=== PATIENT | female | born 1935 | race Caucasian/White ===

== ENCOUNTER → 2017-11-15 12:08 | Outpatient (CLI) | payer MEDICARE, SELFPAY ==
[2017-11-15 14:28] LABS: Hematocrit 36.7 % (37-47); Hemoglobin 11.7 g/dl (12.0-15.0); Mean Corp Hgb Conc 31.9 g/gl (32-36); Mean Corpuscular Hgb 34.4 pg (27.0-32.0); Mean Corpuscular Volume 107.9 fL (81-99); Mean Platelet Vol. 10.8 fl (6.2-12.0); Platelet Count 163 K/mm3 (150-450); RBC Distribution Width SD 50.6 fl (35.1-43.9); White Blood Count 5.5 K/mm3 (4.4-11.0)
[2017-11-15 14:29] LABS: Scan Indicated on CBC? Y/N NO
[2017-11-15 14:31] LABS: Albumin, Serum 3.4 g/dL (3.2-5.0); BUN 38 mg/dL (7-18); BUN/Creat Ratio 28.8 RATIO (10-20); Calcium,Total 8.6 mg/dL (8.5-10.1); Chloride 103 mmol/L (98-107); Creatinine, Serum 1.32 mg/dL (0.55-1.02); EST Glomerular Filtration Rate 41 mL/min (>60); Est Glom Filt Rate - Afr Amer 50 mL/min (>60); Glucose 90 mg/dL (74-106); Phosphorus 3.3 mg/dL (2.5-4.9); Potassium 4.1 mmol/L (3.5-5.1); Sodium Level 139 mmol/L (136-145)
[2017-11-15 14:35] LABS: Protein, Urine (Random) < 6.0 mg/dL (<11.9)
[2017-11-16 09:05] LABS: PTHIN 48.4 pg/mL (18.4-80.1)
[2017-11-16 09:39] LABS: Vitamin D,25 Hydroxy 58.7 ng/mL (29.95-100.01)
== END ==
PROVIDERS: Family Provider Family Medicine; PCP Family Medicine; Visit Provider Internal Medicine Nephrology
DX: N18.3 Chronic kidney disease, stage 3 (moderate) (principal); D63.1 Anemia in chronic kidney disease; N25.81 Secondary hyperparathyroidism of renal origin
CPT/HCPCS: 36415; 80069; 82306; 82570; 83970; 84156; 85027

== ENCOUNTER → 2017-12-03 11:21 | Outpatient (CLI) | payer MEDICARE, SELFPAY ==
[2017-12-03 16:03] LABS: T4 Free Direct 0.95 ng/dL (0.76-1.46); Thyroid Stim Hormone (TSH) 1.15 uIU/mL (0.358-3.74)
== END ==
PROVIDERS: Family Provider Family Medicine; PCP Family Medicine; Visit Provider Family Medicine
DX: R25.2 Cramp and spasm (principal); E03.9 Hypothyroidism, unspecified
CPT/HCPCS: 36415; 83735; 84439; 84443

== ENCOUNTER → 2018-01-14 11:44 | Outpatient (CLI) | payer MEDICARE, SELFPAY ==
--- NOTE | 2018-01-14 11:47 | RAD_ITS ---
STUDY: X-RAY CHEST REASON FOR EXAM: Female, 82 years old. Cough shortness of breath and fever TECHNIQUE: PA and lateral views of the chest. COMPARISON: Previous study of August 18, 2014 FINDINGS: There are chronic interstitial fibrotic changes of the lungs. There is no demonstrated pleural abnormality. The heart size is within normal limits. Status post cardiac valvular replacement changes are seen. Normal mediastinum and woody. Normal visualized pulmonary arteries. There are calcified plaques of the aortic arch. There is demineralization of the osseous structures. There is old mild compression deformity of the inferior aspects of one of the lower thoracic vertebrae. Normal visualized ribs, clavicles, and shoulders. There is no demonstrated abnormality of the visualized soft tissue structures of the upper abdomen. RAD/Chest PA and Lateral IMPRESSION: Status post cardiac valvular replacement changes. Calcified plaques of the aortic arch. No acute cardiopulmonary disease process is seen. Electronically Signed: Pradeep Love MD at 23:54 EDT , Service support ,
== END ==
PROVIDERS: Family Provider Family Medicine; PCP Family Medicine; Visit Provider Family Medicine
DX: J18.9 Pneumonia, unspecified organism (principal)
CPT/HCPCS: 71046

== ENCOUNTER → 2018-03-18 11:57 | Outpatient (CLI) | payer MEDICARE, SELFPAY ==
[2018-03-18 12:11] LABS: Hematocrit 38.2 % (37-47); Hemoglobin 12.4 g/dl (12.0-15.0); Mean Corp Hgb Conc 32.5 g/gl (32-36); Mean Corpuscular Hgb 34.3 pg (27.0-32.0); Mean Corpuscular Volume 105.5 fL (81-99); Mean Platelet Vol. 10.6 fl (6.2-12.0); Platelet Count 167 K/mm3 (150-450); RBC Distribution Width CV 13.3 % (11.6-14.6); RBC Distribution Width SD 50.3 fl (35.1-43.9); Red Blood Count 3.62 M/mm3 (4.2-5.4); White Blood Count 5.1 K/mm3 (4.4-11.0)
[2018-03-18 12:16] LABS: Scan Indicated on CBC? Y/N NO
[2018-03-18 12:18] LABS: Anion Gap 9 (5-15); BUN 40 mg/dL (7-18); BUN/Creat Ratio 27.4 RATIO (10-20); Calcium,Total 9.3 mg/dL (8.5-10.1); Chloride 102 mmol/L (98-107); Cholesterol 143 mg/dL (200); Creatinine, Serum 1.46 mg/dL (0.55-1.02); EST Glomerular Filtration Rate 36 mL/min (>60); Est Glom Filt Rate - Afr Amer 44 mL/min (>60); Glucose 89 mg/dL (74-106); High Density Lipoprotein 54 mg/dL; Potassium 4.3 mmol/L (3.5-5.1); Sodium Level 143 mmol/L (136-145); Triglycerides 119 mg/dL; Very Low Density Lipoprotein 24 mg/dL (5-40)
== END ==
PROVIDERS: Family Provider Family Medicine; PCP Family Medicine; Visit Provider Internal Medicine Cardiovascular Disease
DX: I25.10 Atherosclerotic heart disease of native coronary artery without angina pectoris (principal); Z98.890 Other specified postprocedural states
CPT/HCPCS: 80048; 80061; 85027

== ENCOUNTER → 2018-03-29 16:58 | Outpatient (CLI) | payer MEDICARE, SELFPAY ==
--- NOTE | 2018-03-29 17:11 | RAD_ITS ---
STUDY: X-RAY CHEST REASON FOR EXAM: Female, 83 years old. Cough. Status post mitral valve replacement in 2011 TECHNIQUE: 2 views COMPARISON: Prior chest radiograph of January 14, 2018. FINDINGS: Lung reina remain moderately well expanded with stable interstitial changes primarily in the mid and lower lung zones without new consolidation, focal atelectasis or a substantial pleural effusion. There is no demonstrated pleural abnormality. Normal cardiac size status post prior midline sternotomy for mitral valve replacement Normal mediastinum and woody. Normal visualized pulmonary arteries. There is atherosclerotic calcification of the aortic arch with tortuosity. There is demineralization of the osseous structures. Normal visualized ribs, clavicles, and shoulders. There is no demonstrated abnormality of the visualized soft tissue structures of the upper abdomen. RAD/Chest PA and Lateral IMPRESSION: No acute cardiopulmonary findings or changes. Negative for new consolidation, focal atelectasis, cardiomegaly or pleural effusion. Stable chronic lung changes. Normal cardiac size status post midline sternotomy for mitral valve replacement. Electronically Signed: Nabila Avila MD at 17:33 EDT , Service support ,
== END ==
PROVIDERS: Family Provider Family Medicine; PCP Family Medicine; Visit Provider Physician Assistant Medical
DX: R05 Cough (principal)
CPT/HCPCS: 71046

== ENCOUNTER → 2018-04-15 09:10 | Outpatient (CLI) | payer MEDICARE, SELFPAY ==
[2018-04-15 13:35] LABS: Anion Gap 10 (5-15); BUN 40 mg/dL (7-18); BUN/Creat Ratio 28.6 RATIO (10-20); Calcium,Total 8.8 mg/dL (8.5-10.1); Chloride 105 mmol/L (98-107); EST Glomerular Filtration Rate 38 mL/min (>60); Est Glom Filt Rate - Afr Amer 46 mL/min (>60); Glucose 88 mg/dL (74-106); Magnesium 2.2 mg/dL (1.6-2.6); Potassium 4.4 mmol/L (3.5-5.1); Sodium Level 143 mmol/L (136-145); Thyroid Stim Hormone (TSH) 1.95 uIU/mL (0.358-3.74)
== END ==
PROVIDERS: Family Provider Family Medicine; PCP Family Medicine; Visit Provider Internal Medicine Cardiovascular Disease
DX: R00.1 Bradycardia, unspecified (principal); I10 Essential (primary) hypertension
CPT/HCPCS: 80048; 83735; 84443

== ENCOUNTER → 2018-05-03 11:33 | Outpatient (CLI) | payer MEDICARE, SELFPAY | PROVIDERS: Family Provider Family Medicine; PCP Family Medicine; Visit Provider Physician Assistant Medical | DX: R05 Cough (principal) | CPT/HCPCS: 71046 ==

== ENCOUNTER → 2018-05-17 09:42 | Outpatient (CLI) | payer MEDICARE, SELFPAY ==
[2018-05-17 11:57] LABS: Hematocrit 37.6 % (37-47); Mean Corp Hgb Conc 31.9 g/gl (32-36); Mean Corpuscular Volume 106.5 fL (81-99); Mean Platelet Vol. 10.8 fl (6.2-12.0); Platelet Count 155 K/mm3 (150-450); RBC Distribution Width SD 49.3 fl (35.1-43.9); Red Blood Count 3.53 M/mm3 (4.2-5.4); White Blood Count 5.4 K/mm3 (4.4-11.0)
[2018-05-17 11:59] LABS: Scan Indicated on CBC? Y/N NO
[2018-05-17 12:14] LABS: Albumin, Serum 3.5 g/dL (3.2-5.0); BUN 38 mg/dL (7-18); BUN/Creat Ratio 25.5 RATIO (10-20); Chloride 104 mmol/L (98-107); Creatinine, Serum 1.49 mg/dL (0.55-1.02); EST Glomerular Filtration Rate 36 mL/min (>60); Est Glom Filt Rate - Afr Amer 43 mL/min (>60); Glucose 83 mg/dL (74-106); Phosphorus 2.7 mg/dL (2.5-4.9); Sodium Level 141 mmol/L (136-145)
[2018-05-17 12:15] LABS: Vitamin D,25 Hydroxy 37.9 ng/mL (29.95-100.01)
[2018-05-17 12:16] LABS: PTHIN 52.7 pg/mL (18.4-80.1)
[2018-05-17 13:56] LABS: Microalbumin,Random Urine < 5.0 mg/L (NO RANGE EST.)
== END ==
PROVIDERS: Family Provider Family Medicine; PCP Family Medicine; Visit Provider Internal Medicine Nephrology
DX: N18.3 Chronic kidney disease, stage 3 (moderate) (principal); D63.1 Anemia in chronic kidney disease; N25.81 Secondary hyperparathyroidism of renal origin
CPT/HCPCS: 36415; 80069; 82043; 82306; 82570; 83970; 84156; 85027

== ENCOUNTER → 2018-05-22 13:07 | Outpatient (CLI) | payer MEDICARE, SELFPAY ==
--- NOTE | 2018-05-22 13:10 | RAD_ITS ---
STUDY: X-RAY - LUMBAR SPINE REASON FOR EXAM: Female, 83 years old. Lower back pain for years. History of surgery. TECHNIQUE: 3 view(s) of the lumbar spine were obtained. COMPARISON: MRI of the lumbar spine, August 13, 2015. FINDINGS: There is an exaggerated lumbar lordosis. There is scoliosis of the thoracolumbar spine. There is anterolisthesis of L3 on L4 or of 4 mm. There is anterolisthesis of L4 on L5 of 3 mm. The alignment appears otherwise preserved. There is diffuse demineralization with multi-level endplate spondylosis. There is multi-level degenerative disc disease with multi-level disc space narrowing. There is posterior fusion of L5-S1. There is no evidence of acute fracture or loss of vertebral axial height. There is deformity of the inferior endplate of T12 consistent with remote compression deformity There is atherosclerotic calcification of the abdominal aorta without a demonstrated aneurysm. RAD/Lumbar Spine 2 or 3 Views IMPRESSION: 1. Surgical fusion of L5-S1 unchanged from prior study. 2. Stable degenerative changes when compared to previous examination. Electronically Signed: Judson Stack DO at 9:17 EDT Tel [phone], Service support ,
== END ==
PROVIDERS: Family Provider Family Medicine; PCP Family Medicine; Referring Provider Anesthesiology Pain Medicine; Visit Provider Anesthesiology Pain Medicine
DX: M54.9 Dorsalgia, unspecified (principal)
CPT/HCPCS: 72100

== ENCOUNTER → 2018-10-03 14:42 | Outpatient (CLI) | payer MEDICARE, SELFPAY ==
[2018-09-26 13:11] VITALS: BMI 32.1
--- NOTE | 2018-10-03 14:46 | CT_ITS ---
STUDY: CT CHEST WITHOUT CONTRAST REASON FOR EXAM: Female, 83 years old. Cough for 3 months RADIATION DOSAGE (If Supplied By Facility): CTDIvol = ( 12.68 ) mGy, DLP = ( 336.80 ) mGycm TECHNIQUE: Transaxial imaging was performed without the administration of intravenous contrast material. Multiplanar coronal and sagittal images were reformatted. Individualized dose optimization techniques were used for this CT. COMPARISON: None. FINDINGS: The lungs are underexpanded. Moderate subpleural reticular densities involving the upper, mid and lower lung zones. There is moderate, central, cylindrical bronchiectasis involving multiple pulmonary lobes. No localized groundglass opacity, airspace consolidation or pulmonary nodule. No jose honeycombing identified. There is no demonstrated pleural abnormality. Sternal wires and prostatic mitral valve demonstrated. Normal mediastinum. Normal hilar regions. Normal unenhanced pulmonary arteries. There is atherosclerotic calcification of the aortic arch with tortuosity and elongation of the aortic arch and descending thoracic aorta. There are multi-level degenerative changes of the thoracic spine. There is a small hiatal hernia. The adrenal glands are not focally enlarged. CT/Chest without Contrast IMPRESSION: 1. No airspace consolidation or pleural effusion. 2. Moderate subpleural fibrosis with bronchiectasis. Differential considerations favor idiopathic nonspecific interstitial pneumonia (fibrosing), hypersensitivity pneumonitis or drug induced interstitial lung disease. UIP considered less likely given lack of honeycombing. Electronically Signed: Charan Hernandez MD at 20:28 EST , Service support ,
== END ==
PROVIDERS: Family Provider Family Medicine; PCP Family Medicine; Referring Provider Internal Medicine Critical Care Medicine; Visit Provider Internal Medicine Critical Care Medicine
DX: J84.9 Interstitial pulmonary disease, unspecified (principal)
CPT/HCPCS: 71250

== ENCOUNTER → 2018-10-31 10:44 | Outpatient (CLI) | payer MEDICARE, SELFPAY ==
[2018-09-26 13:11] VITALS: BMI 32.1
--- NOTE | 2018-11-01 11:46 | PFT ---
INTRODUCTION: The patient is an 83-year-old female that presents for pulmonary function studies secondary to a diagnosis of interstitial pulmonary disease. Respiratory therapy reports good patient effort. Bronchodilators were used during testing. INTERPRETATION: Forced expiration spirometry demonstrates no evidence of a large airways obstructive ventilatory defect. There was no significant response to aerosolized bronchodilators. Spirograms are of good quality and plateau normally. Body plethysmography was performed and reveals a decreased TLC to 3.15 L, 73% of predicted, indicative of a mild restrictive ventilatory impairment. The remainder of the lung volumes are symmetrically reduced. Diffusing capacity by single breath CO is reduced at 46% of predicted. IMPRESSION: These pulmonary function studies demonstrate the presence of a mild restrictive ventilatory impairment with a disproportionate reduction in diffusing capacity. There are no previous pulmonary function studies available for comparison.
== END ==
PROVIDERS: Family Provider Family Medicine; PCP Family Medicine; Referring Provider Internal Medicine Critical Care Medicine; Visit Provider Internal Medicine Critical Care Medicine
DX: J84.9 Interstitial pulmonary disease, unspecified (principal)
CPT/HCPCS: 94060; 94726; 94729

== ENCOUNTER → 2018-11-05 10:44 | Outpatient (CLI) | payer MEDICARE, SELFPAY ==
[2018-09-26 13:11] VITALS: BMI 32.1
[2018-11-05 11:18] VITALS: PULSE 103; PULSE 104; PULSE 106; PULSE 110; PULSE 112; PULSE 69; PULSE 72; O2SAT 91; O2SAT 92; O2SAT 93; O2SAT 94; O2SAT 95
--- NOTE | 2018-11-05 11:23 | CPS ---
MRS[address] L[address] RESTED FROM 205 TO 220 AND AGAIN FROM 315 TO 330.
--- NOTE | 2018-11-06 09:55 | PCM.PSN.6M ---
PSN 6 Minute Walk Test - 6 Minute Walk Test 6 Minute Walk Test: 6 Minute Walk Test PSN:6-Minute Walk Test Start: 11/05/18 11:18 Freq: Status: Active Protocol: [id number].6MINW Document 11/05/18 11:18 FR (Rec: 11/05/18 11:25 FR [id number]) 6 Minute Walk Test Date Performed 11/05/18 Time Performed 11:00 Height 5 ft 2 in Weight: 165 lb Weight in Pounds 165.[address]: Hira Michel Assistive device used: Cane Pre-test Oxygen Delivery Method Room Air Pulse Ox (%) 95 Pulse Rate (60-100 beats/min) 69 Dyspnea Ed Scale (0-10) 0 Exertion Ed Scale (6-20) 6 1st minute Oxygen Delivery Method Room Air Pulse Ox (%) 94 Pulse Rate (60-100 beats/min) 72 2nd minute Oxygen Delivery Method Room Air Pulse Ox (%) 91 Pulse Rate (60-100 beats/min) 106 H Number of Rests Taken 1 3rd minute Oxygen Delivery Method Room Air Pulse Ox (%) 91 Pulse Rate (60-100 beats/min) 103 H Number of Rests Taken 1 4th minute Oxygen Delivery Method Room Air Pulse Ox (%) 93 Pulse Rate (60-100 beats/min) 110 H 5th minute Oxygen Delivery Method Room Air Pulse Ox (%) 92 Pulse Rate (60-100 beats/min) 112 H 6th minute Oxygen Delivery Method Room Air Pulse Ox (%) 94 Pulse Rate (60-100 beats/min) 104 H Post-test Oxygen Delivery Method Room Air Pulse Ox (%) 95 Pulse Rate (60-100 beats/min) 69 Dyspnea Ed Scale (0-10) 0 Exertion Ed Scale (6-20) 6 Full Laps Walked 10 Partial Lap, Number of Tiles Walked 25 Total Distance Walked (ft) 615 11/05/18 11:23 Cardiopulmonary Services by Diana Shepard MRS[address] L[address] RESTED FROM [address] TO 220 AND AGAIN FROM 315 TO 330. Initialized on 11/05/18 11:23 - END OF NOTE - Interpretation Interpretation: The patient ambulated 615 feet over the course of 6 minutes beginning on room air with the use of a cane. Pretesting oxygen saturation was noted to be 95% on room air. With ambulation, the bandar oxygen saturation was 91%. This represents a significant exertional oxygen desaturation. - Recommendations Recommendations: There is no indication for the use of supplemental oxygen at this time. However, close interval follow-up is recommended, given the degree of oxygen desaturation noted during this study.
== END ==
PROVIDERS: Family Provider Family Medicine; PCP Family Medicine; Referring Provider Internal Medicine Critical Care Medicine; Visit Provider Internal Medicine Critical Care Medicine
DX: J84.9 Interstitial pulmonary disease, unspecified (principal)
CPT/HCPCS: 94618

== ENCOUNTER → 2018-11-12 15:13 | Outpatient (CLI) | payer MEDICARE, SELFPAY ==
[2018-09-26 13:11] VITALS: BMI 32.1
--- NOTE | 2018-11-12 15:19 | RAD_ITS ---
STUDY: X-RAY - LEFT HIP and pelvis x-ray REASON FOR EXAM: Female, 83 years old. Pain TECHNIQUE: 2 views of the hip. An pelvis x-ray COMPARISON: None. FINDINGS: There is visualized spinal fusion L5-S1. There has been a laminectomy. There is degenerative change in the lower lumbar spine. There is degenerative change in the visualized symphysis pubis. There is mild degenerative change of both hip joints. There is minimal acetabular spurring. There is no apparent acute fracture. There is a sclerotic density in the left greater trochanter with well-circumscribed borders measuring 7 mm. Normal visualized superior and inferior pubic rami and ischial tuberosities. RAD/HIP, UNI W/ Pelvis 2-3 Views IMPRESSION: Degenerative change of the bilateral hip joints. No visualized acute fracture. Status post spinal fusion degenerative change lumbar spine. Electronically Signed: Jacklyn Ramos MD at 15:59 EDT Tel , Service support ,
--- NOTE | 2018-11-12 15:20 | RAD_ITS ---
STUDY: X-RAY - SACROILIAC JOINTS REASON FOR EXAM: Female, 83 years old. Pain TECHNIQUE: 3 view(s) of the sacroiliac joints were obtained. COMPARISON: None. FINDINGS: There are degenerative changes of the bilateral sacroiliac joints. Normal visualized sacral ala and sacrum. There is been a laminectomy at L5-S1. There is dextroscoliosis of the lumbar spine. There is visualized degenerative change of the bilateral hip joints. Normal visualized iliac bones. Normal visualized soft tissue structures. RAD/S-I Jts 3 or More Views IMPRESSION: Status post spinal fusion L5-S1 laminectomy. Degenerative change of the SI joints. If pain persists recommend CT scan pelvis. Electronically Signed: Jacklyn Ramos MD at 16:01 EDT Tel , Service support ,
== END ==
PROVIDERS: Family Provider Family Medicine; PCP Family Medicine; Referring Provider Family Medicine; Visit Provider Family Medicine
DX: M54.5 Low back pain (principal); M25.552 Pain in left hip
CPT/HCPCS: 72202; 73502

== ENCOUNTER → 2018-11-19 09:50 | Outpatient (CLI) | payer MEDICARE, SELFPAY ==
[2018-11-19 09:03] VITALS: BMI 30.9
[2018-11-19 10:17] LABS: Erythrocyte Sedimentation Rate 33 mm/hr (0-30)
[2018-11-19 10:46] LABS: CRP 6.45 mg/L (0.0-3.0); Rheumatoid Factor < 10.0 IU/mL (<15)
[2018-11-19 17:58] LABS: Xtra Tube EP Lab EXTRA TUBE
[2018-11-22 13:51] LABS: CCP IgG Antibodies 3 units (0-19)
== END ==
PROVIDERS: Family Provider Family Medicine; PCP Family Medicine; Referring Provider Internal Medicine Critical Care Medicine; Visit Provider Internal Medicine Critical Care Medicine
DX: J84.9 Interstitial pulmonary disease, unspecified (principal)
CPT/HCPCS: 36415; 85652; 86140; 86200; 86431; 94667

== ENCOUNTER → 2018-11-26 16:21 | Outpatient (CLI) | payer MEDICARE, SELFPAY ==
[2018-11-19 09:03] VITALS: BMI 30.9
[2018-11-26 17:38] LABS: Amphetamine Urine VISTA NEGATIVE (<1000 ng/mL); Barbiturate Urine VISTA NEGATIVE (< 200 ng/mL); Benzodiazepine Urine VISTA NEGATIVE (< 200 ng/mL); Cocaine Urine VISTA NEGATIVE (< 300 ng/mL); Ecstacy Urine VISTA NEGATIVE (< 500 ng/mL); Methadone Urine VISTA NEGATIVE (< 300 ng/mL); PCP Urine VISTA NEGATIVE (< 25 ng/mL); THC Urine VISTA NEGATIVE (< 50 ng/mL); Vista UDS pH Range 6
== END ==
PROVIDERS: Family Provider Family Medicine; PCP Family Medicine; Referring Provider Anesthesiology Pain Medicine; Visit Provider Anesthesiology Pain Medicine
DX: F11.20 Opioid dependence, uncomplicated (principal)
CPT/HCPCS: 80307

== ENCOUNTER → 2018-12-06 15:50 | Outpatient (CLI) | payer MEDICARE, SELFPAY ==
[2018-11-19 09:03] VITALS: BMI 30.9
[2018-12-06 17:25] LABS: Hematocrit 37.9 % (37-47); Hemoglobin 12.4 g/dl (12.0-15.0); Mean Corp Hgb Conc 32.7 g/gl (32-36); Mean Corpuscular Hgb 33.4 pg (27.0-32.0); Mean Corpuscular Volume 102.2 fL (81-99); Platelet Count 117 K/mm3 (150-450); RBC Distribution Width CV 13.3 % (11.6-14.6); RBC Distribution Width SD 48.8 fl (35.1-43.9); Red Blood Count 3.71 M/mm3 (4.2-5.4); White Blood Count 9.2 K/mm3 (4.4-11.0)
[2018-12-06 17:27] LABS: Scan Indicated on CBC? Y/N NO
[2018-12-06 17:31] LABS: Prothrombin Time (Protime)PT. 13.3 SECONDS (11.7-14.9)
== END ==
PROVIDERS: Family Provider Family Medicine; PCP Family Medicine; Referring Provider Internal Medicine Cardiovascular Disease; Visit Provider Internal Medicine Cardiovascular Disease
DX: I25.10 Atherosclerotic heart disease of native coronary artery without angina pectoris (principal)
CPT/HCPCS: 85027; 85610

== ENCOUNTER → 2018-12-24 | Outpatient (CLI) | payer MEDICARE, SELFPAY ==
[2018-11-19 09:03] VITALS: BMI 30.9
--- NOTE | 2018-12-24 12:02 | RAD_ITS ---
STUDY: X-RAY - LUMBAR SPINE REASON FOR EXAM: Female, 83 years old. 2011 laminectomy and fusion, follow-up. TECHNIQUE: 4 view(s) of the lumbar spine were obtained. COMPARISON: None FINDINGS: Osteopenia. S-shaped scoliosis of the lumbar spine. L5-S1 posterior jamal and pedicle screw fixation, surgical construct intact. Preserved lordosis. Normal vertebral body height and alignment. Moderately severe disc narrowing, multilevel disc vacuum changes, endplate degenerative changes involving T12-L5. Multilevel facet arthropathy/hypertrophy. Prominent osteopenia. RAD/Lumbar Spine 2 or 3 Views IMPRESSION: L5-S1 surgical construct intact. Scoliosis. Prominent multilevel spondylosis. Electronically Signed: Rigoberto Nascimento MD at 18:09 EDT Tel , Service support ,
== END | disposition home or self-care (01) ==
LOC: RAD 11:38
PROVIDERS: Family Provider Family Medicine; PCP Family Medicine; Referring Provider Anesthesiology Pain Medicine; Visit Provider Anesthesiology Pain Medicine
DX: M41.9 Scoliosis, unspecified (principal); W19.XXXA Unspecified fall, initial encounter; Z98.1 Arthrodesis status
CPT/HCPCS: 72100

== ENCOUNTER → 2019-01-21 | Outpatient (CLI) | payer MEDICARE, SELFPAY ==
[2018-11-19 09:03] VITALS: BMI 30.9
[2019-01-21 14:17] LABS: Hematocrit 36.2 % (37-47); Hemoglobin 11.5 g/dl (12.0-15.0); Mean Corp Hgb Conc 31.8 g/gl (32-36); Mean Corpuscular Hgb 33.3 pg (27.0-32.0); Mean Corpuscular Volume 104.9 fL (81-99); Mean Platelet Vol. 10.1 fl (6.2-12.0); Platelet Count 173 K/mm3 (150-450); RBC Distribution Width CV 14.8 % (11.6-14.6); RBC Distribution Width SD 56.6 fl (35.1-43.9); Red Blood Count 3.45 M/mm3 (4.2-5.4); White Blood Count 7.2 K/mm3 (4.4-11.0)
[2019-01-21 14:21] LABS: Scan Indicated on CBC? Y/N NO
[2019-01-21 14:24] LABS: Protein, Urine (Random) < 6.0 mg/dL (<11.9)
[2019-01-21 14:27] LABS: Albumin, Serum 3.3 g/dL (3.2-5.0); BUN 28 mg/dL (7-18); BUN/Creat Ratio 21.7 RATIO (10-20); Calcium,Total 8.8 mg/dL (8.5-10.1); Chloride 103 mmol/L (98-107); Creatinine, Serum 1.29 mg/dL (0.55-1.02); EST Glomerular Filtration Rate 42 mL/min (>60); Est Glom Filt Rate - Afr Amer 51 mL/min (>60); Glucose 88 mg/dL (74-106); Phosphorus 2.7 mg/dL (2.5-4.9); Potassium 4.3 mmol/L (3.5-5.1); Sodium Level 142 mmol/L (136-145); Thyroid Stim Hormone (TSH) 1.08 uIU/mL (0.358-3.74)
[2019-01-21 14:29] LABS: PTHIN 75.5 pg/mL (18.4-80.1); Vitamin D,25 Hydroxy 45.6 ng/mL (29.95-100.01)
== END | disposition home or self-care (01) ==
LOC: MTLAB 12:02
PROVIDERS: Family Provider Family Medicine; PCP Family Medicine; Referring Provider Family Medicine; Visit Provider Family Medicine
DX: N18.3 Chronic kidney disease, stage 3 (moderate) (principal); D63.1 Anemia in chronic kidney disease; N25.81 Secondary hyperparathyroidism of renal origin; E03.9 Hypothyroidism, unspecified
CPT/HCPCS: 36415; 80069; 82306; 82570; 83970; 84156; 84443; 85027

== ENCOUNTER → 2019-03-25 | Outpatient (CLI) | payer MEDICARE, SELFPAY ==
[2019-02-20 11:07] VITALS: BMI 28.9
== END | disposition home or self-care (01) ==
LOC: BFHLAB 16:55
PROVIDERS: Family Provider Family Medicine; PCP Family Medicine; Visit Provider Family Medicine
DX: N30.00 Acute cystitis without hematuria (principal)
CPT/HCPCS: 87086; 87088; 87186

== ENCOUNTER → 2019-03-27 | Outpatient (CLI) | payer MEDICARE, SELFPAY ==
[2019-02-20 11:07] VITALS: BMI 28.9
--- NOTE | 2019-03-27 14:24 | RAD_ITS ---
STUDY: X-RAY - LUMBAR SPINE REASON FOR EXAM: Female, 84 years old. Low back pain TECHNIQUE: 5 view(s) of the lumbar spine were obtained. COMPARISON: 12/24/2018 FINDINGS: Normal lumbar lordosis. S-shaped scoliosis with levoscoliosis of the upper lumbar spine and dextroscoliosis lower lumbar spine. Status post transpedicular fixation at L5/S1 with anatomic alignment. 5 mm of anterolisthesis of L3 on L4 which is unchanged. Moderate loss of height of the L2 vertebral body consistent with a chronic compression fracture which is unchanged. Diffuse disc space narrowing and osteophyte formation consistent with degenerative disc disease. The soft tissue structures are unremarkable. RAD/L/S Spine Min 4 Views IMPRESSION: No change from 12/24/2018. Electronically Signed: Rigoberto Mitchell MD at 16:08 EDT Tel , Service support ,
== END | disposition home or self-care (01) ==
LOC: HPRAD 14:22
PROVIDERS: Family Provider Family Medicine; PCP Family Medicine; Referring Provider Family Medicine; Visit Provider Family Medicine
DX: M54.5 Low back pain (principal)
CPT/HCPCS: 72110

== ENCOUNTER → 2019-04-23 | Outpatient (CLI) | payer MEDICARE, SELFPAY ==
[2019-02-20 11:07] VITALS: BMI 28.9
[2019-04-23 12:32] LABS: Erythrocyte Sedimentation Rate 38 mm/hr (0-30)
[2019-04-23 12:53] LABS: CRP 5.89 mg/L (0.0-3.0); Rheumatoid Factor < 10.0 IU/mL (<15)
[2019-04-25 13:05] LABS: CCP IgG Antibodies 7 units (0-19)
== END | disposition home or self-care (01) ==
LOC: BFHLAB 10:11
PROVIDERS: Family Provider Family Medicine; PCP Family Medicine; Visit Provider Family Medicine
DX: M06.4 Inflammatory polyarthropathy (principal); M35.3 Polymyalgia rheumatica
CPT/HCPCS: 36415; 85652; 86140; 86200; 86431

== ENCOUNTER → 2019-05-20 09:30 | Outpatient (CLI) | payer MEDICARE, SELFPAY ==
[2019-05-13 10:41] VITALS: BMI 29.6
--- NOTE | 2019-05-20 09:32 | RAD_ITS ---
STUDY: X-RAY CHEST REASON FOR EXAM: Female, 84 years old. Fever and chills TECHNIQUE: PA and 2 lateral views of the chest. COMPARISON: 05/03/2018 FINDINGS: The lungs are underexpanded with chronic interstitial changes. There is no demonstrated pleural abnormality. Sternal cerclage wires are present from a prior sternotomy, and valve replacement. Normal mediastinum and woody. Normal visualized pulmonary arteries. Normal visualized aortic arch and descending thoracic aorta. Normal visualized thoracic spine. Normal visualized ribs, clavicles, and shoulders. There is no demonstrated abnormality of the visualized soft tissue structures of the upper abdomen. RAD/Chest PA and Lateral IMPRESSION: Chronic interstitial changes, no superimposed acute pulmonary process Electronically Signed: Tobi Thompson MD at 16:57 EDT , Service support ,
== END ==
PROVIDERS: Family Provider Family Medicine; PCP Family Medicine; Referring Provider Family Medicine; Visit Provider Family Medicine
DX: J84.9 Interstitial pulmonary disease, unspecified (principal)
CPT/HCPCS: 71046

== ENCOUNTER → 2019-05-28 15:22 | Outpatient (CLI) | payer MEDICARE, SELFPAY ==
[2019-05-13 10:41] VITALS: BMI 29.6
== END ==
PROVIDERS: Family Provider Family Medicine; PCP Family Medicine; Visit Provider Family Medicine
DX: R10.2 Pelvic and perineal pain (principal); M54.9 Dorsalgia, unspecified
CPT/HCPCS: 87086; 87088

== ENCOUNTER → 2019-06-18 13:51 | Outpatient (CLI) | payer MEDICARE, SELFPAY ==
[2019-06-18 12:32] VITALS: BMI 29.2
[2019-06-18 16:21] LABS: BNP,B-Type NATRIURETIC PEPTIDE 169.8 pg/mL (0-100)
== END ==
PROVIDERS: Family Provider Family Medicine; PCP Family Medicine; Referring Provider Internal Medicine Cardiovascular Disease; Visit Provider Internal Medicine Cardiovascular Disease
DX: I50.32 Chronic diastolic (congestive) heart failure (principal)
CPT/HCPCS: 36415; 83880

== ENCOUNTER → 2019-06-30 14:32 | Outpatient (CLI) | payer MEDICARE, SELFPAY ==
[2019-06-18 12:32] VITALS: BMI 29.2
[2019-06-30 17:30] LABS: Absolute Lymphocyte Count 0.93 X10^3/uL (0.83-4.51); Basophil# 0.04 X10^3/uL; Basophil% 0.5 % (0-1); Eosinophil# 0.07 X10^3/uL; Eosinophils% 0.9 % (0-5); Hematocrit 35.3 % (37-47); Hemoglobin 11.2 g/dL (12.0-15.0); Lymphocyte # 0.93 X10^3/ul (4.0); Mean Corp Hgb Conc 31.7 g/dL (32-36); Mean Corpuscular Volume 107.3 fL (81-99); Mean Platelet Vol. 10.6 fl (6.2-12.0); Monocyte# 0.65 X10^3/uL; Monocyte% 8.4 % (0-10); NRBC Flagged by Analyzer 0 % (0-5); Neutrophil # 5.98 X10^3/uL (2.7-7.7); Neutrophil % 77.3 % (47-70); Platelet Count 149 K/mm3 (150-450); RBC Distribution Width CV 15.6 % (11.6-14.6); RBC Distribution Width SD 62.3 fl (35.1-43.9); Red Blood Count 3.29 M/mm3 (4.2-5.4); White Blood Count 7.7 K/mm3 (4.4-11.0)
[2019-06-30 17:33] LABS: AST(SGOT) 28 U/L (15-37); Alanine Aminotransfer ALT/SGPT 25 U/L (13-56); Anion Gap 11 (5-15); BUN 58 mg/dL (7-18); BUN/Creat Ratio 23.7 RATIO (10-20); Calcium,Total 8.9 mg/dL (8.5-10.1); Chloride 100 mmol/L (98-107); Creatinine, Serum 2.45 mg/dL (0.55-1.02); EST Glomerular Filtration Rate 20 mL/min (>60); Est Glom Filt Rate - Afr Amer 24 mL/min (>60); Glucose 117 mg/dL (74-106); Lipase 188 U/L (73-393); Magnesium 2.5 mg/dL (1.6-2.6); Potassium 4.5 mmol/L (3.5-5.1); Sodium Level 136 mmol/L (136-145)
== END ==
PROVIDERS: Family Provider Family Medicine; PCP Family Medicine; Visit Provider Family Medicine
DX: R10.2 Pelvic and perineal pain (principal); R19.7 Diarrhea, unspecified; I48.91 Unspecified atrial fibrillation
CPT/HCPCS: 36415; 80048; 83690; 83735; 84450; 84460; 85025

== ENCOUNTER → 2019-07-02 13:29 | Outpatient (CLI) | payer MEDICARE, SELFPAY ==
[2019-06-18 12:32] VITALS: BMI 29.2
--- NOTE | 2019-07-02 13:31 | ECHOD_ITS ---
Reason For Study: ATRIAL FIB-FLUTTER Procedure This was a 2D Doppler, Color Flow transthoracic echocardiogram. Exam performed in department. Left Ventricle Normal LV size. Left ventricular systolic function is normal. The estimated ejection fraction is 65 %. No regional wall motion abnormalities noted. Right Ventricle Normal RV size. Normal systolic function. Atria The left atrium is mildly enlarged. The right atrium is mildly enlarged. Mitral Valve Mild (1+) mitral valve insufficiency. Bioprosthetic mitral valve. Tricuspid Valve Normal tricuspid valve. Mild tricuspid valve insufficiency. Aortic Valve Trisinus/trileaflet aortic valve. Mild focal aortic valve calcification. Mild (1+) eccentric aortic valve insufficiency. Pulmonic Valve The pulmonic valve is not well visualized. Great Vessels Calcified aortic root. The pulmonary artery is normal size. Normal inferior vena cava. Pericardium/Pleural No pericardial effusion. MMode/2D Measurements & Calculations LVIDd: 3.7 cm IVSd: 0.90 cm Ao root diam: 3.1 cm LVIDs: 2.8 cm LVPWd: 1.0 cm RVDd: 3.0 cm FS: 23.6 % LAV(MOD-bp): 73.3 ml LVAd ap4: 19.2 cm2 SV(MOD-sp4): 22.6 ml LAV(MOD-bp) Indexed: 42.1 ml/m2 EDV(MOD-sp4): 41.4 ml LAV(MOD-sp2): 78.5 ml EDV(sp4-el): 42.4 ml LAV(MOD-sp4): 67.5 ml LVAs ap4: 11.3 cm2 ESV(MOD-sp4): 18.8 ml ESV(sp4-el): 18.7 ml EF(MOD-sp4): 54.6 % EF(sp4-el): 55.9 % SV(sp4-el): 23.7 ml LA A4 area: 23.3 cm2 LA dimension(2D): 4.0 cm RA A4 area: 22.4 cm2 Doppler Measurements & Calculations MV E max janeen: 115.4 cm/sec MV P1/2t max janeen: 143.4 cm/sec Ao V2 max: 143.8 cm/sec MV P1/2t: 77.1 msec Ao max P.3 mmHg MV dec slope: 544.7 cm/sec2 MVA(P1/2t): 2.9 cm2 LV V1 max: 111.0 cm/sec PA V2 max: 69.4 cm/sec TR max janeen: 229.7 cm/sec LV V1 max P.0 mmHg TR max P.1 mmHg Interpretation Summary Normal LV size. Left ventricular systolic function is normal. The estimated ejection fraction is 65 %. The left atrium is mildly enlarged. The right atrium is mildly enlarged. Bioprosthetic mitral valve. Mild (1+) mitral valve insufficiency. Ordering Physician: Juan Luis Ye Referring Physician: HALINA VARGAS Performed By: Alisia Ruby RDCS
== END ==
PROVIDERS: Family Provider Family Medicine; PCP Family Medicine; Referring Provider Internal Medicine Cardiovascular Disease; Visit Provider Internal Medicine Cardiovascular Disease
DX: I50.32 Chronic diastolic (congestive) heart failure (principal); Z95.1 Presence of aortocoronary bypass graft
CPT/HCPCS: 93306

== ENCOUNTER → 2019-07-04 13:29 | Outpatient (CLI) | payer MEDICARE, SELFPAY ==
[2019-06-18 12:32] VITALS: BMI 29.2
[2019-07-04 16:08] LABS: Absolute Lymphocyte Count 0.72 X10^3/uL (0.83-4.51); Absolute Neutrophil Count 6.8 X10^3/uL (2.0-7.7); Basophil# 0.01 X10^3/uL; Basophil% 0.1 % (0-1); Hematocrit 33.1 % (37-47); Hemoglobin 10.5 g/dL (12.0-15.0); Lymphocyte # 0.72 X10^3/ul (4.0); Lymphocyte % 9.2 % (19-41); Mean Corp Hgb Conc 31.7 g/dL (32-36); Mean Corpuscular Hgb 34.5 pg (27.0-32.0); Mean Corpuscular Volume 108.9 fL (81-99); Mean Platelet Vol. 10.5 fl (6.2-12.0); Monocyte# 0.19 X10^3/uL; Monocyte% 2.4 % (0-10); NRBC Flagged by Analyzer 0 % (0-5); Neutrophil # 6.78 X10^3/uL (2.7-7.7); POSITIVE MORPHOLOGY YES; Platelet Count 179 K/mm3 (150-450); RBC Distribution Width CV 15.4 % (11.6-14.6); RBC Distribution Width SD 61.4 fl (35.1-43.9); Red Blood Count 3.04 M/mm3 (4.2-5.4); White Blood Count 7.8 K/mm3 (4.4-11.0)
[2019-07-04 16:22] LABS: Anion Gap 8 (5-15); BUN 51 mg/dL (7-18); BUN/Creat Ratio 32.5 RATIO (10-20); Calcium,Total 8.6 mg/dL (8.5-10.1); Chloride 102 mmol/L (98-107); Creatinine, Serum 1.57 mg/dL (0.55-1.02); EST Glomerular Filtration Rate 33 mL/min (>60); Est Glom Filt Rate - Afr Amer 40 mL/min (>60); Ferritin 276 ng/mL (8-252); Glucose 127 mg/dL (74-106); Iron 125 ug/dL (50-170); Potassium 4.2 mmol/L (3.5-5.1); Sodium Level 138 mmol/L (136-145)
[2019-07-04 18:10] LABS: Differential Indicated SCAN CRITERIA MET
[2019-07-04 18:12] LABS: Platelet Estimate ADEQUATE (ADEQ)
[2019-07-04 18:13] LABS: Anisocytosis 2+; Macrocytosis 2+; Red Cell Morphology N CHROM NORMAL (NORM C&C)
== END ==
PROVIDERS: Family Provider Family Medicine; PCP Family Medicine; Visit Provider Family Medicine
DX: N18.9 Chronic kidney disease, unspecified (principal); D64.9 Anemia, unspecified
CPT/HCPCS: 36415; 80048; 82728; 83540; 85025

== ENCOUNTER → 2019-07-10 15:46 | Outpatient (CLI) | payer MEDICARE, SELFPAY ==
[2019-06-18 12:32] VITALS: BMI 29.2
--- NOTE | 2019-07-10 15:50 | CT_ITS ---
STUDY: CT ABDOMEN AND PELVIS WITHOUT CONTRAST REASON FOR EXAM: Female, 84 years old. Bilateral lower quadrant pain. RADIATION DOSAGE (If Supplied By Facility): CTDIvol = ( 11.77 ) mGy, DLP = ( 594.22 ) mGycm TECHNIQUE: Transaxial images were obtained from the dome of the diaphragm to the symphysis pubis with oral contrast, and without intravenous contrast. Sagittal and coronal images were reconstructed. Individualized dose optimization techniques were used for this CT. COMPARISON: None. FINDINGS: There are bilateral subpleural interstitial changes honeycombing suggestive of pulmonary fibrosis. Heart is enlarged with coronary artery calcifications. Normal liver. There is non-visualization of the gallbladder, which may be secondary to either contraction or a prior cholecystectomy. Normal spleen. Normal pancreas. Normal bilateral adrenal glands. Normal right kidney. Normal left kidney. Moderate to large hiatal hernia. Normal small intestine. There is moderate to abundant fecal debris within the colon consistent with mild constipation. The appendix is visualized and appears normal. There is diffuse atherosclerotic calcification of the abdominal aorta,. There is distal aneurysmal dilatation of the aorta to a diameter of 3.1 x 2.7 cm.. Normal inferior vena cava. Normal retroperitoneum. Normal urinary bladder. The uterus is anteverted and atrophic. Normal abdominal wall. There are diffuse degenerative changes of the visualized lumbar spine. There is minimal anterolisthesis of L4 on L5. CT/Abdomen/Pelvis without Cont IMPRESSION: Abdominal aortic aneurysm reaching maximal diameter of 3.1 x 2.7 cm. Moderate to large hiatal hernia. Possible mild constipation. Electronically Signed: Lupe Dejesus MD at 6:33 EST , Service support ,
== END ==
PROVIDERS: Family Provider Family Medicine; PCP Family Medicine; Referring Provider Family Medicine; Visit Provider Family Medicine
DX: R10.32 Left lower quadrant pain (principal); R10.31 Right lower quadrant pain; R19.7 Diarrhea, unspecified
CPT/HCPCS: 74176

== ENCOUNTER → 2019-07-21 10:58 | Outpatient (CLI) | payer MEDICARE, SELFPAY ==
[2019-06-18 12:32] VITALS: BMI 29.2
[2019-07-21 12:33] LABS: Protein, Urine (Random) < 6.0 mg/dL (<11.9)
[2019-07-21 12:46] LABS: Anion Gap 7 (5-15); BUN 50 mg/dL (7-18); BUN/Creat Ratio 31.4 RATIO (10-20); Calcium,Total 8.9 mg/dL (8.5-10.1); Chloride 102 mmol/L (98-107); Creatinine, Serum 1.59 mg/dL (0.55-1.02); EST Glomerular Filtration Rate 33 mL/min (>60); Est Glom Filt Rate - Afr Amer 40 mL/min (>60); Glucose 106 mg/dL (74-106); Potassium 3.8 mmol/L (3.5-5.1); Sodium Level 139 mmol/L (136-145)
== END ==
PROVIDERS: Family Provider Family Medicine; PCP Family Medicine; Referring Provider Internal Medicine Nephrology; Visit Provider Internal Medicine Nephrology
DX: N18.3 Chronic kidney disease, stage 3 (moderate) (principal)
CPT/HCPCS: 36415; 80048; 82570; 84156

== ENCOUNTER → 2019-07-22 14:54 | Outpatient (CLI) | payer MEDICARE, SELFPAY ==
[2019-06-18 12:32] VITALS: BMI 29.2
[2019-07-22 17:58] LABS: Anion Gap 9 (5-15); BUN 51 mg/dL (7-18); BUN/Creat Ratio 26.2 RATIO (10-20); CRP < 2.90 mg/L (0.0-3.0); Calcium,Total 8.7 mg/dL (8.5-10.1); Chloride 106 mmol/L (98-107); Creatinine, Serum 1.95 mg/dL (0.55-1.02); EST Glomerular Filtration Rate 26 mL/min (>60); Est Glom Filt Rate - Afr Amer 32 mL/min (>60); Glucose 129 mg/dL (74-106); Iron 153 ug/dL (50-170); Potassium 4.1 mmol/L (3.5-5.1); Sodium Level 140 mmol/L (136-145); T4 Free Direct 0.67 ng/dL (0.76-1.46); Thyroid Stim Hormone (TSH) 0.96 uIU/mL (0.358-3.74)
[2019-07-22 18:06] LABS: Absolute Lymphocyte Count 0.76 X10^3/uL (0.83-4.51); Absolute Neutrophil Count 7.3 X10^3/uL (2.0-7.7); Basophil# 0.01 X10^3/uL; Basophil% 0.1 % (0-1); Eosinophil# 0.03 X10^3/uL; Eosinophils% 0.3 % (0-5); Hematocrit 35.7 % (37-47); Hemoglobin 11.2 g/dL (12.0-15.0); Lymphocyte # 0.76 X10^3/ul (4.0); Lymphocyte % 8.7 % (19-41); Mean Corp Hgb Conc 31.4 g/dL (32-36); Mean Corpuscular Volume 111.6 fL (81-99); Monocyte# 0.53 X10^3/uL; Monocyte% 6.1 % (0-10); NRBC Flagged by Analyzer 0 % (0-5); Neutrophil # 7.34 X10^3/uL (2.7-7.7); Neutrophil % 84.1 % (47-70); Platelet Count 132 K/mm3 (150-450); RBC Distribution Width CV 15.3 % (11.6-14.6); RBC Distribution Width SD 63.2 fl (35.1-43.9); White Blood Count 8.7 K/mm3 (4.4-11.0)
[2019-07-23 08:46] LABS: Platelet Count 130 K/mm3 (150-450); RET-HE 40.1 pg (30-35); Reticulocyte Count 2.35 % (0.5-1.5)
[2019-07-24 00:10] LABS: Erythrocyte Sedimentation Rate 5 mm/hr (0-30)
[2019-07-25 14:17] LABS: Pathologist Review Reviewed
== END ==
PROVIDERS: Family Provider Family Medicine; PCP Family Medicine; Visit Provider Family Medicine
DX: E03.9 Hypothyroidism, unspecified (principal); K92.2 Gastrointestinal hemorrhage, unspecified; M35.3 Polymyalgia rheumatica; D53.9 Nutritional anemia, unspecified
CPT/HCPCS: 36415; 80048; 83540; 84439; 84443; 85025; 85045; 85652; 86140

== ENCOUNTER → 2019-07-29 09:41 | Outpatient (CLI) | payer MEDICARE, SELFPAY ==
[2019-02-20 11:07] VITALS: BMI 28.9
[2019-06-18 12:32] VITALS: BMI 29.2
--- NOTE | 2019-07-29 13:07 | PFTCOMP ---
COMPLETE PULMONARY FUNCTION TEST INTERPRETATION Brief HPI: Patient is an 84 year old female, currently under the care of myself, who presents to [facility] for complete pulmonary function tests secondary to diagnosis of bronchiectasis. Respiratory therapist reports good effort and reproducible results. Interpretation: Forced expiration spirometry shows no large airways obstructive ventilatory defect with an FEV1 of 88% predicted. There is no significant bronchodilator response by strict ATS criteria. Spirograms are of good quality and plateau normally. The respiratory flow volume loop shows a normal pattern. Lung volumes by body plethysmography show a normal total lung capacity at 3.49 L, 81% predicted. All other lung volumes are reduced symmetrically. Diffusion capacity by carbon monoxide is decreased at 49% predicted. The airway resistance is normal. Compared to previous pulmonary function tests from 10/31/2018, there is been some improvement in lung volumes, but this does not reach clinical significance by ATS criteria. Impression: Isolated reduction in diffusion capacity consistent with a pulmonary vascular disorder.
== END ==
PROVIDERS: Family Provider Family Medicine; PCP Family Medicine; Referring Provider Internal Medicine Critical Care Medicine; Visit Provider Internal Medicine Critical Care Medicine
DX: J47.9 Bronchiectasis, uncomplicated (principal); J84.9 Interstitial pulmonary disease, unspecified
CPT/HCPCS: 94060; 94726; 94729

== ENCOUNTER → 2019-08-29 10:12 | Outpatient (CLI) | payer MEDICARE, SELFPAY ==
[2019-08-14 11:00] VITALS: BMI 29.0
[2019-08-29 13:10] LABS: Erythrocyte Sedimentation Rate 13 mm/hr (0-30)
[2019-08-29 13:12] LABS: ALB/GLOB Ratio 1.1 RATIO (0.9-2.4); AST(SGOT) 30 U/L (15-37); Absolute Neutrophil Count 8.5 X10^3/uL (2.0-7.7); Alanine Aminotransfer ALT/SGPT 40 U/L (13-56); Albumin, Serum 3.9 g/dL (3.2-5.0); Alkaline Phosphatase 37 U/L (45-117); Anion Gap 6 (5-15); BUN 49 mg/dL (7-18); BUN/Creat Ratio 29.3 RATIO (10-20); Basophil# 0.03 X10^3/uL; Basophil% 0.3 % (0-1); CRP 7.87 mg/L (0.0-3.0); Calcium,Total 8.9 mg/dL (8.5-10.1); Chloride 101 mmol/L (98-107); Creatinine, Serum 1.67 mg/dL (0.55-1.02); EST Glomerular Filtration Rate 31 mL/min (>60); Eosinophil# 0.08 X10^3/uL; Eosinophils% 0.8 % (0-5); Est Glom Filt Rate - Afr Amer 38 mL/min (>60); Globulin 3.7 g/dL (2.2-4.2); Glucose 89 mg/dL (74-106); Hemoglobin 11.6 g/dL (12.0-15.0); Lymphocyte % 7.9 % (19-41); Mean Corp Hgb Conc 31.4 g/dL (32-36); Mean Corpuscular Hgb 35.9 pg (27.0-32.0); Mean Corpuscular Volume 114.6 fL (81-99); Mean Platelet Vol. 10.3 fl (6.2-12.0); Monocyte# 0.63 X10^3/uL; Monocyte% 6.2 % (0-10); NRBC Flagged by Analyzer 0.2 % (0-5); Neutrophil # 8.49 X10^3/uL (2.7-7.7); Neutrophil % 83.4 % (47-70); POSITIVE MORPHOLOGY YES; Platelet Count 176 K/mm3 (150-450); Potassium 3.6 mmol/L (3.5-5.1); Protein, Total 7.6 g/dL (6.4-8.2); RBC Distribution Width CV 15.5 % (11.6-14.6); RBC Distribution Width SD 65.7 fl (35.1-43.9); Red Blood Count 3.23 M/mm3 (4.2-5.4); Rheumatoid Factor < 10.0 IU/mL (<15); Sodium Level 139 mmol/L (136-145); White Blood Count 10.2 K/mm3 (4.4-11.0)
[2019-08-29 13:16] LABS: Differential Indicated SCAN CRITERIA MET
[2019-08-29 13:54] LABS: Anisocytosis 1+
[2019-08-29 13:58] LABS: Hepatitis B Surface Antibody Reactive; Hepatitis B Surface Antigen Non-Reactive (Nonreactive); Hepatitis C Antibody Non-Reactive (Nonreactive)
[2019-09-01 14:36] LABS: CCP IgG Antibodies 9 units (0-19)
== END ==
PROVIDERS: Family Provider Family Medicine; PCP Family Medicine; Referring Provider Internal Medicine Rheumatology; Visit Provider Internal Medicine Rheumatology
DX: M06.4 Inflammatory polyarthropathy (principal); M47.897 Other spondylosis, lumbosacral region; M16.0 Bilateral primary osteoarthritis of hip; M21.40 Flat foot [pes planus] (acquired), unspecified foot
CPT/HCPCS: 36415; 80053; 85025; 85652; 86140; 86200; 86431; 86706; 86803; 87340

== ENCOUNTER → 2019-09-19 11:19 | Outpatient (CLI) | payer MEDICARE, SELFPAY ==
[2019-09-15 13:27] VITALS: BMI 28.7
[2019-09-15 16:15] LABS: BNP,B-Type NATRIURETIC PEPTIDE 290.2 pg/mL (0-100)
== END ==
PROVIDERS: PCP Family Medicine; Referring Provider Physician Assistant Medical; Visit Provider Physician Assistant Medical
DX: I50.32 Chronic diastolic (congestive) heart failure (principal); I48.0 Paroxysmal atrial fibrillation; I25.10 Atherosclerotic heart disease of native coronary artery without angina pectoris; R06.09 Other forms of dyspnea
CPT/HCPCS: 36415; 83880; 93225; 93226

== ENCOUNTER → 2019-09-22 12:23 | Outpatient (CLI) | payer MEDICARE, SELFPAY ==
[2019-09-15 13:27] VITALS: BMI 28.7
[2019-09-22 13:21] LABS: Anion Gap 6 (5-15); BUN 45 mg/dL (7-18); BUN/Creat Ratio 25.1 RATIO (10-20); Calcium,Total 9.1 mg/dL (8.5-10.1); Chloride 104 mmol/L (98-107); Creatinine, Serum 1.79 mg/dL (0.55-1.02); EST Glomerular Filtration Rate 29 mL/min (>60); Est Glom Filt Rate - Afr Amer 35 mL/min (>60); Glucose 106 mg/dL (74-106); Potassium 4.4 mmol/L (3.5-5.1); Sodium Level 138 mmol/L (136-145)
== END ==
PROVIDERS: PCP Family Medicine; Visit Provider Physician Assistant Medical
DX: I50.32 Chronic diastolic (congestive) heart failure (principal)
CPT/HCPCS: 36415; 80048

== ENCOUNTER → 2019-10-22 10:32 | Outpatient (CLI) | payer MEDICARE, SELFPAY ==
[2019-10-07 11:19] VITALS: BMI 28.1
[2019-10-22 11:35] LABS: Erythrocyte Sedimentation Rate 20 mm/hr (0-30)
[2019-10-22 11:48] LABS: CRP < 2.90 mg/L (0.0-3.0)
== END ==
PROVIDERS: PCP Family Medicine; Referring Provider Internal Medicine Rheumatology; Visit Provider Internal Medicine Rheumatology
DX: M06.4 Inflammatory polyarthropathy (principal); M47.897 Other spondylosis, lumbosacral region; M16.0 Bilateral primary osteoarthritis of hip; M21.40 Flat foot [pes planus] (acquired), unspecified foot; J84.9 Interstitial pulmonary disease, unspecified; I48.91 Unspecified atrial fibrillation; I12.9 Hypertensive chronic kidney disease with stage 1 through stage 4 chronic kidney disease, or unspecified chronic kidney disease; N18.9 Chronic kidney disease, unspecified; E03.9 Hypothyroidism, unspecified; E78.5 Hyperlipidemia, unspecified; N39.46 Mixed incontinence; N81.4 Uterovaginal prolapse, unspecified; Z95.3 Presence of xenogenic heart valve
CPT/HCPCS: 36415; 85652; 86140

== ENCOUNTER 2019-10-27 10:48 | Day surgery (SDC) | payer MEDICARE, SELFPAY ==
[2019-09-15 13:27] VITALS: BMI 28.7
--- NOTE | 2019-10-07 01:06 | HP_ITS ---
HPI HPI History of Present Illness Surgical H&P: Yes Details: This is an 84-year-old female that presents here today for an updated history and physical for a cardioversion. She has a history of coronary artery disease with bypass surgery in 2011. She had an SVG to the posterior descending, SVG to the posterior lateral, mitral valve repair with a Chao magna #29 valve with left atrial appendage, she also has a history of paroxysmal atrial fibrillation which appears more persistent at this time., hypertension and hyperlipidemia. Intake Vital Signs 10/07/19 Height 5 ft 2 in 10/07/19 Weight: 154 lb 10/07/19 BMI 28.1 10/07/19 BP 101/67 10/07/19 Blood Pressure Location Lt brachial 10/07/19 Position Sitting 10/07/19 Respiration 18 10/07/19 Pulse 92 10/07/19 Pulse Source Monitor Intake Visit Reasons: Update H & P Medical Office Technician Required: No Is patient in pain?: No Allergies amoxicillin [Amoxicillin] Allergy (Verified 10/07/19 11:19) Unknown fenoprofen calcium [From Nalfon] Allergy (Verified 10/07/19 11:19) Itching Penicillins Allergy (Verified 10/07/19 11:19) Itching Medications Levothyroxine [Synthroid] 50 mcg PO DAILY 01/24/14 [History Confirmed 10/07/19] Nitroglycerin (INPATIENT USE) [Nitrostat] 0.4 mg SUBLINGUAL Q5M PRN 08/18/14 [History Confirmed 10/07/19] ferrous sulfate 325 mg (65 mg iron) tablet,delayed release 325 mg PO QDAY tab 03/29/18 [History Confirmed 10/07/19] mirtazapine 15 mg tablet 15 mg PO QDAY 03/29/18 [History Confirmed 10/07/19] omeprazole 20 mg capsule,delayed release 20 mg PO QDAY 03/29/18 [History Confirmed 10/07/19] lisinopril 5 mg tablet 5 mg PO DAILY #90 tab 02/13/19 [History Confirmed 10/07/19] sertraline 100 mg tablet 100 mg PO DAILY #90 tab 02/13/19 [History Confirmed 10/07/19] aspirin 81 mg tablet,delayed release 81 mg PO DAILY 02/14/19 [History Confirmed 10/07/19] calcium carbonate 600 mg (1,500 mg)-vitamin D3 500 unit capsule cap PO cap 02/14/19 [History Confirmed 10/07/19] oxycodone-acetaminophen 7.5 mg-325 mg tablet 1 tab PO Q6H PRN #42 tab 02/14/19 [History Confirmed 10/07/19] vitamin B complex 1 tab PO DAILY 02/14/19 [History Confirmed 10/07/19] albuterol sulfate 90 mcg/actuation aerosol inhaler 2 puff INHALATION Q4H PRN g 02/20/19 [History Confirmed 08/14/19] apixaban 2.5 mg tablet 2.5 mg PO BID #180 tab 05/13/19 [Rx Confirmed 10/07/19] furosemide 40 mg tablet 40 mg PO DAILY #90 tab 05/14/19 [Rx Confirmed 10/07/19] magnesium oxide 400 mg PO DAILY 06/18/19 [History Confirmed 10/07/19] prednisone 10 mg tablet 5 mg PO DAILY #42 tab 06/18/19 [History Confirmed 10/07/19] metoprolol tartrate 50 mg tablet 50 mg PO BID #180 tab 09/10/19 [Rx Confirmed 10/07/19] atorvastatin 20 mg tablet 10 mg PO QHS #45 tab 09/15/19 [History Confirmed 10/07/19] spironolactone 25 mg tablet 25 mg PO DAILY #30 tab 09/15/19 [Rx Confirmed 10/07/19] amiodarone 200 mg tablet 200 mg PO DAILY #30 tab 10/02/19 [Rx] PFS Social History (Updated 09/15/19 @ 14:28 by BASSAM Hoover) Smoking Status: Never smoker second hand exposure: No alcohol intake: never substance use type: does not use Assessment & Plan 1. Atrial fibrillation I48.91 Plan Patient has continued to complain of shortness of breath. This could be related to her atrial fibrillation. Her heart rate is better controlled with the adjustments of her medications. She has been anticoagulated with a factor X a inhibitor for greater than 3 weeks. 2. Atherosclerosis of coronary artery of [place] heart without angina pectoris I25.10 Plan Patient does have a history of coronary artery disease. She initially established with us to undergo a diagnostic heart catheterization for an abnormal stress test however this was not done and medical management was recommended due to her lung disease and her kidney function at that time. If proceeding with a cardioversion does not help with her shortness of breath may consider adding isosorbide. For now she will continue with her rate limiting medication aspirin and low-dose statin. 3. Chronic diastolic (congestive) heart failure I50.32 Plan Patient does have symptoms of shortness of breath. She is on diuretics. We do have to watch renal function closely. 4. Essential hypertension I10 5. Hyperlipidemia E78.5 Plan Will continue with low intensity statin 6. History of mitral valve replacement with bioprosthetic valve Z95.3 #29 Chao Magna Pericardial Valve 09/20/2011 Plan Recent echocardiogram has been reviewed. We will continue to monitor by history, exam and echocardiograms as deemed appropriate. 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) 10/07/19 (please move f/u EKG (11/02)so it is not a sunday ) Coding Level of Care Code Off vis,est,level 4 Diagnoses Atrial fibrillation I48.91 Atherosclerosis of coronary artery of [place] heart without angina pectoris I25.10 Chronic diastolic (congestive) heart failure I50.32 Essential hypertension I10 Hyperlipidemia E78.5 History of mitral valve replacement with bioprosthetic valve Z95.3 Coding Level of Care Code Off vis,est,level 4 Diagnoses Atrial fibrillation I48.91 Atherosclerosis of coronary artery of [place] heart without angina pectoris I25.10 Chronic diastolic (congestive) heart failure I50.32 Essential hypertension I10 Hyperlipidemia E78.5 History of mitral valve replacement with bioprosthetic valve Z95.3 Supplemental Info Supplemental Information Echocardiogram in June 2019 demonstrated:Normal LV size. Left ventricular systolic function is normal. The estimated ejection fraction is 65 %. The left atrium is mildly enlarged. The right atrium is mildly enlarged. Bioprosthetic mitral valve. Mild (1+) mitral valve insufficiency. PFT 07/2019 Impression: Isolated reduction in diffusion capacity consistent with a pulmonary vascular disorder. Stress echocardiographic evaluation which demonstrated evidence of perfusion defect noted in the mid to distal anterior wall and mid to distal lateral wall. Diagnostics Electrocardiogram 09/15/19 Echocardiogram 07/02/19 Pulmonary Pulmonary Function Test 07/29/19 Date _ Teagan BANEGAS
[2019-10-07 11:19] VITALS: BMI 28.1
--- NOTE | 2019-10-07 12:30 | RAD_ITS ---
STUDY: X-RAY CHEST REASON FOR EXAM: Female, 84 years old. A FIB, ongoing SOB TECHNIQUE: PA and lateral views of the chest. COMPARISON: . FINDINGS: Slightly underexpanded lungs. Diffuse interstitial changes more so from the mid lower lung parenchyma and subpleural region, stable. Otherwise lung reina are clear. There is no demonstrated pleural abnormality. Mid line sternotomy wires with evidence of valve replacement surgery. Normal mediastinum and woody. Normal visualized pulmonary arteries. There is atherosclerotic calcification of the aortic arch with tortuosity. There is demineralization of the osseous structures. There is degenerative osteoarthritis of the bilateral shoulders. There is no demonstrated abnormality of the visualized soft tissue structures of the upper abdomen. RAD/Chest PA and Lateral IMPRESSION: Underlying chronic interstitial lung disease, otherwise no acute cardiopulmonary process seen. Electronically Signed: Lupe Dejesus MD at 3:28 EST , Service support ,
[2019-10-07 13:54] LABS: International Normalized Ratio 1.3
[2019-10-07 14:10] LABS: Anion Gap 5 (5-15); BUN 66 mg/dL (7-18); BUN/Creat Ratio 31.3 RATIO (10-20); Calcium,Total 9.6 mg/dL (8.5-10.1); Chloride 101 mmol/L (98-107); Creatinine, Serum 2.11 mg/dL (0.55-1.02); EST Glomerular Filtration Rate 24 mL/min (>60); Est Glom Filt Rate - Afr Amer 29 mL/min (>60); Glucose 110 mg/dL (74-106); Potassium 3.9 mmol/L (3.5-5.1); Sodium Level 137 mmol/L (136-145)
[2019-10-23 11:01] VITALS: BMI 28.1
--- NOTE | 2019-10-27 12:52 | CARDIOVERS ---
Cardioversion Cardioversion: DC cardioversion. 84-year-old lady with a history of chronic persistent atrial fibrillation with a preserved ejection fraction. Patient has been on anticoagulation for at least 3 weeks. The patient was brought to the cardiac catheterization lab in the postabsorptive non-sedated state. The patient was seen by Dr. Michel of the critical care division. Informed consent was obtained. Anterior-posterior pads were applied. 200 J of synchronized DC cardioversion energy were applied with prompt reversal to sinus rhythm. This was preceded however by a 5-second pause which was asymptomatic. Sinus rhythm was restored and EKG confirmed the above. Conclusion: Successful DC cardioversion to sinus rhythm. Patient will continue current anticoagulation. Patient would continue with amiodarone and beta-omer at a low dose.
--- NOTE | 2019-10-27 13:48 | PRO.PCM_ITS ---
Problem List (1) Atherosclerosis of coronary artery of [place] heart without angina pectoris Status: Chronic Qualifiers: Coronary Disease-Associated Artery/Lesion type: [place] artery Qualified Code(s): I25.10 - Atherosclerotic heart disease of [place] coronary artery without angina pectoris (2) Bronchiectasis Status: Chronic Qualifiers: (3) Chronic diastolic (congestive) heart failure Status: Chronic (4) Interstitial lung disease Status: Chronic (5) Paroxysmal atrial fibrillation Status: Chronic (6) Polymyalgia rheumatica Status: Chronic (7) Essential (primary) hypertension Status: Resolved (8) History of mitral valve replacement with bioprosthetic valve Status: Resolved Comment: #29 Chao Magna Pericardial Valve 09/20/2011 (9) Rheumatic mitral stenosis with insufficiency Status: Resolved Procedure Report Date of Procedure: 10/27/19 - Conscious sedation CONSCIOUS SEDATION REPORT BRIEF HISTORY OF PRESENT ILLNESS: The patient is an 84-year-old female who presented to [facility] for an elective outpatient cardioversion due to underlying atrial fibrillation. The patient reports no PO intake since midnight. The patient does not have a history of obstructive sleep apnea. The patient reports no history of smoking and COPD. The patient denies any recent constitutional symptoms such as fevers, chills, nausea or vomiting. The patient denies previous anesthetic complications. Patient is currently anticoagulated on Eliquis therapy. Patient is on Lopressor 50 mg and amiodarone. Last known ejection fraction of 65%. PHYSICAL EXAMINATION: VITAL SIGNS: Reviewed and were acceptable. GENERAL: The patient is a female, in no apparent distress, speaking in full sentences. HEENT: Normocephalic, atraumatic. Mucous membranes are moist and pink. Good mouth opening noted. Trachea is midline. Good neck mobility. MP II CHEST: S1, S2 irregularly irregular. No murmurs, rubs or gallops were noted. LUNGS: Clear to auscultation bilaterally without appreciable wheezes, rales or rhonchi. ABDOMEN: Soft, nontender, nondistended. Positive bowel sounds. EXTREMITIES: There is no clubbing, cyanosis or edema. ASA Class: II DESCRIPTION OF PROCEDURE: After confirmation of informed consent, the patient's anesthesia plan was reviewed in detail. Propofol was chosen. Risks and benefits were reviewed and the patient agreed to proceed. At 12:28 PM, the patient was given 40 mg of propofol. The patient achieved an appropriate level of sedation and received 1 attempt synchronized cardioversion, at [address] Ye at the bedside. The patient did have an initial 5-second pause. Patient was placed flat and had spontaneous resolution of normal sinus rhythm. This was successful in achieving normal sinus rhythm. The patient was monitored until 12:40 PM, at which time the patient reached their baseline mental status and function. The patient tolerated the procedure well. COMPLICATIONS: 5-second pause following cardioversion. No CPR initiated ESTIMATED BLOOD LOSS: None RECOMMENDATIONS: Okay to recover in usual fashion. Code Visit [id number]: Other Procedure See Report - [id number] -12 minutes conscious sedation
== END 2019-10-27 13:45 | disposition home or self-care (01) ==
LOC: CLSP 10:49
PROVIDERS: Physician Assistant Medical; PCP Family Medicine; Referring Provider Internal Medicine Cardiovascular Disease; Visit Provider Internal Medicine Cardiovascular Disease
DX: I48.19 Other persistent atrial fibrillation (principal); I25.10 Atherosclerotic heart disease of native coronary artery without angina pectoris; I11.0 Hypertensive heart disease with heart failure; I50.32 Chronic diastolic (congestive) heart failure; E78.5 Hyperlipidemia, unspecified; M35.3 Polymyalgia rheumatica; J47.9 Bronchiectasis, uncomplicated; Z95.3 Presence of xenogenic heart valve; Z79.01 Long term (current) use of anticoagulants; Z79.82 Long term (current) use of aspirin; Z79.899 Other long term (current) drug therapy
CPT/HCPCS: 36415; 71046; 80048; 85610; 92960; 93005; J7040

== ENCOUNTER 2019-10-28 11:40 | Observation (INO) | payer MEDICARE, SELFPAY ==
[2019-10-23 11:01] VITALS: BMI 28.1
[2019-10-28 11:41] VITALS: BP 134/55; PULSE 83; RESP 16; TEMP 36.7; O2SAT 96; BMI 28.9
--- NOTE | 2019-10-28 12:52 | EKG12_ITS ---
Test Reason : GI BLEED Blood Pressure : / mmHG Vent. Rate : 086 BPM Atrial Rate : 086 BPM P-R Int : 172 ms QRS Dur : 094 ms QT Int : 418 ms P-R-T Axes : 064 063 037 degrees QTc Int : 500 ms Sinus rhythm with occasional Premature ventricular complexes Possible Left atrial enlargement Incomplete right bundle branch block Possible Inferior infarct , age undetermined Abnormal ECG Confirmed by MARK GUZMÁN ([id number]), photographic editor BENJAMIN TSE ([id number]) on 10/29/2019 2:30:26 PM Referred By: COSME/FLACO Confirmed By:MARK GUZMÁN
--- NOTE | 2019-10-28 12:53 | ED.VIS.GEN ---
History of Present Illness Chief Complaint: GI Bleed Detail of Chief Complaint: Dark stool on Eliquis Informant: Patient, Family, PCP Onset: Days - Dark stool first noted Sunday Context: Sudden Onset Timing: Continuous Quality: Dark stool Location: GI Current Severity: Moderate Worsened by: Possibly Eliquis Relieved by: Nothing Associated Symptoms: No other symptoms Narrative: Patient is an elderly woman who reports having dark stool on Sunday. She was seen by cardiology yesterday and underwent cardioversion for A. fib. She is on Eliquis. She denies orthostatic symptoms. She denies cardiac or respiratory symptoms. She denies bruising easily. She did take her dose of Eliquis this morning. She has no other complaints. Prior similar symptoms: No Recent Illness/Hospitalization: No - Past Medical History (1) Diverticulosis Status: Chronic (2) Atherosclerosis of coronary artery of [place] heart without angina pectoris Status: Chronic (3) Chronic diastolic (congestive) heart failure Status: Chronic (4) History of cardioversion Status: Chronic (5) Hyperlipidemia Status: Chronic (6) Interstitial lung disease Status: Chronic (7) Paroxysmal atrial fibrillation Status: Chronic (8) Polymyalgia rheumatica Status: Chronic (9) Essential (primary) hypertension Status: Resolved (10) H/O coronary artery bypass surgery Status: Resolved Comment: CABG x 2: SVG-RPDA and LPLB w/ KAT Ligation and MVR 09/20/2011 (11) History of mitral valve replacement with bioprosthetic valve Status: Resolved Comment: #29 Chao Magna Pericardial Valve 09/20/2011 Past Medical History - Allergies and Home Meds Allergies/Adverse Reactions: Allergies amoxicillin [Amoxicillin] Allergy (Verified 10/28/19 11:43) Unknown fenoprofen calcium [From Nalfon] Allergy (Verified 10/28/19 11:43) Itching Penicillins Allergy (Verified 10/28/19 11:43) Itching Primary Care Physician: Mitchell Oleary MD [Primary Care Provider] - Prior records reviewed: Yes Surgical History: - - Mitral valve replacement with bovine material Lives: Alone Smoking Status: Never smoker Alcohol: None Drugs: None - Family History Maternal Family History: Family History (Last Reviewed 10/07/19 @ 16:19 by BASSAM Hoover) Other CVA (cerebral vascular accident) Hypertension Family History: Reports: No pertinent history Review of Systems General: Denies: Chills, Fever, Sweats Eyes: Denies: Visual changes - bilaterally, Blurred Vision - bilaterally ENT: Denies: Rhinorrhea, Sore throat Cardiovascular: Denies: Chest pain, Palpitations Respiratory: Denies: Dyspnea, Cough, Dyspnea on exertion Gastrointestinal: Reports: Melena. Denies: Abdominal pain, Nausea, Vomiting, Diarrhea, Constipation, Hematochezia, -, - Genitourinary: Denies: Dysuria, Hematuria, Frequency Musculoskeletal: Denies: Myalgias, Arthralgias, Neck pain, Back pain, Swelling, Extremity Pain, -, - Skin: Denies: Rash, Wounds Neurological: Denies: Headache, Weakness, Numbness Hematologic: Denies: Easy bruising, Easy bleeding Physical Exam Vital Signs/Narrative: Vital Signs Temp Pulse Resp BP Pulse Ox 10/28/19 11:41 98.1 F 83 16 134/55 H 96 Inital Vital Signs reviewed: Yes General: Well nourished, Well developed, Obese, No Acute Distress Head: Normocephalic, Atraumatic Eyes: Perrl, EOMI. Negative for: Pale conjunctiva, Scleral icterus ENT: Moist mucous membranes, No rhinorrhea Neck: Supple, Nontender, No lymphadenopathy, No JVD Cardiovascular: Regular rate, Regular rhythm, No murmurs, Normal S1, Normal S2 Respiratory: No distress, CTA bilaterally, Chest nontender Abdomen: Soft, Nontender, Nondistended, Normal bowel sounds Rectal: - - Black sticky stool Back: Nontender, Normal Inspection. Negative for: CVA tenderness Extremities: Nontender, No edema Skin: Normal color, No rash, No Trauma. Negative for: Cyanosis, Diaphoresis, Jaundice Neurological: Alert, Oriented x3, Cranial nerves II-XII grossly intact, Normal Strength, Normal Sensation Psychological: Normal affect, Normal Mood Diagnostic/Tx/Re-eval Laboratory Results 10/28/19 10/28/19 10/28/19 12:44 12:44 12:44 WBC 10.3 RBC 3.30 L Hgb 11.6 L Hct 36.0 L MCV 109.1 H MCH 35.2 H MCHC 32.2 RDW Std Deviation 55.8 H RDW Coeff of Rad 13.7 Plt Count 119 L MPV 10.3 Immature Gran % (Auto) 0.800 Neut % (Auto) 83.5 H Lymph % (Auto) 6.5 L Gentry % (Auto) 8.6 Eos % (Auto) 0.3 Baso % (Auto) 0.3 Absolute Neuts (auto) 8.6 H Absolute Lymphs (auto) 0.67 L Nucleated RBC % 0 PT 16.5 H INR 1.3 APTT 25.6 Sodium 137 Potassium 4.2 Chloride 104 Carbon Dioxide 27.0 Anion Gap 6 BUN 68 H Creatinine 2.31 H Estim Creat Clear Calc 14.59 Est GFR (MDRD) Af Amer 26 L Est GFR (MDRD) Non-Af 21 L BUN/Creatinine Ratio 29.4 H Glucose 95 Calcium 9.1 Is no change in patient's H&H from prior. Creatinine has slowly increased. BUN is elevated. BUN has been elevated in the past. Dr. Aerllano on-call for Dr. Ye he was made aware of patient's presentation and concerns. - EKG Initial EKG Interpretation: Sinus Rhythm - Sinus rhythm with a ventricular rate of 86. There is a occasional premature ventricular beats noted. VT interval is 172 ms. QRS duration 94 ms. QT duration 418 ms. QRS morphology is consistent with incomplete right bundle branch block. There is an inverted T wave in lead III which is normal variant. - Medical Decision Making Patient presents with concern for GI bleed. Based on history and physical patient has a GI bleed. She is on Eliquis. She was typed and screened. She was recently cardioverted. Baseline blood work was obtained. She was informed she will require admission. Her community health worker was paged. Case was discussed with hospitalist. Case was discussed with general surgeon on-call Dr. Rick Zamora ED Disposition - Plan for ED Patient: Disposition: Acute Care Hospital [facility] Diagnosis: GI bleed, Anticoagulant long-term use Referrals: Mitchell Oleary MD [Primary Care Provider] -
[2019-10-28 13:11] LABS: Absolute Lymphocyte Count 0.67 X10^3/uL (0.83-4.51); Absolute Neutrophil Count 8.6 X10^3/uL (2.0-7.7); Basophil# 0.03 X10^3/uL; Basophil% 0.3 % (0-1); Eosinophil# 0.03 X10^3/uL; Eosinophils% 0.3 % (0-5); Hemoglobin 11.6 g/dL (12.0-15.0); Lymphocyte # 0.67 X10^3/ul (4.0); Lymphocyte % 6.5 % (19-41); Mean Corp Hgb Conc 32.2 g/dL (32-36); Mean Corpuscular Hgb 35.2 pg (27.0-32.0); Mean Corpuscular Volume 109.1 fL (81-99); Mean Platelet Vol. 10.3 fl (6.2-12.0); Monocyte# 0.88 X10^3/uL; Monocyte% 8.6 % (0-10); NRBC Flagged by Analyzer 0 % (0-5); Neutrophil # 8.59 X10^3/uL (2.7-7.7); Neutrophil % 83.5 % (47-70); Platelet Count 119 K/mm3 (150-450); RBC Distribution Width CV 13.7 % (11.6-14.6); RBC Distribution Width SD 55.8 fl (35.1-43.9); White Blood Count 10.3 K/mm3 (4.4-11.0)
[2019-10-28 13:17] LABS: International Normalized Ratio 1.3; Prothrombin Time (Protime)PT. 16.5 SECONDS (11.7-14.9)
[2019-10-28 13:18] LABS: Partial Thromboplast Time 25.6 Seconds (24.1-36.2)
[2019-10-28 13:19] LABS: BUN 68 mg/dL (7-18); Creatinine, Serum 2.31 mg/dL (0.55-1.02); Glucose 95 mg/dL (74-106)
[2019-10-28 13:20] LABS: Anion Gap 6 (5-15); BUN/Creat Ratio 29.4 RATIO (10-20); Calcium,Total 9.1 mg/dL (8.5-10.1); Chloride 104 mmol/L (98-107); EST Glomerular Filtration Rate 21 mL/min (>60); Est Glom Filt Rate - Afr Amer 26 mL/min (>60); Estimated Creatinine Clearance 14.59 ml/min; Potassium 4.2 mmol/L (3.5-5.1); Sodium Level 137 mmol/L (136-145)
--- NOTE | 2019-10-28 14:14 | PCM.HP.STD ---
<Jessica Romero - Last Filed: 10/28/19 15:35> Problem List (1) Diverticulosis Status: Chronic (2) GI bleed Status: Acute (3) Anticoagulant long-term use Status: Chronic (4) History of cardioversion Status: Chronic (5) Polymyalgia rheumatica Status: Chronic (6) Paroxysmal atrial fibrillation Status: Chronic (7) Atrial fibrillation with rapid ventricular response Status: Resolved (8) Atherosclerosis of coronary artery of [place] heart without angina pectoris Status: Chronic Qualifiers: Coronary Disease-Associated Artery/Lesion type: [place] artery Qualified Code(s): I25.10 - Atherosclerotic heart disease of [place] coronary artery without angina pectoris (9) H/O coronary artery bypass surgery Status: Resolved Comment: CABG x 2: SVG-RPDA and LPLB w/ KAT Ligation and MVR 09/20/2011 (10) Rheumatic mitral stenosis with insufficiency Status: Resolved (11) History of mitral valve replacement with bioprosthetic valve Status: Resolved Comment: #29 Chao Magna Pericardial Valve 09/20/2011 (12) Chronic diastolic (congestive) heart failure Status: Chronic (13) Essential (primary) hypertension Status: Resolved (14) Hyperlipidemia Status: Chronic (15) Interstitial lung disease Status: Chronic (16) Bronchiectasis Status: Chronic History of Present Illness Date of Admission: 10/28/19 Chief Complaint: Dark stools. The patient is a 84 year old F who presents to the emergency room due to dark stools which began on Sunday. Patient has been on Eliquis due to chronic persistent atrial fibrillation with successful cardioversion yesterday. Patient denies jose blood in stool. She does complain of some abdominal discomfort on the right side of her abdomen. She had one episode of emesis last evening which she states was not dark or blood colored. Patient reports her stools have been loose and more frequent since yesterday. She denies dizziness, lightheadedness, shortness of breath, chest pain. She states she has not had a colonoscopy in close to 10 years. No history of GI bleed. She has a past medical history of chronic persistent atrial fibrillation status post cardioversion, chronic kidney disease stage IV, CAD with history of bypass in 2011, history of mitral valve replacement with bovine valve, hypertension, hyperlipidemia, hypothyroidism, depression. Past Medical History Past Medical History (Chronic Problems): Chronic Problems (Last Reviewed 10/07/19 @ 16:19 by BASSAM Hoover) Diverticulosis (Chronic) Anticoagulant long-term use (Chronic) History of cardioversion (Chronic 10/27/19) Polymyalgia rheumatica (Chronic) Paroxysmal atrial fibrillation (Chronic) Atherosclerosis of coronary artery of [place] heart without angina pectoris (Chronic) Chronic diastolic (congestive) heart failure (Chronic) Hyperlipidemia (Chronic) Interstitial lung disease (Chronic) Bronchiectasis (Chronic) Medical History: Medical History (Last Reviewed 10/07/19 @ 16:19 by BASSAM Hoover) Paroxysmal atrial fibrillation (Chronic) I48.0 Atrial fibrillation with rapid ventricular response (Resolved) Onset Date: 05/13/19 I48.91 Atherosclerosis of coronary artery of [place] heart without angina pectoris (Chronic) I25.10 Rheumatic mitral stenosis with insufficiency (Resolved) I05.2 Chronic diastolic (congestive) heart failure (Chronic) I50.32 Essential (primary) hypertension (Resolved) I10 Hyperlipidemia (Chronic) E78.5 Interstitial lung disease (Chronic) J84.9 Bronchiectasis (Chronic) J47.9 Anemia D64.9 Arthritis M19.90 Back pain M54.9 Chronic kidney disease N18.9 Hypothyroidism E03.9 Incontinence R32 Obesity E66.9 Osteoporosis M81.0 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 Transient ischemic attack G45.9 Bruises easily R23.8 Difficulty balancing R29.818 Hay fever J30.1 Allergies amoxicillin [Amoxicillin] Allergy (Verified 10/28/19 11:43) Unknown fenoprofen calcium [From Nalfon] Allergy (Verified 10/28/19 11:43) Itching Penicillins Allergy (Verified 10/28/19 11:43) Itching Home Medications: Ambulatory Orders Medication Instructions Recorded Levothyroxine [Synthroid] 50 mcg PO DAILY 01/24/14 Nitroglycerin (INPATIENT USE) 0.4 mg SUBLINGUAL Q5M PRN 08/18/14 [Nitrostat] ferrous sulfate 325 mg (65 mg 325 mg PO QDAY tab 03/29/18 iron) tablet,delayed release mirtazapine 15 mg tablet 15 mg PO DAILY 03/29/18 lisinopril 5 mg tablet 5 mg PO DAILY #90 tab 02/13/19 sertraline 100 mg tablet 100 mg PO DAILY #90 tab 02/13/19 aspirin 81 mg tablet,delayed 81 mg PO DAILY 02/14/19 release calcium carbonate 600 mg (1,500 1 cap PO QODAY cap 02/14/19 mg)-vitamin D3 500 unit capsule oxycodone-acetaminophen 7.5 mg-325 1 tab PO Q6H PRN #42 tab 02/14/19 mg tablet vitamin B complex 1 tab PO DAILY 02/14/19 albuterol sulfate 90 mcg/actuation 2 puff INHALATION Q4H PRN g 02/20/19 aerosol inhaler apixaban 2.5 mg tablet 2.5 mg PO BID #180 tab 05/13/19 furosemide 40 mg tablet 40 mg PO DAILY #90 tab 05/14/19 magnesium oxide 400 mg PO DAILY 06/18/19 prednisone 10 mg tablet 5 mg PO DAILY #42 tab 06/18/19 metoprolol tartrate 50 mg tablet 50 mg PO BID #180 tab 09/10/19 atorvastatin 20 mg tablet 10 mg PO QHS #45 tab 09/15/19 amiodarone 200 mg tablet 200 mg PO DAILY #30 tab 10/02/19 spironolactone 25 mg tablet 25 mg PO DAILY #30 tab 10/23/19 Acetaminophen [Tylenol Extra 500 mg PO Q6H PRN PRN 10/28/19 Strength] Omeprazole [Prilosec] 20 mg PO DAILY 10/28/19 Surgical History: Surgical History (Last Reviewed 10/28/19 @ 15:34 by ADINA Kim) History of cardioversion (Chronic) Onset Date: 10/27/19 Z98.890 H/O coronary artery bypass surgery (Resolved) Onset Date: 09/20/11 Z95.1 CABG x 2: SVG-RPDA and LPLB w/ KAT Ligation and MVR 09/20/2011 History of mitral valve replacement with bioprosthetic valve (Resolved) Onset Date: 09/20/11 Z95.3 #29 Chao Magna Pericardial Valve 09/20/2011 H/O laminectomy Z98.890 History of cataract surgery Z98.49 History of cholecystectomy Z90.49 History of right and left heart catheterization Onset Date: 07/24/11 Z98.890 Surgical History: - - Mitral valve replacement with bovine material Lives: With Family Smoking Status: Never smoker Alcohol: None Drugs: None - *Family History Maternal Family History: Family History (Last Reviewed 10/28/19 @ 15:34 by ADINA Kim) Other CVA (cerebral vascular accident) Hypertension History Items: - - Denies known maternal medical history including cardiac history. Paternal Family History: Family History (Last Reviewed 10/28/19 @ 15:34 by ADINA Kim) Other CVA (cerebral vascular accident) Hypertension History Items: - - Denies known paternal medical history including cardiac history. Review of Systems Constitutional: Denies: Chills, Fever, Weight Change HEENT: Denies: Head Aches, Sinus Congestion, Sinus Drainage Cardiovascular: Denies: Chest Pain, Palpitations Respiratory: Denies: Cough, Shortness of breath at rest, Sputum production Gastrointestinal: Reports: Melena. Denies: Abdominal Pain, Nausea, Vomiting Genitourinary: Denies: Dysuria Musculoskeletal: Denies: Joint Pain, Joint Tenderness Skin: Denies: Rash, Wounds Neurological: Denies: Numbness, Tingling, Focal weakness Psychiatric: Denies: Anxiety, Depression, Homicidal Ideations, Suicidal Ideations Hematologic/ Lymphatic: Denies: Easy Bruising, Easy Bleeding VTE Information - Inpt Only VTE Present on Admission: No VTE Mechan Device Prophylaxis: SCD's VTE Pharm Prophylaxis ordered?: No Reason prophylaxis not ordered:: Medical Contraindication Patient Problems: Active and Suspected Problems (Last Reviewed 10/07/19 @ 16:19 by BASSAM Hoover) GI bleed (Acute) - Physical Exam Vitals/I&O's: Vital Signs Temp Pulse Resp BP Pulse Ox 98.1 F 83 16 134/55 H 96 10/28/19 11:41 10/28/19 11:41 10/28/19 11:41 10/28/19 11:41 10/28/19 11:41 Oxygen Delivery Method Room Air Weight: 158 lb Body Mass Index (BMI) 28.9 General: Alert, Oriented x3, Cooperative HEENT: Atraumatic, PERRLA, EOMI, Normocephalic Neck: Supple, No JVD, Negative Carotid Bruits Lungs: Clear to auscultation, Normal air movement Cardiovascular: Regular rate, Regular Rhythm, Normal S1, Normal S2, No murmurs Abdomen: Bowel Sounds Present, Soft, Non Tender, Non-Distended Extremities: No clubbing, No cyanosis, No edema, Capillary Refill Less than 3 Seconds Skin: No rashes, No breakdown Musculoskeletal: No Tenderness to Palpation of Joints or Extremities Neurological: Cranial nerves II-XII grossly intact, Neuro grossly intact Psych/Mental Status: Normal Affect, Appropriate Microbiology Past 72 Hours 10/28/19 12:55 Stool Stool Occult Blood (QI) - Final Occult Blood Positive Laboratory Results 10/28/19 12:44: WBC 10.3, RBC 3.30 L, Hgb 11.6 L, Hct 36.0 L, MCV 109.1 H, MCH 35.2 H, MCHC 32.2, RDW Std Deviation 55.8 H, RDW Coeff of Rad 13.7, Plt Count 119 L, MPV 10.3, Immature Gran % (Auto) 0.800, Neut % (Auto) 83.5 H, Lymph % (Auto) 6.5 L, [place] % (Auto) 8.6, Eos % (Auto) 0.3, Baso % (Auto) 0.3, Absolute Neuts (auto) 8.6 H, Absolute Lymphs (auto) 0.67 L, Nucleated RBC % 0 10/28/19 12:44: PT 16.5 H, INR 1.3, APTT 25.6 10/28/19 12:44: Sodium 137, Potassium 4.2, Chloride 104, Carbon Dioxide 27.0, Anion Gap 6, BUN 68 H, Creatinine 2.31 H, Estim Creat Clear Calc 14.59, Est GFR (MDRD) Af Amer 26 L, Est GFR (MDRD) Non-Af 21 L, BUN/Creatinine Ratio 29.4 H, Glucose 95, Calcium 9.1 10/28/19 13:00: Blood Type A NEGATIVE, Antibody Screen NEGATIVE Assessment/Plan All Active Problems (Last Reviewed 10/07/19 @ 16:19 by BASSAM Hoover) GI bleed (Acute) Atrial fibrillation with rapid ventricular response (Resolved 05/13/19) H/O coronary artery bypass surgery (Resolved 09/20/11) Rheumatic mitral stenosis with insufficiency (Resolved) History of mitral valve replacement with bioprosthetic valve (Resolved 09/20/11) Essential (primary) hypertension (Resolved) Dehydration (Resolved) Pneumonia (Resolved) 1. GI bleed-hold Eliquis, aspirin. General surgery, Dr. Zamora consulted from ER. N.p.o. Trend H&H. Hemoglobin currently stable. 2. Chronic persistent atrial fibrillation status post DC cardioversion 10/27/[address] Ye. Continue amiodarone and beta-luisana. 3. Chronic kidney disease stage IV-appears at baseline however has worsened recently. Trend BMP. 4. CAD with history of bypass in 2011-continue statin, beta-luisana, lisinopril. Hold aspirin. 5. History of mitral valve replacement with bovine valve 6. Hypertension-continue lisinopril, metoprolol, spironolactone. 7. Hyperlipidemia-continue statin. 8. Hypothyroidism-continue Synthroid regimen. 9. Depression-continue sertraline regimen. DVT prophylaxis- SCDs, hold pharmacologic prophylaxis This patient was seen by ADINA Kim under the supervision of Dr. Alvarado. <Fidel Alvarado F - Last Filed: 10/28/19 20:52> History of Present Illness The patient is a 84 year old F [] Past Medical History Medical History: Medical History (Last Reviewed 10/07/19 @ 16:19 by BASSAM Hoover) Paroxysmal atrial fibrillation (Chronic) I48.0 Atrial fibrillation with rapid ventricular response (Resolved) Onset Date: 05/13/19 I48.91 Atherosclerosis of coronary artery of [place] heart without angina pectoris (Chronic) I25.10 Rheumatic mitral stenosis with insufficiency (Resolved) I05.2 Chronic diastolic (congestive) heart failure (Chronic) I50.32 Essential (primary) hypertension (Resolved) I10 Hyperlipidemia (Chronic) E78.5 Interstitial lung disease (Chronic) J84.9 Bronchiectasis (Chronic) J47.9 Anemia D64.9 Arthritis M19.90 Back pain M54.9 Chronic kidney disease N18.9 Hypothyroidism E03.9 Incontinence R32 Obesity E66.9 Osteoporosis M81.0 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 Transient ischemic attack G45.9 Bruises easily R23.8 Difficulty balancing R29.818 Hay fever J30.1 Allergies amoxicillin [Amoxicillin] Allergy (Verified 10/28/19 14:53) Rash fenoprofen calcium [From Nalfon] Allergy (Verified 10/28/19 11:43) Itching Penicillins Allergy (Verified 10/28/19 11:43) Itching Surgical History: Surgical History (Last Reviewed 10/28/19 @ 15:34 by ADINA Kim) History of cardioversion (Chronic) Onset Date: 10/27/19 Z98.890 H/O coronary artery bypass surgery (Resolved) Onset Date: 09/20/11 Z95.1 CABG x 2: SVG-RPDA and LPLB w/ KAT Ligation and MVR 09/20/2011 History of mitral valve replacement with bioprosthetic valve (Resolved) Onset Date: 09/20/11 Z95.3 #29 Chao Magna Pericardial Valve 09/20/2011 H/O laminectomy Z98.890 History of cataract surgery Z98.49 History of cholecystectomy Z90.49 History of right and left heart catheterization Onset Date: 07/24/11 Z98.890 - *Family History Maternal Family History: Family History (Last Reviewed 10/28/19 @ 15:34 by ADINA Kim) Other CVA (cerebral vascular accident) Hypertension Paternal Family History: Family History (Last Reviewed 10/28/19 @ 15:34 by ADINA Kim) Other CVA (cerebral vascular accident) Hypertension - Physical Exam Vitals/I&O's: Vital Signs Temp Pulse Resp BP Pulse Ox 98.2 F 75 18 115/57 L 97 10/28/19 20:46 10/28/19 20:46 10/28/19 20:46 10/28/19 20:46 10/28/19 20:46 Oxygen Delivery Method Room Air Weight: 158 lb 0.437 oz Body Mass Index (BMI) 29.0 Intake and Output for Last 24 Hours 10/26/19 10/27/19 10/28/19 23:59 23:59 23:59 Intake Total 120 / 120 Output Total 400 / 400 Balance -280 / -280 Microbiology Past 72 Hours 10/28/19 12:55 Stool Stool Occult Blood (QI) - Final Occult Blood Positive Laboratory Results 10/28/19 12:44: WBC 10.3, RBC 3.30 L, Hgb 11.6 L, Hct 36.0 L, MCV 109.1 H, MCH 35.2 H, MCHC 32.2, RDW Std Deviation 55.8 H, RDW Coeff of Rad 13.7, Plt Count 119 L, MPV 10.3, Immature Gran % (Auto) 0.800, Neut % (Auto) 83.5 H, Lymph % (Auto) 6.5 L, [place] % (Auto) 8.6, Eos % (Auto) 0.3, Baso % (Auto) 0.3, Absolute Neuts (auto) 8.6 H, Absolute Lymphs (auto) 0.67 L, Nucleated RBC % 0 10/28/19 12:44: PT 16.5 H, INR 1.3, APTT 25.6 10/28/19 12:44: Sodium 137, Potassium 4.2, Chloride 104, Carbon Dioxide 27.0, Anion Gap 6, BUN 68 H, Creatinine 2.31 H, Estim Creat Clear Calc 14.59, Est GFR (MDRD) Af Amer 26 L, Est GFR (MDRD) Non-Af 21 L, BUN/Creatinine Ratio 29.4 H, Glucose 95, Calcium 9.1 10/28/19 13:00: Blood Type A NEGATIVE, Antibody Screen NEGATIVE Current Medications Acetaminophen (Tylenol) 500 mg PO Q6H PRN PRN PRN Reason: Pain 1-10 or Fever Albuterol Sulfate (Ventolin Aerosols) 2.5 mg INHALATION Q4H PRN PRN Reason: shortness of breath or wheezin Amiodarone HCl (Cordarone) 200 mg PO DAILY [facility] Atorvastatin Calcium (Lipitor) 10 mg PO QHS [facility] Ferrous Sulfate (Ferrous Sulfate) [facility] Sodium Chloride () 1,000 mls @ 75 mls/hr IV .[id number] [facility] Last Admin: 10/28/19 15:52 Dose: 75 mls/hr Documented by: Pantoprazole Sodium 40 mg/ (Sodium Chloride) 110 mls @ 330 mls/hr IV Q12 [facility] Levothyroxine Sodium (Synthroid) 50 mcg PO DAILY@0600 [facility] Lisinopril (Zestril) 5 mg PO DAILY [facility] Melatonin (Melatonin) 3 mg PO QHS PRN PRN PRN Reason: INSOMNIA Metoprolol Tartrate (Lopressor (Beta Luisana)) 50 mg PO BID [facility] Mirtazapine (Remeron) 15 mg PO DAILY [facility] Ondansetron HCl (Zofran) 4 mg IV Q8H PRN PRN PRN Reason: NAUSEA/VOMITING Oxycodone HCl (Oxyir) 7.5 mg PO Q6H PRN PRN Reason: pain Prednisone () 5 mg PO DAILY@0800 [facility] Sertraline HCl (Zoloft) 100 mg PO DAILY [facility] Sodium Chloride () 10 - 40 ml IV UD PRN PRN Reason: SALINE FLUSH Code Visit Addendum: Dr. Alvarado I personally examined the patient and reviewed the chart. I agree with the above. 84-year-old female with history of A. fib who status post cardioversion yesterday presents with epigastric abdominal pain and black stools since about Sunday. Yesterday she had an episode of diarrhea and it was dark black. She denies any lightheadedness or dizziness however her stool did come back positive for blood therefore she was admitted for an EGD tomorrow morning. Her hemoglobin is stable at 11.6 however her Eliquis was held pending her EGD. Also hold her Lasix as she is getting IV fluids since she is n.p.o. after midnight. Also she is currently on prednisone because 3 months ago she was diagnosed with polymyalgia rheumatica and she will likely need to be on prednisone for the next several months. Therefore she will also need to be discharged home likely on a higher dose of her omeprazole. OBSV E&M: [id number] Initial observation care L3
[2019-10-28 14:33] VITALS: BP 111/96; PULSE 83; RESP 16; TEMP 36.1; O2SAT 97
[2019-10-28 14:42] VITALS: BMI 28.9
[2019-10-28 14:52] VITALS: BMI 29.0
[2019-10-28] MEDS: 0.9% Normal Saline 1,000 ML 75 ML IV (15:52)
--- NOTE | 2019-10-28 16:09 | PCM.CONS.GEN ---
Problem List (1) GI bleed Status: Acute Qualifiers: GI bleed type/associated pathology: melena Qualified Code(s): K92.1 - Melena Reason for Consult Date of Consultation: 10/28/19 History of Present Illness: The patient is a 84 year old F who is having dark black stools since Sunday. She reports she is also having upper abdominal pain. She is not having any nausea or vomiting. She has no gross blood in her stool. She has had gastritis in the past. Her last colonoscopy was 6 years ago. The patient is also on steroids and blood thinners. She is on blood thinners for A. fib and had cardioversion yesterday. Past Medical History Past Medical History (Chronic Problems): Chronic Problems (Last Reviewed 10/07/19 @ 16:19 by BASSAM Hoover) Diverticulosis (Chronic) Anticoagulant long-term use (Chronic) History of cardioversion (Chronic 10/27/19) Polymyalgia rheumatica (Chronic) Paroxysmal atrial fibrillation (Chronic) Atherosclerosis of coronary artery of [place] heart without angina pectoris (Chronic) Chronic diastolic (congestive) heart failure (Chronic) Hyperlipidemia (Chronic) Interstitial lung disease (Chronic) Bronchiectasis (Chronic) Medical History: Medical History (Last Reviewed 10/07/19 @ 16:19 by BASSAM Hoover) Paroxysmal atrial fibrillation (Chronic) I48.0 Atrial fibrillation with rapid ventricular response (Resolved) Onset Date: 05/13/19 I48.91 Atherosclerosis of coronary artery of [place] heart without angina pectoris (Chronic) I25.10 Rheumatic mitral stenosis with insufficiency (Resolved) I05.2 Chronic diastolic (congestive) heart failure (Chronic) I50.32 Essential (primary) hypertension (Resolved) I10 Hyperlipidemia (Chronic) E78.5 Interstitial lung disease (Chronic) J84.9 Bronchiectasis (Chronic) J47.9 Anemia D64.9 Arthritis M19.90 Back pain M54.9 Chronic kidney disease N18.9 Hypothyroidism E03.9 Incontinence R32 Obesity E66.9 Osteoporosis M81.0 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 Transient ischemic attack G45.9 Bruises easily R23.8 Difficulty balancing R29.818 Hay fever J30.1 Allergies amoxicillin [Amoxicillin] Allergy (Verified 10/28/19 14:53) Rash fenoprofen calcium [From Nalfon] Allergy (Verified 10/28/19 11:43) Itching Penicillins Allergy (Verified 10/28/19 11:43) Itching Home Medications: Ambulatory Orders Medication Instructions Recorded Levothyroxine [Synthroid] 50 mcg PO DAILY 01/24/14 Nitroglycerin (INPATIENT USE) 0.4 mg SUBLINGUAL Q5M PRN 08/18/14 [Nitrostat] ferrous sulfate 325 mg (65 mg 325 mg PO QDAY tab 03/29/18 iron) tablet,delayed release mirtazapine 15 mg tablet 15 mg PO DAILY 03/29/18 lisinopril 5 mg tablet 5 mg PO DAILY #90 tab 02/13/19 sertraline 100 mg tablet 100 mg PO DAILY #90 tab 02/13/19 aspirin 81 mg tablet,delayed 81 mg PO DAILY 02/14/19 release calcium carbonate 600 mg (1,500 1 cap PO QODAY cap 02/14/19 mg)-vitamin D3 500 unit capsule oxycodone-acetaminophen 7.5 mg-325 1 tab PO Q6H PRN #42 tab 02/14/19 mg tablet vitamin B complex 1 tab PO DAILY 02/14/19 albuterol sulfate 90 mcg/actuation 2 puff INHALATION Q4H PRN g 02/20/19 aerosol inhaler apixaban 2.5 mg tablet 2.5 mg PO BID #180 tab 05/13/19 furosemide 40 mg tablet 40 mg PO DAILY #90 tab 05/14/19 magnesium oxide 400 mg PO DAILY 06/18/19 prednisone 10 mg tablet 5 mg PO DAILY #42 tab 06/18/19 metoprolol tartrate 50 mg tablet 50 mg PO BID #180 tab 09/10/19 atorvastatin 20 mg tablet 10 mg PO QHS #45 tab 09/15/19 amiodarone 200 mg tablet 200 mg PO DAILY #30 tab 10/02/19 spironolactone 25 mg tablet 25 mg PO DAILY #30 tab 10/23/19 Acetaminophen [Tylenol Extra 500 mg PO Q6H PRN PRN 10/28/19 Strength] Omeprazole [Prilosec] 20 mg PO DAILY 10/28/19 Surgical History: Surgical History (Last Reviewed 10/28/19 @ 15:34 by ADINA Kim) History of cardioversion (Chronic) Onset Date: 10/27/19 Z98.890 H/O coronary artery bypass surgery (Resolved) Onset Date: 09/20/11 Z95.1 CABG x 2: SVG-RPDA and LPLB w/ KAT Ligation and MVR 09/20/2011 History of mitral valve replacement with bioprosthetic valve (Resolved) Onset Date: 09/20/11 Z95.3 #29 Chao Magna Pericardial Valve 09/20/2011 H/O laminectomy Z98.890 History of cataract surgery Z98.49 History of cholecystectomy Z90.49 History of right and left heart catheterization Onset Date: 07/24/11 Z98.890 Surgical History: - - Mitral valve replacement with bovine material Lives: With Family Smoking Status: Never smoker Tobacco Use: Non-smoker Alcohol: None Drugs: None - *Family History Paternal Family History: Family History (Last Reviewed 10/28/19 @ 15:34 by ADINA Kim) Other CVA (cerebral vascular accident) Hypertension History Items: - - Denies known paternal medical history including cardiac history. Maternal Family History: Family History (Last Reviewed 10/28/19 @ 15:34 by ADINA Kim) Other CVA (cerebral vascular accident) Hypertension History Items: - - Denies known maternal medical history including cardiac history. Review of Systems Constitutional: Denies: Anorexia, Fever HEENT: Denies: Difficulty Hearing, Dysphasia Cardiovascular: Denies: Chest Pain Respiratory: Denies: Cough, Shortness of Breath Gastrointestinal: Reports: Abdominal Pain, Melena. Denies: Nausea, Vomiting Genitourinary: Denies: Frequency Musculoskeletal: Reports: Joint Tenderness Skin: Denies: Jaundice Hematologic/ Lymphatic: Denies: Anemia Patient Problems: Active and Suspected Problems (Last Reviewed 10/07/19 @ 16:19 by BASSAM Hoover) GI bleed (Acute) - Physical Exam Vitals/I&O's: Vital Signs Temp Pulse Resp BP Pulse Ox 97 F L 83 16 111/96 H 97 10/28/19 14:33 10/28/19 14:33 10/28/19 14:33 10/28/19 14:33 10/28/19 14:33 Oxygen Delivery Method Room Air Weight: 158 lb Body Mass Index (BMI) 28.9 General: Alert, Oriented x3 HEENT: Atraumatic Neck: No JVD Lungs: Normal air movement Cardiovascular: Regular rate, Regular Rhythm Abdomen: Soft, Non-Distended, Tender - Tender in the epigastric region Extremities: No clubbing Skin: No rashes Musculoskeletal: No Muscle Wasting Neurological: Cranial nerves II-XII grossly intact Psych/Mental Status: Normal Affect Microbiology Past 72 Hours 10/28/19 12:55 Stool Stool Occult Blood (QI) - Final Occult Blood Positive Laboratory Results 10/28/19 12:44: WBC 10.3, RBC 3.30 L, Hgb 11.6 L, Hct 36.0 L, MCV 109.1 H, MCH 35.2 H, MCHC 32.2, RDW Std Deviation 55.8 H, RDW Coeff of Rad 13.7, Plt Count 119 L, MPV 10.3, Immature Gran % (Auto) 0.800, Neut % (Auto) 83.5 H, Lymph % (Auto) 6.5 L, [place] % (Auto) 8.6, Eos % (Auto) 0.3, Baso % (Auto) 0.3, Absolute Neuts (auto) 8.6 H, Absolute Lymphs (auto) 0.67 L, Nucleated RBC % 0 10/28/19 12:44: PT 16.5 H, INR 1.3, APTT 25.6 10/28/19 12:44: Sodium 137, Potassium 4.2, Chloride 104, Carbon Dioxide 27.0, Anion Gap 6, BUN 68 H, Creatinine 2.31 H, Estim Creat Clear Calc 14.59, Est GFR (MDRD) Af Amer 26 L, Est GFR (MDRD) Non-Af 21 L, BUN/Creatinine Ratio 29.4 H, Glucose 95, Calcium 9.1 10/28/19 13:00: Blood Type A NEGATIVE, Antibody Screen NEGATIVE Current Medications Acetaminophen (Tylenol) 500 mg PO Q6H PRN PRN PRN Reason: Pain 1-10 or Fever Albuterol Sulfate (Ventolin Aerosols) 2.5 mg INHALATION Q4H PRN PRN Reason: shortness of breath or wheezin Amiodarone HCl (Cordarone) 200 mg PO DAILY [facility] Atorvastatin Calcium (Lipitor) 10 mg PO QHS [facility] Ferrous Sulfate (Ferrous Sulfate) 325 mg PO DAILYCM [facility] Sodium Chloride () 1,000 mls @ 75 mls/hr IV .[id number] [facility] Last Admin: 10/28/19 15:52 Dose: 75 mls/hr Documented by: Pantoprazole Sodium 40 mg/ (Sodium Chloride) 110 mls @ 330 mls/hr IV Q12 [facility] Levothyroxine Sodium (Synthroid) 50 mcg PO DAILY@0600 [facility] Lisinopril (Zestril) 5 mg PO DAILY [facility] Melatonin (Melatonin) 3 mg PO QHS PRN PRN PRN Reason: INSOMNIA Metoprolol Tartrate (Lopressor (Beta Luisana)) 50 mg PO BID [facility] Mirtazapine (Remeron) 15 mg PO DAILY [facility] Ondansetron HCl (Zofran) 4 mg IV Q8H PRN PRN PRN Reason: NAUSEA/VOMITING Oxycodone HCl (Oxyir) 7.5 mg PO Q6H PRN PRN Reason: pain Prednisone () 5 mg PO DAILY@0800 [facility] Sertraline HCl (Zoloft) 100 mg PO DAILY [facility] Sodium Chloride () 10 - 40 ml IV UD PRN PRN Reason: SALINE FLUSH Assessment/Plan All Active Problems (Last Reviewed 10/07/19 @ 16:19 by BASSAM Hoover) GI bleed (Acute) Atrial fibrillation with rapid ventricular response (Resolved 05/13/19) H/O coronary artery bypass surgery (Resolved 09/20/11) Rheumatic mitral stenosis with insufficiency (Resolved) History of mitral valve replacement with bioprosthetic valve (Resolved 09/20/11) Essential (primary) hypertension (Resolved) Dehydration (Resolved) Pneumonia (Resolved) 84-year-old female with melena 1. The patient is having epigastric pain as well as dark black stools. She is on long-term steroids despite PPI she may be having gastritis and bleeding ulcer. Her blood thinners will be held but she did take them today. Plan for clear liquids for now and n.p.o. after midnight. We will perform EGD tomorrow around 10:30 AM. 2. I explained endoscopy in detail to the patient. I explained the risks including but not limited to stroke or heart attack with anesthesia, perforation of the GI tract, bleeding, infection. I explained that any of these could necessitate further emergency surgery. The patient understands and all questions were answered sufficiently. The patient wishes to proceed with procedure. Rick Zamora MD Pager: [facility] [address] [place] [address], [facility] [address] [place] [address] Office:
[2019-10-28 20:46] VITALS: BP 115/57; PULSE 75; RESP 18; TEMP 36.8; O2SAT 97
[2019-10-28 20:47] VITALS: PULSE 75
[2019-10-28 21:04] VITALS: PULSE 75
[2019-10-28] MEDS: Atorvastatin Calcium 10 MG Tablet PO (21:04)
[2019-10-28] MEDS: Metoprolol Tartrate 50 MG Tablet PO (21:04)
[2019-10-29] VITALS (13 sets, daily range): BP systolic 91–147; BP diastolic 51–73; PULSE 63–80; RESP 14–18; TEMP 36.7–37.4; O2SAT 96–99; BMI 29.0
[2019-10-29] MEDS: 0.9% Normal Saline 1,000 ML 75 ML IV (05:42)
[2019-10-29 06:17] LABS: Absolute Lymphocyte Count 1.64 X10^3/uL (0.83-4.51); Absolute Neutrophil Count 5.8 X10^3/uL (2.0-7.7); Basophil# 0.04 X10^3/uL; Basophil% 0.5 % (0-1); Eosinophil# 0.18 X10^3/uL; Eosinophils% 2.1 % (0-5); Hematocrit 32.1 % (37-47); Hemoglobin 10.1 g/dL (12.0-15.0); Lymphocyte # 1.64 X10^3/ul (4.0); Mean Corp Hgb Conc 31.5 g/dL (32-36); Mean Corpuscular Hgb 34.5 pg (27.0-32.0); Mean Corpuscular Volume 109.6 fL (81-99); Mean Platelet Vol. 10.6 fl (6.2-12.0); Monocyte# 0.92 X10^3/uL; Monocyte% 10.7 % (0-10); NRBC Flagged by Analyzer 0 % (0-5); Neutrophil # 5.77 X10^3/uL (2.7-7.7); Neutrophil % 66.8 % (47-70); Platelet Count 113 K/mm3 (150-450); RBC Distribution Width CV 13.6 % (11.6-14.6); RBC Distribution Width SD 55.4 fl (35.1-43.9); Red Blood Count 2.93 M/mm3 (4.2-5.4); White Blood Count 8.6 K/mm3 (4.4-11.0)
[2019-10-29 06:52] LABS: Anion Gap 6 (5-15); BUN 42 mg/dL (7-18); BUN/Creat Ratio 27.8 RATIO (10-20); Calcium,Total 8.3 mg/dL (8.5-10.1); Chloride 108 mmol/L (98-107); Creatinine, Serum 1.51 mg/dL (0.55-1.02); EST Glomerular Filtration Rate 35 mL/min (>60); Est Glom Filt Rate - Afr Amer 42 mL/min (>60); Glucose 73 mg/dL (74-106); Sodium Level 139 mmol/L (136-145); Thyroid Stim Hormone (TSH) 2.29 uIU/mL (0.358-3.74)
[2019-10-29] MEDS: Amiodarone 200 MG Tablet PO (08:58)
--- NOTE | 2019-10-29 10:04 | PN_ITS ---
Patient Problems: Active and Suspected Problems (Last Reviewed 10/07/19 @ 16:19 by BASSAM Hoover) GI bleed (Acute) Subjective: Patient seen and examined. Denies further dark stool overnight or this morning. To undergo upper endoscopy later this morning. Patient remains asymptomatic. - Physical Exam Vitals/I&O's: Vital Signs Temp Pulse Resp BP Pulse Ox 98.8 F 69 18 139/63 H 97 10/29/19 08:59 10/29/19 08:59 10/29/19 08:59 10/29/19 08:59 10/29/19 08:59 Oxygen Delivery Method Room Air Weight: 158 lb 0.437 oz Body Mass Index (BMI) 29.0 Intake and Output for Last 24 Hours 10/27/19 10/28/19 10/29/19 23:59 23:59 23:59 Intake Total 1121.25 / 1121.25 608.75 / 608.75 Output Total 750 / 750 250 / 250 Balance 371.25 / 371.25 358.75 / 358.75 General: Alert, Oriented x3, Cooperative HEENT: Atraumatic, PERRLA, EOMI, Normocephalic Neck: Supple, No JVD, Negative Carotid Bruits Lungs: Clear to auscultation, Normal air movement Cardiovascular: Regular rate, Regular Rhythm, Normal S1, Normal S2, No murmurs Abdomen: Bowel Sounds Present, Soft, Non Tender, Non-Distended Extremities: No clubbing, No cyanosis, No edema, Capillary Refill Less than 3 Seconds Skin: No rashes, No breakdown Musculoskeletal: No Tenderness to Palpation of Joints or Extremities Neurological: Cranial nerves II-XII grossly intact, Neuro grossly intact Psych/Mental Status: Normal Affect, Appropriate Microbiology Past 72 Hours 10/28/19 12:55 Stool Stool Occult Blood (QI) - Final Occult Blood Positive Laboratory Results 10/28/19 12:44: WBC 10.3, RBC 3.30 L, Hgb 11.6 L, Hct 36.0 L, MCV 109.1 H, MCH 35.2 H, MCHC 32.2, RDW Std Deviation 55.8 H, RDW Coeff of Rad 13.7, Plt Count 119 L, MPV 10.3, Immature Gran % (Auto) 0.800, Neut % (Auto) 83.5 H, Lymph % (Auto) 6.5 L, [place] % (Auto) 8.6, Eos % (Auto) 0.3, Baso % (Auto) 0.3, Absolute Neuts (auto) 8.6 H, Absolute Lymphs (auto) 0.67 L, Nucleated RBC % 0 10/28/19 12:44: PT 16.5 H, INR 1.3, APTT 25.6 10/28/19 12:44: Sodium 137, Potassium 4.2, Chloride 104, Carbon Dioxide 27.0, Anion Gap 6, BUN 68 H, Creatinine 2.31 H, Estim Creat Clear Calc 14.59, Est GFR (MDRD) Af Amer 26 L, Est GFR (MDRD) Non-Af 21 L, BUN/Creatinine Ratio 29.4 H, Glucose 95, Calcium 9.1 10/28/19 13:00: Blood Type A NEGATIVE, Antibody Screen NEGATIVE 10/29/19 05:16: WBC 8.6, RBC 2.93 L, Hgb 10.1 L, Hct 32.1 L, MCV 109.6 H, MCH 34.5 H, MCHC 31.5 L, RDW Std Deviation 55.4 H, RDW Coeff of Rad 13.6, Plt Count 113 L, MPV 10.6, Immature Gran % (Auto) 0.900, Neut % (Auto) 66.8, Lymph % (Auto) 19.0, [place] % (Auto) 10.7 H, Eos % (Auto) 2.1, Baso % (Auto) 0.5, Absolute Neuts (auto) 5.8, Absolute Lymphs (auto) 1.64, Nucleated RBC % 0 10/29/19 05:16: Sodium 139, Potassium 4.0, Chloride 108 H, Carbon Dioxide 25.0, Anion Gap 6, BUN 42 H, Creatinine 1.51 H, Estim Creat Clear Calc 21.30, Est GFR (MDRD) Af Amer 42 L, Est GFR (MDRD) Non-Af 35 L, BUN/Creatinine Ratio 27.8 H, Glucose 73 L, Calcium 8.3 L, TSH 2.29 Current Medications Acetaminophen (Tylenol) 500 mg PO Q6H PRN PRN PRN Reason: Pain 1-10 or Fever Albuterol Sulfate (Ventolin Aerosols) 2.5 mg INHALATION Q4H PRN PRN Reason: shortness of breath or wheezin Amiodarone HCl (Cordarone) 200 mg PO DAILY [facility] Last Admin: 10/29/19 08:58 Dose: 200 mg Documented by: Atorvastatin Calcium (Lipitor) 10 mg PO QHS [facility] Last Admin: 10/28/19 21:04 Dose: 10 mg Documented by: Ferrous Sulfate (Ferrous Sulfate) 325 mg PO DAILYCM [facility] Last Admin: 10/29/19 07:49 Dose: Not Given Documented by: Sodium Chloride () 1,000 mls @ 75 mls/hr IV .[id number] [facility] Last Admin: 10/29/19 05:42 Dose: 75 mls/hr Documented by: Pantoprazole Sodium 40 mg/ (Sodium Chloride) 110 mls @ 330 mls/hr IV Q12 [facility] Last Admin: 10/29/19 08:56 Dose: 330 mls/hr Documented by: Levothyroxine Sodium (Synthroid) 50 mcg PO DAILY@0600 [facility] Last Admin: 10/29/19 05:42 Dose: Not Given Documented by: Lisinopril (Zestril) 5 mg PO DAILY [facility] Melatonin (Melatonin) 3 mg PO QHS PRN PRN PRN Reason: INSOMNIA Metoprolol Tartrate (Lopressor (Beta Luisana)) 50 mg PO BID [facility] Last Admin: 10/28/19 21:04 Dose: 50 mg Documented by: Mirtazapine (Remeron) 15 mg PO DAILY [facility] Ondansetron HCl (Zofran) 4 mg IV Q8H PRN PRN PRN Reason: NAUSEA/VOMITING Oxycodone HCl (Oxyir) 7.5 mg PO Q6H PRN PRN Reason: pain Prednisone () 5 mg PO DAILY@0800 [facility] Last Admin: 10/29/19 07:49 Dose: Not Given Documented by: Sertraline HCl (Zoloft) 100 mg PO DAILY [facility] Sodium Chloride () 10 - 40 ml IV UD PRN PRN Reason: SALINE FLUSH Medical Necessity - Tobacco Use Smoking Status: Never smoker Tobacco Use: Non-smoker Assessment/Plan All Active Problems (Last Reviewed 10/07/19 @ 16:19 by BASSAM Hoover) GI bleed (Acute) Atrial fibrillation with rapid ventricular response (Resolved 05/13/19) H/O coronary artery bypass surgery (Resolved 09/20/11) Rheumatic mitral stenosis with insufficiency (Resolved) History of mitral valve replacement with bioprosthetic valve (Resolved 09/20/11) Essential (primary) hypertension (Resolved) Dehydration (Resolved) Pneumonia (Resolved) 1. GI bleed-hold Eliquis, aspirin. General surgery, Dr. Zamora consulted. N.p.o. Trend H&H. Hemoglobin stable. To undergo EGD this morning. Anticipate discharge home later pending scope findings. 2. Chronic persistent atrial fibrillation status post DC cardioversion 10/27/[address] Ye. Continue amiodarone and beta-luisana. 3. Chronic kidney disease stage IV-appears at baseline however has worsened recently. Trend BMP. 4. CAD with history of bypass in 2011-continue statin, beta-luisana, lisinopril. Hold aspirin. 5. History of mitral valve replacement with bovine valve 6. Hypertension-continue lisinopril, metoprolol, spironolactone. 7. Hyperlipidemia-continue statin. 8. Hypothyroidism-continue Synthroid regimen. 9. Depression-continue sertraline regimen. 10. Recent diagnosis polymyalgia rheumatica-on prednisone. DVT prophylaxis- SCDs, hold pharmacologic prophylaxis This patient was seen by ADINA Kim under the supervision of Dr. Nash.
--- NOTE | 2019-10-29 10:33 | OP.CCLET_ITS ---
10/29/2019 Mitchell Oleary Re : Upper GI endoscopy procedure for Sunita Aaron Dear Mamta This procedure was performed on Tuesday, October 29, 2019. My impressions and recommendations are as follows: Impressions : - Normal [Location]. - Erythematous mucosa in the cardia. - Erythematous mucosa in the prepyloric region of the stomach. - Normal. - No specimens collected. Recommendations : - Return patient [facility] for [facility]. - Resume previous diet. - Continue present medications. My findings are described in the full procedure note, which is enclosed. If I can be of further assistance, please feel free to contact me at Doctor phone number(s): , Work: . Sincerely, Rick Zamora MD 10/29/2019 10:32:24 AM This report has been signed electronically.
--- NOTE | 2019-10-29 10:33 | OP.EGD_ITS ---
Patient Name: Sunita Aaron Procedure Date: 10/29/2019 10:13 AM Date of : 1935 Age: 84 Procedure: Upper GI endoscopy Indications: Melena Providers: Rick Zamora MD Medicines: Monitored Anesthesia Care Patient Profile: This is an 84 year old female. Refer to note in patient chart for documentation of history and physical. Complications: No immediate complications. Estimated blood loss: None. Procedure: Pre-Anesthesia Assessment: - Prior to the procedure, a History and Physical was performed, and patient medications and allergies were reviewed. The patient's tolerance of previous anesthesia was also reviewed. The risks and benefits of the procedure and the sedation options and risks were discussed with the patient. All questions were answered, and informed consent was obtained. Prior Anticoagulants: The patient has taken Eliquis (apixaban), last dose was 1 day prior to procedure. After reviewing the risks and benefits, the patient was deemed in satisfactory condition to undergo the procedure. After obtaining informed consent, the endoscope was passed under direct vision. Throughout the procedure, the patient's blood pressure, pulse, and oxygen saturations were monitored continuously. The gastroscope was introduced through the mouth, and advanced to the fourth part of duodenum. The upper GI endoscopy was accomplished without difficulty. The patient tolerated the procedure well. Scope In: 10:25:40 AM Scope Out: 10:29:11 AM Total Procedure Duration Time 0 hours 3 minutes 31 seconds Findings: The [Site] was normal. Patchy moderately erythematous mucosa without bleeding was found in the cardia. Diffuse moderately erythematous mucosa without bleeding was found in the prepyloric region of the stomach. The in the duodenum was normal. Impression: - Normal [Location]. - Erythematous mucosa in the cardia. - Erythematous mucosa in the prepyloric region of the stomach. - Normal. - No specimens collected. Recommendation: - Return patient to [facility] for [facility] care. - Resume previous diet. - Continue present medications. Procedure Code(s): --- Professional --- 80643, Esophagogastroduodenoscopy, flexible, transoral; diagnostic, including collection of specimen(s) by brushing or washing, when performed (separate procedure) Diagnosis Code(s): --- Professional --- K31.89, Other diseases of stomach and duodenum K92.1, Melena (includes Hematochezia) CPT copyright 2017 [employer]. All rights reserved. The codes documented in this report are preliminary and upon fnps review may be revised to meet current compliance requirements. Rick Zamora MD 10/29/2019 10:32:24 AM This report has been signed electronically. Number of Addenda: 0 Note Initiated On: 10/29/2019 10:13 AM
--- NOTE | 2019-10-29 10:33 | PCM.PN.BLA ---
Progress Note I performed an EGD on the patient this morning. The patient had some erythema just distal to the GE junction where she had a small hiatal hernia. There was erythema but no active bleeding. She also had some erythema in the prepyloric region with no active bleeding. The duodenum was normal. No ulcers were noted. She had no blood in her stomach. She says that her abdominal pain has resolved. I would recommend trying a regular diet and adding Carafate for the erythema. Encourage coming off steroids if possible. Hold blood thinners for 1 more day and then resume. If she has any further melena after being discharged she can return to my office to plan for colonoscopy. Rick Zamora MD Pager: [facility] [address] [place] [address], [address] [place] [address] Office: [facility] Vital Signs/Narrative: Vital Signs Temp Pulse Resp BP Pulse Ox 10/29/19 08:59 98.8 F 69 18 139/63 H 97 10/29/19 08:16 66 10/29/19 07:42 98.5 F 65 14 147/73 H 96 10/29/19 07:40 80
[2019-10-29] MEDS: Sucralfate 1 GM Tablet PO ×2 (11:33→15:48)
--- NOTE | 2019-10-29 11:36 | PCM.DC ---
- Discharge Diagnoses Current Active Problems: Current Active and Chronic Problems (Last Reviewed 10/07/19 @ 16:19 by BASSAM Hoover) GI bleed (Acute) Anticoagulant long-term use (Chronic) You will use the following diet at home:: Other - Advance as tolerated Discharge Activity: Return to Normal Activity Call your doctor if you observe: Shortness of breath, Dizziness, Fainting spells, Chest pain Additional Instructions: HOLD aspirin and Eliquis for 1 more day, then resume. Allergies/Adverse Reactions: Allergies amoxicillin [Amoxicillin] Allergy (Verified 10/28/19 14:53) Rash fenoprofen calcium [From Nalfon] Allergy (Verified 10/28/19 11:43) Itching Penicillins Allergy (Verified 10/28/19 11:43) Itching Medications to take at Discharge Levothyroxine [Synthroid] 50 mcg PO DAILY 01/24/14 Nitroglycerin (INPATIENT USE) [Nitrostat] 0.4 mg SUBLINGUAL Q5M PRN 08/18/14 ferrous sulfate 325 mg (65 mg iron) tablet,delayed release 325 mg PO QDAY tab 03/29/18 mirtazapine 15 mg tablet 15 mg PO DAILY 03/29/18 lisinopril 5 mg tablet 5 mg PO DAILY #90 tab 02/13/19 sertraline 100 mg tablet 100 mg PO DAILY #90 tab 02/13/19 aspirin 81 mg tablet,delayed release 81 mg PO DAILY 02/14/19 calcium carbonate 600 mg (1,500 mg)-vitamin D3 500 unit capsule 1 cap PO QODAY cap 02/14/19 oxycodone-acetaminophen 7.5 mg-325 mg tablet 1 tab PO Q6H PRN #42 tab 02/14/19 vitamin B complex 1 tab PO DAILY 02/14/19 albuterol sulfate 90 mcg/actuation aerosol inhaler 2 puff INHALATION Q4H PRN g 02/20/19 apixaban 2.5 mg tablet 2.5 mg PO BID #180 tab 05/13/19 furosemide 40 mg tablet 40 mg PO DAILY #90 tab 05/14/19 magnesium oxide 400 mg PO DAILY 06/18/19 prednisone 10 mg tablet 5 mg PO DAILY #42 tab 06/18/19 metoprolol tartrate 50 mg tablet 50 mg PO BID #180 tab 09/10/19 atorvastatin 20 mg tablet 10 mg PO QHS #45 tab 09/15/19 amiodarone 200 mg tablet 200 mg PO DAILY #30 tab 10/02/19 spironolactone 25 mg tablet 25 mg PO DAILY #30 tab 10/23/19 Acetaminophen [Tylenol] 500 mg PO Q6H PRN PRN 10/28/19 Omeprazole [Prilosec] 40 mg PO DAILY #60 cap 10/29/19 Sucralfate [Carafate] 1 gm PO 1HR_ACHS #120 tab 10/29/19 The following prescriptions were given: Sucralfate [Carafate] 1 gm PO 1HR_ACHS #120 tab Transmission Status[id number] Omeprazole [Prilosec] 40 mg PO DAILY #60 cap Transmission Status: [id number] Primary Care Physician: Mitchell Oleary MD [Primary Care Provider] - Please follow up with your Primary Care Physician in: 1 Week Test Results: Test results from this visit will be discussed in further detail at your follow-up appointment, if applicable. Please Follow Up With: Rick Zamora MD When: Call office for colonoscopy if you have further dark stools
[2019-10-29] MEDS: Metoprolol Tartrate 50 MG Tablet PO (12:32)
[2019-10-29] MEDS: Ferrous Sulfate 325 MG Tablet PO (12:32)
[2019-10-29] MEDS: Mirtazapine 15 MG Tablet PO (12:33)
[2019-10-29] MEDS: Lisinopril 5 MG Tablet PO (12:33)
[2019-10-29] MEDS: Sertraline 100 MG Tablet PO (12:33)
[2019-10-29] MEDS: predniSONE 5 MG Tablet PO (12:33)
--- NOTE | 2019-10-29 12:42 | DS.PCM_ITS ---
<Jessica Romero - Last Filed: 10/29/19 12:50> Discharge Date and Diagnosis Date of Admission: 10/28/19 Date of Discharge: 10/29/19 - Primary Discharge Diagnosis Active and Suspected Problems (Last Reviewed 10/07/19 @ 16:19 by BASSAM Hoover) 1. GI bleed/Melena 2. Chronic persistent atrial fibrillation status post DC cardioversion 10/27/[address] Ye. 3. Chronic kidney disease stage IV 4. CAD with history of bypass in 2011 5. History of mitral valve replacement with bovine valve 6. Hypertension 7. Hyperlipidemia 8. Hypothyroidism 9. Depression 10. Recent diagnosis polymyalgia rheumatica - Secondary Discharge Diagnosis Chronic Problems (Last Reviewed 10/07/19 @ 16:19 by BASSAM Hoover) Diverticulosis (Chronic) Anticoagulant long-term use (Chronic) History of cardioversion (Chronic 10/27/19) Polymyalgia rheumatica (Chronic) Paroxysmal atrial fibrillation (Chronic) Atherosclerosis of coronary artery of [place] heart without angina pectoris (Chronic) Chronic diastolic (congestive) heart failure (Chronic) Hyperlipidemia (Chronic) Interstitial lung disease (Chronic) Bronchiectasis (Chronic) Hospital Course and Treatment Dr. Zamora- General Surgery Operations: None Procedures: EGD Summary of Care Provided: The patient is a 84 year old F admitted 10/28/2019 due to dark stools. 1. Melena, GI bleed-General surgery, Dr. Zamora consulted. Stool positive for occult blood. Patient underwent EGD which showed erythema distal to the GE junction, small hiatal hernia. Erythema with no active bleeding. Erythema also noted in the prepyloric region also with no active bleeding. No ulcers. No blood in stomach. PPI increased to 40 mg daily. Initiated on Carafate 1 hour before meals/at bedtime. Hold aspirin, Eliquis 1 more day then patient may resume. Follow-up with Dr. Zamora for colonoscopy if patient has continued melena. Follow-up with PCP in 1 week. 2. Chronic persistent atrial fibrillation status post DC cardioversion 10/27/[address] Ye. Continue amiodarone and beta-luisana. Hold aspirin, Eliquis 1 more day then may resume as noted above. 3. Chronic kidney disease stage IV-appears at baseline however has worsened recently. 4. CAD with history of bypass in 2011-continue statin, beta-luisana, lisinopril. 5. History of mitral valve replacement with bovine valve 6. Hypertension-continue lisinopril, metoprolol, spironolactone, Lasix. 7. Hyperlipidemia-continue statin. 8. Hypothyroidism-continue Synthroid regimen. 9. Depression-continue sertraline regimen. 10. Recent diagnosis polymyalgia rheumatica-on prednisone. General: Alert, Oriented x3, Cooperative HEENT: Atraumatic, PERRLA, EOMI, Normocephalic Neck: Supple, No JVD, Negative Carotid Bruits Lungs: Clear to auscultation, Normal air movement Cardiovascular: Regular rate, Regular Rhythm, Normal S1, Normal S2, No murmurs Abdomen: Bowel Sounds Present, Soft, Non Tender, Non-Distended Extremities: No clubbing, No cyanosis, No edema, Capillary Refill Less than 3 Seconds Skin: No rashes, No breakdown Musculoskeletal: No Tenderness to Palpation of Joints or Extremities Neurological: Cranial nerves II-XII grossly intact, Neuro grossly intact Psych/Mental Status: Normal Affect, Appropriate Patient seen and examined prior to discharge. Physical assessment as noted above. Patient is stable for discharge with follow up recommendations as noted above. This patient was seen by ADINA Kim under the supervision of Dr. Nash. - Physical Exam Vitals/I&O's: Vital Signs Temp Pulse Resp BP Pulse Ox 98.0 F 66 16 129/58 H 97 10/29/19 11:25 10/29/19 12:32 10/29/19 11:25 10/29/19 12:32 10/29/19 11:25 Oxygen Delivery Method Room Air Weight: 158 lb 0.437 oz Body Mass Index (BMI) 29.0 Intake and Output for Last 24 Hours 10/27/19 10/28/19 10/29/19 23:59 23:59 23:59 Intake Total 1121.25 / 1121.25 718.75 / 718.75 Output Total 750 / 750 250 / 250 Balance 371.25 / 371.25 468.75 / 468.75 Microbiology Past 72 Hours 10/28/19 12:55 Stool Stool Occult Blood (QI) - Final Occult Blood Positive Laboratory Results 10/28/19 12:44: WBC 10.3, RBC 3.30 L, Hgb 11.6 L, Hct 36.0 L, MCV 109.1 H, MCH 35.2 H, MCHC 32.2, RDW Std Deviation 55.8 H, RDW Coeff of Rad 13.7, Plt Count 119 L, MPV 10.3, Immature Gran % (Auto) 0.800, Neut % (Auto) 83.5 H, Lymph % (Auto) 6.5 L, [place] % (Auto) 8.6, Eos % (Auto) 0.3, Baso % (Auto) 0.3, Absolute Neuts (auto) 8.6 H, Absolute Lymphs (auto) 0.67 L, Nucleated RBC % 0 10/28/19 12:44: PT 16.5 H, INR 1.3, APTT 25.6 10/28/19 12:44: Sodium 137, Potassium 4.2, Chloride 104, Carbon Dioxide 27.0, Anion Gap 6, BUN 68 H, Creatinine 2.31 H, Estim Creat Clear Calc 14.59, Est GFR (MDRD) Af Amer 26 L, Est GFR (MDRD) Non-Af 21 L, BUN/Creatinine Ratio 29.4 H, Glucose 95, Calcium 9.1 10/28/19 13:00: Blood Type A NEGATIVE, Antibody Screen NEGATIVE 10/29/19 05:16: WBC 8.6, RBC 2.93 L, Hgb 10.1 L, Hct 32.1 L, MCV 109.6 H, MCH 34.5 H, MCHC 31.5 L, RDW Std Deviation 55.4 H, RDW Coeff of Rad 13.6, Plt Count 113 L, MPV 10.6, Immature Gran % (Auto) 0.900, Neut % (Auto) 66.8, Lymph % (Auto) 19.0, [place] % (Auto) 10.7 H, Eos % (Auto) 2.1, Baso % (Auto) 0.5, Absolute Neuts (auto) 5.8, Absolute Lymphs (auto) 1.64, Nucleated RBC % 0 10/29/19 05:16: Sodium 139, Potassium 4.0, Chloride 108 H, Carbon Dioxide 25.0, Anion Gap 6, BUN 42 H, Creatinine 1.51 H, Estim Creat Clear Calc 21.30, Est GFR (MDRD) Af Amer 42 L, Est GFR (MDRD) Non-Af 35 L, BUN/Creatinine Ratio 27.8 H, Glucose 73 L, Calcium 8.3 L, TSH 2.29 Current Medications Acetaminophen (Tylenol) 500 mg PO Q6H PRN PRN PRN Reason: Pain 1-10 or Fever Albuterol Sulfate (Ventolin Aerosols) 2.5 mg INHALATION Q4H PRN PRN Reason: shortness of breath or wheezin Amiodarone HCl (Cordarone) 200 mg PO DAILY [facility] Last Admin: 10/29/19 08:58 Dose: 200 mg Documented by: Atorvastatin Calcium (Lipitor) 10 mg PO QHS [facility] Last Admin: 10/28/19 21:04 Dose: 10 mg Documented by: [facility]ous [facility] S[facility]) [facility] Last Admin: 10/29/19 12:32 Dose: 325 mg Documented by: Sodium Chloride () 1,000 mls @ 75 mls/hr IV .[id number] [facility] Last Admin: 10/29/19 05:42 Dose: 75 mls/hr Documented by: Pantoprazole Sodium 40 mg/ (Sodium Chloride) 110 mls @ 330 mls/hr IV Q12 [facility] Last Infusion: 10/29/19 09:20 Dose: Infused Documented by: Levothyroxine Sodium (Synthroid) 50 mcg PO DAILY@0600 [facility] Last Admin: 10/29/19 05:42 Dose: Not Given Documented by: Lisinopril (Zestril) 5 mg PO DAILY [facility] Last Admin: 10/29/19 12:33 Dose: 5 mg Documented by: Melatonin (Melatonin) 3 mg PO QHS PRN PRN PRN Reason: INSOMNIA Metoprolol Tartrate (Lopressor (Beta Luisana)) 50 mg PO BID [facility] Last Admin: 10/29/19 12:32 Dose: 50 mg Documented by: Mirtazapine (Remeron) 15 mg PO DAILY [facility] Last Admin: 10/29/19 12:33 Dose: 15 mg Documented by: Ondansetron HCl (Zofran) 4 mg IV Q8H PRN PRN PRN Reason: NAUSEA/VOMITING Oxycodone HCl (Oxyir) 7.5 mg PO Q6H PRN PRN Reason: pain Prednisone () 5 mg PO DAILY@0800 [facility] Last Admin: 10/29/19 12:33 Dose: 5 mg Documented by: Sertraline HCl (Zoloft) 100 mg PO DAILY [facility] Last Admin: 10/29/19 12:33 Dose: 100 mg Documented by: Sodium Chloride () 10 - 40 ml IV UD PRN PRN Reason: SALINE FLUSH Sucralfate (Carafate) 1 gm PO 1HR_ACHS [facility] Last Admin: 10/29/19 11:33 Dose: 1 gm Documented by: Discharge Diet: Light diet - advance as tolerated Discharge Activity: Return to Normal Activity Call your doctor if you observe: Shortness of breath, Dizziness, Fainting spells, Chest pain Home Medications: Medications to take at Discharge Levothyroxine [Synthroid] 50 mcg PO DAILY 01/24/14 Nitroglycerin (INPATIENT USE) [Nitrostat] 0.4 mg SUBLINGUAL Q5M PRN 08/18/14 ferrous sulfate 325 mg (65 mg iron) tablet,delayed release 325 mg PO QDAY tab 03/29/18 mirtazapine 15 mg tablet 15 mg PO DAILY 03/29/18 lisinopril 5 mg tablet 5 mg PO DAILY #90 tab 02/13/19 sertraline 100 mg tablet 100 mg PO DAILY #90 tab 02/13/19 aspirin 81 mg tablet,delayed release 81 mg PO DAILY 02/14/19 calcium carbonate 600 mg (1,500 mg)-vitamin D3 500 unit capsule 1 cap PO QODAY cap 02/14/19 oxycodone-acetaminophen 7.5 mg-325 mg tablet 1 tab PO Q6H PRN #42 tab 02/14/19 vitamin B complex 1 tab PO DAILY 02/14/19 albuterol sulfate 90 mcg/actuation aerosol inhaler 2 puff INHALATION Q4H PRN g 02/20/19 apixaban 2.5 mg tablet 2.5 mg PO BID #180 tab 05/13/19 furosemide 40 mg tablet 40 mg PO DAILY #90 tab 05/14/19 magnesium oxide 400 mg PO DAILY 06/18/19 prednisone 10 mg tablet 5 mg PO DAILY #42 tab 06/18/19 metoprolol tartrate 50 mg tablet 50 mg PO BID #180 tab 09/10/19 atorvastatin 20 mg tablet 10 mg PO QHS #45 tab 09/15/19 amiodarone 200 mg tablet 200 mg PO DAILY #30 tab 10/02/19 spironolactone 25 mg tablet 25 mg PO DAILY #30 tab 10/23/19 Acetaminophen [Tylenol] 500 mg PO Q6H PRN PRN 10/28/19 Omeprazole [Prilosec] 40 mg PO DAILY #60 cap 10/29/19 Sucralfate [Carafate] 1 gm PO 1HR_ACHS #120 tab 10/29/19 Following Prescrptions Were Given to Patient: Sucralfate [Carafate] 1 gm PO 1HR_ACHS #120 tab Transmission Status: Received by [facility] Omeprazole [Prilosec] 40 mg PO DAILY #60 cap Transmission Status: Received by [facility] Primary Care Physician: Mitchell Oleary MD [Primary Care Provider] - Please follow up with your Primary Care Physician in: 1 Week Please Follow Up With: Rick Zamora MD When: Call office for colonoscopy if you have further dark stools Disposition: Home Minutes spent on discharge:: 35 Patient Condition:: Stable Medical Necessity - Tobacco Use Smoking Status: Never smoker Tobacco Use: Non-smoker Meaningful Use Info Meaningful Use Diagnoses (Choose all that apply): None applicable <Gualberto Nash - Last Filed: 10/29/19 13:10> Discharge Date and Diagnosis - Secondary Discharge Diagnosis Chronic Problems (Last Reviewed 10/07/19 @ 16:19 by BASSAM Hoover) Diverticulosis (Chronic) Anticoagulant long-term use (Chronic) History of cardioversion (Chronic 10/27/19) Polymyalgia rheumatica (Chronic) Paroxysmal atrial fibrillation (Chronic) Atherosclerosis of coronary artery of [place] heart without angina pectoris (Chronic) Chronic diastolic (congestive) heart failure (Chronic) Hyperlipidemia (Chronic) Interstitial lung disease (Chronic) Bronchiectasis (Chronic) Hospital Course and Treatment Operations: None Procedures: EGD Summary of Care Provided: Patient seen and examined independently. Data reviewed. I agree with the above note by the nurse practitioner. The patient is a 84 year old F presents with melena. Patient's hemoglobin remained stable while she was here. Patient was noted to have erythema at the prepyloric region on EGD. Patient was instructed to increase her omeprazole from 20 to 40 mg daily and to continue with Carafate. Given there is no clear source of bleeding is possible patient may have had a bleeding vessel that just took longer to stop given her being on apixaban and aspirin. Patient instructed to hold off on those for the next 24 to 48 hours and then to resume. Patient will follow-up with general surgery as needed. [] - Physical Exam Vitals/I&O's: Vital Signs Temp Pulse Resp BP Pulse Ox 36.7 C 66 16 129/58 H 97 10/29/19 11:25 10/29/19 12:32 10/29/19 11:25 10/29/19 12:32 10/29/19 11:25 Oxygen Delivery Method Room Air Weight: 71.68 kg Body Mass Index (BMI) 29.0 Intake and Output for Last 24 Hours 10/27/19 10/28/19 10/29/19 23:59 23:59 23:59 Intake Total 1121.25 / 1121.25 718.75 / 718.75 Output Total 750 / 750 250 / 250 Balance 371.25 / 371.25 468.75 / 468.75 General: Alert, No apparent distress HEENT: Atraumatic, Normocephalic Oral: Moist Mucosa, No Gingival or Mucosal Lesions/ Ulcerations Neck: No Nodes, Trachea Midline Lungs: Clear to auscultation, Normal air movement, No rhonchi, No wheeze, No rales Cardiovascular: Regular rate, Regular Rhythm, Normal S1, Normal S2, No murmurs Abdomen: Bowel Sounds Present, Soft, Non Tender, Non-Distended, No Hepato- splenomegaly Microbiology Past 72 Hours 10/28/19 12:55 Stool Stool Occult Blood (QI) - Final Occult Blood Positive Laboratory Results 10/28/19 12:44: WBC 10.3, RBC 3.30 L, Hgb 11.6 L, Hct 36.0 L, MCV 109.1 H, MCH 35.2 H, MCHC 32.2, RDW Std Deviation 55.8 H, RDW Coeff of Rad 13.7, Plt Count 119 L, MPV 10.3, Immature Gran % (Auto) 0.800, Neut % (Auto) 83.5 H, Lymph % (Auto) 6.5 L, [place] % (Auto) 8.6, Eos % (Auto) 0.3, Baso % (Auto) 0.3, Absolute Neuts (auto) 8.6 H, Absolute Lymphs (auto) 0.67 L, Nucleated RBC % 0 10/28/19 12:44: PT 16.5 H, INR 1.3, APTT 25.6 10/28/19 12:44: Sodium 137, Potassium 4.2, Chloride 104, Carbon Dioxide 27.0, Anion Gap 6, BUN 68 H, Creatinine 2.31 H, Estim Creat Clear Calc 14.59, Est GFR (MDRD) Af Amer 26 L, Est GFR (MDRD) Non-Af 21 L, BUN/Creatinine Ratio 29.4 H, Glucose 95, Calcium 9.1 10/28/19 13:00: Blood Type A NEGATIVE, Antibody Screen NEGATIVE 10/29/19 05:16: WBC 8.6, RBC 2.93 L, Hgb 10.1 L, Hct 32.1 L, MCV 109.6 H, MCH 34.5 H, MCHC 31.5 L, RDW Std Deviation 55.4 H, RDW Coeff of Rad 13.6, Plt Count 113 L, MPV 10.6, Immature Gran % (Auto) 0.900, Neut % (Auto) 66.8, Lymph % (Auto) 19.0, [place] % (Auto) 10.7 H, Eos % (Auto) 2.1, Baso % (Auto) 0.5, Absolute Neuts (auto) 5.8, Absolute Lymphs (auto) 1.64, Nucleated RBC % 0 10/29/19 05:16: Sodium 139, Potassium 4.0, Chloride 108 H, Carbon Dioxide 25.0, Anion Gap 6, BUN 42 H, Creatinine 1.51 H, Estim Creat Clear Calc 21.30, Est GFR (MDRD) Af Amer 42 L, Est GFR (MDRD) Non-Af 35 L, BUN/Creatinine Ratio 27.8 H, Glucose 73 L, Calcium 8.3 L, TSH 2.29 Current Medications Acetaminophen (Tylenol) 500 mg PO Q6H PRN PRN PRN Reason: Pain 1-10 or Fever Albuterol Sulfate (Ventolin Aerosols) 2.5 mg INHALATION Q4H PRN PRN Reason: shortness of breath or wheezin Amiodarone HCl (Cordarone) 200 mg PO DAILY [facility] Last Admin: 10/29/19 08:58 Dose: 200 mg Documented by: Atorvastatin Calcium (Lipitor) 10 mg PO QHS [facility] Last Admin: 10/28/19 21:04 Dose: 10 mg Documented by: Ferrous Sulfate (Ferrous Sulfate) 325 mg PO DAILYCM [facility] Last Admin: 10/29/19 12:32 Dose: 325 mg Documented by: Sodium Chloride () 1,000 mls @ 75 mls/hr IV .[id number] [facility] Last Admin: 10/29/19 05:42 Dose: 75 mls/hr Documented by: Pantoprazole Sodium 40 mg/ (Sodium Chloride) 110 mls @ 330 mls/hr IV Q12 [facility] Last Infusion: 10/29/19 09:20 Dose: Infused Documented by: Levothyroxine Sodium (Synthroid) 50 mcg PO DAILY@0600 [facility] Last Admin: 10/29/19 05:42 Dose: Not Given Documented by: Lisinopril (Zestril) 5 mg PO DAILY [facility] Last Admin: 10/29/19 12:33 Dose: 5 mg Documented by: Melatonin (Melatonin) 3 mg PO QHS PRN PRN PRN Reason: INSOMNIA Metoprolol Tartrate (Lopressor (Beta Luisana)) 50 mg PO BID [facility] Last Admin: 10/29/19 12:32 Dose: 50 mg Documented by: Mirtazapine (Remeron) 15 mg PO DAILY [facility] Last Admin: 10/29/19 12:33 Dose: 15 mg Documented by: Ondansetron HCl (Zofran) 4 mg IV Q8H PRN PRN PRN Reason: NAUSEA/VOMITING Oxycodone HCl (Oxyir) 7.5 mg PO Q6H PRN PRN Reason: pain Prednisone () 5 mg PO DAILY@0800 [facility] Last Admin: 10/29/19 12:33 Dose: 5 mg Documented by: Sertraline HCl (Zoloft) 100 mg PO DAILY [facility] Last Admin: 10/29/19 12:33 Dose: 100 mg Documented by: Sodium Chloride () 10 - 40 ml IV UD PRN PRN Reason: SALINE FLUSH Sucralfate (Carafate) 1 gm PO 1HR_ACHS [facility] Last Admin: 10/29/19 11:33 Dose: 1 gm Documented by: Discharge Diet: Light diet - advance as tolerated Discharge Activity: Return to Normal Activity Call your doctor if you observe: Shortness of breath, Dizziness, Fainting spells, Chest pain Disposition: Home - Patient Condition:: Stable Medical Necessity - Tobacco Use Smoking Status: Never smoker Tobacco Use: Non-smoker Meaningful Use Info Meaningful Use Diagnoses (Choose all that apply): None applicable Code Visit Inpatient E&M: 71524 Disch Hosp
--- NOTE | 2019-10-29 12:56 | NURSING ---
Student documentation reviewed.
--- NOTE | 2019-10-29 15:52 | CHAPLAIN ---
Type of Pastoral Visit _x__ Initial Visit ___ Follow-up Visit ___ On-call Visit ___ General Patient Visit ___ Spiritual Assessment ___ Family Conference ___ Bereavement ___ Rapid Response ___ Code Blue ___ Other (describe below) Pastoral Care Referral From _x__ Patient ___ Family ___ Nurse ___ Physician ___ Theatre Director ___ Nuclear Equipment Sales Engineer ___ Other (describe below) Sacrament/Intervention _x__ Active listening ___ Anointing ___ Religion ___ Bereavement ___ Communion ___ Bibi exploration ___ ___ Life review _x__ Prayer ___ Reconciliation ___ Sacrament of Sick _x__ Supportive presence ___ Wedding ___ Other (describe below) Pastoral Comments
== END 2019-10-29 17:38 | disposition home or self-care (01) ==
LOC: ED 13:55 → MS3 14:45
PROVIDERS: Surgery; Admitting Provider Family Medicine; Emergency Provider Emergency Medicine; PCP Family Medicine
PROC: 0DJ08ZZ Inspection of Upper Intestinal Tract, Via Natural or Artificial Opening Endoscopic (ICD-10-PCS; CPT 43235; principal; 2019-10-29 10:25)
DX: K92.1 Melena (principal); I48.19 Other persistent atrial fibrillation; N18.4 Chronic kidney disease, stage 4 (severe); I25.10 Atherosclerotic heart disease of native coronary artery without angina pectoris; M35.3 Polymyalgia rheumatica; I48.0 Paroxysmal atrial fibrillation; I50.32 Chronic diastolic (congestive) heart failure; J84.9 Interstitial pulmonary disease, unspecified; R94.31 Abnormal electrocardiogram [ECG] [EKG]; I13.0 Hypertensive heart and chronic kidney disease with heart failure and stage 1 through stage 4 chronic kidney disease, or unspecified chronic kidney disease; M19.90 Unspecified osteoarthritis, unspecified site; E78.5 Hyperlipidemia, unspecified; E03.9 Hypothyroidism, unspecified; F32.9 Major depressive disorder, single episode, unspecified; Z79.899 Other long term (current) drug therapy; Z95.1 Presence of aortocoronary bypass graft; Z79.01 Long term (current) use of anticoagulants; Z79.82 Long term (current) use of aspirin; Z95.3 Presence of xenogenic heart valve
CPT/HCPCS: 43235; 36415; 80048; 82274; 84443; 85025; 85610; 85730; 86850; 86900; 86901; 93005; 96361; 96365; 96366; 99218; 99285; J7030; G0378; J2405

== ENCOUNTER → 2019-11-06 14:42 | Outpatient (CLI) | payer MEDICARE, SELFPAY ==
[2019-10-29 08:59] VITALS: BMI 29.0
[2019-11-06 17:18] LABS: Absolute Lymphocyte Count 0.61 X10^3/uL (0.83-4.51); Absolute Neutrophil Count 6.5 X10^3/uL (2.0-7.7); Basophil# 0.03 X10^3/uL; Basophil% 0.4 % (0-1); Eosinophils% 1.3 % (0-5); Hematocrit 32.8 % (37-47); Hemoglobin 10.3 g/dL (12.0-15.0); Lymphocyte # 0.61 X10^3/ul (4.0); Lymphocyte % 7.8 % (19-41); Mean Corp Hgb Conc 31.4 g/dL (32-36); Mean Corpuscular Volume 111.6 fL (81-99); Mean Platelet Vol. 10.6 fl (6.2-12.0); Monocyte# 0.55 X10^3/uL; NRBC Flagged by Analyzer 0 % (0-5); Neutrophil # 6.48 X10^3/uL (2.7-7.7); Neutrophil % 82.5 % (47-70); Platelet Count 154 K/mm3 (150-450); RBC Distribution Width SD 56.9 fl (35.1-43.9); Red Blood Count 2.94 M/mm3 (4.2-5.4); White Blood Count 7.9 K/mm3 (4.4-11.0)
== END ==
PROVIDERS: PCP Family Medicine; Visit Provider Family Medicine
DX: K29.70 Gastritis, unspecified, without bleeding (principal); D64.9 Anemia, unspecified
CPT/HCPCS: 36415; 85025

== ENCOUNTER → 2019-12-03 13:38 | Outpatient (CLI) | payer MEDICARE, SELFPAY ==
[2019-10-29 08:59] VITALS: BMI 29.0
[2019-12-03 15:27] LABS: Absolute Lymphocyte Count 0.67 X10^3/uL (0.83-4.51); Absolute Neutrophil Count 6.6 X10^3/uL (2.0-7.7); Basophil# 0.03 X10^3/uL; Basophil% 0.4 % (0-1); Eosinophil# 0.11 X10^3/uL; Eosinophils% 1.4 % (0-5); Hemoglobin 10.1 g/dL (12.0-15.0); Lymphocyte # 0.67 X10^3/ul (4.0); Lymphocyte % 8.4 % (19-41); Mean Corp Hgb Conc 30.6 g/dL (32-36); Mean Corpuscular Hgb 34.7 pg (27.0-32.0); Mean Corpuscular Volume 113.4 fL (81-99); Monocyte# 0.55 X10^3/uL; Monocyte% 6.9 % (0-10); NRBC Flagged by Analyzer 0 % (0-5); Neutrophil # 6.58 X10^3/uL (2.7-7.7); Neutrophil % 82.4 % (47-70); Platelet Count 162 K/mm3 (150-450); RBC Distribution Width SD 62.9 fl (35.1-43.9); Red Blood Count 2.91 M/mm3 (4.2-5.4)
[2019-12-03 15:45] LABS: Ferritin 70 ng/mL (8-252); Iron 115 ug/dL (50-170)
== END ==
PROVIDERS: PCP Family Medicine; Referring Provider Family Medicine; Visit Provider Family Medicine
DX: D50.9 Iron deficiency anemia, unspecified (principal)
CPT/HCPCS: 36415; 82728; 83540; 85025

== ENCOUNTER → 2020-01-02 15:10 | Outpatient (CLI) | payer MEDICARE, SELFPAY ==
[2019-10-29 08:59] VITALS: BMI 29.0
[2019-12-25 07:21] VITALS: BMI 27.6
[2020-01-02 17:39] LABS: Absolute Lymphocyte Count 1.45 X10^3/uL (0.83-4.51); Absolute Neutrophil Count 4.2 X10^3/uL (2.0-7.7); Basophil# 0.03 X10^3/uL; Basophil% 0.4 % (0-1); Eosinophil# 0.21 X10^3/uL; Eosinophils% 3.1 % (0-5); Hematocrit 37.2 % (37-47); Hemoglobin 11.6 g/dL (12.0-15.0); Lymphocyte # 1.45 X10^3/ul (4.0); Lymphocyte % 21.2 % (19-41); Mean Corp Hgb Conc 31.2 g/dL (32-36); Mean Corpuscular Volume 112.4 fL (81-99); Mean Platelet Vol. 11.4 fl (6.2-12.0); Monocyte# 0.96 X10^3/uL; NRBC Flagged by Analyzer 0 % (0-5); Neutrophil # 4.16 X10^3/uL (2.7-7.7); Neutrophil % 60.7 % (47-70); Platelet Count 131 K/mm3 (150-450); RBC Distribution Width CV 13.8 % (11.6-14.6); RBC Distribution Width SD 58.1 fl (35.1-43.9); Red Blood Count 3.31 M/mm3 (4.2-5.4); White Blood Count 6.9 K/mm3 (4.4-11.0)
== END ==
PROVIDERS: PCP Family Medicine; Referring Provider Family Medicine; Visit Provider Family Medicine
DX: D50.9 Iron deficiency anemia, unspecified (principal)
CPT/HCPCS: 36415; 85025

== ENCOUNTER → 2020-01-13 12:37 | Outpatient (CLI) | payer MEDICARE, SELFPAY ==
[2019-12-25 07:21] VITALS: BMI 27.6
[2020-01-13 13:14] LABS: Absolute Lymphocyte Count 0.92 X10^3/uL (0.83-4.51); Absolute Neutrophil Count 5.5 X10^3/uL (2.0-7.7); Basophil# 0.02 X10^3/uL; Basophil% 0.3 % (0-1); Eosinophil# 0.12 X10^3/uL; Eosinophils% 1.6 % (0-5); Hematocrit 35.4 % (37-47); Hemoglobin 11.1 g/dL (12.0-15.0); Lymphocyte # 0.92 X10^3/ul (4.0); Lymphocyte % 12.3 % (19-41); Mean Corp Hgb Conc 31.4 g/dL (32-36); Mean Corpuscular Volume 111.7 fL (81-99); Mean Platelet Vol. 11.6 fl (6.2-12.0); Monocyte# 0.83 X10^3/uL; Monocyte% 11.1 % (0-10); NRBC Flagged by Analyzer 0 % (0-5); Neutrophil # 5.52 X10^3/uL (2.7-7.7); Neutrophil % 74.2 % (47-70); Platelet Count 105 K/mm3 (150-450); RBC Distribution Width CV 13.4 % (11.6-14.6); RBC Distribution Width SD 55.8 fl (35.1-43.9); Red Blood Count 3.17 M/mm3 (4.2-5.4); White Blood Count 7.5 K/mm3 (4.4-11.0)
[2020-01-13 13:33] LABS: ALB/GLOB Ratio 0.9 RATIO (0.9-2.4); AST(SGOT) 34 U/L (15-37); Alanine Aminotransfer ALT/SGPT 32 U/L (13-56); Albumin, Serum 3.2 g/dL (3.2-5.0); Alkaline Phosphatase 38 U/L (45-117); Anion Gap 7 (5-15); BUN 65 mg/dL (7-18); Calcium,Total 8.6 mg/dL (8.5-10.1); Chloride 105 mmol/L (98-107); EST Glomerular Filtration Rate 19 mL/min (>60); Est Glom Filt Rate - Afr Amer 23 mL/min (>60); Globulin 3.7 g/dL (2.2-4.2); Glucose 92 mg/dL (74-106); Potassium 4.4 mmol/L (3.5-5.1); Protein, Total 6.9 g/dL (6.4-8.2); Sodium Level 141 mmol/L (136-145)
== END ==
PROVIDERS: PCP Family Medicine; Referring Provider Internal Medicine Rheumatology; Visit Provider Internal Medicine Rheumatology
DX: M06.4 Inflammatory polyarthropathy (principal); M47.897 Other spondylosis, lumbosacral region; M16.0 Bilateral primary osteoarthritis of hip; M21.40 Flat foot [pes planus] (acquired), unspecified foot; J84.9 Interstitial pulmonary disease, unspecified; I48.91 Unspecified atrial fibrillation; I12.9 Hypertensive chronic kidney disease with stage 1 through stage 4 chronic kidney disease, or unspecified chronic kidney disease; N18.9 Chronic kidney disease, unspecified; E03.9 Hypothyroidism, unspecified; E78.5 Hyperlipidemia, unspecified; N39.46 Mixed incontinence; N81.4 Uterovaginal prolapse, unspecified; Z95.3 Presence of xenogenic heart valve
CPT/HCPCS: 36415; 80053; 85025

== ENCOUNTER → 2020-01-20 12:10 | Outpatient (CLI) | payer MEDICARE, SELFPAY ==
[2019-12-25 07:21] VITALS: BMI 27.6
[2020-01-20 15:05] LABS: Hematocrit 31.7 % (37-47); Hemoglobin 9.8 g/dL (12.0-15.0); Mean Corp Hgb Conc 30.9 g/dL (32-36); Mean Corpuscular Hgb 34.6 pg (27.0-32.0); Mean Platelet Vol. 11.4 fl (6.2-12.0); Platelet Count 154 K/mm3 (150-450); RBC Distribution Width CV 13.7 % (11.6-14.6); RBC Distribution Width SD 56.1 fl (35.1-43.9); Red Blood Count 2.83 M/mm3 (4.2-5.4); White Blood Count 8.6 K/mm3 (4.4-11.0)
[2020-01-20 15:17] LABS: Protein, Urine (Random) 6.3 mg/dL (<11.9); Protein:Creat Ratio 178 mg/g CRE (0-200)
[2020-01-20 15:19] LABS: Albumin, Serum 3.2 g/dL (3.2-5.0); BUN 51 mg/dL (7-18); BUN/Creat Ratio 22.4 RATIO (10-20); Calcium,Total 8.5 mg/dL (8.5-10.1); Chloride 104 mmol/L (98-107); Creatinine, Serum 2.28 mg/dL (0.55-1.02); EST Glomerular Filtration Rate 22 mL/min (>60); Est Glom Filt Rate - Afr Amer 26 mL/min (>60); Glucose 94 mg/dL (74-106); Phosphorus 2.7 mg/dL (2.5-4.9); Potassium 4.3 mmol/L (3.5-5.1); Sodium Level 140 mmol/L (136-145)
[2020-01-20 15:27] LABS: Vitamin D,25 Hydroxy 53.7 ng/mL
== END ==
PROVIDERS: PCP Family Medicine; Referring Provider Internal Medicine Nephrology; Visit Provider Internal Medicine Nephrology
DX: N18.3 Chronic kidney disease, stage 3 (moderate) (principal); N25.81 Secondary hyperparathyroidism of renal origin; D63.1 Anemia in chronic kidney disease
CPT/HCPCS: 36415; 80069; 82306; 82570; 83970; 84156; 85027

== ENCOUNTER → 2020-01-21 16:02 | Outpatient (CLI) | payer MEDICARE, SELFPAY ==
[2019-12-25 07:21] VITALS: BMI 27.6
--- NOTE | 2020-01-21 16:02 | CT_ITS ---
STUDY: CT BRAIN WITHOUT CONTRAST REASON FOR EXAM: Female, 84 years old. PT STATED FALL X 1 WEEK AGO, ON ELIQUIS, HX OF TIA RADIATION DOSAGE (If Supplied By Facility): CTDIvol = ( 44.99 ) mGy, DLP = ( 762.36 ) mGycm TECHNIQUE: Transaxial CT imaging of the brain was performed without administration of intravenous contrast material. Individualized dose optimization techniques were used for this CT. COMPARISON: No relevant priors. FINDINGS: Normal soft tissue structures. Normal calvarium. Normal size ventricles and extra-axial spaces for the patient''s age. There are areas of decreased attenuation within the white matter tracts of the supratentorial brain, consistent with microvascular disease changes. There are small punctate calcifications of the basal ganglia which are seen in the aging brain as a normal variant. Normal brainstem. Normal cerebellum. Carotid and vertebral artery calcification. There is no intracranial hemorrhage. There are no findings of an acute ischemic infarction. Normal visualized paranasal sinuses. CT/Brain/Head without Contrast IMPRESSION: No acute intracranial findings. Negative for hemorrhage, hematoma or extra-axial fluid collection. Mild involutional changes appropriate for age. Electronically Signed: Nabila Avila MD at 16:44 EDT , Service support ,
== END ==
PROVIDERS: PCP Family Medicine; Referring Provider Physician Assistant Medical; Visit Provider Physician Assistant Medical
DX: S09.90XA Unspecified injury of head, initial encounter (principal); W19.XXXA Unspecified fall, initial encounter; Y92.009 Unspecified place in unspecified non-institutional (private) residence as the place of occurrence of the external cause; Z79.01 Long term (current) use of anticoagulants
CPT/HCPCS: 70450

== ENCOUNTER → 2020-02-02 | Outpatient (CLI) | payer MEDICARE, SELFPAY ==
[2019-12-25 07:21] VITALS: BMI 27.6
[2020-02-02 12:29] LABS: Absolute Lymphocyte Count 0.97 X10^3/uL (0.83-4.51); Absolute Neutrophil Count 4.5 X10^3/uL (2.0-7.7); Basophil# 0.05 X10^3/uL; Basophil% 0.7 % (0-1); Eosinophil# 0.35 X10^3/uL; Eosinophils% 5.1 % (0-5); Hematocrit 31.3 % (37-47); Hemoglobin 9.8 g/dL (12.0-15.0); Lymphocyte # 0.97 X10^3/ul (4.0); Lymphocyte % 14.2 % (19-41); Mean Corp Hgb Conc 31.3 g/dL (32-36); Mean Corpuscular Hgb 35.6 pg (27.0-32.0); Mean Corpuscular Volume 113.8 fL (81-99); Mean Platelet Vol. 10.5 fl (6.2-12.0); Monocyte% 13.1 % (0-10); NRBC Flagged by Analyzer 0 % (0-5); Neutrophil % 65.7 % (47-70); Platelet Count 207 K/mm3 (150-450); RBC Distribution Width CV 14.9 % (11.6-14.6); RBC Distribution Width SD 61.9 fl (35.1-43.9); Red Blood Count 2.75 M/mm3 (4.2-5.4); White Blood Count 6.9 K/mm3 (4.4-11.0)
[2020-02-02 15:23] LABS: Iron 68 ug/dL (50-170)
== END | disposition home or self-care (01) ==
LOC: BFHLAB 10:47
PROVIDERS: PCP Family Medicine; Visit Provider Family Medicine
DX: D64.9 Anemia, unspecified (principal)
CPT/HCPCS: 36415; 83540; 85025

== ENCOUNTER → 2020-02-16 11:25 | Outpatient (CLI) | payer MEDICARE, SELFPAY ==
[2019-12-25 07:21] VITALS: BMI 27.6
[2020-02-16 15:15] LABS: Absolute Lymphocyte Count 0.87 X10^3/uL (0.83-4.51); Absolute Neutrophil Count 5.5 X10^3/uL (2.0-7.7); Basophil# 0.04 X10^3/uL; Basophil% 0.5 % (0-1); Eosinophil# 0.31 X10^3/uL; Eosinophils% 4.1 % (0-5); Hemoglobin 10.2 g/dL (12.0-15.0); Lymphocyte # 0.87 X10^3/ul (4.0); Lymphocyte % 11.6 % (19-41); Mean Corp Hgb Conc 30.9 g/dL (32-36); Mean Corpuscular Hgb 35.4 pg (27.0-32.0); Mean Corpuscular Volume 114.6 fL (81-99); Mean Platelet Vol. 11.1 fl (6.2-12.0); Monocyte# 0.79 X10^3/uL; Monocyte% 10.5 % (0-10); NRBC Flagged by Analyzer 0 % (0-5); Neutrophil # 5.46 X10^3/uL (2.7-7.7); Neutrophil % 72.9 % (47-70); Platelet Count 172 K/mm3 (150-450); RBC Distribution Width CV 14.6 % (11.6-14.6); RBC Distribution Width SD 61.6 fl (35.1-43.9); Red Blood Count 2.88 M/mm3 (4.2-5.4); White Blood Count 7.5 K/mm3 (4.4-11.0)
[2020-02-16 15:28] LABS: Iron 45 ug/dL (50-170)
== END ==
PROVIDERS: PCP Family Medicine; Visit Provider Family Medicine
DX: D64.9 Anemia, unspecified (principal)
CPT/HCPCS: 36415; 83540; 85025

== ENCOUNTER → 2020-03-08 10:42 | Outpatient (CLI) | payer MEDICARE, SELFPAY ==
[2020-02-26 10:54] VITALS: BMI 27.1
[2020-03-08 11:38] LABS: Anion Gap 4 (5-15); BUN 32 mg/dL (7-18); BUN/Creat Ratio 16.8 RATIO (10-20); Calcium,Total 8.6 mg/dL (8.5-10.1); Chloride 107 mmol/L (98-107); Creatinine, Serum 1.91 mg/dL (0.55-1.02); EST Glomerular Filtration Rate 27 mL/min (>60); Est Glom Filt Rate - Afr Amer 32 mL/min (>60); Glucose 97 mg/dL (74-106); Potassium 3.6 mmol/L (3.5-5.1); Sodium Level 141 mmol/L (136-145)
== END ==
PROVIDERS: PCP Family Medicine; Referring Provider Internal Medicine Cardiovascular Disease; Visit Provider Internal Medicine Cardiovascular Disease
DX: I48.0 Paroxysmal atrial fibrillation (principal); I25.10 Atherosclerotic heart disease of native coronary artery without angina pectoris; Z95.1 Presence of aortocoronary bypass graft; I05.2 Rheumatic mitral stenosis with insufficiency; Z95.3 Presence of xenogenic heart valve; I11.0 Hypertensive heart disease with heart failure; I50.32 Chronic diastolic (congestive) heart failure
CPT/HCPCS: 36415; 80048

== ENCOUNTER → 2020-03-17 10:41 | Outpatient (CLI) | payer MEDICARE, SELFPAY ==
[2019-12-25 07:21] VITALS: BMI 27.6
[2020-02-26 10:54] VITALS: BMI 27.1
[2020-03-17 12:00] LABS: Absolute Lymphocyte Count 0.82 X10^3/uL (0.83-4.51); Basophil# 0.05 X10^3/uL; Basophil% 0.8 % (0-1); Eosinophil# 0.49 X10^3/uL; Hemoglobin 10.4 g/dL (12.0-15.0); Lymphocyte # 0.82 X10^3/ul (4.0); Lymphocyte % 13.3 % (19-41); Mean Corp Hgb Conc 30.6 g/dL (32-36); Mean Corpuscular Volume 114.5 fL (81-99); Mean Platelet Vol. 10.6 fl (6.2-12.0); Monocyte# 0.78 X10^3/uL; Monocyte% 12.7 % (0-10); NRBC Flagged by Analyzer 0 % (0-5); Neutrophil # 3.97 X10^3/uL (2.7-7.7); Neutrophil % 64.5 % (47-70); Platelet Count 187 K/mm3 (150-450); RBC Distribution Width CV 14.2 % (11.6-14.6); RBC Distribution Width SD 59.4 fl (35.1-43.9); Red Blood Count 2.97 M/mm3 (4.2-5.4); White Blood Count 6.2 K/mm3 (4.4-11.0)
[2020-03-17 12:13] LABS: Iron 48 ug/dL (50-170)
== END ==
PROVIDERS: PCP Family Medicine; Referring Provider Family Medicine; Visit Provider Family Medicine
DX: D64.9 Anemia, unspecified (principal)
CPT/HCPCS: 36415; 83540; 85025

== ENCOUNTER → 2020-03-25 13:44 | Outpatient (CLI) | payer MEDICARE, SELFPAY ==
[2020-02-26 10:54] VITALS: BMI 27.1
[2020-03-25 16:13] LABS: Erythrocyte Sedimentation Rate 38 mm/hr (0-30)
== END ==
PROVIDERS: PCP Family Medicine; Referring Provider Internal Medicine Rheumatology; Visit Provider Internal Medicine Rheumatology
DX: M06.4 Inflammatory polyarthropathy (principal); M47.897 Other spondylosis, lumbosacral region; M16.0 Bilateral primary osteoarthritis of hip; M21.40 Flat foot [pes planus] (acquired), unspecified foot; J84.9 Interstitial pulmonary disease, unspecified; I48.91 Unspecified atrial fibrillation; I12.9 Hypertensive chronic kidney disease with stage 1 through stage 4 chronic kidney disease, or unspecified chronic kidney disease; N18.9 Chronic kidney disease, unspecified
CPT/HCPCS: 36415; 85652; 86140

== ENCOUNTER → 2020-04-12 10:44 | Outpatient (CLI) | payer MEDICARE, SELFPAY ==
[2020-02-26 10:54] VITALS: BMI 27.1
[2020-04-12 11:35] LABS: Basophil# 0.05 X10^3/uL; Basophil% 0.7 % (0-1); Eosinophil# 0.36 X10^3/uL; Eosinophils% 4.7 % (0-5); Hematocrit 35.1 % (37-47); Hemoglobin 10.9 g/dL (12.0-15.0); Lymphocyte % 17.1 % (19-41); Mean Corp Hgb Conc 31.1 g/dL (32-36); Mean Corpuscular Hgb 34.7 pg (27.0-32.0); Mean Corpuscular Volume 111.8 fL (81-99); Mean Platelet Vol. 10.8 fl (6.2-12.0); Monocyte# 0.86 X10^3/uL; Monocyte% 11.3 % (0-10); NRBC Flagged by Analyzer 0 % (0-5); Neutrophil % 65.8 % (47-70); Platelet Count 161 K/mm3 (150-450); RBC Distribution Width CV 13.5 % (11.6-14.6); RBC Distribution Width SD 55.8 fl (35.1-43.9); Red Blood Count 3.14 M/mm3 (4.2-5.4); White Blood Count 7.6 K/mm3 (4.4-11.0)
[2020-04-12 12:01] LABS: ALB/GLOB Ratio 0.8 RATIO (0.9-2.4); AST(SGOT) 24 U/L (15-37); Alanine Aminotransfer ALT/SGPT 23 U/L (13-56); Albumin, Serum 3.5 g/dL (3.2-5.0); Alkaline Phosphatase 165 U/L (45-117); Anion Gap 6 (5-15); BUN 39 mg/dL (7-18); BUN/Creat Ratio 21.1 RATIO (10-20); Calcium,Total 8.8 mg/dL (8.5-10.1); Chloride 107 mmol/L (98-107); Creatinine, Serum 1.85 mg/dL (0.55-1.02); EST Glomerular Filtration Rate 28 mL/min (>60); Est Glom Filt Rate - Afr Amer 33 mL/min (>60); Globulin 4.5 g/dL (2.2-4.2); Glucose 87 mg/dL (74-106); Potassium 3.7 mmol/L (3.5-5.1); Sodium Level 142 mmol/L (136-145)
== END ==
PROVIDERS: PCP Family Medicine; Referring Provider Internal Medicine Rheumatology; Visit Provider Internal Medicine Rheumatology
DX: M06.4 Inflammatory polyarthropathy (principal); M47.897 Other spondylosis, lumbosacral region; M16.0 Bilateral primary osteoarthritis of hip; M21.40 Flat foot [pes planus] (acquired), unspecified foot; J84.9 Interstitial pulmonary disease, unspecified; I48.91 Unspecified atrial fibrillation; I12.9 Hypertensive chronic kidney disease with stage 1 through stage 4 chronic kidney disease, or unspecified chronic kidney disease; N18.9 Chronic kidney disease, unspecified; E03.9 Hypothyroidism, unspecified; E78.5 Hyperlipidemia, unspecified; N39.46 Mixed incontinence; N81.4 Uterovaginal prolapse, unspecified; Z95.3 Presence of xenogenic heart valve
CPT/HCPCS: 36415; 80053; 85025

== ENCOUNTER → 2020-05-21 10:41 | Outpatient (CLI) | payer MEDICARE, SELFPAY ==
[2020-02-26 10:54] VITALS: BMI 27.1
[2020-05-21 11:10] LABS: Absolute Lymphocyte Count 1.26 X10^3/uL (0.83-4.51); Basophil# 0.03 X10^3/uL; Basophil% 0.4 % (0-1); Eosinophil# 0.26 X10^3/uL; Eosinophils% 3.5 % (0-5); Hematocrit 36.1 % (37-47); Hemoglobin 11.2 g/dL (12.0-15.0); Lymphocyte # 1.26 X10^3/ul (4.0); Lymphocyte % 17.1 % (19-41); Mean Corpuscular Volume 109.7 fL (81-99); Mean Platelet Vol. 10.6 fl (6.2-12.0); Monocyte# 0.82 X10^3/uL; Monocyte% 11.2 % (0-10); NRBC Flagged by Analyzer 0 % (0-5); Neutrophil # 4.95 X10^3/uL (2.7-7.7); Neutrophil % 67.4 % (47-70); Platelet Count 104 K/mm3 (150-450); RBC Distribution Width CV 13.6 % (11.6-14.6); RBC Distribution Width SD 55.9 fl (35.1-43.9); Red Blood Count 3.29 M/mm3 (4.2-5.4); White Blood Count 7.4 K/mm3 (4.4-11.0)
[2020-05-21 11:49] LABS: Ferritin 123 ng/mL (8-252); Iron 73 ug/dL (50-170)
== END ==
PROVIDERS: PCP Family Medicine; Referring Provider Family Medicine; Visit Provider Family Medicine
DX: K92.2 Gastrointestinal hemorrhage, unspecified (principal); D50.9 Iron deficiency anemia, unspecified
CPT/HCPCS: 36415; 82728; 83540; 85025

== ENCOUNTER → 2020-07-05 10:50 | Outpatient (CLI) | payer MEDICARE, SELFPAY ==
[2020-02-26 10:54] VITALS: BMI 27.1
[2020-06-15 14:10] VITALS: BMI 26.5
[2020-07-05 11:20] LABS: Absolute Lymphocyte Count 0.84 X10^3/uL (0.83-4.51); Basophil# 0.05 X10^3/uL; Basophil% 0.5 % (0-1); Eosinophil# 0.29 X10^3/uL; Eosinophils% 2.8 % (0-5); Hematocrit 34.7 % (37-47); Hemoglobin 10.7 g/dL (12.0-15.0); Lymphocyte # 0.84 X10^3/ul (4.0); Lymphocyte % 8.2 % (19-41); Mean Corp Hgb Conc 30.8 g/dL (32-36); Mean Corpuscular Hgb 34.2 pg (27.0-32.0); Mean Corpuscular Volume 110.9 fL (81-99); Mean Platelet Vol. 10.4 fl (6.2-12.0); Monocyte# 0.97 X10^3/uL; Monocyte% 9.5 % (0-10); NRBC Flagged by Analyzer 0 % (0-5); Neutrophil % 78.5 % (47-70); Platelet Count 133 K/mm3 (150-450); RBC Distribution Width CV 14.6 % (11.6-14.6); RBC Distribution Width SD 59.6 fl (35.1-43.9); Red Blood Count 3.13 M/mm3 (4.2-5.4); White Blood Count 10.2 K/mm3 (4.4-11.0)
[2020-07-05 11:46] LABS: Iron 78 ug/dL (50-170)
== END ==
PROVIDERS: PCP Family Medicine; Referring Provider Family Medicine; Visit Provider Family Medicine
DX: D64.9 Anemia, unspecified (principal)
CPT/HCPCS: 36415; 83540; 85025

== ENCOUNTER → 2020-07-12 10:47 | Outpatient (CLI) | payer MEDICARE, SELFPAY ==
[2020-06-15 14:10] VITALS: BMI 26.5
[2020-07-12 11:08] LABS: Erythrocyte Sedimentation Rate 29 mm/hr (0-30)
[2020-07-12 11:10] LABS: Absolute Neutrophil Count 6.9 X10^3/uL (2.0-7.7); Basophil# 0.06 X10^3/uL; Basophil% 0.7 % (0-1); Eosinophil# 0.27 X10^3/uL; Eosinophils% 2.9 % (0-5); Hematocrit 37.5 % (37-47); Hemoglobin 11.7 g/dL (12.0-15.0); Lymphocyte % 9.8 % (19-41); Mean Corp Hgb Conc 31.2 g/dL (32-36); Mean Corpuscular Hgb 34.4 pg (27.0-32.0); Mean Corpuscular Volume 110.3 fL (81-99); Mean Platelet Vol. 10.2 fl (6.2-12.0); Monocyte# 1.04 X10^3/uL; Monocyte% 11.3 % (0-10); NRBC Flagged by Analyzer 0 % (0-5); Neutrophil # 6.85 X10^3/uL (2.7-7.7); Neutrophil % 74.5 % (47-70); Platelet Count 152 K/mm3 (150-450); RBC Distribution Width CV 14.1 % (11.6-14.6); RBC Distribution Width SD 57.7 fl (35.1-43.9); White Blood Count 9.2 K/mm3 (4.4-11.0)
[2020-07-12 11:29] LABS: ALB/GLOB Ratio 0.8 RATIO (0.9-2.4); AST(SGOT) 27 U/L (15-37); Alanine Aminotransfer ALT/SGPT 31 U/L (13-56); Albumin, Serum 3.5 g/dL (3.2-5.0); Alkaline Phosphatase 109 U/L (45-117); Anion Gap 7 (5-15); BUN 48 mg/dL (7-18); BUN/Creat Ratio 24.4 RATIO (10-20); Calcium,Total 8.5 mg/dL (8.5-10.1); Chloride 102 mmol/L (98-107); Creatinine, Serum 1.97 mg/dL (0.55-1.02); EST Glomerular Filtration Rate 26 mL/min (>60); Est Glom Filt Rate - Afr Amer 31 mL/min (>60); Globulin 4.6 g/dL (2.2-4.2); Glucose 91 mg/dL (74-106); Potassium 3.4 mmol/L (3.5-5.1); Protein, Total 8.1 g/dL (6.4-8.2); Sodium Level 139 mmol/L (136-145)
== END ==
PROVIDERS: PCP Family Medicine; Visit Provider Internal Medicine Rheumatology
DX: M06.4 Inflammatory polyarthropathy (principal); M47.897 Other spondylosis, lumbosacral region; M16.0 Bilateral primary osteoarthritis of hip; M21.40 Flat foot [pes planus] (acquired), unspecified foot; J84.9 Interstitial pulmonary disease, unspecified; I48.91 Unspecified atrial fibrillation; I12.9 Hypertensive chronic kidney disease with stage 1 through stage 4 chronic kidney disease, or unspecified chronic kidney disease; N18.9 Chronic kidney disease, unspecified
CPT/HCPCS: 36415; 80053; 85025; 85652; 86140

== ENCOUNTER → 2020-07-16 13:54 | Outpatient (CLI) | payer MEDICARE, SELFPAY ==
[2020-07-16 13:01] VITALS: BMI 27.4
--- NOTE | 2020-07-16 13:57 | VDLE_ITS ---
Reason For Study: swelling RIGHT LEFT CFV is compressible, spontaneous, phasic, GSV is normal. competent and demonstrates normal CFV is compressible, spontaneous, phasic, augmentation. competent, and demonstrates normal Procedure augmentation. This is a venous duplex using B-mode, color FV is compressible, spontaneous, phasic, flow and spectral Doppler. competent and demonstrates normal The exam was diagnostic. augmentation. A preliminary report was called and/or faxed POP V is compressible, spontaneous, phasic, to Voicemail to Teagan BANEGAS. competent and demonstrates normal augmentation. T/P Trunk is compressible. PTV is compressible. LT PerV is compressible. NON-vascular structure noted in the left pop fossa space measuring 2.5 x 1.0cm. Interpretation Summary There is no evidence of left lower extremity deep vein thrombosis. Left great saphenous vein appears patent and compressible segmentally. Non-vascular left popliteal fossa structure 2.5 x 1 cm consistent with a complex cyst. Normal flow patterns right common femoral vein, Ordering Physician: Teagan Botello Referring Physician: Mitchell Oleary Performed By: Rosio Johnson, IJEOMA, RVT
== END ==
PROVIDERS: PCP Family Medicine; Referring Provider Physician Assistant Medical; Visit Provider Physician Assistant Medical
DX: R60.0 Localized edema (principal)
CPT/HCPCS: 93971

== ENCOUNTER → 2020-07-23 06:44 | Outpatient (CLI) | payer MEDICARE, SELFPAY ==
[2020-07-16 13:01] VITALS: BMI 27.4
--- NOTE | 2020-07-23 11:02 | STRESSREP ---
Stress Test Report Pharmacologic myocardial perfusion stress test. Patient with a history of mitral valve replacement. Preoperative cardiac evaluation. Stress protocol. Resting EKG demonstrates normal sinus rhythm with a rate of 64 bpm normal intervals are noted resting blood pressure is 142/68 mmHg. 0.4 mg of regadenoson was infused per usual protocol. Continuous EKG monitoring was performed. The maximum heart rate attained was noted to be 83 bpm which was 61% of maximum predicted heart rate the maximum workload was 1 metabolic equivalent. At rest there were no ST or T wave changes noted to suggest ischemia at peak infusion nonspecific ST-T wave changes were noted. The final blood pressure was 124/60 mmHg. Myocardial perfusion protocol. 11.6 mCi of technetium 99m sestamibi was injected at rest. 0.4 mg of regadenoson was infused per usual protocol. At peak infusion 33.1 mCi of technetium 99m sestamibi was injected stress images were obtained stress and rest images were reconstructed and compared in the short axis vertical and horizontal long axis. Gated images were also obtained Perfusion SPECT analysis: Review of the stress images demonstrate normal uptake of tracer noted in the septum inferior wall and lateral wall. The mid anterior wall has a mild perfusion defect present on the stress images. The resting images demonstrate mild improvement in this area suggesting a mild amount of mid anterior ischemia. The rest of the aguirre are normally perfused. Gated SPECT analysis: The gated ejection fraction is noted be 55%. Conclusion: Abnormal myocardial perfusion stress test with evidence of mild mid anterior ischemia. Preserved ejection fraction.
== END ==
PROVIDERS: PCP Family Medicine; Referring Provider Physician Assistant Medical; Visit Provider Physician Assistant Medical
DX: I25.10 Atherosclerotic heart disease of native coronary artery without angina pectoris (principal)
CPT/HCPCS: 78452; 93017; A9500; A4216; J2785

== ENCOUNTER → 2020-07-28 12:29 | Outpatient (CLI) | payer MEDICARE, SELFPAY ==
[2020-07-16 13:01] VITALS: BMI 27.4
[2020-07-28 13:09] LABS: Anion Gap 6 (5-15); BUN 35 mg/dL (7-18); BUN/Creat Ratio 19.2 RATIO (10-20); Calcium,Total 9.1 mg/dL (8.5-10.1); Chloride 102 mmol/L (98-107); Creatinine, Serum 1.82 mg/dL (0.55-1.02); EST Glomerular Filtration Rate 28 mL/min (>60); Est Glom Filt Rate - Afr Amer 34 mL/min (>60); Glucose 96 mg/dL (74-106); Sodium Level 139 mmol/L (136-145)
[2020-07-28 13:27] LABS: Protein, Urine (Random) < 6.0 mg/dL (<11.9)
== END ==
PROVIDERS: PCP Family Medicine; Referring Provider Internal Medicine Nephrology; Visit Provider Internal Medicine Nephrology
DX: N18.30 Chronic kidney disease, stage 3 unspecified (principal)
CPT/HCPCS: 36415; 80048; 82570; 84156

== ENCOUNTER 2020-08-13 05:45 | Day surgery (SDC) | payer MEDICARE, SELFPAY ==
[2020-06-15 14:10] VITALS: BMI 26.5
[2020-07-16 13:01] VITALS: BMI 27.4
[2020-08-09 15:46] LABS: Hematocrit 38.6 % (37-47); Hemoglobin 12.3 g/dL (12.0-15.0); Mean Corp Hgb Conc 31.9 g/dL (32-36); Mean Corpuscular Hgb 34.9 pg (27.0-32.0); Mean Corpuscular Volume 109.7 fL (81-99); Mean Platelet Vol. 10.7 fl (6.2-12.0); Platelet Count 154 K/mm3 (150-450); RBC Distribution Width CV 13.2 % (11.6-14.6); RBC Distribution Width SD 54.3 fl (35.1-43.9); Red Blood Count 3.52 M/mm3 (4.2-5.4); White Blood Count 8.1 K/mm3 (4.4-11.0)
[2020-08-09 16:13] LABS: ALB/GLOB Ratio 0.9 RATIO (0.9-2.4); AST(SGOT) 28 U/L (15-37); Alanine Aminotransfer ALT/SGPT 27 U/L (13-56); Albumin, Serum 3.8 g/dL (3.2-5.0); Alkaline Phosphatase 85 U/L (45-117); Anion Gap 6 (5-15); BUN 32 mg/dL (7-18); BUN/Creat Ratio 19.3 RATIO (10-20); Calcium,Total 8.9 mg/dL (8.5-10.1); Chloride 100 mmol/L (98-107); Creatinine, Serum 1.66 mg/dL (0.55-1.02); EST Glomerular Filtration Rate 31 mL/min (>60); Est Glom Filt Rate - Afr Amer 38 mL/min (>60); Globulin 4.2 g/dL (2.2-4.2); Glucose 98 mg/dL (74-106); Potassium 3.9 mmol/L (3.5-5.1); Sodium Level 138 mmol/L (136-145)
[2020-08-09 16:15] LABS: Magnesium 2.2 mg/dL (1.6-2.6)
[2020-08-13] VITALS (19 sets, daily range): BP systolic 89–144; BP diastolic 40–65; PULSE 48–64; RESP 16–18; TEMP 36.3–37.1; O2SAT 92–100; BMI 27.5
[2020-08-13] MEDS: Celecoxib 200 MG Capsule 400 MG PO (06:31)
[2020-08-13] MEDS: Lactated Ringers 1,000 ML 40 ML IV ×3 (06:33→12:39)
[2020-08-13] MEDS: dexAMETHasone 10 MG/ML Vial 8 MG IV (06:33)
[2020-08-13] MEDS: Scopolamine 1mg/72hr Patch 1 PATCH TD (06:34)
[2020-08-13] MEDS: Enoxaparin 40 MG/0.4 ML Syringe SC (06:34)
[2020-08-13] MEDS: Gabapentin 600 MG Tablet PO (06:34)
[2020-08-13] MEDS: Acetaminophen 500 MG Tablet 1000 MG PO ×3 (06:34→23:55)
--- NOTE | 2020-08-13 07:17 | PCM.HPOB.BLA ---
- Problem List (1) [place] grade 3 cystocele Status: Acute Comment: plan THVBSO combo case with dr gorman. needs medical preop clearance (2) Anticoagulant long-term use Status: Chronic (3) Atherosclerosis of coronary artery of [place] heart without angina pectoris Status: Chronic Qualifiers: (4) Bronchiectasis Status: Chronic Qualifiers: (5) Chronic diastolic (congestive) heart failure Status: Chronic (6) Hyperlipidemia Status: Chronic (7) Interstitial lung disease Status: Chronic (8) Paroxysmal atrial fibrillation Status: Chronic (9) Essential (primary) hypertension Status: Resolved (10) H/O coronary artery bypass surgery Status: Resolved Comment: CABG x 2: SVG-RPDA and LPLB w/ KAT Ligation and MVR 09/20/2011 (11) History of mitral valve replacement with bioprosthetic valve Status: Resolved Comment: #29 Chao Magna Pericardial Valve 09/20/2011 (12) Rheumatic mitral stenosis with insufficiency Status: Resolved History and Physical Date of Admission: 08/13/20 Intake Vital Signs 06/15/20 Height 5 ft 2 in 06/15/20 Weight: 145 lb 06/15/20 BP 130/66 H Intake Visit Reasons: Surgical consult, ref by Dr. Gorman Chief Complaint: surgical consult sent from sy Abstract Writer Required: No Is patient in pain?: No Allergies amoxicillin [Amoxicillin] Allergy (Verified 06/15/20 14:10) Rash fenoprofen calcium [From Nalfon] Allergy (Verified 06/15/20 14:10) Itching Penicillins Allergy (Verified 06/15/20 14:10) Itching Medications Levothyroxine [Synthroid] 50 mcg PO DAILY 01/24/14 [History Confirmed 06/15/20] Nitroglycerin (INPATIENT USE) [Nitrostat] 0.4 mg SUBLINGUAL Q5M PRN 08/18/14 [History Confirmed 06/15/20] aspirin 81 mg tablet,delayed release 81 mg PO DAILY 02/14/19 [History Confirmed 06/15/20] oxycodone-acetaminophen 7.5 mg-325 mg tablet 1 tab PO Q6H PRN #42 tab 02/14/19 [History Confirmed 06/15/20] vitamin B complex 1 tab PO DAILY 02/14/19 [History Confirmed 06/15/20] furosemide 40 mg tablet 40 mg PO DAILY #90 tab 05/14/19 [Rx Confirmed 06/15/20] magnesium oxide 400 mg PO DAILY 06/18/19 [History Confirmed 06/15/20] spironolactone 25 mg tablet 25 mg PO DAILY #30 tab 10/23/19 [Rx Confirmed 06/15/20] Acetaminophen [Tylenol] 500 mg PO Q6H PRN PRN 10/28/19 [History Confirmed 06/15/20] atorvastatin 10 mg tablet 10 mg PO QHS #90 tab 12/10/19 [Rx Confirmed 02/26/20] calcium carbonate 600 mg (1,500 mg)-vitamin D3 500 unit capsule 1 cap PO QDAY cap 12/10/19 [History Confirmed 06/15/20] hydroxychloroquine 200 mg tablet 200 mg PO DAILY tab 12/10/19 [History Confirmed 06/15/20] mirabegron 50 mg tablet,extended release 24 hr 50 mg PO DAILY tab 12/10/19 [History Confirmed 06/15/20] mirtazapine 15 mg tablet 15 mg PO QHS tab 12/10/19 [History Confirmed 06/15/20] omeprazole 20 mg capsule,delayed release 20 mg PO BID cap 12/10/19 [History Confirmed 06/15/20] cholecalciferol (vitamin D3) 25 mcg (1,000 unit) capsule 25 mcg PO DAILY 02/26/20 [History Confirmed 06/15/20] ferrous sulfate 325 mg (65 mg iron) tablet,delayed release 325 mg PO BID tab 02/26/20 [History Confirmed 06/15/20] guaifenesin 1,200 mg tablet, extended release 12 hr 1,200 mg PO Q12H 02/26/20 [History Confirmed 06/15/20] sertraline 100 mg tablet 150 mg PO DAILY #90 tab 02/26/20 [History Confirmed 06/15/20] sucralfate 1 gram tablet 1 g PO TID tab 02/26/20 [History Confirmed 06/15/20] clindamycin HCl 300 mg capsule 600 mg PO .COMPLEX #2 cap 03/15/20 [Rx Confirmed 06/15/20] amiodarone 200 mg tablet 100 mg PO DAILY #30 tab 04/22/20 [Rx Confirmed 06/15/20] metoprolol tartrate 25 mg tablet 12.5 mg PO BID #180 tab 05/11/20 [Rx Confirmed 06/15/20] amlodipine 10 mg tablet 10 mg PO DAILY #90 tab 06/11/20 [Rx Confirmed 06/15/20] Is last menstrual period known: No Post menopausal: Yes Patient : No : No PFSH Medical History Paroxysmal atrial fibrillation (Chronic) Atherosclerosis of coronary artery of [place] heart without angina pectoris (Chronic) Rheumatic mitral stenosis with insufficiency (Resolved) Chronic diastolic (congestive) heart failure (Chronic) Essential (primary) hypertension (Resolved) Hyperlipidemia (Chronic) Interstitial lung disease (Chronic) Bronchiectasis (Chronic) Transient ischemic attack (Resolved) Anemia (Chronic) Arthritis (Chronic) Back pain (Chronic) Chronic kidney disease (Chronic) Diverticulosis (Chronic) Hypothyroidism (Chronic) Incontinence (Chronic) Obesity (Chronic) Osteoporosis (Chronic) Polyarthritis rheumatica (Chronic) Polymyalgia rheumatica (Chronic) Atrial fibrillation with rapid ventricular response (Resolved 05/13/19) GI bleed (Ruled-out 10/28/19) Bruises easily (Inactive) Difficulty balancing (Inactive) Hay fever (Inactive) Surgical History H/O coronary artery bypass surgery (Resolved 09/20/11) History of mitral valve replacement with bioprosthetic valve (Resolved 09/20/11) H/O laminectomy (Resolved) History of cardioversion (Resolved 10/27/19) History of cataract surgery (Resolved) History of cholecystectomy (Resolved) History of right and left heart catheterization (Resolved 07/24/11) Family History Other CVA (cerebral vascular accident) Hypertension Social History (Updated 06/17/20 @ 12:[address] Aimee Carpio MD) Smoking Status: Never smoker second hand exposure: No alcohol intake: never substance use type: does not use HPI Surgical consult, ref by Dr. Gorman: Details: YOLANDA LANE is a 85 year old who presents with pelvic organ prolapse. she has been seen by dr gorman and failed a pessary trial and is therefore going to have pelvic floor reconstruction surgically to treat symptoms. she states this interferes with quality of life and wants to proceed. she denies any vaginal bleeding and feels a vaginal bulge and pressure daily and this causes pain for her. Female Reproductive History Questions: Sexually active: No Menopausal Symptoms: No night sweats Pregancy History Elective abortions Hx Para 4 Spontaneous abortions Hx # Term Pregnancies Ectopic pregnancies Hx # Pregnancies Multiple births # of living children Past Pregnancies Del. Date Name GA/Weeks Outcome Route Bth Weight Infant Gen Labor Lgth Anesthesia Del Locatn Provider FOB Unknown octavia Unknown Jayne Unknown Kwasi Unknown Casie ROS Const Constitutional: Reports fatigue; denies night sweats, weight gain or weight loss ENT ENT: Reports system reviewed and no additional complaints, except as docu Cardio Card: Reports chest pain (stable in past) Resp Resp: Denies cough or dyspnea GI GI: Reports as per HPI; denies abdominal pain, constipation, nausea or vomiting : Reports urinary frequency, urinary incontinence, urinary urgency and vaginal discharge (with prolapse); denies nipple discharge, urinary hesitancy, vaginal dryness, vaginal odor or vaginal itching Musc Musc: Reports back pain and muscle weakness (agre related stable); denies joint pain Skin Skin/Breast: Denies hair loss, change in hair, dry skin, breast lump, breast pain, breast skin changes or nipple discharge Neuro Neuro: Reports system reviewed and no additional complaints, except as docu Psych Psych: Reports system reviewed and no additional complaints, except as docu Endo Endo: Denies cold intolerance, excessive sweating, heat intolerance or increased thirst Marquis/Lymph Hematologic/Lymphatic: Denies easy bleeding, Denies easy bruising, Denies enlarged lymph nodes Exam Const General: cooperative, healthy appearing, comfortable, no acute distress, well developed Orientation: alert [facility] Head: normal to inspection, normocephalic Ears: hearing grossly normal bilaterally, external ears normal Nose: external nose normal, nares normal Face and sinus: normal facial exam Neck Neck: normal visual inspection, no lymphadenopathy Thyroid: thyroid normal Chest Chest palpation & inspection: normal inspection of the chest Resp Effort & Inspection: normal respiratory effort Cardio Rate: regular rate Rhythm: regular rhythm GI Inspection: normal to inspection, non-distended Palpation: soft, no hepatosplenomegaly General: bladder normal to palpation External Female Exam: normal external appearance (atrophy enlarged genital hiatus, poor pelvic floor tone), normal appearance of the urethra Urethra: normal appearance of the urethra, normal palpation, no discharge Speculum Exam - Vagina: normal appearance of the vagina, normal vaginal discharge, atrophic vaginal mucosa Speculum Exam - Cervix: normal appearance of the cervix, nontender Bimanual Exam- Vagina & Uterus: normal bimanual exam, uterine size normal (small age appropriate), bladder normal to palpation, uterine shape normal, No cervical tenderness, uterine mobility normal, uterine consistency normal, normal cervical palpation, uterus non-tender Bimanual Exam- Adnexa, other: normal adnexae, adnexae mobile, no adnexal masses, rectocele, cystocele, vaginal apex descent Pelvic Support: cystocele severe, rectocele moderate, vaginal apex descent moderate Musc Other: gross motor intact no deficits, full bilateral strength Skin General: no rashes or lesions noted Neuro General: alert, awake, moves all extremities, no focal motor deficits Motor: muscle tone normal throughout Extrem General: normal to inspection, no pedal edema Psych Appearance: grossly normal Mental Status: mental status grossly normal Affect: normal affect Speech and Movement: speech and movement normal Assessment & Plan Problems 1. [place] grade 3 cystocele N81.10 plan THVBSO combo case with dr gorman. s/p cardiac clearance Plan After discussing the patient's diagnosis and treatment plan options, patient wishes to proceed with surgical management. I have discussed with the patient the risks, benefits, and alternatives of the procedure which include but are not limited to risks of anesthesia, bleeding, infection, possible damage to bowel, bladder, or surrounding vasculature which could lead to additional surgery to evaluate any complications. Patient agrees to procedure and wishes to proceed. ACOG/uptodate references given for additional information regarding procedure. plan medical clearance preop Coding Level of Care Code Off vis,new,level 5 Diagnoses [place] grade 3 cystocele N81.10 UPDATE- I have seen the patient and performed any clinically relevant updates to the history and physical exam. Aimee Carpio MD
--- NOTE | 2020-08-13 07:22 | OP.PCM_ITS ---
Problem List (1) [place] grade 3 cystocele Status: Acute Comment: plan THVBSO combo case with dr dan. needs medical preop clearance (2) Anticoagulant long-term use Status: Chronic (3) Atherosclerosis of coronary artery of [place] heart without angina pectoris Status: Chronic Qualifiers: (4) Bronchiectasis Status: Chronic Qualifiers: (5) Chronic diastolic (congestive) heart failure Status: Chronic (6) Hyperlipidemia Status: Chronic (7) Interstitial lung disease Status: Chronic (8) Paroxysmal atrial fibrillation Status: Chronic (9) Essential (primary) hypertension Status: Resolved (10) H/O coronary artery bypass surgery Status: Resolved Comment: CABG x 2: SVG-RPDA and LPLB w/ KAT Ligation and MVR 09/20/2011 (11) History of mitral valve replacement with bioprosthetic valve Status: Resolved Comment: #29 Chao Magna Pericardial Valve 09/20/2011 (12) Rheumatic mitral stenosis with insufficiency Status: Resolved Report of Operation Date of Procedure: 08/13/20 Pre-Operative Diagnosis: uterovaginal prolapse Post-Operative Diagnosis: same Surgery/Procedure Performed:: tvh bso Description of Surgical Findings:: prolapse exploitation analyst: Lia Richards Type of Anesthesia:: General Special Medications: none Specimen's removed: uterus tubes ovaries Drains: dewitt Estimated Blood Loss (mL): 50 Fluids Replaced: crystalloid Description of Procedure: Patient was taken to the operating room and was placed under general anesthesia was prepped and draped in normal sterile fashion in the dorsal lithotomy position. Preoperative antibiotics and SCDs and Dewitt catheter was placed inside the bladder. Weighted speculum was placed in the vagina and the anterior and posterior lip of the cervix was grasped with 2 Shelbi clamps and circumferentially injected with dilute vasopressin. A circumferential incision was made with a scalpel and the posterior cul-de-sac was entered into sharply and a longneck speculum was placed. The anterior cul-de-sac was also dissected down and entered into sharply and the uterosacral ligaments were clamped cut and suture ligated bilaterally followed by the cardinal ligaments which were Clamped cut and suture ligated bilaterally with 0 Monocryl. The uterus serially descended and progressive bites were taken bilaterally up to the level of the utero-ovarian ligament bilaterally which was clamped transected and double ligated with 0 Monocryl suture and 0 Vicryl free tie. Bilateral fallopian tubes and ovaries were well visualized and noted be within normal limits and the bilateral fallopian tubes and ovaries were transected across the base with a jalen clamp and removed and sutured with 0 Vicryl free tie and 0 monocryl suture. Excellent hemostasis was noted. The vagina was closed with [id number] 0 Vicryl pop offs including the posterior and anterior peritoneum in the reapproximation. Excellent hemostasis was noted. please see dr dan's note for her operative details. All instruments removed from the vagina clear urine was noted at the end of the procedure and patient was awoken and taken recovery in stable condition. Grafts/Implants Used: none - Complications none - Admit VTE Documentation VTE Present on Admission: No VTE Mechan Device Prophylaxis: SCD's VTE Pharm Prophylaxis ordered?: Yes Multi Select Codes - Urinary/Genital Urinary/Genital CPT Codes: 37353 TVH+BS/O <250gr uterus
--- NOTE | 2020-08-13 07:24 | PCM.DC.VHY ---
Discharge Diet: No Restrictions Discharge Activity: Return to Normal Activity, May Not Drive, May Shower May resume sexual activity in: 6-8 weeks Call your doctor if your incision/area has: Continuous Slow Oozing, Sudden Increased Bleeding, Increased Pain/ Swelling, Increased Redness, Foul Smelling Discharge Call your doctor if you observe: Fever of 101 or Higher, Inability to urinate, Inability to have a bowel movement, Using more than one pad per hour Allergies/Adverse Reactions: Allergies amoxicillin [Amoxicillin] Allergy (Verified 08/13/20 06:37) Rash fenoprofen calcium [From Nalfon] Allergy (Verified 08/13/20 06:37) Itching Penicillins Allergy (Verified 08/13/20 06:37) Itching Medications to take at Discharge Levothyroxine [Synthroid] 50 mcg PO DAILY 01/24/14 Nitroglycerin (INPATIENT USE) [Nitrostat] 0.4 mg SUBLINGUAL Q5M PRN 08/18/14 aspirin 81 mg tablet,delayed release 81 mg PO DAILY 02/14/19 oxycodone-acetaminophen 7.5 mg-325 mg tablet 1 tab PO Q6H PRN #42 tab 02/14/19 vitamin B complex 1 tab PO DAILY 02/14/19 furosemide 40 mg tablet 40 mg PO DAILY #90 tab 05/14/19 spironolactone 25 mg tablet 25 mg PO DAILY #30 tab 10/23/19 Acetaminophen [Tylenol] 500 mg PO Q6H PRN PRN 10/28/19 atorvastatin 10 mg tablet 10 mg PO QHS #90 tab 12/10/19 calcium carbonate 600 mg (1,500 mg)-vitamin D3 500 unit capsule 1 cap PO QDAY cap 12/10/19 hydroxychloroquine 200 mg tablet 200 mg PO DAILY tab 12/10/19 mirtazapine 15 mg tablet 15 mg PO QHS tab 12/10/19 cholecalciferol (vitamin D3) 25 mcg (1,000 unit) capsule 25 mcg PO DAILY 02/26/20 clindamycin HCl 300 mg capsule 600 mg PO .COMPLEX #2 cap 03/15/20 amiodarone 200 mg tablet 100 mg PO DAILY #30 tab 04/22/20 metoprolol tartrate 25 mg tablet 12.5 mg PO BID #180 tab 05/11/20 amlodipine 10 mg tablet 10 mg PO DAILY #90 tab 06/22/20 ferrous sulfate 325 mg (65 mg iron) tablet,delayed release 325 mg PO DAILY tab 07/16/20 magnesium oxide 400 mg PO DAILY cap 07/16/20 sertraline 100 mg tablet 100 mg PO DAILY #90 tab 07/16/20 Estradiol [Estrace Vaginal Cream] 1 dose VAGINAL .TWICE WEEKLY 08/09/20 Omeprazole [Prilosec] 20 mg PO DAILY 08/09/20 Naproxen [Naprosyn] 250 - 500 mg PO Q8H PRN PRN #30 tab 08/13/20 Nitrofurantoin Macrocrystals [Macrobid] 100 mg PO Q12 08/13/20 Oxycodone HCl/Acetaminophen [Percocet 5-325] 1 - 2 tablet PO Q6H PRN PRN 7 Days #10 tablet 08/13/20 The following prescriptions were given: Naproxen [Naprosyn] 250 - 500 mg PO Q8H PRN PRN #30 tab PRN Reason: MILD PAIN Transmission Status: Pending to [facility] Oxycodone HCl/Acetaminophen [Percocet 5-325] 1 - 2 tablet PO Q6H PRN PRN 7 Days #10 tablet PRN Reason: Pain Transmission Status: Sent to [facility] Primary Care Physician: Mitchell Oleary MD [Primary Care Provider] - Test Results: Test results from this visit will be discussed in further detail at your follow-up appointment, if applicable. Please Follow Up With: Aimee Carpio MD - [phone]
--- NOTE | 2020-08-13 07:30 | HYST_PTH ---
PATIENT: YOLANDA LANE [place] [facility] [id number] AGE/SX: 85/F ROOM: RE08/13/[address]: Dr. Aimee Carpio MD : [id number] BED: DIS: 08/14/2020 SPEC #: [id number] RECD: 08/13/20 11:48 STATUS: CORDELL RERachael #: [id number] DERECK: 08/13/20 07:[address]: Aimee Carpio DEPT: SURGICAL PATHOLOGY RECD BY: Belle Espinoza ENTERED: 08/13/20 13:25 SP TYPE: HYSTERECT OTHR DR: MD Dr. Constance Ag MD Dr. Scott Hannan, MD Tissues: Uterus, NOS Procedures: Surgery Specimen Level V HEADER OPERATION: ERAS, vaginal hysterectomy, BSO PRE-OP DIAGNOSIS: Uterovaginal prolapse, stress incontinence, postmenopausal atrophic vaginitis TISSUE SUBMITTED: Uterus, cervix, bilateral fallopian tubes and ovaries MICROSCOPIC DIAGNOSIS Uterus, cervix, bilateral fallopian tubes and ovaries, vaginal hysterectomy and bilateral salpingo-oophorectomy: Cervix - mild chronic cystic cervicitis. Endometrium - focal simple cystic hyperplasia without atypia. Myometrium - focal adenomyosis. Bilateral fallopian tubes - no pathologic diagnosis. Bilateral ovaries - no pathologic diagnosis. LUIS:radha 08/16/20 MICROSCOPIC DESCRIPTION Slides are reviewed. GROSS DESCRIPTION Received in fixative is one container labeled with the patient's name and designated uterus. The specimen consists of a uterus with attached cervix without fallopian tubes or ovaries measuring 6.5 x 4.5 x 2.8 cm and weighing 41 gm. The ectocervix is unremarkable. The endocervical canal measures 3 cm in length and is grossly unremarkable. The triangular endometrial cavity measures 3 x 2.5 cm. The reddish-hernandez endometrium averages 0.2 cm in thickness. Sections of uterine wall do not reveal any mass lesion and measures 1.3 cm in thickness. Also present free in the specimen container are two ovaries with adjacent fallopian tubes. No designation is provided. The crinkled, hernandez one ovary measures 2.2 x 1 x 0.8 cm. The adjacent fallopian tube measures 3 cm in length and 0.5 cm in average diameter and contains a normal fimbriated end. The other ovary is similar in appearance and measures 2.7 x 1 x 0.5 cm. The adjacent fallopian tube is similar in appearance to the other fallopian tube and measures 5 cm in length and 0.4 cm in average diameter. Dredge Pipeman sections are submitted in six cassettes as follows: 1 - anterior cervix, 2 - posterior cervix, 3 - anterior uterine wall, 4 - posterior uterine wall, 5??fallopian tube and ovary, 6 - the other fallopian tube and ovary. / AM:radha 08/13/20 TC:5 CPT: 11070
--- NOTE | 2020-08-13 08:09 | PCM.OPRPT ---
Problem List (1) Uterovaginal prolapse, incomplete Status: Acute (2) Stress incontinence Status: Acute Report of Operation Date of Procedure: 08/13/20 Pre-Operative Diagnosis: uterovaginal prolapse, stress incontinence Post-Operative Diagnosis: same Surgery/Procedure Performed:: anterior repair with Dermis, bilateral sacrospinous ligament fixation, midurethral sling, perineoplasty, cystoscopy with bilateral ureteral catheterization Type of Anesthesia:: General Estimated Blood Loss (mL): 75 cc Description of Procedure: Patient is an 85-year-old female who is failed multiple pessaries and now desires to proceed with surgical intervention for her pelvic organ prolapse. Informed consent was obtained following a discussion of risks, benefits, including COVID-19. She was evaluated in the office with cystoscopy and urodynamics prior to consent. The patient was taken to the operating room and placed on the operating room table. Anesthesia monitored the head, neck, airway, IV access and vital signs throughout the case. Once anesthesia was appropriately administered the patient was placed into dorsal lithotomy in Trendelenburg position. She was prepped and draped in usual sterile fashion. A Sams catheter was inserted and the bladder was drained. Dr. Carpio performed her portion of the procedure and closed the vaginal cuff. At this time I injected the submucosa of the anterior vaginal wall with vasopressin for hydrostatic dissection and hemostatic control. A midline vertical 2 cm incision was made and sharp and blunt dissection was performed on both sides until the sacrospinous ligaments were identified using the ischial spine landmark. The patient's vaginal mucosa was very thin and tore very easily. These areas were approximated using 2-0 Vicryl suture. The ligaments were freed from surrounding tissues. Using a Capio device, and Ethibond suture was passed through the ligament on either side, brought through a piece of dermis that was trimmed to length and then through the vaginal mucosa at the apex. The dermis was then attached to the area of the bladder neck into the white line bilaterally. It was also attached to the midline at the apex using 2-0 Vicryl. Once the dermis was appropriately positioned and secured, the midline incision was closed using running interlocking 2-0 Vicryl. The Ethibond sutures were tied down. Attention was then turned toward the perineal body which was weak. Vasopressin was once again used for submucosal injection. A midline incision was made and dissection was performed using Metzenbaum scissors. The perineal body was brought together in 2 layer closure using 2-0 Vicryl interrupted suture. The vaginal mucosa was then closed over this with running interlocking 2-0 Vicryl. The mid urethra was identified and submucosally injected. An incision in the midline was made and sharp and blunt dissection was performed on either side of the urethra with care being taken to avoid entry into the urethra. The Altis mid urethral sling was inserted using the trochars into the obturator fascia bilaterally. The sling lay flat against the urethra and the tensioning suture was cut. The midline incision was closed using running interlocking 2-0 Vicryl. A cystourethroscopy was then performed through the urethra after removal of the Sams catheter. There were no injuries in the urinary bladder identified. A 5 Slov[place] whistle-tip catheter was used to gently cannulate each ureteral orifice and was inserted to 20 cm without difficulty or obstruction. At this time the cystoscope was removed and the Sams catheter was inserted. The vagina was packed with Premarin cream and vaginal packing. The patient was awakened and taken to recovery room in good condition. There were no complications during the procedure. Grafts/Implants Used: Dermis, Altis - Complications None - Admit VTE Documentation VTE Present on Admission: Yes VTE Mechan Device Prophylaxis: SCD's VTE Pharm Prophylaxis ordered?: Yes
[2020-08-13] MEDS: Vasopressin 20 UNITS/ML Vial (08:13)
[2020-08-13] MEDS: Estrogens,Conj. 1 Tube 1 DOSE (08:13)
[2020-08-13 08:20] LABS: Bedside Glucose 79 mg/dL (70-110)
--- NOTE | 2020-08-13 10:36 | EKG12_ITS ---
Test Reason : POST OP Blood Pressure : / mmHG Vent. Rate : 054 BPM Atrial Rate : 054 BPM P-R Int : 206 ms QRS Dur : 106 ms QT Int : 534 ms P-R-T Axes : 060 088 073 degrees QTc Int : 506 ms Sinus bradycardia ICRBBB Confirmed by MARIO SALGADO, JARED ([id number]), news video editor BENJAMIN TSE ([id number]) on 08/19/2020 9:14:56 AM Referred By: Aimee Carpio Confirmed By:JARED MARTIN MD
[2020-08-13] MEDS: Ondansetron 4 MG/2 ML Vial IV (11:11)
--- NOTE | 2020-08-13 11:55 | SUR.PHASEI ---
Nitro paste removed per dr. light orders.
[2020-08-13] MEDS: Ketorolac 15 MG/ML Vial IV ×3 (12:40→23:55)
--- NOTE | 2020-08-13 13:55 | PCM.DC.URO ---
Discharge Diet: No Restrictions Discharge Activity: Return to Normal Activity, May Not Drive, May Shower, - - No lifting over 5 pounds, no exercising, no strenuous activity, no vacuuming, no tub bathing, no swimming, no hot tubs May resume sexual activity in: 6-8 weeks Call your doctor if your incision/area has: Continuous Slow Oozing, Sudden Increased Bleeding, Increased Pain/ Swelling, Increased Redness, Foul Smelling Discharge Call your doctor if you observe: Fever of 101 or Higher, Inability to urinate, Inability to have a bowel movement, Using more than one pad per hour Additional Dressing/Incision Instructions:: Continue vaginal estrogen cream Allergies/Adverse Reactions: Allergies amoxicillin [Amoxicillin] Allergy (Verified 08/13/20 06:37) Rash fenoprofen calcium [From Nalfon] Allergy (Verified 08/13/20 06:37) Itching Penicillins Allergy (Verified 08/13/20 06:37) Itching Medications to take at Discharge Levothyroxine [Synthroid] 50 mcg PO DAILY 01/24/14 Nitroglycerin (INPATIENT USE) [Nitrostat] 0.4 mg SUBLINGUAL Q5M PRN 08/18/14 aspirin 81 mg tablet,delayed release 81 mg PO DAILY 02/14/19 oxycodone-acetaminophen 7.5 mg-325 mg tablet 1 tab PO Q6H PRN #42 tab 02/14/19 vitamin B complex 1 tab PO DAILY 02/14/19 spironolactone 25 mg tablet 25 mg PO DAILY #30 tab 10/23/19 Acetaminophen [Tylenol] 500 mg PO Q6H PRN PRN 10/28/19 atorvastatin 10 mg tablet 10 mg PO QHS #90 tab 12/10/19 calcium carbonate 600 mg (1,500 mg)-vitamin D3 500 unit capsule 1 cap PO QDAY cap 12/10/19 hydroxychloroquine 200 mg tablet 200 mg PO DAILY tab 12/10/19 mirtazapine 15 mg tablet 15 mg PO QHS tab 12/10/19 cholecalciferol (vitamin D3) 25 mcg (1,000 unit) capsule 25 mcg PO DAILY 02/26/20 clindamycin HCl 300 mg capsule 600 mg PO .COMPLEX #2 cap 03/15/20 amiodarone 200 mg tablet 100 mg PO DAILY #30 tab 04/22/20 metoprolol tartrate 25 mg tablet 12.5 mg PO BID #180 tab 05/11/20 amlodipine 10 mg tablet 10 mg PO DAILY #90 tab 06/22/20 ferrous sulfate 325 mg (65 mg iron) tablet,delayed release 325 mg PO DAILY tab 07/16/20 magnesium oxide 400 mg PO DAILY cap 07/16/20 sertraline 100 mg tablet 100 mg PO DAILY #90 tab 07/16/20 Estradiol [Estrace Vaginal Cream] 1 dose VAGINAL .TWICE WEEKLY 08/09/20 Omeprazole [Prilosec] 20 mg PO DAILY 08/09/20 Naproxen [Naprosyn] 250 - 500 mg PO Q8H PRN PRN #30 tab 08/13/20 Nitrofurantoin Macrocrystals [Macrobid] 100 mg PO Q12 08/13/20 Oxycodone HCl/Acetaminophen [Percocet 5-325] 1 - 2 tab PO Q6H PRN PRN 7 Days #10 tab 08/13/20 Smz/Tmp Ds [Bactrim Ds] 1 tab PO BID 3 Days #6 tab 08/13/20 furosemide 40 mg tablet 40 mg PO DAILY #90 tab 08/13/20 The following prescriptions were given: Smz/Tmp Ds [Bactrim Ds] 1 tab PO BID 3 Days #6 tab Transmission Status: Received by [facility] [id number] Naproxen [Naprosyn] 250 - 500 mg PO Q8H PRN PRN #30 tab PRN Reason: MILD PAIN Transmission Status: Received by [facility] Oxycodone HCl/Acetaminophen [Percocet 5-325] 1 - 2 tab PO Q6H PRN PRN 7 Days #10 tab PRN Reason: Pain Transmission Status: Received by [facility] Primary Care Physician: Mitchell Oleary MD [Primary Care Provider] - Test Results: Test results from this visit will be discussed in further detail at your follow-up appointment, if applicable. Please Follow Up With: Constance Gorman MD When: call office for appt Proposed Discharge Date: 08/14/20
[2020-08-13] MEDS: 0.9% Saline Lock 10 ML Syringe IV ×2 (18:53→23:57)
[2020-08-13] MEDS: Atorvastatin Calcium 10 MG Tablet PO (21:26)
[2020-08-13] MEDS: Docusate Sodium 100 MG Capsule PO (21:26)
[2020-08-13] MEDS: Mirtazapine 15 MG Tablet PO (21:29)
[2020-08-14] VITALS (10 sets, daily range): BP systolic 114–127; BP diastolic 41–56; PULSE 49–59; RESP 12–18; TEMP 36.4–36.9; O2SAT 92–99; BMI 27.5
[2020-08-14] MEDS: Ketorolac 15 MG/ML Vial IV ×2 (05:17→11:35)
[2020-08-14] MEDS: Acetaminophen 500 MG Tablet 1000 MG PO ×2 (05:17→11:34)
[2020-08-14] MEDS: Levothyroxine 50 MCG Tablet PO (05:17)
[2020-08-14] MEDS: 0.9% Saline Lock 10 ML Syringe IV ×2 (05:17→11:38)
[2020-08-14 07:08] LABS: Hematocrit 29.1 % (37-47); Hemoglobin 9.3 g/dL (12.0-15.0); Mean Corpuscular Hgb 35.5 pg (27.0-32.0); Mean Corpuscular Volume 111.1 fL (81-99); Mean Platelet Vol. 10.6 fl (6.2-12.0); Platelet Count 115 K/mm3 (150-450); RBC Distribution Width CV 13.4 % (11.6-14.6); RBC Distribution Width SD 54.3 fl (35.1-43.9); Red Blood Count 2.62 M/mm3 (4.2-5.4); White Blood Count 8.2 K/mm3 (4.4-11.0)
--- NOTE | 2020-08-14 09:01 | PN.OBGYN_ITS ---
Patient Problems: Active and Suspected Problems (Last Reviewed 07/16/20 @ 13:30 by Teagan Botello PA, PA) Uterovaginal prolapse, incomplete (Acute) Stress incontinence (Acute) Raleigh-Walker grade 3 cystocele (Acute) plan THVBSO combo case with dr dan. needs medical preop clearance Subjective: patient recovering well, denies CP, SOB, N, or V. patient needs to ambulate, increase po intake, and void, pain is controlled with oral medications. - Physical Exam Vitals/I&O's: Vital Signs Temp Pulse Resp BP Pulse Ox 97.6 F L 59 L 16 123/42 H 92 08/14/20 08:10 08/14/20 08:10 08/14/20 08:10 08/14/20 08:10 08/14/20 08:10 Oxygen Flow Rate (L/min) 6 Oxygen Delivery Method Room Air Weight: 150 lb 9.211 oz Body Mass Index (BMI) 27.5 Intake and Output for Last 24 Hours 08/12/20 08/13/20 08/14/20 23:59 23:59 23:59 Intake Total 2268.0 / 2268.0 925 / 925 Output Total 815 / 815 1375 / 1375 Balance 1453.0 / 1453.0 -450 / -450 General: Alert, Oriented x3 Oral: Dry Mucosa Lungs: Clear to auscultation, Normal air movement Cardiovascular: Regular Rhythm, Bradycardic Abdomen: Soft, Non Tender, Non-Distended Microbiology Past 72 Hours 08/12/20 12:30 Interface Orders SARS-CoV-2 Antigen (Rapid) - Final Laboratory Results 08/13/20 11:05: Troponin I 0.050 H 08/13/20 14:43: Troponin I 0.055 H 08/14/20 05:35: WBC 8.2, RBC 2.62 L, Hgb 9.3 L, Hct 29.1 L, MCV 111.1 H, MCH 35.5 H, MCHC 32.0, RDW Std Deviation 54.3 H, RDW Coeff of Rad 13.4, Plt Count 115 L, MPV 10.6 08/14/20 05:35: Sodium Pending, Potassium Pending, Chloride Pending, Carbon Dioxide Pending, Anion Gap Pending, BUN Pending, Creatinine Pending, Est GFR (MDRD) Af Amer Pending, Est GFR (MDRD) Non-Af Pending, BUN/Creatinine Ratio Pending, Glucose Pending, Calcium Pending, Troponin I Pending Current Medications Acetaminophen (Acetaminophen 500 Mg Tablet) 1,000 mg PO Q6 [facility] Last Admin: 08/14/20 05:17 Dose: 1,000 mg Documented by: Amiodarone HCl (Amiodarone 200 Mg Tablet) 100 mg PO DAILY [facility] Amlodipine Besylate (Amlodipine 10 Mg Tablet) 10 mg PO DAILY [facility] Last Admin: 08/13/20 18:35 Dose: Not Given Documented by: Aspirin (Aspirin E.C. 81 Mg Tablet) 81 mg PO DAILY@0800 [facility] Last Admin: 08/13/20 18:35 Dose: Not Given Documented by: Atorvastatin Calcium (Atorvastatin Calcium 10 Mg Tablet) 10 mg PO QHS [facility] Last Admin: 08/13/20 21:26 Dose: 10 mg Documented by: Calcium/Vitamin D (Calcium Carb/Vitamin D 1 Tablet Tablet) 1 tablet PO D AILY@0800 [facility] Cholecalciferol (Cholecalciferol (Vit D3) 1,000 Unit (25mcg)) 1,000 unit PO DAILYCM [facility] Docusate Sodium (Docusate Sodium 100 Mg Capsule) 100 mg PO BID [facility] Last Admin: 08/13/20 21:26 Dose: 100 mg Documented by: Enoxaparin Sodium (Enoxaparin 30 Mg/0.3 Ml Syringe) 30 mg SC DAILY [facility] Furosemide (Furosemide 40 Mg Tablet) 40 mg PO DAILY [facility] Last Admin: 08/13/20 18:35 Dose: Not Given Documented by: Lactated Ringer's () 1,000 mls @ 40 mls/hr IV .Q25H [facility] Stop: 08/14/20 10:37 Last Admin: 08/13/20 12:39 Dose: 40 mls/hr Documented by: Ketorolac Tromethamine (Ketorolac 15 Mg/Ml Vial) 15 mg IV Q6 [facility] Stop: 08/14/20 18:01 Last Admin: 08/14/20 05:17 Dose: 15 mg Documented by: Levothyroxine Sodium (Levothyroxine 50 Mcg Tablet) 50 mcg PO DAILY@0600 [facility] Last Admin: 08/14/20 05:17 Dose: 50 mcg Documented by: Magnesium Chloride (Magnesium Chloride 64 Mg Delay Rel.Tablet) 128 mg PO DAILY [facility] Last Admin: 08/13/20 18:35 Dose: Not Given Documented by: Metoprolol Tartrate (Metoprolol Tartrate 25 Mg Tablet) 12.5 mg PO BID [facility] Last Admin: 08/13/20 21:28 Dose: Not Given Documented by: Mirtazapine (Mirtazapine 15 Mg Tablet) 15 mg PO QHS [facility] Last Admin: 08/13/20 21:29 Dose: 15 mg Documented by: Nitroglycerin (Nitroglycerin (Inpatient Use) 0.4 Mg Tab.Subl) 0.4 mg SUBLINGUAL Q5M PRN PRN Reason: CHEST Nutritional Formula (Lactose Free) (Ensure Enlive 120 Ml Liquid) 120 ml PO TIDCM [facility] Ondansetron HCl (Ondansetron Odt 4 Mg Tablet) 4 mg PO Q6H PRN PRN PRN Reason: NAUSEA Oxycodone HCl (Oxycodone 5 Mg Tablet) 5 - 10 mg PO Q4H PRN PRN PRN Reason: Pain Score 4-10 Pantoprazole Sodium (Pantoprazole Sodium 20 Mg Tablet) 20 mg PO DAILY [facility] Sertraline HCl (Sertraline 100 Mg Tablet) 100 mg PO DAILY [facility] Last Admin: 08/13/20 18:35 Dose: Not Given Documented by: Sodium Chloride (0.9% Saline Lock 10 Ml Syringe) 10 - 40 ml IV UD PRN PRN Reason: SALINE FLUSH Last Admin: 08/14/20 05:17 Dose: 10 ml Documented by: Spironolactone (Spironolactone 25 Mg Tablet) 25 mg PO DAILY [facility] Last Admin: 08/13/20 18:35 Dose: Not Given Documented by: Medical Necessity - Tobacco Use Smoking Status: Never smoker Tobacco Use: Non-smoker Assessment/Plan All Active Problems (Last Reviewed 07/16/20 @ 13:30 by Teagan BANEGAS, PA) Uterovaginal prolapse, incomplete (Acute) Stress incontinence (Acute) Leg edema, left (Acute) Raleigh-Walker grade 3 cystocele (Acute) H/O coronary artery bypass surgery (Resolved 09/20/11) 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 routine ERAS protocol postop care- increase ambulation, encourage oral intake and oral control of pain. lovenox and scds for dvt prophylaxis, patient stable for discharge to home once she meets criteria 2. follow troponin and BMP, repeat this am
[2020-08-14 09:15] LABS: Anion Gap 4 (5-15); BUN 29 mg/dL (7-18); BUN/Creat Ratio 19.9 RATIO (10-20); Calcium,Total 8.3 mg/dL (8.5-10.1); Chloride 107 mmol/L (98-107); Creatinine, Serum 1.46 mg/dL (0.55-1.02); EST Glomerular Filtration Rate 36 mL/min (>60); Est Glom Filt Rate - Afr Amer 44 mL/min (>60); Estimated Creatinine Clearance 22.69 ml/min; Glucose 86 mg/dL (74-106); Potassium 4.1 mmol/L (3.5-5.1); Sodium Level 140 mmol/L (136-145)
[2020-08-14] MEDS: Magnesium Chloride 64 MG Delay Rel.Tablet 128 MG PO (09:39)
[2020-08-14] MEDS: amLODIPine 10 MG Tablet PO (09:39)
[2020-08-14] MEDS: Spironolactone 25 MG Tablet PO (09:39)
[2020-08-14] MEDS: Sertraline 100 MG Tablet PO (09:39)
[2020-08-14] MEDS: Pantoprazole Sodium 20 MG Tablet PO (09:39)
[2020-08-14] MEDS: Aspirin E.C. 81 MG Tablet PO (09:40)
[2020-08-14] MEDS: Docusate Sodium 100 MG Capsule PO (09:40)
[2020-08-14] MEDS: Calcium Carb/Vitamin D 1 TABLET Tablet PO (09:40)
[2020-08-14] MEDS: Furosemide 40 MG Tablet PO (09:40)
[2020-08-14] MEDS: Enoxaparin 30 MG/0.3 ML Syringe SC (09:41)
[2020-08-14] MEDS: Metoprolol Tartrate 25 MG Tablet 12.5 MG PO (09:41)
[2020-08-14] MEDS: Amiodarone 200 MG Tablet 100 MG PO (09:42)
--- NOTE | 2020-08-14 10:41 | NURSING ---
Vaginal packing removed per orders.
--- NOTE | 2020-08-14 17:09 | NURSING ---
Daughter Jayne at bedside to learn dewitt cath care. Instructed on emptying dewitt, daily dewitt cath care of washing with soap and water and instructions on how to remove catheter on . Jayne and patient verbalizes understanding.
--- NOTE | 2020-08-15 10:52 | NURSING ---
Spoke with Jayne on phone, instructed on dewitt cath removal. Verbalizes understanding. Instructed if needing further instruction when Cath is to be removed on to call back. Daughter verbalizes patient's weakness and confusion better today, but still not at baseline. Daughter contributes signs and symptoms to anaesthesia as she has acted like this in the past with surgery. Instructed to bring to ED if she feels patient needs further assessment. Verbalizes understanding.
== END 2020-08-14 17:30 | disposition home or self-care (01) ==
LOC: SDC 05:45 → AC 05:46 → MS3 08:57 → PCU 12:52
PROVIDERS: Anesthesiology; Urology; PCP Family Medicine; Referring Provider Obstetrics & Gynecology; Visit Provider Obstetrics & Gynecology
PROC: (CPT 58260; principal; 2020-08-13 07:10)
PROC: (CPT 57260; 2020-08-13 07:10)
DX: N80.0 Endometriosis of uterus (principal); N39.3 Stress incontinence (female) (male); N81.2 Incomplete uterovaginal prolapse; Z20.828 Contact with and (suspected) exposure to other viral communicable diseases; I48.0 Paroxysmal atrial fibrillation; I25.10 Atherosclerotic heart disease of native coronary artery without angina pectoris; I13.0 Hypertensive heart and chronic kidney disease with heart failure and stage 1 through stage 4 chronic kidney disease, or unspecified chronic kidney disease; N18.30 Chronic kidney disease, stage 3 unspecified; I50.32 Chronic diastolic (congestive) heart failure; M19.90 Unspecified osteoarthritis, unspecified site; E66.9 Obesity, unspecified; Z68.27 Body mass index [BMI] 27.0-27.9, adult; F32.9 Major depressive disorder, single episode, unspecified; E03.9 Hypothyroidism, unspecified; M81.0 Age-related osteoporosis without current pathological fracture; K58.9 Irritable bowel syndrome, unspecified; K21.9 Gastro-esophageal reflux disease without esophagitis; E78.00 Pure hypercholesterolemia, unspecified; J47.9 Bronchiectasis, uncomplicated; Z78.0 Asymptomatic menopausal state; Z86.2 Personal history of diseases of the blood and blood-forming organs and certain disorders involving the immune mechanism; Z86.73 Personal history of transient ischemic attack (TIA), and cerebral infarction without residual deficits; Z87.01 Personal history of pneumonia (recurrent); Z95.3 Presence of xenogenic heart valve; Z95.1 Presence of aortocoronary bypass graft; Z79.82 Long term (current) use of aspirin; Z79.01 Long term (current) use of anticoagulants; Z79.899 Other long term (current) drug therapy
CPT/HCPCS: 00942; 57240; 57288; 58552; 36415; 80048; 80053; 82962; 83735; 84484; 85027; 86850; 86900; 86901; 87426; 88307; 93005; 99251; C9803; J7120; A4216; C1758; G0463; J2405

== ENCOUNTER → 2020-09-14 10:21 | Outpatient (CLI) | payer MEDICARE, SELFPAY ==
[2020-09-14 09:46] VITALS: BMI 26.9
[2020-09-14 12:00] LABS: AST(SGOT) 24 U/L (15-37); Alanine Aminotransfer ALT/SGPT 20 U/L (13-56); Albumin, Serum 3.5 g/dL (3.2-5.0); Alkaline Phosphatase 72 U/L (45-117); Anion Gap 6 (5-15); BUN 37 mg/dL (7-18); Bilirubin, Direct 0.11 mg/dL (0.00-0.30); Calcium,Total 8.7 mg/dL (8.5-10.1); Chloride 105 mmol/L (98-107); Cholesterol 129 mg/dL (200); Creatinine, Serum 1.76 mg/dL (0.55-1.02); EST Glomerular Filtration Rate 29 mL/min (>60); Est Glom Filt Rate - Afr Amer 35 mL/min (>60); Globulin 4.5 g/dL (2.2-4.2); Glucose 92 mg/dL (74-106); High Density Lipoprotein 70 mg/dL; Potassium 3.6 mmol/L (3.5-5.1); Sodium Level 141 mmol/L (136-145); Triglycerides 95 mg/dL; Very Low Density Lipoprotein 19 mg/dL (5-40)
== END ==
PROVIDERS: PCP Family Medicine; Referring Provider Internal Medicine Cardiovascular Disease; Visit Provider Internal Medicine Cardiovascular Disease
DX: I48.0 Paroxysmal atrial fibrillation (principal); E78.5 Hyperlipidemia, unspecified; I25.10 Atherosclerotic heart disease of native coronary artery without angina pectoris; D64.9 Anemia, unspecified
CPT/HCPCS: 36415; 80048; 80061; 80076; 84443

== ENCOUNTER → 2020-10-18 09:00 | Outpatient (CLI) | payer MEDICARE, SELFPAY ==
[2020-09-14 09:46] VITALS: BMI 26.9
[2020-10-18 13:46] LABS: Thyroid Stim Hormone (TSH) 1.84 uIU/mL (0.358-3.74)
== END ==
PROVIDERS: PCP Family Medicine; Visit Provider Family Medicine
DX: E03.9 Hypothyroidism, unspecified (principal)
CPT/HCPCS: 84443

== ENCOUNTER → 2020-10-19 11:50 | Outpatient (CLI) | payer MEDICARE, SELFPAY ==
[2020-09-14 09:46] VITALS: BMI 26.9
[2020-10-04 13:42] VITALS: BMI 25.6
[2020-10-19 12:53] LABS: Absolute Lymphocyte Count 0.62 X10^3/uL (0.83-4.51); Absolute Neutrophil Count 9.9 X10^3/uL (2.0-7.7); Basophil# 0.03 X10^3/uL; Basophil% 0.3 % (0-1); Eosinophil# 0.12 X10^3/uL; Hematocrit 40.9 % (37-47); Lymphocyte # 0.62 X10^3/ul (4.0); Lymphocyte % 5.4 % (19-41); Mean Corp Hgb Conc 31.8 g/dL (32-36); Mean Corpuscular Hgb 35.1 pg (27.0-32.0); Mean Corpuscular Volume 110.5 fL (81-99); Mean Platelet Vol. 11.3 fl (6.2-12.0); Monocyte# 0.77 X10^3/uL; Monocyte% 6.7 % (0-10); NRBC Flagged by Analyzer 0 % (0-5); Neutrophil # 9.88 X10^3/uL (2.7-7.7); Platelet Count 108 K/mm3 (150-450); RBC Distribution Width CV 13.2 % (11.6-14.6); RBC Distribution Width SD 54.3 fl (35.1-43.9); White Blood Count 11.5 K/mm3 (4.4-11.0)
[2020-10-19 15:38] LABS: Ferritin 179 ng/mL (8-252); Iron 115 ug/dL (50-170)
== END ==
PROVIDERS: PCP Family Medicine; Visit Provider Family Medicine
DX: D50.9 Iron deficiency anemia, unspecified (principal)
CPT/HCPCS: 36415; 82728; 83540; 85025

== ENCOUNTER 2020-11-04 07:35 | Outpatient (RCR) | payer MEDICARE, SELFPAY ==
[2020-10-04 13:42] VITALS: BMI 25.6
[2020-11-04] MEDS: COVID-19 VACC, MRNA(PFIZER)/PF 30 MCG/0.3 ML SYRINGE IM (15:26)
[2020-11-25] MEDS: COVID-19 VACC, MRNA(PFIZER)/PF 30 MCG/0.3 ML SYRINGE IM (15:15)
== END 2021-02-01 23:59 ==
LOC: IMMUN 07:35
PROVIDERS: PCP Family Medicine; Referring Provider Family Medicine; Visit Provider Family Medicine
DX: Z23 Encounter for immunization (principal)
CPT/HCPCS: 0001A; 0002A; 91300

== ENCOUNTER → 2020-11-19 | Outpatient (CLI) | payer MEDICARE, SELFPAY ==
[2020-11-19 12:47] VITALS: BMI 27.1
== END | disposition home or self-care (01) ==
LOC: LABSPEC 13:32
PROVIDERS: PCP Family Medicine; Visit Provider Nurse Practitioner Acute Care
DX: R05 Cough (principal)
CPT/HCPCS: 87070; 87205

== ENCOUNTER → 2020-12-22 11:57 | Outpatient (CLI) | payer MEDICARE, SELFPAY ==
[2020-11-19 12:47] VITALS: BMI 27.1
== END ==
PROVIDERS: PCP Family Medicine; Referring Provider Physician Assistant Medical; Visit Provider Physician Assistant Medical
DX: I48.0 Paroxysmal atrial fibrillation (principal); I48.3 Typical atrial flutter
CPT/HCPCS: 93225; 93226

== ENCOUNTER → 2021-01-03 15:35 | Outpatient (CLI) | payer MEDICARE, SELFPAY ==
[2020-11-19 12:47] VITALS: BMI 27.1
[2021-01-03 17:35] LABS: Absolute Lymphocyte Count 0.73 X10^3/uL (0.83-4.51); Absolute Neutrophil Count 6.4 X10^3/uL (2.0-7.7); Basophil# 0.05 X10^3/uL; Basophil% 0.6 % (0-1); Eosinophil# 0.11 X10^3/uL; Eosinophils% 1.4 % (0-5); Hematocrit 35.1 % (37-47); Hemoglobin 10.9 g/dL (12.0-15.0); Lymphocyte # 0.73 X10^3/ul (0.83-4.51); Lymphocyte % 9.1 % (19-41); Mean Corp Hgb Conc 31.1 g/dL (32-36); Mean Corpuscular Hgb 33.9 pg (27.0-32.0); Mean Platelet Vol. 10.7 fl (6.2-12.0); Monocyte# 0.66 X10^3/uL; Monocyte% 8.2 % (0-10); NRBC Flagged by Analyzer 0 % (0-5); Neutrophil # 6.42 X10^3/uL (2.7-7.7); Neutrophil % 80.1 % (47-70); Platelet Count 182 K/mm3 (150-450); RBC Distribution Width CV 14.1 % (11.6-14.6); RBC Distribution Width SD 56.5 fl (35.1-43.9); Red Blood Count 3.22 M/mm3 (4.2-5.4)
[2021-01-03 18:10] LABS: ALB/GLOB Ratio 0.8 RATIO (0.9-2.4); AST(SGOT) 23 U/L (15-37); Alanine Aminotransfer ALT/SGPT 21 U/L (13-56); Albumin, Serum 3.5 g/dL (3.2-5.0); Alkaline Phosphatase 69 U/L (45-117); Anion Gap 5 (5-15); BUN 31 mg/dL (7-18); BUN/Creat Ratio 20.3 RATIO (10-20); Calcium,Total 8.8 mg/dL (8.5-10.1); Chloride 101 mmol/L (98-107); Creatinine, Serum 1.53 mg/dL (0.55-1.02); EST Glomerular Filtration Rate 34 mL/min (>60); Est Glom Filt Rate - Afr Amer 42 mL/min (>60); Globulin 4.3 g/dL (2.2-4.2); Glucose 96 mg/dL (74-106); Potassium 4.1 mmol/L (3.5-5.1); Protein, Total 7.8 g/dL (6.4-8.2); Sodium Level 139 mmol/L (136-145)
== END ==
PROVIDERS: PCP Family Medicine; Referring Provider Internal Medicine Rheumatology; Visit Provider Internal Medicine Rheumatology
DX: M06.4 Inflammatory polyarthropathy (principal); M47.897 Other spondylosis, lumbosacral region; M16.0 Bilateral primary osteoarthritis of hip; M21.40 Flat foot [pes planus] (acquired), unspecified foot; J84.9 Interstitial pulmonary disease, unspecified; I48.91 Unspecified atrial fibrillation; I12.9 Hypertensive chronic kidney disease with stage 1 through stage 4 chronic kidney disease, or unspecified chronic kidney disease; N18.9 Chronic kidney disease, unspecified; E03.9 Hypothyroidism, unspecified; E78.5 Hyperlipidemia, unspecified; N39.46 Mixed incontinence; N81.4 Uterovaginal prolapse, unspecified; Z95.3 Presence of xenogenic heart valve
CPT/HCPCS: 36415; 80053; 85025

== ENCOUNTER → 2021-01-19 11:32 | Outpatient (CLI) | payer MEDICARE, SELFPAY ==
[2021-01-17 14:39] VITALS: BMI 27.1
[2021-01-19 13:01] LABS: Anion Gap 6 (5-15); BUN 37 mg/dL (7-18); BUN/Creat Ratio 25.2 RATIO (10-20); Calcium,Total 8.7 mg/dL (8.5-10.1); Chloride 106 mmol/L (98-107); Creatinine, Serum 1.47 mg/dL (0.55-1.02); EST Glomerular Filtration Rate 36 mL/min (>60); Est Glom Filt Rate - Afr Amer 43 mL/min (>60); Glucose 94 mg/dL (74-106); Sodium Level 141 mmol/L (136-145)
[2021-01-19 13:02] LABS: Protein, Urine (Random) 7.1 mg/dL (<11.9); Protein:Creat Ratio 198 mg/g CRE (0-200)
== END ==
PROVIDERS: PCP Family Medicine; Referring Provider Internal Medicine Nephrology; Visit Provider Internal Medicine Nephrology
DX: N18.32 Chronic kidney disease, stage 3b (principal)
CPT/HCPCS: 36415; 80048; 82570; 84156

== ENCOUNTER → 2021-02-18 12:48 | Outpatient (CLI) | payer MEDICARE, SELFPAY ==
[2021-02-10 05:48] VITALS: BMI 26.3
[2021-02-18 13:12] LABS: Hematocrit 31.8 % (37-47)
== END ==
PROVIDERS: PCP Family Medicine; Referring Provider Physician Assistant Medical; Visit Provider Physician Assistant Medical
DX: D64.9 Anemia, unspecified (principal)
CPT/HCPCS: 36415; 85014; 85018

== ENCOUNTER → 2021-03-29 11:13 | Outpatient (CLI) | payer MEDICARE, SELFPAY ==
[2021-02-10 05:48] VITALS: BMI 26.3
[2021-03-29 12:33] LABS: Absolute Neutrophil Count 4.6 X10^3/uL (2.0-7.7); Basophil# 0.04 X10^3/uL; Basophil% 0.6 % (0-1); Eosinophil# 0.44 X10^3/uL; Eosinophils% 6.7 % (0-5); Hematocrit 33.4 % (37-47); Hemoglobin 10.5 g/dL (12.0-15.0); Lymphocyte % 10.7 % (19-41); Mean Corp Hgb Conc 31.4 g/dL (32-36); Mean Corpuscular Hgb 33.8 pg (27.0-32.0); Mean Corpuscular Volume 107.4 fL (81-99); Mean Platelet Vol. 10.6 fl (6.2-12.0); Monocyte# 0.73 X10^3/uL; Monocyte% 11.1 % (0-10); NRBC Flagged by Analyzer 0 % (0-5); Neutrophil % 70.1 % (47-70); Platelet Count 157 K/mm3 (150-450); RBC Distribution Width CV 14.4 % (11.6-14.6); RBC Distribution Width SD 56.1 fl (35.1-43.9); Red Blood Count 3.11 M/mm3 (4.2-5.4); White Blood Count 6.6 K/mm3 (4.4-11.0)
[2021-03-29 13:06] LABS: ALB/GLOB Ratio 0.8 RATIO (0.9-2.4); AST(SGOT) 28 U/L (15-37); Alanine Aminotransfer ALT/SGPT 24 U/L (13-56); Albumin, Serum 3.1 g/dL (3.2-5.0); Alkaline Phosphatase 78 U/L (45-117); Anion Gap 4 (5-15); BUN 29 mg/dL (7-18); BUN/Creat Ratio 19.6 RATIO (10-20); Calcium,Total 8.6 mg/dL (8.5-10.1); Chloride 101 mmol/L (98-107); Creatinine, Serum 1.48 mg/dL (0.55-1.02); EST Glomerular Filtration Rate 36 mL/min (>60); Est Glom Filt Rate - Afr Amer 43 mL/min (>60); Globulin 4.1 g/dL (2.2-4.2); Glucose 84 mg/dL (74-106); Potassium 3.8 mmol/L (3.5-5.1); Protein, Total 7.2 g/dL (6.4-8.2); Sodium Level 138 mmol/L (136-145)
== END ==
PROVIDERS: PCP Family Medicine; Referring Provider Internal Medicine Rheumatology; Visit Provider Internal Medicine Rheumatology
DX: M06.4 Inflammatory polyarthropathy (principal); Z79.899 Other long term (current) drug therapy; M19.041 Primary osteoarthritis, right hand; M16.0 Bilateral primary osteoarthritis of hip; M47.897 Other spondylosis, lumbosacral region; M21.40 Flat foot [pes planus] (acquired), unspecified foot; J84.9 Interstitial pulmonary disease, unspecified; I48.91 Unspecified atrial fibrillation; I12.9 Hypertensive chronic kidney disease with stage 1 through stage 4 chronic kidney disease, or unspecified chronic kidney disease; N18.9 Chronic kidney disease, unspecified; E03.9 Hypothyroidism, unspecified; E78.5 Hyperlipidemia, unspecified; N81.4 Uterovaginal prolapse, unspecified; Z95.3 Presence of xenogenic heart valve
CPT/HCPCS: 36415; 80053; 85025

== ENCOUNTER → 2021-05-24 16:28 | Outpatient (CLI) | payer MEDICARE, SELFPAY ==
--- NOTE | 2021-05-24 16:30 | RAD_ITS ---
STUDY: X-RAY CHEST REASON FOR EXAM: Female, 86 years old. snf use of Amiodarone TECHNIQUE: PA and lateral views of the chest. COMPARISON: 10/07/2019 FINDINGS: Chronically coarsened lung markings. There is no demonstrated pleural abnormality. Normal size heart. Sternal wires and prosthetic mitral valve redemonstrated. Normal mediastinum and woody. Normal visualized pulmonary arteries. There is atherosclerotic calcification of the aortic arch with tortuosity. There is demineralization of the osseous structures. There is degenerative osteoarthritis of the bilateral shoulders. There is no demonstrated abnormality of the visualized soft tissue structures of the upper abdomen. RAD/Chest PA and Lateral IMPRESSION: Chronically coarsened lung markings, compatible with interstitial lung disease, without acute abnormal finding. Electronically Signed: Fernandez Hoyt MD at 5:39 EDT Tel , Service support ,
[2021-05-24 17:54] LABS: Anion Gap 9 (5-15); BNP,B-Type NATRIURETIC PEPTIDE 185.3 pg/mL (0-100); BUN 40 mg/dL (7-18); Calcium,Total 8.9 mg/dL (8.5-10.1); Chloride 99 mmol/L (98-107); Creatinine, Serum 1.74 mg/dL (0.55-1.02); EST Glomerular Filtration Rate 30 mL/min (>60); Est Glom Filt Rate - Afr Amer 36 mL/min (>60); Glucose 101 mg/dL (74-106); Potassium 3.7 mmol/L (3.5-5.1); Sodium Level 138 mmol/L (136-145)
== END ==
PROVIDERS: PCP Family Medicine; Referring Provider Nurse Practitioner Gerontology; Visit Provider Nurse Practitioner Gerontology
DX: I50.32 Chronic diastolic (congestive) heart failure (principal); Z79.899 Other long term (current) drug therapy
CPT/HCPCS: 36415; 71046; 80048; 83880

== ENCOUNTER → 2021-06-06 09:05 | Outpatient (CLI) | payer MEDICARE, SELFPAY ==
--- NOTE | 2021-06-06 09:11 | ECHOD_ITS ---
Reason For Study: DYSPNEA/SOB Procedure This was a 2D Doppler, Color Flow transthoracic echocardiogram. Exam performed in department. Left Ventricle Normal LV size. Left ventricular systolic function is normal. The estimated ejection fraction is 60 %. Stage 3 diastolic dysfunction. No regional wall motion abnormalities noted. Right Ventricle Normal RV size. Normal systolic function. Atria The left atrium is moderately enlarged. Normal right atrium. Mitral Valve Mild-Moderate (1-2+) eccentric mitral valve insufficiency. Status post mitral valve repair with annuloplasty ring. Tricuspid Valve Normal tricuspid valve. Mild (1+) tricuspid valve insufficiency. Mild pulmonary hypertension. Aortic Valve Trisinus/trileaflet aortic valve. Mild (1+) aortic valve insufficiency. Pulmonic Valve Normal pulmonic valve. Great Vessels Normal aortic root. The pulmonary artery is normal size. Normal inferior vena cava. Pericardium/Pleural No pericardial effusion. MMode/2D Measurements & Calculations LVIDd: 5.2 cm IVSd: 0.86 cm LVOT diam: 2.0 cm LVIDs: 3.4 cm LVPWd: 0.87 cm LVOT area: 3.1 cm2 FS: 36.0 % Ao root diam: 3.3 cm LAV(MOD-bp): 100.0 ml LA A4 area: 27.3 cm2 LAV(MOD-bp) Indexed: 60.8 ml/m2 LAV(MOD-sp2): 93.5 ml LAV(MOD-sp4): 93.5 ml LA dimension(2D): 5.4 cm Time Measurements MV dec time: 0.23 sec Doppler Measurements & Calculations MV E max edilson: 134.8 cm/sec Lat Peak E' Edilson: 5.0 cm/sec Med Peak E' Edilson: 3.3 cm/sec MV A max edilson: 52.6 cm/sec E/E' lat: 27.1 E/E' med: 41.0 MV E/A: 2.6 MV V2 max: 165.0 cm/sec Ao V2 max: 173.4 cm/sec AI max edilson: 324.6 cm/sec MV max P.9 mmHg Ao max P.0 mmHg AI max P.7 mmHg MV V2 mean: 51.6 cm/sec Ao V2 mean: 114.5 cm/sec MV mean P.6 mmHg Ao mean P.8 mmHg AI dec slope: 176.1 cm/sec2 MV V2 VTI: 42.5 cm Ao V2 VTI: 42.1 cm AI P1/2t: 539.8 msec MVA(VTI): 2.2 cm2 IZA(I,D): 2.2 cm2 IZA(V,D): 2.1 cm2 LV V1 max: 119.5 cm/sec SV(LVOT): 91.5 ml TV V2 max: 282.0 cm/sec LV V1 max P.7 mmHg TV max P.8 mmHg LV V1 mean P.9 mmHg LV V1 mean: 80.1 cm/sec LV V1 VTI: 29.9 cm PA V2 max: 83.1 cm/sec PI dec slope: 184.5 cm/sec2 ECHO/Echo Complete Interpretation Summary Status post mitral valve repair with annuloplasty ring. Normal LV size. Left ventricular systolic function is normal. The estimated ejection fraction is 60 %. Stage 3 diastolic dysfunction. The left atrium is moderately enlarged. Mild pulmonary hypertension. Mild-Moderate (1-2+) eccentric mitral valve insufficiency. Ordering Physician: Lea Verdugo Referring Physician: Mitchell Oleary Performed By: Rosio Johnson, IJEOMA, RVT
--- NOTE | 2021-06-06 14:51 | PFTCOMP_ITS ---
COMPLETE PULMONARY FUNCTION TEST INTERPRETATION Brief HPI: Patient is an 86 year old female, currently under the care of Lea Verdugo, who presents to [facility] for complete pulmonary function tests secondary to diagnosis of dyspnea. Respiratory therapist reports good effort and reproducible results. Interpretation: Forced expiration spirometry shows no large airways obstructive ventilatory defect with an FEV1 of 69% predicted. There is no significant bronchodilator response by strict ATS criteria. Spirograms are of good quality and plateau normally. The respiratory flow volume loop shows a normal pattern. Lung volumes by body plethysmography show a decreased total lung capacity at 2.75 L, 67% predicted. All other lung volumes are reduced symmetrically. Diffusion capacity by carbon monoxide is decreased at 37% predicted. The airway resistance is elevated. Compared to previous pulmonary function tests from 07/29/2019, there has been a significant reduction in all measured values by over 20%. Impression: Moderate restrictive ventilatory defect with a disproportionate reduction in diffusion capacity and significant worsening compared to 2019.
== END ==
PROVIDERS: PCP Family Medicine; Referring Provider Nurse Practitioner Gerontology; Visit Provider Nurse Practitioner Gerontology
DX: I50.32 Chronic diastolic (congestive) heart failure (principal); Z79.899 Other long term (current) drug therapy; Z95.3 Presence of xenogenic heart valve
CPT/HCPCS: 93306; 94060; 94726; 94729

== ENCOUNTER → 2021-07-19 10:48 | Outpatient (CLI) | payer MEDICARE, SELFPAY ==
[2021-07-19 11:19] LABS: Absolute Lymphocyte Count 0.61 X10^3/uL (0.83-4.51); Absolute Neutrophil Count 6.7 X10^3/uL (2.0-7.7); Basophil# 0.05 X10^3/uL; Basophil% 0.6 % (0-1); Eosinophil# 0.33 X10^3/uL; Hematocrit 30.1 % (37-47); Hemoglobin 9.1 g/dL (12.0-15.0); Lymphocyte # 0.61 X10^3/ul (0.83-4.51); Lymphocyte % 7.4 % (19-41); Mean Corp Hgb Conc 30.2 g/dL (32-36); Mean Corpuscular Hgb 34.9 pg (27.0-32.0); Mean Corpuscular Volume 115.3 fL (81-99); Mean Platelet Vol. 9.9 fl (6.2-12.0); Monocyte# 0.52 X10^3/uL; Monocyte% 6.3 % (0-10); NRBC Flagged by Analyzer 0 % (0-5); Neutrophil # 6.65 X10^3/uL (2.7-7.7); Neutrophil % 81.1 % (47-70); Platelet Count 237 K/mm3 (150-450); RBC Distribution Width CV 14.2 % (11.6-14.6); RBC Distribution Width SD 60.3 fl (35.1-43.9); Red Blood Count 2.61 M/mm3 (4.2-5.4); White Blood Count 8.2 K/mm3 (4.4-11.0)
[2021-07-19 11:37] LABS: Erythrocyte Sedimentation Rate 44 mm/hr (0-30)
[2021-07-19 11:52] LABS: ALB/GLOB Ratio 0.5 RATIO (0.9-2.4); AST(SGOT) 26 U/L (15-37); Alanine Aminotransfer ALT/SGPT 20 U/L (13-56); Albumin, Serum 2.6 g/dL (3.2-5.0); Alkaline Phosphatase 149 U/L (45-117); Anion Gap 6 (5-15); BUN 46 mg/dL (7-18); BUN/Creat Ratio 26.4 RATIO (10-20); Chloride 102 mmol/L (98-107); Creatinine, Serum 1.74 mg/dL (0.55-1.02); EST Glomerular Filtration Rate 30 mL/min (>60); Est Glom Filt Rate - Afr Amer 36 mL/min (>60); Globulin 5.1 g/dL (2.2-4.2); Glucose 106 mg/dL (74-106); Potassium 3.9 mmol/L (3.5-5.1); Protein, Total 7.7 g/dL (6.4-8.2); Sodium Level 139 mmol/L (136-145)
== END ==
PROVIDERS: PCP Family Medicine; Referring Provider Internal Medicine Rheumatology; Visit Provider Internal Medicine Rheumatology
DX: M06.4 Inflammatory polyarthropathy (principal); Z79.899 Other long term (current) drug therapy; M19.041 Primary osteoarthritis, right hand; M16.0 Bilateral primary osteoarthritis of hip; M47.897 Other spondylosis, lumbosacral region; M21.40 Flat foot [pes planus] (acquired), unspecified foot; J84.9 Interstitial pulmonary disease, unspecified; I48.91 Unspecified atrial fibrillation; I12.9 Hypertensive chronic kidney disease with stage 1 through stage 4 chronic kidney disease, or unspecified chronic kidney disease; N18.9 Chronic kidney disease, unspecified; E03.9 Hypothyroidism, unspecified; E78.5 Hyperlipidemia, unspecified; N39.46 Mixed incontinence; N81.4 Uterovaginal prolapse, unspecified; Z95.3 Presence of xenogenic heart valve
CPT/HCPCS: 36415; 80053; 85025; 85652; 86140

== ENCOUNTER 2021-07-23 17:08 | Observation (INO) | payer MEDICARE, SELFPAY ==
[2021-07-23 17:08] VITALS: BP 116/88; PULSE 66; RESP 16; TEMP 36.4; O2SAT 97; BMI 25.4
--- NOTE | 2021-07-23 17:23 | CT_ITS ---
STUDY: CT ABDOMEN AND PELVIS WITHOUT CONTRAST REASON FOR EXAM: Female, 86 years old. Right flank pain nausea multiple surgeries RADIATION DOSAGE (If Supplied By Facility): CTDIvol = ( 9.15 ) mGy, DLP = ( 396.45 ) mGycm TECHNIQUE: Transaxial images were obtained from the dome of the diaphragm to the symphysis pubis without oral contrast, and without intravenous contrast. Sagittal and coronal images were reconstructed. Individualized dose optimization techniques were used for this CT. COMPARISON: 10 July 2021 FINDINGS: There is moderate usual interstitial pneumonitis. There is hiatal hernia. Coronary arteries are severely diseased. Mitral valve is replaced. Left atrium is severely enlarged. Left ventricle is normal. Right heart is moderately enlarged. Abdominal solid organs are normal. Gallbladder is removed. There is no biliary dilation. There is no intestinal obstruction. Appendix is normal. Bladder is normal. Uterus is removed. There is a 2 mm stone in the right mid ureter without obstruction. Remainder of the collecting system is clear. There is 2.8 cm infrarenal abdominal aortic aneurysm. There is extensive spondylosis and multiple chronic compression fractures of T11, T12, L1 and L2. There is L3, L4, L5 laminectomy decompression and pedicular screw fusion of L5-S1. Canal is moderately to severely stenotic at L2-L3 and patent and decompressed at other levels. CT/Abdomen/Pelvis without Cont IMPRESSION: 1. 2 mm right mid ureteral stone without hydronephrosis. 2. Usual interstitial pneumonitis, moderate severity. Outpatient Pulmonary referral advised. 3. Extensive cardiac disease. 4. L2-L3 moderate/severe spondylotic thecal sac stenosis. Multilevel prior spinal surgery. Outpatient neurosurgical consultation advised. Electronically Signed: Vaughn Martínez MD at 18:51 EST Tel , Service support ,
--- NOTE | 2021-07-23 17:30 | ED.VIS.GI ---
HPI HPI - GI History of Present Illness Chief Complaint: Flank Pain Informant: patient Abdominal Pain/Flank Pain Onset: Weeks (1) Context: Gradual Onset Timing: Continuous Quality: Aching Location: Right Flank (More in back than abdomen) Current Severity: Moderate Maximum Severity: Severe Worsened by: Nothing Relieved by: Nothing Nausea/Vomiting/Emesis GI Symptom: Positive for Nausea and Vomiting Onset: Today Quality: Positive for Nonbilious Severity: Severe Diarrhea/Melena/Hematochezia GI Symptom: Negative for Diarrhea, Melena and Hematochezia Associated Symptoms Associated Symptoms: Negative for Dysuria, Frequency and Hematuria Narrative Narrative: Patient states she has been having right flank pain for the past week, it has gradually been getting worse, to the point today where it is fairly bad and she has been vomiting all day today and not kept any food or liquids down. This is the first time she has been seen for this pain which she has not had in the past. She had a remote cholecystectomy no other abdominal surgeries. She denies any pleuritic component or dyspnea/chest pain. Pain is worse in her low back and less in her abdomen. She denies any urinary symptoms although she states she has some issues urinating that are chronic, they are unchanged, and she has been emptying without any difficulty lately. She denies any fevers or chills. [facility] Medical History Anemia Arthritis Atherosclerosis of coronary artery of [place] heart without angina pectoris Atrial fibrillation with rapid ventricular response (05/13/19) Back pain [place]-Walker grade 3 cystocele Bronchiectasis Chronic diastolic (congestive) heart failure Chronic kidney disease Diverticulosis Essential (primary) hypertension GI bleed (10/28/19) Hay fever Hyperlipidemia Hypothyroidism Incontinence Interstitial lung disease Leg edema, left Obesity Osteoporosis PAF (paroxysmal atrial fibrillation) Paroxysmal atrial fibrillation Polyarthritis rheumatica Polymyalgia rheumatica Rheumatic mitral stenosis with insufficiency Stress incontinence Transient ischemic attack Typical atrial flutter Uterovaginal prolapse, incomplete Home Medications nitroglycerin 0.4 mg SUBLINGUAL Q5M PRN 08/18/14 [History Last Taken Unknown] oxycodone-acetaminophen 7.5 mg-325 mg tablet 1 tab PO Q6H PRN #42 tab 02/14/19 [History Last Taken 10/28/19] vitamin B complex 1 tab PO DAILY 02/14/19 [History Last Taken 10/26/19] spironolactone 25 mg tablet 25 mg PO DAILY #30 tab 10/23/19 [Rx Last Taken 10/26/19] acetaminophen 500 mg PO Q6H PRN PRN 10/28/19 [History Last Taken 10/28/19] calcium carbonate 600 mg (1,500 mg)-vitamin D3 500 unit capsule 1 cap PO QDAY cap 12/10/19 [History Last Taken Unknown] mirtazapine 15 mg tablet 15 mg PO QHS tab 12/10/19 [History Last Taken Unknown] cholecalciferol (vitamin D3) 25 mcg (1,000 unit) capsule 25 mcg PO DAILY 02/26/20 [History Last Taken Unknown] ferrous sulfate 325 mg (65 mg iron) tablet,delayed release 325 mg PO DAILY tab 07/16/20 [History Last Taken Unknown] magnesium oxide 400 mg PO DAILY cap 07/16/20 [History Last Taken Unknown] sertraline 100 mg tablet 100 mg PO DAILY #90 tab 07/16/20 [History Last Taken Unknown] omeprazole 20 mg PO DAILY 08/09/20 [History Last Taken 08/13/20] levothyroxine 50 mcg tablet 75 mcg PO DAILY tab 01/17/21 [History Last Taken Unknown] prednisone 2.5 mg tablet 2.5 mg PO DAILY 01/17/21 [History Last Taken Unknown] amiodarone 200 mg tablet 200 mg PO DAILY #90 tab 02/03/21 [Rx Last Taken Unknown] apixaban 2.5 mg tablet 2.5 mg PO BID #180 tab 02/03/21 [Rx Last Taken Unknown] amlodipine 5 mg tablet 5 mg PO DAILY #90 tab 02/15/21 [Rx Last Taken Unknown] metoprolol tartrate 25 mg tablet 12.5 mg PO BID #180 tab 02/21/21 [Rx Last Taken Unknown] albuterol sulfate 0.63 mg/3 mL solution for nebulization 0.63 mg INHALATION Q6H #90 ml 05/17/21 [Rx Last Taken Unknown] docusate sodium 100 mg capsule 100 mg PO DAILY PRN 05/17/21 [History Last Taken Unknown] duloxetine 60 mg capsule,delayed release 60 mg PO DAILY 05/17/21 [History Last Taken Unknown] guaifenesin 1,200 mg tablet, extended release 12 hr 1,200 mg PO BID PRN 05/17/21 [History Last Taken Unknown] hydroxychloroquine 200 mg tablet 200 mg PO DAILY tab 05/24/21 [History Last Taken Unknown] polyethylene glycol 3350 17 gram/dose oral powder 17 g PO .Q3 days g 05/24/21 [History Last Taken Unknown] atorvastatin 10 mg tablet 10 mg PO QHS #90 tab 05/30/21 [Rx Last Taken Unknown] furosemide 40 mg tablet 40 mg PO .COMPLEX #90 tab 06/10/21 [Rx Last Taken Unknown] doxycycline hyclate 100 mg tablet 100 mg PO BID #20 tab 07/11/21 [Rx Last Taken Unknown] Allergy/AdvReac Type Severity Reaction Status Date / Time amoxicillin [Amoxicillin] Allergy Rash Verified 07/23/21 17:11 fenoprofen calcium Allergy Itching Verified 07/23/21 17:11 [From Nalfon] Penicillins Allergy Itching Verified 07/23/21 17:11 Family History (Reviewed 05/24/21 @ 16:32 by Lea Verdugo FICTION [employer]FICTION PROSE WRITER, FICTION AND NONFICTION PROSE WRITER-C) Other CVA (cerebral vascular accident) Hypertension Surgical History (Reviewed 05/24/21 @ 16:32 by Lea Verdugo FICTION [employer] NONFICTION PROSE WRITER, FICTION AND NONFICTION PROSE WRITER-C) H/O coronary artery bypass surgery (09/20/11) H/O laminectomy History of cardioversion (10/27/19) History of cataract surgery History of cholecystectomy History of mitral valve replacement with bioprosthetic valve (09/20/11) History of right and left heart catheterization (07/24/11) History of total vaginal hysterectomy (TVH) Social History Smoking Status: Never smoker second hand exposure: No alcohol intake: never substance use type: does not use caffeine: Yes what type of physical activity do you participate in: none seatbelt use: always do you feel safe at home: Yes additional social history: retired- ROS ROS ED Constitutional Constitutional ED: Denies chills or fever(s) Eyes Eyes: Denies change in vision or diplopia ENT ENT ED: Denies rhinorrhea or sore throat Cardiovascular Cardiovascular: Denies chest pain or palpitations Respiratory/Chest Respiratory/Chest: Denies cough or dyspnea Gastrointestinal Gastrointestinal: Reports as per HPI, abdominal pain, nausea and vomiting; Denies diarrhea Genitourinary Genitourinary ED: Reports as per HPI and flank pain; Denies dysuria or hematuria Musculoskeletal Musculoskeletal: Denies back pain or neck pain Integumentary Denies abscess or rash Neurologic Neurologic: Denies headache(s), paresthesias or weakness Psychiatric Psychiatric: Denies anxiety or suicidal thoughts EXAM Physical Exam Const Vital Signs: 07/23/21 17:08 07/23/21 18:21 07/23/21 20:12 Temperature 97.6 F L Temperature Source Temporal Pulse Rate 66 62 16 L Respiratory Rate 16 14 Blood Pressure 116/88 H 136/50 H 132/98 H Blood Pressure Mean 97 78 109 Pulse Ox 97 97 94 Oxygen Delivery Method Room Air Room Air Room Air Positive well nourished and well developed General Appearance ED: well developed and NAD HEENT Reports moist mucous membranes normocephalic and atraumatic Eyes PERRL and EOMs intact bilaterally Neck full ROM and supple Resp normal respiratory effort and clear to auscultation bilaterally Cardio regular rate, regular rhythm and no murmurs GI non-distended GI Narrative: Very mildly tender in the lateral aspect of the right upper quadrant/flank. No other areas of abdominal tenderness. Exam on the right is somewhat limited due to the costal margin being very close to the pelvic brim/ASIS. Auscultation: normoactive bowel sounds Palpation: soft Back/Spine no CVA tenderness, normal ROM, normal to inspection and thoraco-lumbar ROM normal General Back: other FROM Extremity normal to inspection General Extremety ED: Negative for edema, pulses abnormal or tenderness General Extremity: Negative for edema or pulses abnormal Neuro oriented x3, CN's II-XII intact bilaterally and no sensory deficits noted Sensorium / Orientation: awake and alert Motor Exam: strength 5/5 throughout Skin no rashes or lesions noted and no wounds MDM MDM MDM Narrative Medical decision making narrative: Patient feeling improved after morphine, Zofran, IV fluids. Her labs do show NITHIN with significant prerenal azotemia, likely due to dehydration from her symptoms for the past [address] shows a right mid ureteral stone that is 2 mm does not appear to be obstructing at this time, expectant management is indicated for that. The interstitial lung disease that was seen on the CT is already known by the patient and she follows with Dr. Mcihel for that. Will admit to the hospital for inpatient observation for further treatment continuing IV fluids and symptom control. Lab Data Attestation: I reviewed the patient's lab results. Labs: Laboratory Results - last 24 hr 07/23/21 07/23/21 07/23/21 17:20 17:20 17:38 WBC 8.4 RBC 2.88 L Hgb 10.0 L Hct 32.0 L MCV 111.1 H MCH 34.7 H MCHC 31.3 L RDW Std Deviation 56.9 H RDW Coeff of Rad 14.0 Plt Count 219 MPV 10.0 Immature Gran % (Auto) 0.500 Neut % (Auto) 81.9 H Lymph % (Auto) 8.4 L [place] % (Auto) 8.6 Eos % (Auto) 0.2 Baso % (Auto) 0.4 Absolute Neuts (auto) 6.9 Absolute Lymphs (auto) 0.71 L Nucleated RBC % 0 Sodium 138 Potassium 3.8 Chloride 98 Carbon Dioxide 32.0 Anion Gap 8 BUN 60 H Creatinine 2.15 H Estim Creat Clear Calc 14.44 Est GFR (MDRD) Af Amer 28 L Est GFR (MDRD) Non-Af 23 L BUN/Creatinine Ratio 27.9 H Glucose 114 H Calcium 8.9 Total Bilirubin 0.30 AST 40 H ALT 28 Alkaline Phosphatase 198 H Total Protein 8.3 H Albumin 2.9 L Globulin 5.4 H Albumin/Globulin Ratio 0.5 L Lipase 96 Urine Color Yellow Urine Clarity Clear Urine pH 7.0 Ur Specific [place] 1.010 Urine Protein Negative Urine Glucose (UA) Normal Urine Ketones Negative Urine Occult Blood 10 H Urine Nitrite Negative Urine Bilirubin Negative Urine Urobilinogen Normal Ur Leukocyte Esterase 500 H Urine RBC 0 SEEN Urine WBC 0-5 SEEN Ur Squamous Epith Cells 0 SEEN Urine Bacteria 0 SEEN Urine Mucus 0 SEEN Radiography Diagnostic Testing: Clinical Impression(s) from Imaging Studies Abdomen/Pelvis CT 07/23/21 17:23 IMPRESSION: 1. 2 mm right mid ureteral stone without hydronephrosis. 2. Usual interstitial pneumonitis, moderate severity. Outpatient Pulmonary referral advised. 3. Extensive cardiac disease. 4. L2-L3 moderate/severe spondylotic thecal sac stenosis. Multilevel prior spinal surgery. Outpatient neurosurgical consultation advised. Electronically Signed: Vaughn Martínez MD at 18:51 EST Tel , Service support , Discharge Plan Triage Chief Complaint: Flank Pain ED Provider: Angel Lopez Dx/Rx/DC Orders Clinical Impression: NITHIN (acute kidney injury), Interstitial lung disease, Renal colic on right side, Ureterolithiasis, CRF (chronic renal failure) Prescriptions: No Action mirtazapine 15 mg tablet 15 mg PO QHS RF: 0 ferrous sulfate 325 mg (65 mg iron) tablet,delayed release (DR/EC) 325 mg PO DAILY RF: 0 vitamin B complex tablet 1 tab PO DAILY RF: 0 oxycodone-acetaminophen 7.5-325 mg tablet 1 tab PO Q6H PRN (Reason: pain) Qty: 42 RF: 0 calcium carbonate-vitamin D3 [Calcium 600 with Vitamin D3] 600 mg(1,500mg) -500 unit capsule 1 cap PO QDAY RF: 0 sertraline 100 mg tablet 100 mg PO DAILY Qty: 90 RF: 0 magnesium oxide 400 mg magnesium capsule 400 mg PO DAILY RF: 0 hydroxychloroquine 200 mg tablet 200 mg PO DAILY RF: 0 cholecalciferol (vitamin D3) 25 mcg (1,000 unit) capsule 25 mcg PO DAILY RF: 0 polyethylene glycol 3350 [Miralax] 17 gram/dose powder 17 g PO .Q3 days RF: 0 prednisone 2.5 mg tablet 2.5 mg PO DAILY RF: 0 docusate sodium [Colace] 100 mg capsule 100 mg PO DAILY PRNRF: 0 duloxetine [Cymbalta] 60 mg capsule,delayed release(DR/EC) 60 mg PO DAILY RF: 0 Mucinex 1,200 mg tablet extended release 12hr 1,200 mg PO BID PRNRF: 0 albuterol sulfate 0.63 mg/3 mL solution for nebulization 0.63 mg inhalation Q6H Qty: 90 RF: 3 levothyroxine 50 mcg tablet 75 mcg PO DAILY RF: 0 nitroglycerin 0.4 MG tablet 0.4 mg SUBLINGUAL Q5M PRN (Reason: Chest Pain) RF: 0 acetaminophen 500 MG tablet 500 mg PO Q6H PRN PRN (Reason: Not Specified) RF: 0 omeprazole 20 MG capsule 20 mg PO DAILY RF: 0 spironolactone 25 mg tablet 25 mg PO DAILY Qty: 30 RF: 11 amiodarone 200 mg tablet 200 mg PO DAILY Qty: 90 RF: 3 Eliquis 2.5 mg tablet 2.5 mg PO BID Qty: 180 RF: 3 amlodipine 5 mg tablet 5 mg PO DAILY Qty: 90 RF: 3 metoprolol tartrate 25 mg tablet 12.5 mg PO BID Qty: 180 RF: 3 atorvastatin 10 mg tablet 10 mg PO QHS Qty: 90 RF: 3 furosemide [Lasix] 40 mg tablet 40 mg PO .COMPLEX Qty: 90 RF: 4 doxycycline hyclate 100 mg tablet 100 mg PO BID Qty: 20 RF: 0 Primary Care Provider: Mitchell Oleary Referrals: Mitchell Oleary MD [Primary Care Provider] - Disposition Disposition: Acute Care Hospital [facility]
[2021-07-23 17:33] LABS: Absolute Lymphocyte Count 0.71 X10^3/uL (0.83-4.51); Absolute Neutrophil Count 6.9 X10^3/uL (2.0-7.7); Basophil# 0.03 X10^3/uL; Basophil% 0.4 % (0-1); Eosinophil# 0.02 X10^3/uL; Eosinophils% 0.2 % (0-5); Lymphocyte # 0.71 X10^3/ul (0.83-4.51); Lymphocyte % 8.4 % (19-41); Mean Corp Hgb Conc 31.3 g/dL (32-36); Mean Corpuscular Hgb 34.7 pg (27.0-32.0); Mean Corpuscular Volume 111.1 fL (81-99); Monocyte# 0.72 X10^3/uL; Monocyte% 8.6 % (0-10); NRBC Flagged by Analyzer 0 % (0-5); Neutrophil # 6.89 X10^3/uL (2.7-7.7); Neutrophil % 81.9 % (47-70); Platelet Count 219 K/mm3 (150-450); RBC Distribution Width SD 56.9 fl (35.1-43.9); Red Blood Count 2.88 M/mm3 (4.2-5.4); White Blood Count 8.4 K/mm3 (4.4-11.0)
[2021-07-23] MEDS: Morphine 2 MG/ML Syringe IV (17:33)
[2021-07-23] MEDS: 0.9% Normal Saline 1,000 ML 250 ML IV (17:33)
[2021-07-23] MEDS: Ondansetron 4 MG/2 ML Vial IV (17:33)
[2021-07-23 17:43] LABS: Bacteria 0 SEEN /hpf (None Seen); Mucous, Urine 0 SEEN /hpf (<or=2+); Red Blood Cells-Urine 0 SEEN /hpf (0-5); Squamous Epithelial Cells - UA 0 SEEN /hpf (5-10)
[2021-07-23 17:56] LABS: Color, Urine Yellow (Yellow); Glucose, Dipstick Normal (Normal); Ketone-Dipstick Negative (Negative); Leukocyte Esterase-Dipstick 500 /ul (Negative); Nitrite-Dipstick Negative (Negative); Occult Blood-Urine 10 /ul (Negative); Protein-Dipstick Negative (Negative); Urine Bilirubin Dipstick Negative (Negative); Urine Clarity Clear (Clear); Urine Urobilinogen Normal (Normal)
[2021-07-23 18:07] LABS: ALB/GLOB Ratio 0.5 RATIO (0.9-2.4); AST(SGOT) 40 U/L (15-37); Alanine Aminotransfer ALT/SGPT 28 U/L (13-56); Albumin, Serum 2.9 g/dL (3.2-5.0); Alkaline Phosphatase 198 U/L (45-117); Anion Gap 8 (5-15); BUN 60 mg/dL (7-18); BUN/Creat Ratio 27.9 RATIO (10-20); Calcium,Total 8.9 mg/dL (8.5-10.1); Chloride 98 mmol/L (98-107); Creatinine, Serum 2.15 mg/dL (0.55-1.02); EST Glomerular Filtration Rate 23 mL/min (>60); Est Glom Filt Rate - Afr Amer 28 mL/min (>60); Estimated Creatinine Clearance 14.44 ml/min; Globulin 5.4 g/dL (2.2-4.2); Glucose 114 mg/dL (74-106); Lipase 96 U/L (73-393); Potassium 3.8 mmol/L (3.5-5.1); Protein, Total 8.3 g/dL (6.4-8.2); Sodium Level 138 mmol/L (136-145)
[2021-07-23 18:21] VITALS: BP 136/50; PULSE 62; RESP 14; O2SAT 97
[2021-07-23 18:58] LABS: White Blood Cells 0-5 SEEN /hpf (0-5)
[2021-07-23 20:12] VITALS: BP 132/98; PULSE 16; O2SAT 94
--- NOTE | 2021-07-23 21:13 | PCM.HP.STD ---
HPI - General General Date of Admission: 07/23/21 HPI Narrative YOLANDA LANE, is a 86 F with a significant history of interstitial lung disease; and systolic heart failure who presents at the emergency department with 1-1/2-week history of progressively worsening right flank pain. She described the pain as it just hurts. The pain is range from 0-10. On the day of presentation the pain was a 10. The pain is nonradiating. There is no aggravating factors to the pain. The pain improves somewhat with heat pad. [facility] Medical History Anemia Arthritis Atherosclerosis of coronary artery of [place] heart without angina pectoris Atrial fibrillation Atrial fibrillation with rapid ventricular response (05/13/19) Back pain [place]-Walker grade 3 cystocele Bronchiectasis Chronic diastolic (congestive) heart failure Chronic kidney disease Coronary artery disease Diverticulosis Essential (primary) hypertension GI bleed (10/28/19) Hay fever Hyperlipidemia Hypertension Hypothyroidism Incontinence Interstitial lung disease Leg edema, left Non-smoker Obesity Osteoporosis PAF (paroxysmal atrial fibrillation) Paroxysmal atrial fibrillation Polyarthritis rheumatica Polymyalgia rheumatica Rheumatic mitral stenosis with insufficiency Stress incontinence Transient ischemic attack Typical atrial flutter Uterovaginal prolapse, incomplete Home Medications nitroglycerin 0.4 mg SUBLINGUAL Q5M PRN 08/18/14 [History Last Taken Unknown] oxycodone-acetaminophen 7.5 mg-325 mg tablet 1 tab PO Q6H PRN #42 tab 02/14/19 [History Last Taken 07/23/21] vitamin B complex 1 tab PO DAILY 02/14/19 [History Last Taken 07/23/21] acetaminophen 500 mg PO Q6H PRN PRN 10/28/19 [History Last Taken 07/23/21 500] calcium carbonate 600 mg (1,500 mg)-vitamin D3 500 unit capsule 1 cap PO QDAY cap 12/10/19 [History Last Taken 07/23/21] mirtazapine 15 mg tablet 15 mg PO QHS tab 12/10/19 [History Last Taken 07/22/21] cholecalciferol (vitamin D3) 25 mcg (1,000 unit) capsule 25 mcg PO DAILY 02/26/20 [History Last Taken 07/23/21] ferrous sulfate 325 mg (65 mg iron) tablet,delayed release 325 mg PO DAILY tab 07/16/20 [History Last Taken 07/23/21] magnesium oxide 400 mg PO DAILY cap 07/16/20 [History Last Taken 07/22/21] omeprazole 20 mg PO DAILY 08/09/20 [History Last Taken 07/23/21] levothyroxine 50 mcg tablet 75 mcg PO DAILY tab 01/17/21 [History Last Taken 07/23/21] prednisone 2.5 mg tablet 2.5 mg PO DAILY 01/17/21 [History Last Taken 07/23/21] amiodarone 200 mg tablet 200 mg PO DAILY #90 tab 02/03/21 [Rx Last Taken 07/23/21 200] amlodipine 5 mg tablet 5 mg PO DAILY #90 tab 02/15/21 [Rx Last Taken 07/23/21 5 MG] docusate sodium 100 mg capsule 100 mg PO DAILY PRN 05/17/21 [History Last Taken Unknown] duloxetine 60 mg capsule,delayed release 60 mg PO DAILY 05/17/21 [History Last Taken 07/23/21] guaifenesin 1,200 mg tablet, extended release 12 hr 1,200 mg PO BID PRN 05/17/21 [History Last Taken Unknown] hydroxychloroquine 200 mg tablet 200 mg PO DAILY tab 05/24/21 [History Last Taken 07/22/21] polyethylene glycol 3350 17 gram/dose oral powder 17 g PO .Q3 days g 05/24/21 [History Last Taken Unknown] albuterol sulfate 0.63 mg INHALATION Q6H 07/23/21 [History Last Taken Unknown] apixaban [Eliquis] 2.5 mg PO BID 07/23/21 [History Last Taken 07/23/21] atorvastatin 10 mg PO QHS 07/23/21 [History Last Taken 07/23/21] furosemide [Lasix] 40 mg PO .COMPLEX 07/23/21 [History Last Taken 07/23/21] metoprolol tartrate 12.5 mg PO BID 07/23/21 [History Last Taken 07/23/21] spironolactone 25 mg PO DAILY 07/23/21 [History Last Taken 07/23/21] Allergy/AdvReac Type Severity Reaction Status Date / Time amoxicillin [Amoxicillin] Allergy Rash Verified 07/23/21 17:11 fenoprofen calcium Allergy Itching Verified 07/23/21 17:11 [From Nalfon] Penicillins Allergy Itching Verified 07/23/21 17:11 Family History Other CVA (cerebral vascular accident) Hypertension Surgical History H/O coronary artery bypass surgery (09/20/11) H/O laminectomy History of appendectomy History of cardioversion (10/27/19) History of cataract surgery History of cholecystectomy History of mitral valve replacement with bioprosthetic valve (09/20/11) History of right and left heart catheterization (07/24/11) History of total vaginal hysterectomy (TVH) Social History Smoking Status: Never smoker second hand exposure: No alcohol intake: never substance use type: does not use caffeine: Yes what type of physical activity do you participate in: none seatbelt use: always do you feel safe at home: Yes additional social history: retired- ROS ROS Narrative Constitutional: Denies fever, chills, fatigue, anorexia and change in weight Eyes: Denies blurry vision, change in eye color, change in vision, discharge from eye(s), double vision, erythema, eye pain, loss of vision or other HEENT: Denies abnormal hearing, dysphagia, ear pain, epistaxis, headache(s), hearing loss, nasal congestion, nasal discharge, post nasal drip, sinus pressure, sore throat or other Cardiovascular: Denies chest pain or palpitations. Denies dyspnea on exertion, orthopnea and paroxysmal nocturnal dyspnea Respiratory/Chest: Denies cough, excessive phlegm production, shortness of breath with exertion and wheezing Gastrointestinal: Reports nausea and vomiting. Denies abdominal pain, coffee ground emesis, constipation, diarrhea, dyspepsia, hematemesis, hematochezia, loose stools, melena or other Genitourinary: Denies burning urination, difficulty urinating, dysuria, hematuria, nocturia, urinary frequency, urinary hesitancy, urinary incontinence, urinary urgency or other Musculoskeletal: Denies arthralgias, back pain, joint pain, joint stiffness, joint swelling, myalgias, neck pain or other Neurologic: Denies abnormal gait, abnormal speech, confusion, disequilibrium, dizziness, focal weakness, headache(s), numbness, paresthesias, seizure-like activity, seizures, syncope, tingling, tremor(s) or other Psychiatric: Denies anxiety, depression, homicidal ideation, suicidal ideation or other Endocrinology: Denies change in body appearance, cold intolerance, excessive sweating, heat intolerance, polydipsia, polyuria or other Hematologic/Lymphatic: Denies anemia, easy bleeding, easy bruising, lymphadenopathy or other Integumentary: Denies rashes Allergic/Immunologic: Denies rhinitis, hives, eczema, asthma or other Vital Signs Vital Signs Vital Signs: 07/23/21 17:08 07/23/21 18:21 07/23/21 20:12 Temperature 97.6 F L Temperature Source Temporal Pulse Rate 66 62 16 L Respiratory Rate 16 14 Blood Pressure 116/88 H 136/50 H 132/98 H Blood Pressure Mean 97 78 109 Pulse Ox 97 97 94 Oxygen Delivery Method Room Air Room Air Room Air Weight Weight: 61.235 kg Body Mass Index (BMI) 25.4 Physical Exam Narrative Physical exam: General: Well-nourished, well-developed. Head: Normocephalic, atraumatic, no tenderness Eyes: PERRLA, EOMI ENT, no trauma, moist mucous membranes, no rhinorrhea Neck: Nontender, full range of motion, no spinal tenderness, deformities, step-off CVS: Regular rate and rhythm. S1-S2 present. No murmur, gallop or rub. Respiratory : clear to auscultation bilaterally, chest wall nontender, no wheezing Abdomen: Soft, nontender, nondistended, normal bowel sounds, no masses : Deferred Back: Nontender, no CVA tenderness, no midline spinal tenderness, deformities, step-offs Extremities: Nontender full range of motion, no trauma Skin: Normal color, no trauma, abrasions Neuro: Alert, oriented, cranial nerves II through XII grossly intact. Psychiatry: Normal mood. Normal affect. Not depressed. Not anxious. Results Lab / Micro Data Result Diagrams: 07/23/21 17:20 07/23/21 17:20 Labs: Laboratory Results - last 24 hr 07/23/21 17:20: WBC 8.4, RBC 2.88 L, Hgb 10.0 L, Hct 32.0 L, MCV 111.1 H, MCH 34.7 H, MCHC 31.3 L, RDW Std Deviation 56.9 H, RDW Coeff of Rad 14.0, Plt Count 219, MPV 10.0, Immature Gran % (Auto) 0.500, Neut % (Auto) 81.9 H, Lymph % (Auto) 8.4 L, [place] % (Auto) 8.6, Eos % (Auto) 0.2, Baso % (Auto) 0.4, Absolute Neuts (auto) 6.9, Absolute Lymphs (auto) 0.71 L, Nucleated RBC % 0 07/23/21 17:20: Sodium 138, Potassium 3.8, Chloride 98, Carbon Dioxide 32.0, Anion Gap 8, BUN 60 H, Creatinine 2.15 H, Estim Creat Clear Calc 14.44, Est GFR (MDRD) Af Amer 28 L, Est GFR (MDRD) Non-Af 23 L, BUN/Creatinine Ratio 27.9 H, Glucose 114 H, Calcium 8.9, Total Bilirubin 0.30, AST 40 H, ALT 28, Alkaline Phosphatase 198 H, Total Protein 8.3 H, Albumin 2.9 L, Globulin 5.4 H, Albumin/Globulin Ratio 0.5 L, Lipase 96 07/23/21 17:38: Urine Color Yellow, Urine Clarity Clear, Urine pH 7.0, Ur Specific [place] 1.010, Urine Protein Negative, Urine Glucose (UA) Normal, Urine Ketones Negative, Urine Occult Blood 10 H, Urine Nitrite Negative, Urine Bilirubin Negative, Urine Urobilinogen Normal, Ur Leukocyte Esterase 500 H, Urine RBC 0 SEEN, Urine WBC 0-5 SEEN, Ur Squamous Epith Cells 0 SEEN, Urine Bacteria 0 SEEN, Urine Mucus 0 SEEN Radiology Impression Abdomen/Pelvis CT 07/23/21 17:23 IMPRESSION: 1. 2 mm right mid ureteral stone without hydronephrosis. 2. Usual interstitial pneumonitis, moderate severity. Outpatient Pulmonary referral advised. 3. Extensive cardiac disease. 4. L2-L3 moderate/severe spondylotic thecal sac stenosis. Multilevel prior spinal surgery. Outpatient neurosurgical consultation advised. Electronically Signed: Vaughn Martínez MD at 18:51 EST Tel , Service support , Assessment & Plan Assessment/Plan (1) Ureterolithiasis: (2) NITHIN (acute kidney injury): PLAN: Acute ureterolithiasis Actual abdomen and pelvis CT was independently interpreted and I agree with radiologist interpretation above. Gentle IV hydration ordered. Flomax ordered. As needed morphine sulfate ordered. CBC reviewed showed normal white counts but with chronic anemia; chronic neutrophilia and lymphopenia. NITHIN on CKD stage IIIb. Creatinine on presentation was 2.14. Review of old records shows a creatinine baseline around 1.5-1.6. BUN is 60. BUN over creatinine is 27.9. Gentle IV hydration as above. Trend BMP. Avoid nephrotoxins. No NSAIDs at this time. DVT prophylaxis Low risk on observation status. SCD ordered. Charges/Coding Visit Charges OBSV E&M: 27255 Initial observation care L2
[2021-07-23 21:16] VITALS: BP 129/55; PULSE 63; RESP 14; TEMP 36.4; O2SAT 94
[2021-07-23 22:03] VITALS: BMI 25.5
--- NOTE | 2021-07-23 22:08 | PCS.PANDOC ---
PANDEMIC DOCUMENTATION INITIATED: Date: 04/11/2021 Time: 190
[2021-07-23 22:11] VITALS: BP 120/42; PULSE 57; RESP 18; TEMP 36.7; O2SAT 95
[2021-07-23] MEDS: 0.9% Normal Saline 1,000 ML 75 ML IV (22:56)
[2021-07-23] MEDS: Tamsulosin HCl 0.4 MG Capsule PO (23:28)
[2021-07-24] MEDS: Acetaminophen 325 MG Tablet 650 MG PO (02:12)
[2021-07-24 04:35] VITALS: BP 117/43; PULSE 60; RESP 18; TEMP 36.6; O2SAT 94
[2021-07-24 07:16] LABS: Anion Gap 8 (5-15); BUN 49 mg/dL (7-18); BUN/Creat Ratio 27.8 RATIO (10-20); Calcium,Total 8.1 mg/dL (8.5-10.1); Chloride 103 mmol/L (98-107); Creatinine, Serum 1.76 mg/dL (0.55-1.02); EST Glomerular Filtration Rate 29 mL/min (>60); Est Glom Filt Rate - Afr Amer 35 mL/min (>60); Estimated Creatinine Clearance 17.63 ml/min; Glucose 76 mg/dL (74-106); Potassium 3.5 mmol/L (3.5-5.1); Sodium Level 140 mmol/L (136-145)
[2021-07-24 09:53] VITALS: BP 111/49; PULSE 62; RESP 18; TEMP 36.4; O2SAT 97
[2021-07-24] MEDS: Morphine 2 MG/ML Syringe 1 MG IV ×2 (10:32→13:25)
[2021-07-24] MEDS: 0.9% Saline Lock 10 ML Syringe IV (10:33)
[2021-07-24] MEDS: 0.9% Normal Saline 1,000 ML 75 ML IV (10:33)
--- NOTE | 2021-07-24 10:34 | DCINST_ITS ---
Discharge Instructions Diet Discharge Diet: Low fat / Low cholesterol Activity Discharge Activity: Return to Normal Activity Dressing / Incision Call your doctor if you observe: Fever of 101 or Higher, Shortness of breath, Dizziness, Fainting spells, Swelling in the ankles, Chest pain and Increased palpitations (irregular heartbeat) Follow Up Care Test Results: Test results from this visit will be discussed in further detail at your follow-up appointment, if applicable. Discharge Plan Admission Admit Date/Time: 07/23/21 21:04 Attending Provider: Fidel Alvarado Primary Care Provider: Mitchell Oleary Instructions Additional Instructions / Restrictions: Follow-up with your PCP in 3 to 5 days for outpatient management, if symptoms were to worsen or not improve in 24 to 48 hours and I would recommend going to the ER, unfortunately we do not have urology coverage until early July therefore I would recommend one of the surrounding ERs. Discharge Orders/Prescriptions Prescriptions: New tamsulosin 0.4 mg Capsule 0.4 mg PO DAILY@1730 Qty: 7 RF: 0 ondansetron 4 mg tablet,disintegrating 4 mg PO Q8H PRN (Reason: nausea and vomiting) Qty: 14 RF: 0 oxycodone 5 mg capsule 5 mg PO TID PRN (Reason: pain) 3 Days Qty: 10 RF: 0 Continued mirtazapine 15 mg tablet 15 mg PO QHS RF: 0 ferrous sulfate 325 mg (65 mg iron) tablet,delayed release (DR/EC) 325 mg PO DAILY RF: 0 vitamin B complex tablet 1 tab PO DAILY RF: 0 oxycodone-acetaminophen 7.5-325 mg tablet 1 tab PO Q6H PRN (Reason: pain) Qty: 42 RF: 0 calcium carbonate-vitamin D3 [Calcium 600 with Vitamin D3] 600 mg(1,500mg) - 500 unit capsule 1 cap PO QDAY RF: 0 magnesium oxide 400 mg magnesium capsule 400 mg PO DAILY RF: 0 hydroxychloroquine 200 mg tablet 200 mg PO DAILY RF: 0 cholecalciferol (vitamin D3) 25 mcg (1,000 unit) capsule 25 mcg PO DAILY RF: 0 polyethylene glycol 3350 [Miralax] 17 gram/dose powder 17 g PO .Q3 days RF: 0 prednisone 2.5 mg tablet 2.5 mg PO DAILY RF: 0 docusate sodium [Colace] 100 mg capsule 100 mg PO DAILY PRN (Reason: Constipation) RF: 0 duloxetine [Cymbalta] 60 mg capsule,delayed release(DR/EC) 60 mg PO DAILY RF: 0 Mucinex 1,200 mg tablet extended release 12hr 1,200 mg PO BID PRN (Reason: Cold Symptoms) RF: 0 levothyroxine 50 mcg tablet 75 mcg PO DAILY RF: 0 nitroglycerin 0.4 MG tablet 0.4 mg SUBLINGUAL Q5M PRN (Reason: Chest Pain) RF: 0 acetaminophen 500 MG tablet 500 mg PO Q6H PRN PRN (Reason: Not Specified) RF: 0 omeprazole 20 MG capsule 20 mg PO DAILY RF: 0 furosemide [Lasix] 40 mg tablet 40 mg PO .COMPLEX RF: 0 albuterol sulfate 0.63 mg/3 mL solution for nebulization 0.63 mg inhalation Q6H RF: 0 atorvastatin 10 mg tablet 10 mg PO QHS RF: 0 spironolactone 25 mg tablet 25 mg PO DAILY RF: 0 metoprolol tartrate 25 mg tablet 12.5 mg PO BID RF: 0 Eliquis 2.5 mg tablet 2.5 mg PO BID RF: 0 amiodarone 200 mg tablet 200 mg PO DAILY Qty: 90 RF: 3 amlodipine 5 mg tablet 5 mg PO DAILY Qty: 90 RF: 3 Referrals / Follow Up: Mitchell Oleary MD [Primary Care Provider] - Within 1 Week Disposition Disposition (needs filled in before D/C Order can be placed): Home, Self Care
--- NOTE | 2021-07-24 10:58 | DS.PCM_ITS ---
Providers Date of Admission: 07/23/21 Primary Care Physician: Dr. Mitchell Oleary MD Reason For Visit: URETERAL STONE; NITHIN Diagnosis Discharge Diagnosis (1) Ureterolithiasis: Status: Acute Code(s): N20.1 - Calculus of ureter (2) NITHIN (acute kidney injury): Status: Acute Code(s): N17.9 - Acute kidney failure, unspecified Medications at Discharge Home Medications nitroglycerin 0.4 mg SUBLINGUAL Q5M PRN 08/18/14 oxycodone-acetaminophen 7.5 mg-325 mg tablet 1 tab PO Q6H PRN #42 tab 02/14/19 vitamin B complex 1 tab PO DAILY 02/14/19 acetaminophen 500 mg PO Q6H PRN PRN 10/28/19 calcium carbonate 600 mg (1,500 mg)-vitamin D3 500 unit capsule 1 cap PO QDAY cap 12/10/19 mirtazapine 15 mg tablet 15 mg PO QHS tab 12/10/19 cholecalciferol (vitamin D3) 25 mcg (1,000 unit) capsule 25 mcg PO DAILY 02/26/20 ferrous sulfate 325 mg (65 mg iron) tablet,delayed release 325 mg PO DAILY tab 07/16/20 magnesium oxide 400 mg PO DAILY cap 07/16/20 omeprazole 20 mg PO DAILY 08/09/20 levothyroxine 50 mcg tablet 75 mcg PO DAILY tab 01/17/21 prednisone 2.5 mg tablet 2.5 mg PO DAILY 01/17/21 docusate sodium 100 mg capsule 100 mg PO DAILY PRN 05/17/21 duloxetine 60 mg capsule,delayed release 60 mg PO DAILY 05/17/21 guaifenesin 1,200 mg tablet, extended release 12 hr 1,200 mg PO BID PRN 05/17/21 hydroxychloroquine 200 mg tablet 200 mg PO DAILY tab 05/24/21 polyethylene glycol 3350 17 gram/dose oral powder 17 g PO .Q3 days g 05/24/21 Eliquis 2.5 mg PO BID 07/23/21 albuterol sulfate 0.63 mg INHALATION Q6H 07/23/21 atorvastatin 10 mg PO QHS 07/23/21 furosemide [Lasix] 40 mg PO .COMPLEX 07/23/21 metoprolol tartrate 12.5 mg PO BID 07/23/21 spironolactone 25 mg PO DAILY 07/23/21 amiodarone 200 mg PO DAILY 07/24/21 amlodipine 5 mg PO DAILY 07/24/21 ondansetron 4 mg PO Q8H PRN #14 tab 07/24/21 oxycodone 5 mg PO TID PRN 3 Days #10 cap 07/24/21 tamsulosin 0.4 mg PO DAILY@1730 #7 cap 07/24/21 Hospital Course Operations None Procedures None Summary of Care Provided Minutes Spent on Discharge: 35 Hospital Course: Per HPI: YOLANDA LANE, is a 86 F with a significant history of interstitial lung disease; and systolic heart failure who presents at the emergency department with 1-1/2-week history of progressively worsening right flank pain. She described the pain as it just hurts. The pain is range from 0-10. On the day of presentation the pain was a 10. The pain is nonradiating. There is no aggravating factors to the pain. The pain improves somewhat with heat pad. Hospital Course: 1. Acute right urolithiasis without hydronephrosis/NITHIN on CKD 3B?86-year-old female presents from home with acute right-sided flank pain and back pain. Found to have a 2 mm ureteral stone that is in the mid ureter. She says that symptoms have been going on and off for about a week but has gotten worse over the last day. She presented with a creatinine of 2.14 with a baseline of around 1.6-1.7. She was given IV fluids and pain medications and her renal function has improved and she is back to baseline. I discussed with her that we do not have urology here for any type of intervention and that she can take antinausea medications as well as pain medications at home. We will plan for Zofran, Flomax, oxycodone at home. I discussed with her the plan for discharge today and she expressed understanding and recommended to going home and is okay with going home. We also discussed the need for hydration. I discussed with her that we will not have urology coverage in the hospital until early July therefore if she does get worse over the next 24 to 48hours I do recommend she follow-up at another hospital that could have been urological coverage for possible intervention. 2. Her other medical history was evaluated in her home medications were continued where appropriate Physical Exam Const alert, oriented x3 and no apparent distress General Appearance: cooperative HEENT normocephalic and moist oral mucous membranes Eyes PERRL, EOMs intact bilaterally and conjunctivae normal Neck supple and no JVD Resp normal respiratory effort, no retractions, no use of accessory muscles and clear to auscultation bilaterally Auscultation: Negative for crackles, rales, rhonchi or wheezes Cardio regular rate, regular rhythm, S1 normal heart sound, S2 normal heart sound and no murmurs GI soft to palpation, non-tender and non-distended; Negative for hepatosplenomegaly Extremity no clubbing, cyanosis or edema Skin no rashes or lesions noted Neuro no focal motor deficits and no sensory deficits noted Psych affect normal Appearance: appropriate Weight / BMI Weight Weight: 135 lb 2.294 oz Body Mass Index (BMI) 25.5 ABG / Lab / Microbiology Data Result Diagrams: 07/23/21 17:20 07/24/21 06:06 Laboratory: Laboratory Results - last 24 hr 07/23/21 17:20: WBC 8.4, RBC 2.88 L, Hgb 10.0 L, Hct 32.0 L, MCV 111.1 H, MCH 34.7 H, MCHC 31.3 L, RDW Std Deviation 56.9 H, RDW Coeff of Rad 14.0, Plt Count 219, MPV 10.0, Immature Gran % (Auto) 0.500, Neut % (Auto) 81.9 H, Lymph % (Auto) 8.4 L, [place] % (Auto) 8.6, Eos % (Auto) 0.2, Baso % (Auto) 0.4, Absolute Neuts (auto) 6.9, Absolute Lymphs (auto) 0.71 L, Nucleated RBC % 0 07/23/21 17:20: Sodium 138, Potassium 3.8, Chloride 98, Carbon Dioxide 32.0, Ani on Gap 8, BUN 60 H, Creatinine 2.15 H, Estim Creat Clear Calc 14.44, Est GFR (MDRD) Af Amer 28 L, Est GFR (MDRD) Non-Af 23 L, BUN/Creatinine Ratio 27.9 H, Glucose 114 H, Calcium 8.9, Total Bilirubin 0.30, AST 40 H, ALT 28, Alkaline Phosphatase 198 H, Total Protein 8.3 H, Albumin 2.9 L, Globulin 5.4 H, Albumin/Globulin Ratio 0.5 L, Lipase 96 07/23/21 17:38: Urine Color Yellow, Urine Clarity Clear, Urine pH 7.0, Ur Specific [place] 1.010, Urine Protein Negative, Urine Glucose (UA) Normal, Urine Ketones Negative, Urine Occult Blood 10 H, Urine Nitrite Negative, Urine Bilirubin Negative, Urine Urobilinogen Normal, Ur Leukocyte Esterase 500 H, Urine RBC 0 SEEN, Urine WBC 0-5 SEEN, Ur Squamous Epith Cells 0 SEEN, Urine Bacteria 0 SEEN, Urine Mucus 0 SEEN 07/24/21 06:06: Sodium 140, Potassium 3.5, Chloride 103, Carbon Dioxide 29.0, Anion Gap 8, BUN 49 H, Creatinine 1.76 H, Estim Creat Clear Calc 17.63, Est GFR (MDRD) Af Amer 35 L, Est GFR (MDRD) Non-Af 29 L, BUN/Creatinine Ratio 27.8 H, Glucose 76, Calcium 8.1 L Radiography Diagnostic Testing: Radiology Impression Abdomen/Pelvis CT 07/23/21 17:23 IMPRESSION: 1. 2 mm right mid ureteral stone without hydronephrosis. 2. Usual interstitial pneumonitis, moderate severity. Outpatient Pulmonary referral advised. 3. Extensive cardiac disease. 4. L2-L3 moderate/severe spondylotic thecal sac stenosis. Multilevel prior spinal surgery. Outpatient neurosurgical consultation advised. Electronically Signed: Vaughn Martínez MD at 18:51 EST Tel , Service support , D/C Instructions Discharge Diet: Low fat / Low cholesterol Call your doctor if you observe: Fever of 101 or Higher, Shortness of breath, Dizziness, Fainting spells, Swelling in the ankles, Chest pain and Increased palpitations (irregular heartbeat) Meaningful Use Info Meaningful Use Diagnoses (Choose all that apply): None applicable Discharge Plan Admission Admit Date/Time: 07/23/21 21:04 Attending Provider: Fidel Alvarado Primary Care Provider: Mitchell Oleary Instructions Additional Instructions / Restrictions: Follow-up with your PCP in 3 to 5 days for outpatient management, if symptoms were to worsen or not improve in 24 to 48 hours and I would recommend going to the ER, unfortunately we do not have urology coverage until early July therefore I would recommend one of the surrounding ERs. Discharge Orders/Prescriptions Prescriptions: New tamsulosin 0.4 mg Capsule 0.4 mg PO DAILY@1730 Qty: 7 RF: 0 ondansetron 4 mg tablet,disintegrating 4 mg PO Q8H PRN (Reason: nausea and vomiting) Qty: 14 RF: 0 oxycodone 5 mg capsule 5 mg PO TID PRN (Reason: pain) 3 Days Qty: 10 RF: 0 Continued mirtazapine 15 mg tablet 15 mg PO QHS RF: 0 ferrous sulfate 325 mg (65 mg iron) tablet,delayed release (DR/EC) 325 mg PO DAILY RF: 0 vitamin B complex tablet 1 tab PO DAILY RF: 0 oxycodone-acetaminophen 7.5-325 mg tablet 1 tab PO Q6H PRN (Reason: pain) Qty: 42 RF: 0 calcium carbonate-vitamin D3 [Calcium 600 with Vitamin D3] 600 mg(1,500mg) - 500 unit capsule 1 cap PO QDAY RF: 0 magnesium oxide 400 mg magnesium capsule 400 mg PO DAILY RF: 0 hydroxychloroquine 200 mg tablet 200 mg PO DAILY RF: 0 cholecalciferol (vitamin D3) 25 mcg (1,000 unit) capsule 25 mcg PO DAILY RF: 0 polyethylene glycol 3350 [Miralax] 17 gram/dose powder 17 g PO .Q3 days RF: 0 prednisone 2.5 mg tablet 2.5 mg PO DAILY RF: 0 docusate sodium [Colace] 100 mg capsule 100 mg PO DAILY PRN (Reason: Constipation) RF: 0 duloxetine [Cymbalta] 60 mg capsule,delayed release(DR/EC) 60 mg PO DAILY RF: 0 Mucinex 1,200 mg tablet extended release 12hr 1,200 mg PO BID PRN (Reason: Cold Symptoms) RF: 0 levothyroxine 50 mcg tablet 75 mcg PO DAILY RF: 0 nitroglycerin 0.4 MG tablet 0.4 mg SUBLINGUAL Q5M PRN (Reason: Chest Pain) RF: 0 acetaminophen 500 MG tablet 500 mg PO Q6H PRN PRN (Reason: Pain) RF: 0 omeprazole 20 MG capsule 20 mg PO DAILY RF: 0 furosemide [Lasix] 40 mg tablet 40 mg PO .COMPLEX RF: 0 albuterol sulfate 0.63 mg/3 mL solution for nebulization 0.63 mg inhalation Q6H RF: 0 atorvastatin 10 mg tablet 10 mg PO QHS RF: 0 spironolactone 25 mg tablet 25 mg PO DAILY RF: 0 metoprolol tartrate 25 mg tablet 12.5 mg PO BID RF: 0 Eliquis 2.5 mg tablet 2.5 mg PO BID RF: 0 No Action amiodarone 200 mg tablet 200 mg PO DAILY RF: 0 amlodipine 5 mg tablet 5 mg PO DAILY RF: 0 Referrals / Follow Up: Mitchell Oleary MD [Primary Care Provider] - Within 1 Week Disposition Disposition (needs filled in before D/C Order can be placed): Home, Self Care Charges/Coding Visit Charges OBSV E&M: 64449 Observation care discharge
[2021-07-24 13:30] VITALS: BP 138/51; PULSE 56; RESP 18; TEMP 37.2; O2SAT 98
== END 2021-07-24 10:47 | disposition home or self-care (01) ==
LOC: ED 21:09 → PCU 21:31
PROVIDERS: Admitting Provider Hospitalist; Emergency Provider Emergency Medicine; PCP Family Medicine; Visit Provider Family Medicine
DX: N20.1 Calculus of ureter (principal); M47.816 Spondylosis without myelopathy or radiculopathy, lumbar region; N17.9 Acute kidney failure, unspecified; I13.0 Hypertensive heart and chronic kidney disease with heart failure and stage 1 through stage 4 chronic kidney disease, or unspecified chronic kidney disease; I50.32 Chronic diastolic (congestive) heart failure; N18.32 Chronic kidney disease, stage 3b; J84.9 Interstitial pulmonary disease, unspecified; I25.10 Atherosclerotic heart disease of native coronary artery without angina pectoris; M19.90 Unspecified osteoarthritis, unspecified site; E78.5 Hyperlipidemia, unspecified; E03.9 Hypothyroidism, unspecified; I48.0 Paroxysmal atrial fibrillation; N39.3 Stress incontinence (female) (male); M35.3 Polymyalgia rheumatica; Z79.899 Other long term (current) drug therapy; Z79.890 Hormone replacement therapy; Z79.52 Long term (current) use of systemic steroids; Z79.01 Long term (current) use of anticoagulants
CPT/HCPCS: 36415; 74176; 80048; 80053; 81001; 83690; 85025; 96361; 96374; 96375; 96376; 99218; 99284; J7030; A4216; G0378; J2405

== ENCOUNTER → 2021-07-27 14:34 | Outpatient (CLI) | payer MEDICARE, SELFPAY ==
[2021-07-27 15:24] LABS: Hematocrit 28.2 % (37-47); Hemoglobin 8.6 g/dL (12.0-15.0); Mean Corp Hgb Conc 30.5 g/dL (32-36); Mean Corpuscular Hgb 34.7 pg (27.0-32.0); Mean Corpuscular Volume 113.7 fL (81-99); Mean Platelet Vol. 10.6 fl (6.2-12.0); Platelet Count 167 K/mm3 (150-450); RBC Distribution Width CV 14.2 % (11.6-14.6); RBC Distribution Width SD 58.5 fl (35.1-43.9); Red Blood Count 2.48 M/mm3 (4.2-5.4); White Blood Count 7.5 K/mm3 (4.4-11.0)
[2021-07-27 15:45] LABS: Anion Gap 7 (5-15); BUN 30 mg/dL (7-18); BUN/Creat Ratio 19.1 RATIO (10-20); Calcium,Total 8.3 mg/dL (8.5-10.1); Chloride 100 mmol/L (98-107); Creatinine, Serum 1.57 mg/dL (0.55-1.02); EST Glomerular Filtration Rate 33 mL/min (>60); Est Glom Filt Rate - Afr Amer 40 mL/min (>60); Glucose 103 mg/dL (74-106); Microalbumin,Random Urine < 5.0 mg/L (NO RANGE EST.); PTHIN 66.7 pg/mL (18.4-80.1); Potassium 4.1 mmol/L (3.5-5.1); Protein:Creat Ratio 316 mg/g CRE (0-200); Sodium Level 136 mmol/L (136-145)
== END ==
PROVIDERS: PCP Family Medicine; Referring Provider Internal Medicine Nephrology; Visit Provider Internal Medicine Nephrology
DX: N18.32 Chronic kidney disease, stage 3b (principal)
CPT/HCPCS: 36415; 80048; 82043; 82570; 83970; 84156; 85027

== ENCOUNTER → 2021-08-15 11:24 | Outpatient (CLI) | payer MEDICARE, SELFPAY ==
--- NOTE | 2021-08-15 11:41 | RAD_ITS ---
STUDY: X-RAY - ABDOMEN/PELVIS REASON FOR EXAM: Female, 86 years old. F/U URETERAL STONE FROM ER TECHNIQUE: Single AP view of the abdomen / pelvis. COMPARISON: None. FINDINGS: There is an abundance of fecal material throughout the colon. The visualized liver, spleen and kidneys are grossly normal in size and morphology. Normal soft tissue structures. There are diffuse degenerative changes of the visualized lumbar spine. Mild dextroscoliosis. Prior laminectomy and fusion at the L5-S1 level. Osteoarthritis of both hip joints. RAD/Abdomen Single View IMPRESSION: No calcification is seen overlying the kidneys or course of the ureters. Electronically Signed: Pawel Mueller MD at 13:55 EST , Service support ,
[2021-08-15 11:55] LABS: Hematocrit 27.9 % (37-47); Hemoglobin 8.3 g/dL (12.0-15.0); Mean Corp Hgb Conc 29.7 g/dL (32-36); Mean Corpuscular Hgb 35.3 pg (27.0-32.0); Mean Corpuscular Volume 118.7 fL (81-99); Mean Platelet Vol. 10.3 fl (6.2-12.0); POSITIVE MORPHOLOGY YES; Platelet Count 206 K/mm3 (150-450); RBC Distribution Width CV 17.5 % (11.6-14.6); RBC Distribution Width SD 75.6 fl (35.1-43.9); Red Blood Count 2.35 M/mm3 (4.2-5.4); White Blood Count 9.3 K/mm3 (4.4-11.0)
[2021-08-15 12:00] LABS: Scan Indicated on CBC? Y/N YES- FLAGS NOTED
== END ==
PROVIDERS: PCP Family Medicine; Referring Provider Internal Medicine Nephrology; Visit Provider Internal Medicine Nephrology
DX: N20.0 Calculus of kidney (principal); D63.1 Anemia in chronic kidney disease
CPT/HCPCS: 36415; 74018; 85027

== ENCOUNTER 2021-09-05 14:59 | Emergency (ER) | payer MEDICARE, SELFPAY ==
[2021-09-05 15:00] VITALS: BP 136/50; PULSE 68; RESP 18; TEMP 35.9; O2SAT 93; BMI 28.3
--- NOTE | 2021-09-05 15:07 | RAD_ITS ---
STUDY: X-RAY - LEFT SHOULDER REASON FOR EXAM: Female, 86 years old. Left shoulder pain following a fall. TECHNIQUE: 2 view(s) of the shoulder. COMPARISON: None. FINDINGS: There is moderate degenerative arthrosis of the glenohumeral articulation. Normal acromioclavicular joint. Normal acromion. Impacted transverse fracture of the surgical neck of the humerus with extension to the greater tuberosity. The soft tissue structures are unremarkable. Increased markings in the left lung suggestive of either scarring and/or infiltrate. RAD/Shoulder min 2 Views IMPRESSION: Impacted transverse fracture of the surgical neck of the humerus with the extension into the greater tuberosity. Scarring and/or atelectasis in the left lung. Electronically Signed: Pawel Mueller MD at 15:23 EST , Service support ,
--- NOTE | 2021-09-05 16:00 | EDS_ITS ---
HPI History of Present Illness HPI Narrative: Patient with multiple medical problems presents with left shoulder pain that she sustained prior to arrival, at approximately 2:00 this afternoon. She states that she was bending over, stood up, and hit her left shoulder into the kitchen cabinet. She was able to move it initially, but now is having problems and pain with movement of her left upper extremity. She has right arm/hand dominant. She denies other injuries. She did not strike her head or lose consciousness. She does take Eliquis for atrial fibrillation. She complains of worsening left shoulder pain that is worse with movement. Chief Complaint: Fall [facility] Medical History Anemia Arthritis Atherosclerosis of coronary artery of [place] heart without angina pectoris Atrial fibrillation Atrial fibrillation with rapid ventricular response (05/13/19) Back pain [place] grade 3 cystocele Bronchiectasis Chronic diastolic (congestive) heart failure Chronic kidney disease Coronary artery disease CRF (chronic renal failure) Diverticulosis Essential (primary) hypertension GI bleed (10/28/19) Hay fever Hyperlipidemia Hypertension Hypothyroidism Incontinence Interstitial lung disease Leg edema, left Non-smoker Obesity Osteoporosis PAF (paroxysmal atrial fibrillation) Paroxysmal atrial fibrillation Polyarthritis rheumatica Polymyalgia rheumatica Rheumatic mitral stenosis with insufficiency Stress incontinence Transient ischemic attack Typical atrial flutter Uterovaginal prolapse, incomplete Home Medications nitroglycerin 0.4 mg SUBLINGUAL Q5M PRN 08/18/14 [History Last Taken Unknown] oxycodone-acetaminophen 7.5 mg-325 mg tablet 1 tab PO Q6H PRN #42 tab 02/14/19 [History Last Taken 07/23/21] vitamin B complex 1 tab PO DAILY 02/14/19 [History Last Taken 07/23/21] acetaminophen 500 mg PO Q6H PRN PRN 10/28/19 [History Last Taken 07/23/21 500] calcium carbonate 600 mg-vitamin D3 12.5 mcg (500 unit) capsule 1 cap PO QDAY cap 12/10/19 [History Last Taken 07/23/21] mirtazapine 15 mg tablet 15 mg PO QHS tab 12/10/19 [History Last Taken 07/22/21] cholecalciferol (vitamin D3) 25 mcg (1,000 unit) capsule 25 mcg PO DAILY 02/26/20 [History Last Taken 07/23/21] ferrous sulfate 325 mg (65 mg iron) tablet,delayed release 325 mg PO DAILY tab 07/16/20 [History Last Taken 07/23/21] magnesium oxide 400 mg PO DAILY cap 07/16/20 [History Last Taken 07/22/21] omeprazole 20 mg PO DAILY 08/09/20 [History Last Taken 07/23/21] levothyroxine 50 mcg tablet 75 mcg PO DAILY tab 01/17/21 [History Last Taken 07/23/21] prednisone 2.5 mg tablet 2.5 mg PO DAILY 01/17/21 [History Last Taken 07/23/21] docusate sodium 100 mg capsule 100 mg PO DAILY PRN 05/17/21 [History Last Taken Unknown] duloxetine 60 mg capsule,delayed release 60 mg PO DAILY 05/17/21 [History Last Taken 07/23/21] guaifenesin 1,200 mg tablet, extended release 12 hr 1,200 mg PO BID PRN 05/17/21 [History Last Taken Unknown] hydroxychloroquine 200 mg tablet 200 mg PO DAILY tab 05/24/21 [History Last Taken 07/22/21] polyethylene glycol 3350 17 gram/dose oral powder 17 g PO .Q3 days g 05/24/21 [History Last Taken Unknown] Eliquis 2.5 mg PO BID 07/23/21 [History Last Taken 07/23/21] albuterol sulfate 0.63 mg INHALATION Q6H 07/23/21 [History Last Taken Unknown] atorvastatin 10 mg PO QHS 07/23/21 [History Last Taken 07/23/21] furosemide [Lasix] 40 mg PO .COMPLEX 07/23/21 [History Last Taken 07/23/21] metoprolol tartrate 12.5 mg PO BID 07/23/21 [History Last Taken 07/23/21] spironolactone 25 mg PO DAILY 07/23/21 [History Last Taken 07/23/21] amiodarone 200 mg PO DAILY 07/24/21 [History Last Taken 07/23/21 200] amlodipine 5 mg PO DAILY 07/24/21 [History Last Taken 07/23/21 5 MG] ondansetron 4 mg PO Q8H PRN #14 tab 07/24/21 [Rx Last Taken Unknown] oxycodone 5 mg PO TID PRN 3 Days #10 cap 07/24/21 [Rx Last Taken Unknown] tamsulosin 0.4 mg PO DAILY@1730 #7 cap 07/24/21 [Rx Last Taken Unknown] Allergy/AdvReac Type Severity Reaction Status Date / Time amoxicillin [Amoxicillin] Allergy Rash Verified 08/17/21 11:15 fenoprofen calcium Allergy Itching Verified 08/17/21 11:15 [From [place]] Penicillins Allergy Itching Verified 08/17/21 11:15 Family History Other CVA (cerebral vascular accident) Hypertension Surgical History H/O coronary artery bypass surgery (09/20/11) H/O laminectomy History of appendectomy History of cardioversion (10/27/19) History of cataract surgery History of cholecystectomy History of mitral valve replacement with bioprosthetic valve (09/20/11) History of right and left heart catheterization (07/24/11) History of total vaginal hysterectomy (TVH) Social History Smoking Status: Never smoker second hand exposure: No alcohol intake: never substance use type: does not use caffeine: Yes what type of physical activity do you participate in: none seatbelt use: always do you feel safe at home: Yes additional social history: retired- ROS ROS ED ROS Narrative Constitutional: No fever, no chills. HEENT: No sore throat. No neck pain. No loss of vision. No rhinorrhea. Cardiovascular: No chest pain. No palpitations. No pedal edema. Respiratory: No cough, no shortness of breath. Abdominal: No abdominal pain. No nausea. No vomiting. Genitourinary: No dysuria. No hematuria. Musculoskeletal: No myalgias. Left shoulder pain, worse with movement Neurologic: No headaches. No dizziness. No lightheadedness. Skin: No rash. No change in color. Psychiatric: No depression. No anxiety. EXAM Physical Exam Narrative Exam Narrative: Afebrile. Vital signs noted. HEENT: Normocephalic. Atraumatic. PERRL, EOMI. Neck soft and supple. No point tenderness or step off. Cardiovascular: Regular rate and rhythm. No murmurs, rubs, or gallops appreciated. Respiratory: No tachypnea. Lungs clear to auscultation bilaterally. Gastrointestinal: Abdomen soft, nontender, with normoactive bowel sounds. No rebound or guarding. Neurological: Awake. Alert. Nonfocal, nonlateralizing. Skin: No rash. Normal color. No pallor. Musculoskeletal: No pedal edema. Decreased range of motion of left shoulder and upper extremity secondary to pain. Multiple ecchymosis on bilateral upper extremities. Diffuse tenderness to palpation left proximal humerus. Able to flex and extend at elbow. Palpable radial pulse, left. No clavicular tenderness. Const Vital Signs: 09/05/21 15:00 Temperature 96.6 F L Temperature Source Temporal Pulse Rate 68 Respiratory Rate 18 Blood Pressure 136/50 H Blood Pressure Mean 78 Pulse Ox 93 Oxygen Delivery Method Room Air MDM MDM MDM Narrative Medical decision making narrative: RN ordered x-ray of the left shoulder per protocol shows an impacted transverse fracture of the surgical neck of the humerus with extension into the greater tuberosity. There is no evidence of dislocation. Patient will be placed in a sling and swath. She already takes Percocet 3 times a day as needed for osteoarthritis pain. Her daughter is at the bedside and states that she has enough Percocet. Additionally, she will take extra strength Tylenol 1 tablet as needed. She was told not to exceed more than 3 g of acetaminophen in a 24-hour period. She will ice the area. She was referred to the orthopedic surgeon on-call, Dr. Servin. I feel she be discharged safely home with follow-up. Return instructions to the emergency department were reviewed. Disposition is discharged home, in stable condition. Radiography Diagnostic Testing: Clinical Impression(s) from Imaging Studies Shoulder X-Ray 09/05/21 15:07 IMPRESSION: Impacted transverse fracture of the surgical neck of the humerus with the extension into the greater tuberosity. Scarring and/or atelectasis in the left lung. Electronically Signed: Pawel Mueller MD at 15:23 EST , Service support , Discharge Plan Triage Chief Complaint: Fall ED Provider: Gab Soriano Dx/Rx/DC Orders Clinical Impression: Fracture of proximal humerus Instructions: ED Fracture, Shoulder Prescriptions: No Action mirtazapine 15 mg tablet 15 mg PO QHS RF: 0 ferrous sulfate 325 mg (65 mg iron) tablet,delayed release (DR/EC) 325 mg PO DAILY RF: 0 vitamin B complex tablet 1 tab PO DAILY RF: 0 oxycodone-acetaminophen 7.5-325 mg tablet 1 tab PO Q6H PRN (Reason: pain) Qty: 42 RF: 0 calcium carbonate-vitamin D3 [Calcium 600 with Vitamin D3] 600 mg(1,500mg) - 500 unit capsule 1 cap PO QDAY RF: 0 magnesium oxide 400 mg magnesium capsule 400 mg PO DAILY RF: 0 hydroxychloroquine 200 mg tablet 200 mg PO DAILY RF: 0 cholecalciferol (vitamin D3) 25 mcg (1,000 unit) capsule 25 mcg PO DAILY RF: 0 polyethylene glycol 3350 [Miralax] 17 gram/dose powder 17 g PO .Q3 days RF: 0 prednisone 2.5 mg tablet 2.5 mg PO DAILY RF: 0 docusate sodium [Colace] 100 mg capsule 100 mg PO DAILY PRN (Reason: Constipation) RF: 0 duloxetine [Cymbalta] 60 mg capsule,delayed release(DR/EC) 60 mg PO DAILY RF: 0 Mucinex 1,200 mg tablet extended release 12hr 1,200 mg PO BID PRN (Reason: Cold Symptoms) RF: 0 levothyroxine 50 mcg tablet 75 mcg PO DAILY RF: 0 nitroglycerin 0.4 MG tablet 0.4 mg SUBLINGUAL Q5M PRN (Reason: Chest Pain) RF: 0 acetaminophen 500 MG tablet 500 mg PO Q6H PRN PRN (Reason: Pain) RF: 0 omeprazole 20 MG capsule 20 mg PO DAILY RF: 0 furosemide [Lasix] 40 mg tablet 40 mg PO .COMPLEX RF: 0 albuterol sulfate 0.63 mg/3 mL solution for nebulization 0.63 mg inhalation Q6H RF: 0 atorvastatin 10 mg tablet 10 mg PO QHS RF: 0 spironolactone 25 mg tablet 25 mg PO DAILY RF: 0 metoprolol tartrate 25 mg tablet 12.5 mg PO BID RF: 0 Eliquis 2.5 mg tablet 2.5 mg PO BID RF: 0 tamsulosin 0.4 mg Capsule 0.4 mg PO DAILY@1730 Qty: 7 RF: 0 ondansetron 4 mg tablet,disintegrating 4 mg PO Q8H PRN (Reason: nausea and vomiting) Qty: 14 RF: 0 oxycodone 5 mg capsule 5 mg PO TID PRN (Reason: pain) 3 Days Qty: 10 RF: 0 amiodarone 200 mg tablet 200 mg PO DAILY RF: 0 amlodipine 5 mg tablet 5 mg PO DAILY RF: 0 Primary Care Provider: Mitchell Oleary Referrals: Mitchell Oleary MD [Primary Care Provider] - Alessandro Servin MD [STAFF PHYSICIAN] - 09/12/21 (Call today or tomorrow for an appointment to be seen in the next 7-10 days for your proximal humerus fracture .) Disposition Disposition: Home, Self Care
[2021-09-05 16:17] VITALS: PULSE 66; RESP 17; O2SAT 94
== END 2021-09-05 16:18 | disposition home or self-care (01) ==
LOC: ED 16:05
PROVIDERS: Emergency Provider Emergency Medicine; PCP Family Medicine; Visit Provider Emergency Medicine
DX: M80.022A Age-related osteoporosis with current pathological fracture, left humerus, initial encounter for fracture (principal); I50.32 Chronic diastolic (congestive) heart failure; I13.0 Hypertensive heart and chronic kidney disease with heart failure and stage 1 through stage 4 chronic kidney disease, or unspecified chronic kidney disease; I48.0 Paroxysmal atrial fibrillation; W22.8XXA Striking against or struck by other objects, initial encounter; Y93.89 Activity, other specified; E78.5 Hyperlipidemia, unspecified; N18.9 Chronic kidney disease, unspecified; I25.10 Atherosclerotic heart disease of native coronary artery without angina pectoris; E03.9 Hypothyroidism, unspecified; M19.012 Primary osteoarthritis, left shoulder; E66.9 Obesity, unspecified; Z95.1 Presence of aortocoronary bypass graft; Z68.28 Body mass index [BMI] 28.0-28.9, adult; Z79.01 Long term (current) use of anticoagulants; Z79.899 Other long term (current) drug therapy; Z86.73 Personal history of transient ischemic attack (TIA), and cerebral infarction without residual deficits
CPT/HCPCS: 73030; 99282

== ENCOUNTER 2021-10-24 13:57 | Outpatient (CLI) | payer MEDICARE, SELFPAY ==
[2021-10-24 15:40] LABS: Anion Gap 6 (5-15); BUN 39 mg/dL (7-18); BUN/Creat Ratio 22.2 RATIO (10-20); Calcium,Total 8.5 mg/dL (8.5-10.1); Chloride 101 mmol/L (98-107); Creatinine, Serum 1.76 mg/dL (0.55-1.02); EST Glomerular Filtration Rate 29 mL/min (>60); Est Glom Filt Rate - Afr Amer 35 mL/min (>60); Glucose 125 mg/dL (74-106); Potassium 4.1 mmol/L (3.5-5.1); Sodium Level 138 mmol/L (136-145)
[2021-10-24 15:46] LABS: BNP,B-Type NATRIURETIC PEPTIDE 212.4 pg/mL (0-100)
== END 2021-10-24 23:59 | disposition home or self-care (01) ==
LOC: LAB 13:58
PROVIDERS: PCP Family Medicine; Referring Provider Nurse Practitioner Gerontology; Visit Provider Nurse Practitioner Gerontology
DX: R06.00 Dyspnea, unspecified (principal)
CPT/HCPCS: 36415; 80048; 83880

== ENCOUNTER 2021-10-31 11:50 | Outpatient (CLI) | payer MEDICARE, SELFPAY ==
[2021-10-31 13:33] LABS: Anion Gap 5 (5-15); BUN 41 mg/dL (7-18); BUN/Creat Ratio 25.5 RATIO (10-20); Calcium,Total 8.5 mg/dL (8.5-10.1); Chloride 98 mmol/L (98-107); Creatinine, Serum 1.61 mg/dL (0.55-1.02); EST Glomerular Filtration Rate 32 mL/min (>60); Est Glom Filt Rate - Afr Amer 39 mL/min (>60); Glucose 122 mg/dL (74-106); Sodium Level 135 mmol/L (136-145)
== END 2021-10-31 23:59 | disposition home or self-care (01) ==
LOC: LAB 11:51
PROVIDERS: PCP Family Medicine; Referring Provider Nurse Practitioner Gerontology; Visit Provider Nurse Practitioner Gerontology
DX: R06.00 Dyspnea, unspecified (principal)
CPT/HCPCS: 36415; 80048

== ENCOUNTER 2021-12-06 14:14 | Emergency (ER) | payer MEDICARE, SELFPAY ==
[2021-12-06 14:19] VITALS: BP 146/102; PULSE 74; RESP 16; TEMP 36.9; O2SAT 93; BMI 27.0
[2021-12-06 14:30] VITALS: BP 123/41; PULSE 76; RESP 16; O2SAT 91
--- NOTE | 2021-12-06 14:30 | EKG12_ITS ---
Test Reason : Blood Pressure : / mmHG Vent. Rate : 076 BPM Atrial Rate : 076 BPM P-R Int : 188 ms QRS Dur : 092 ms QT Int : 446 ms P-R-T Axes : 080 085 062 degrees QTc Int : 501 ms Sinus rhythm with Premature atrial complexes in a pattern of bigeminy Inferior infarct , age undetermined , cannot be excluded Abnormal ECG Confirmed by MARIO SALGADO, JARED ([id number]), web editor TORI NAIDU ([id number]) on 12/08/2021 1:07:36 PM Referred By: HOMERO Confirmed By:JARED MARTIN MD
--- NOTE | 2021-12-06 14:31 | RAD_ITS ---
STUDY: X-RAY - LEFT KNEE REASON FOR EXAM: Female, 86 years old. 2 day history of pain. No known injury. TECHNIQUE: 2 view(s) of the knee. COMPARISON: None. FINDINGS: Normal visualized distal femur. Normal visualized proximal tibia and fibula. Normal proximal tibiofibular articulation. There is severe degenerative arthrosis of the medial femorotibial compartment with severe joint space narrowing. Normal lateral femorotibial compartment. There is mild degenerative arthrosis of the patellofemoral articulation. Small joint effusion. Surgical clips are seen in the medial soft tissues. Atherosclerotic calcification of the left superficial femoral artery. RAD/Knee 1 or 2 Views IMPRESSION: Degenerative arthrosis. Small joint effusion. Electronically Signed: Pawel Mueller MD at 15:20 EDT ,
--- NOTE | 2021-12-06 14:31 | ED.VIS.LOWEX ---
HPI History of Present Illness Chief Complaint: Lower Extremity Injury Informant: patient and family Narrative Narrative: Patient complains of left knee pain. History is obtained from patient as well as daughter. Patient lives in an apartment attached to the daughter's house. Patient woke up Sunday morning. Her left knee was hurting. It has been noted to be swollen. Patient does have very bad arthritis and this is what they thought it was initially. Patient normally takes 1 or 2 Percocet a day at 7.5 mg to manage the pain. However, she is needed to increase this. The daughter states that when she takes more Percocet the patient gets more confused. She has not had any fevers chills nausea vomiting. No recent infections. She has no complaints other than the left knee. Patient states that laying in bed she has no pain at all in the left knee. She only has pain with weightbearing. She is not having pain in the hip or ankle area. Daughter and patient's greatest concern is that the patient is not doing well at home. She cannot walk safely because of the pain. If she takes the pain meds she gets very confused and puts her at risk for falling. [facility] Medical History Anemia Arthritis Atherosclerosis of coronary artery of [place] heart without angina pectoris Atrial fibrillation Atrial fibrillation with rapid ventricular response (05/13/19) Back pain Stevenson-Walker grade 3 cystocele Bronchiectasis Chronic diastolic (congestive) heart failure Chronic kidney disease Coronary artery disease CRF (chronic renal failure) Diverticulosis Essential (primary) hypertension GI bleed (10/28/19) Hay fever Hyperlipidemia Hypertension Hypothyroidism Incontinence Interstitial lung disease Leg edema, left Non-smoker Obesity Osteoporosis PAF (paroxysmal atrial fibrillation) Paroxysmal atrial fibrillation Polyarthritis rheumatica Polymyalgia rheumatica Rheumatic mitral stenosis with insufficiency Stress incontinence Transient ischemic attack Typical atrial flutter Uterovaginal prolapse, incomplete Home Medications oxycodone-acetaminophen 7.5 mg-325 mg tablet 1 tab PO Q6H PRN #42 tab 02/14/19 [History Last Taken 07/23/21] vitamin B complex 1 tab PO DAILY 02/14/19 [History Last Taken 07/23/21] calcium carbonate 600 mg-vitamin D3 12.5 mcg (500 unit) capsule 1 cap PO QDAY cap 12/10/19 [History Last Taken 07/23/21] mirtazapine 15 mg tablet 15 mg PO QHS tab 12/10/19 [History Last Taken 07/22/21] magnesium oxide 400 mg PO DAILY cap 07/16/20 [History Last Taken 07/22/21] omeprazole 20 mg PO DAILY 08/09/20 [History Last Taken 07/23/21] docusate sodium 100 mg capsule 100 mg PO DAILY PRN 05/17/21 [History Last Taken Unknown] duloxetine 60 mg capsule,delayed release 60 mg PO DAILY 05/17/21 [History Last Taken 07/23/21] guaifenesin 1,200 mg tablet, extended release 12 hr 1,200 mg PO BID PRN 05/17/21 [History Last Taken Unknown] albuterol sulfate 0.63 mg INHALATION Q6H 07/23/21 [History Last Taken Unknown] atorvastatin 10 mg PO QHS 07/23/21 [History Last Taken 07/23/21] spironolactone 25 mg PO DAILY 07/23/21 [History Last Taken 07/23/21] amiodarone 200 mg PO DAILY 07/24/21 [History Last Taken 07/23/21 200] amlodipine 5 mg PO DAILY 07/24/21 [History Last Taken 07/23/21 5 MG] gabapentin 300 mg capsule 300 mg PO DAILY 10/24/21 [History Last Taken Unknown] loratadine 10 mg capsule 10 mg PO DAILY 10/24/21 [History Last Taken Unknown] nitroglycerin 0.4 mg sublingual tablet 0.4 mg SUBLINGUAL Q5M PRN #25 tab 10/24/21 [Rx Last Taken Unknown] apixaban 2.5 mg tablet 2.5 mg PO BID #180 tab 11/04/21 [Rx Last Taken Unknown] metoprolol tartrate 25 mg tablet 12.5 mg PO BID #90 tab 11/04/21 [Rx Last Taken Unknown] acetaminophen 500 mg tablet 500 mg PO Q4H PRN tab 11/14/21 [History Last Taken Unknown] folic acid 1 mg tablet 1 mg PO DAILY 11/14/21 [History Last Taken Unknown] levothyroxine 100 mcg tablet 100 mcg PO DAILY tab 11/14/21 [History Last Taken Unknown] prednisone 5 mg tablet 10 mg PO DAILY tab 11/14/21 [History Last Taken Unknown] ferrous sulfate 134 mg PO DAILY 12/06/21 [History Last Taken Unknown] furosemide 40 mg tablet 40 mg PO DAILY #90 tab 12/06/21 [Rx Last Taken Unknown] Allergy/AdvReac Type Severity Reaction Status Date / Time amoxicillin [Amoxicillin] Allergy Rash Verified 11/14/21 13:41 fenoprofen calcium Allergy Itching Verified 11/14/21 13:41 [From [place]] Penicillins Allergy Itching Verified 11/14/21 13:41 Family History Other CVA (cerebral vascular accident) Hypertension Surgical History H/O coronary artery bypass surgery (09/20/11) H/O laminectomy History of appendectomy History of cardioversion (10/27/19) History of cataract surgery History of cholecystectomy History of mitral valve replacement with bioprosthetic valve (09/20/11) History of right and left heart catheterization (07/24/11) History of total vaginal hysterectomy (TVH) Social History Smoking Status: Never smoker second hand exposure: No alcohol intake: never substance use type: does not use caffeine: Yes what type of physical activity do you participate in: none seatbelt use: always do you feel safe at home: Yes additional social history: retired- ROS ROS ED Constitutional Constitutional ED: Denies chills, fever(s) or sweats Eyes Eyes: Denies change in vision ENT ENT ED: Denies rhinorrhea Cardiovascular Cardiovascular: Reports other Details: Patient has a history of intermittent atrial fibrillation but has no palpitations at this time. ; Denies chest pain or palpitations Respiratory/Chest Respiratory/Chest: Denies cough or dyspnea Gastrointestinal Gastrointestinal: Denies nausea or vomiting Musculoskeletal Musculoskeletal: Reports arthralgias Integumentary Denies abscess or rash Neurologic Neurologic: Denies headache(s) Psychiatric Psychiatric: Denies depression Endocrine Endocrinology: Denies polydipsia or polyuria Hematologic/Lymphatic Hematologic/Lymphatic: Reports easy bleeding and easy bruising Allergic/Immunologic Allergic/Immunologic ED: Denies urticaria EXAM Physical Exam Const Vital Signs: 12/06/21 14:19 12/06/21 14:30 12/06/21 19:00 Temperature 98.5 F Temperature Source Oral Pulse Rate 74 76 Respiratory Rate 16 16 16 Blood Pressure 146/102 H 123/41 H Blood Pressure Mean 116 68 Pulse Ox 93 91 97 Oxygen Delivery Method Room Air Room Air Room Air 12/06/21 21:30 Temperature Temperature Source Pulse Rate 74 Respiratory Rate 16 Blood Pressure 122/78 H Blood Pressure Mean 92 Pulse Ox 97 Oxygen Delivery Method Room Air Positive well nourished and well developed General Appearance ED: well developed and NAD HEENT Reports moist mucous membranes Neck full ROM Chest Wall inspection of chest normal Resp normal respiratory effort Resp Narrative: Mildly coarse breath sounds bilaterally. However, the patient is not short of breath and she has a history of bronchiectasis. Cardio regular rate and regular rhythm Cardio Narrative: Heart rate does sound normal. Rhythm sounds regular with an occasional extrasystole. GI non-tender Palpation: soft Back/Spine no CVA tenderness Extremity Extremity Narrative: Left knee does have an effusion. I can passively lift up the leg and passively move the knee well without any notable pain. Patient states she has no pain with that or laying in bed is just weightbearing. The knee is not at all red or hot. This does not look like a septic joint. Neuro Sensorium / Orientation: alert Skin Lesions: no lesions Rashes: no rashes MDM MDM MDM Narrative Medical decision making narrative: Patient CBC shows normal white count. She has chronic anemia. Electrolytes also show baseline renal function abnormality which is known. Minimal elevation of glucose. X-rays show severe arthritis and a small left knee effusion. Pelvis shows arthritis but no acute process. Patient is really not able to ambulate on that knee due to discomfort. I again examined the knee. Moving it passively does not hurt and laying in bed does not hurt. Its only when she tries to put weight on it. I did talk to social work. Because of her insurance we cannot get her directly to a rehab facility. We checked with our TCU. They have 1 discharge in the morning but are currently full. However 3 people are already waiting for that bed. The patient has a walker quad cane and Rollator at home. They would like to see if we can maybe get a wheelchair and they could consider going home. We discussed the options of coming in for management and skilled nursing placement, going home. Certainly if they worsen at any time they are welcome to return. We are checking on the wheelchair issue at this time. Social work has contacted [employer]. They can have a wheelchair to their house tomorrow morning. The daughter and patient are okay with her going home tonight. They will need assistance to get into the house though. They do have a wheelchair ramp already. They are comfortable going home and dealing with this overnight until they have the wheelchair in the morning. I explained if anything changes we can certainly change our plan. They have pain medicines at home. They will oftentimes break the Percocet in half to provide some relief of pain with less side effects. We were actually able to get a wheelchair delivered here. Patient went home by ambulance because she needs help getting into the house. Lab Data Attestation: I reviewed the patient's lab results. Labs: Laboratory Results - last 24 hr 12/06/21 12/06/21 14:40 14:40 WBC 10.7 RBC 2.46 L Hgb 9.3 L Hct 29.5 L MCV 119.9 H MCH 37.8 H MCHC 31.5 L RDW Std Deviation 68.1 H RDW Coeff of Rad 15.2 H Plt Count 182 MPV 10.1 Immature Gran % (Auto) 0.700 Neut % (Auto) 91.2 H Lymph % (Auto) 2.0 L Edwards % (Auto) 6.0 Eos % (Auto) 0.0 Baso % (Auto) 0.1 Absolute Neuts (auto) 9.7 H Absolute Lymphs (auto) 0.21 L Nucleated RBC % 0 Differential Comment COMMENT Anisocytosis 1+ Sodium 136 Potassium 4.5 Chloride 101 Carbon Dioxide 28.0 Anion Gap 7 BUN 33 H Creatinine 1.59 H Estim Creat Clear Calc 18.58 Est GFR (MDRD) Af Amer 40 L Est GFR (MDRD) Non-Af 33 L BUN/Creatinine Ratio 20.8 H Glucose 134 H Calcium 8.7 Radiography Diagnostic Testing: Clinical Impression(s) from Imaging Studies Knee X-Ray 12/06/21 14:31 IMPRESSION: Degenerative arthrosis. Small joint effusion. Electronically Signed: Pawel Mueller MD at 15:20 EDT , Pelvis X-Ray 12/06/21 14:34 IMPRESSION: Mild joint space narrowing of the hip joints bilaterally. Electronically Signed: Pawel Mueller MD at 15:30 EDT , EKG Initial EKG: Comments: EKG done for history of atrial fibrillation read by me shows sinus rhythm with frequent PACs. Slightly wavy baseline but no sign of acute ST elevation or depression. No ventricular ectopy. FL interval and QRS duration are normal. QTc is slightly long at 501. Patient is on amiodarone. Discharge Plan Triage Chief Complaint: Lower Extremity Injury ED Provider: Basilio Madison Dx/Rx/DC Orders Clinical Impression: Hemarthrosis of knee, left, Inability to ambulate due to knee Instructions: ED Knee Effusion Prescriptions: No Action mirtazapine 15 mg tablet 15 mg PO QHS RF: 0 vitamin B complex tablet 1 tab PO DAILY RF: 0 oxycodone-acetaminophen 7.5-325 mg tablet 1 tab PO Q6H PRN (Reason: pain) Qty: 42 RF: 0 calcium carbonate-vitamin D3 [Calcium 600 with Vitamin D3] 600 mg(1,500mg) -500 unit capsule 1 cap PO QDAY RF: 0 magnesium oxide 400 mg magnesium capsule 400 mg PO DAILY RF: 0 docusate sodium [Colace] 100 mg capsule 100 mg PO DAILY PRN (Reason: Constipation) RF: 0 duloxetine [Cymbalta] 60 mg capsule,delayed release(DR/EC) 60 mg PO DAILY RF: 0 Mucinex 1,200 mg tablet extended release 12hr 1,200 mg PO BID PRN (Reason: Cold Symptoms) RF: 0 gabapentin 300 mg capsule 300 mg PO DAILY RF: 0 loratadine 10 mg capsule 10 mg PO DAILY RF: 0 nitroglycerin 0.4 mg tablet, sublingual 0.4 mg SUBLINGUAL Q5M PRN (Reason: Chest Pain) Qty: 25 RF: 3 folic acid 1 mg tablet 1 mg PO DAILY RF: 0 levothyroxine 100 mcg tablet 100 mcg PO DAILY RF: 0 prednisone 5 mg tablet 10 mg PO DAILY RF: 0 acetaminophen 500 mg tablet 500 mg PO Q4H PRN (Reason: Pain) RF: 0 omeprazole 20 MG capsule 20 mg PO DAILY RF: 0 albuterol sulfate 0.63 mg/3 mL solution for nebulization 0.63 mg inhalation Q6H RF: 0 atorvastatin 10 mg tablet 10 mg PO QHS RF: 0 spironolactone 25 mg tablet 25 mg PO DAILY RF: 0 amiodarone 200 mg tablet 200 mg PO DAILY RF: 0 amlodipine 5 mg tablet 5 mg PO DAILY RF: 0 ferrous sulfate 134 mg (27 mg iron) Tablet 134 mg PO DAILY RF: 0 metoprolol tartrate 25 mg tablet 12.5 mg PO BID Qty: 90 RF: 3 Eliquis 2.5 mg tablet 2.5 mg PO BID Qty: 180 RF: 3 furosemide [Lasix] 40 mg tablet 40 mg PO DAILY Qty: 90 RF: 3 Primary Care Provider: Mitchell Oleary Referrals: Mitchell Oleary MD [Primary Care Provider] - 1-2 Days if not improving Disposition Disposition: Home, Self Care
--- NOTE | 2021-12-06 14:34 | RAD_ITS ---
STUDY: X-RAY - PELVIS REASON FOR EXAM: Female, 86 years old. 2 day history of increasing pain. No known trauma. TECHNIQUE: One view of the pelvis was obtained. COMPARISON: None. FINDINGS: Moderate amount of fecal material seen in the colon. Degenerative changes of the lower lumbar spine with prior laminectomy and fusion at the L5-S1 level. Normal bilateral iliac wings, sacroiliac joints and visualized sacrum. Normal visualized bilateral superior and inferior pubic rami. Normal pubic symphysis. Normal ischial tuberosities. Normal visualized right femoral head. Normal right acetabulum. There is mild articular joint space narrowing of the right hip. Normal visualized left femoral head. Normal left acetabulum. There is mild articular joint space narrowing of the left hip. RAD/Pelvis 1 or 2 Views IMPRESSION: Mild joint space narrowing of the hip joints bilaterally. Electronically Signed: Pawel Mueller MD at 15:30 EDT ,
[2021-12-06] MEDS: oxyCODONE 5 MG Tablet PO (14:53)
[2021-12-06 14:56] LABS: Absolute Lymphocyte Count 0.21 X10^3/uL (0.83-4.51); Absolute Neutrophil Count 9.7 X10^3/uL (2.0-7.7); Basophil# 0.01 X10^3/uL; Basophil% 0.1 % (0-1); Hematocrit 29.5 % (37-47); Hemoglobin 9.3 g/dL (12.0-15.0); Lymphocyte # 0.21 X10^3/ul (0.83-4.51); Mean Corp Hgb Conc 31.5 g/dL (32-36); Mean Corpuscular Hgb 37.8 pg (27.0-32.0); Mean Corpuscular Volume 119.9 fL (81-99); Mean Platelet Vol. 10.1 fl (6.2-12.0); Monocyte# 0.64 X10^3/uL; NRBC Flagged by Analyzer 0 % (0-5); Neutrophil # 9.73 X10^3/uL (2.7-7.7); Neutrophil % 91.2 % (47-70); POSITIVE DIFFERENTIAL YES; POSITIVE MORPHOLOGY YES; Platelet Count 182 K/mm3 (150-450); RBC Distribution Width CV 15.2 % (11.6-14.6); RBC Distribution Width SD 68.1 fl (35.1-43.9); Red Blood Count 2.46 M/mm3 (4.2-5.4); White Blood Count 10.7 K/mm3 (4.4-11.0)
[2021-12-06 14:57] LABS: Differential Indicated SCAN CRITERIA MET
[2021-12-06 15:11] LABS: Anion Gap 7 (5-15); BUN 33 mg/dL (7-18); BUN/Creat Ratio 20.8 RATIO (10-20); Calcium,Total 8.7 mg/dL (8.5-10.1); Chloride 101 mmol/L (98-107); Creatinine, Serum 1.59 mg/dL (0.55-1.02); EST Glomerular Filtration Rate 33 mL/min (>60); Est Glom Filt Rate - Afr Amer 40 mL/min (>60); Estimated Creatinine Clearance 18.58 ml/min; Glucose 134 mg/dL (74-106); Potassium 4.5 mmol/L (3.5-5.1); Sodium Level 136 mmol/L (136-145)
[2021-12-06 15:18] LABS: Anisocytosis 1+
--- NOTE | 2021-12-06 16:15 | CM.ED ---
DAVID Note Referral Source: electrical unit rebuilder Reason: seed corn manager production inquired about possibility of patient going to TCU. DAVID reviewed chart. Patient has [employer] insurance which requires a precertification. DAVID called Thao in admission at TCU and Thao stated that she has no beds currently but has 1 discharge tomorrow but 3 patient's for admission so it would not be tomorrow that patient would be admitted to TCU. DAVID spoke to [facility] SW and clarified that patient's insurance, [employer], has the following providers: [facility], [facility] and [facility]. DAVID updated MD and RN DAVID and MD met with patient and her daughter. Sw provided them with list of SNF in network. Patient's daughter indicated they will take patient home but would like a wheelchair. DAVID had MD complete the script for wheelchair. DAVID called [facility] and spoke to Elo. Elo said that wheelchair would NOT be able to be delivered today but if this mortgage underwriter puts critical the latest it will be is tomorrow. DAVID faxed script for wheelchair to [place] [facility] office ) and also to the main [facility] number ) . Confirmation fax received. DAVID spoke to patient and patient's daughter, with MD present, about what to do if it goes bad, which was patient's daughter's question. DAVID explained to come to the ED if emergent and if not emergent but not working call the PCP. DAVID also advised for patient's daughter to call the [facility] providers listed on SNF rehab paperwork and speak to the social media community manager about bed availability and coming in from the community for rehab. Daughter verbalized understanding. DAVID asked patient and her daughter about home health. Patient just completed physical therapy last week. Patient's daughter declined referral for home health as she feels that the situation will improve with time. DAVID did provide patient's daughter with list of home health agencies if patient would need PT and advised her that if patient needs PT at home to contact their PCP. Patient's daughter verbalized understanding. Plan: Home with wheelchair (order faxed to [facility]) Tamera GREWAL
--- NOTE | 2021-12-06 18:18 | NURSING ---
PHYSICIANS CALLED STATING THEY ARE RUNNING 60-90 MINUTES BEHIND SCHEDULE
[2021-12-06 19:00] VITALS: RESP 16; O2SAT 97
--- NOTE | 2021-12-06 21:06 | CM.ED ---
Norman from [facility] called. He inquired if he could bring wheelchair to ED. SW confirmed that patient's ride was not coming for 1 hour and then advised Norman to bring the wheelchair to the ED. Patient was updated that [facility] would bring wheelchair. Tamera GREWAL
[2021-12-06 21:30] VITALS: BP 122/78; PULSE 74; RESP 16; O2SAT 97
== END 2021-12-06 21:36 | disposition home or self-care (01) ==
PROVIDERS: Emergency Provider Emergency Medicine; PCP Family Medicine; Visit Provider Emergency Medicine
DX: M17.12 Unilateral primary osteoarthritis, left knee (principal); M35.3 Polymyalgia rheumatica; I50.32 Chronic diastolic (congestive) heart failure; I13.0 Hypertensive heart and chronic kidney disease with heart failure and stage 1 through stage 4 chronic kidney disease, or unspecified chronic kidney disease; I48.0 Paroxysmal atrial fibrillation; N18.9 Chronic kidney disease, unspecified; E78.5 Hyperlipidemia, unspecified; D64.9 Anemia, unspecified; I25.10 Atherosclerotic heart disease of native coronary artery without angina pectoris; Z87.19 Personal history of other diseases of the digestive system; E03.9 Hypothyroidism, unspecified; E66.9 Obesity, unspecified; M81.0 Age-related osteoporosis without current pathological fracture; Z86.73 Personal history of transient ischemic attack (TIA), and cerebral infarction without residual deficits; Z79.899 Other long term (current) drug therapy; Z79.01 Long term (current) use of anticoagulants; Z95.1 Presence of aortocoronary bypass graft; Z95.2 Presence of prosthetic heart valve; I49.1 Atrial premature depolarization; R26.2 Difficulty in walking, not elsewhere classified; Z68.27 Body mass index [BMI] 27.0-27.9, adult
CPT/HCPCS: 72170; 73560; 80048; 85025; 93005; 99285

== ENCOUNTER 2021-12-11 16:22 | Inpatient (IN) | payer MEDICARE, SELFPAY ==
[2021-12-11] VITALS (10 sets, daily range): BP systolic 121–137; BP diastolic 58–99; PULSE 85–105; RESP 22–30; TEMP 36.3–36.9; O2SAT 93–100; BMI 21.6; BMI 24.8
--- NOTE | 2021-12-11 17:06 | ED.VIS.DYS ---
HPI History of Present Illness Chief Complaint: Shortness of Breath Narrative Narrative: Patient presents with shortness of breath for the past 3 days, she has productive cough which is yellow and subjective fevers. She was given nebulizers at home but her pulse ox apparently at home has been in the 80s and sometimes even in the 70s. She has no back pain or tearing sensation. She has no pleuritic component. No lower extremity edema or calf pain. No rash. She is on Eliquis for atrial fibrillation. [facility] Medical History Anemia Arthritis Atherosclerosis of coronary artery of [place] heart without angina pectoris Atrial fibrillation Atrial fibrillation with rapid ventricular response (05/13/19) Back pain [place] grade 3 cystocele Bronchiectasis Chronic diastolic (congestive) heart failure Chronic kidney disease Coronary artery disease CRF (chronic renal failure) Diverticulosis Essential (primary) hypertension GI bleed (10/28/19) Hay fever Hyperlipidemia Hypertension Hypothyroidism Incontinence Interstitial lung disease Leg edema, left Non-smoker Obesity Osteoporosis PAF (paroxysmal atrial fibrillation) Paroxysmal atrial fibrillation Polyarthritis rheumatica Polymyalgia rheumatica Rheumatic mitral stenosis with insufficiency Stress incontinence Transient ischemic attack Typical atrial flutter Uterovaginal prolapse, incomplete Home Medications oxycodone-acetaminophen 7.5 mg-325 mg tablet 1 tab PO Q6H PRN #42 tab 02/14/19 [History Last Taken 07/23/21] vitamin B complex 1 tab PO DAILY 02/14/19 [History Last Taken 07/23/21] calcium carbonate 600 mg-vitamin D3 12.5 mcg (500 unit) capsule 1 cap PO QDAY cap 12/10/19 [History Last Taken 07/23/21] mirtazapine 15 mg tablet 15 mg PO QHS tab 12/10/19 [History Last Taken 07/22/21] magnesium oxide 400 mg PO DAILY cap 07/16/20 [History Last Taken 07/22/21] omeprazole 20 mg PO DAILY 08/09/20 [History Last Taken 07/23/21] docusate sodium 100 mg capsule 100 mg PO DAILY PRN 05/17/21 [History Last Taken Unknown] duloxetine 60 mg capsule,delayed release 60 mg PO DAILY 05/17/21 [History Last Taken 07/23/21] guaifenesin 1,200 mg tablet, extended release 12 hr 1,200 mg PO BID PRN 05/17/21 [History Last Taken Unknown] albuterol sulfate 0.63 mg INHALATION Q6H 07/23/21 [History Last Taken Unknown] atorvastatin 10 mg PO QHS 07/23/21 [History Last Taken 07/23/21] spironolactone 25 mg PO DAILY 07/23/21 [History Last Taken 07/23/21] amiodarone 200 mg PO DAILY 07/24/21 [History Last Taken 07/23/21 200] amlodipine 5 mg PO DAILY 07/24/21 [History Last Taken 07/23/21 5 MG] gabapentin 300 mg capsule 300 mg PO DAILY 10/24/21 [History Last Taken Unknown] loratadine 10 mg capsule 10 mg PO DAILY 10/24/21 [History Last Taken Unknown] nitroglycerin 0.4 mg sublingual tablet 0.4 mg SUBLINGUAL Q5M PRN #25 tab 10/24/21 [Rx Last Taken Unknown] apixaban 2.5 mg tablet 2.5 mg PO BID #180 tab 11/04/21 [Rx Last Taken Unknown] metoprolol tartrate 25 mg tablet 12.5 mg PO BID #90 tab 11/04/21 [Rx Last Taken Unknown] acetaminophen 500 mg tablet 500 mg PO Q4H PRN tab 11/14/21 [History Last Taken Unknown] folic acid 1 mg tablet 1 mg PO DAILY 11/14/21 [History Last Taken Unknown] levothyroxine 100 mcg tablet 100 mcg PO DAILY tab 11/14/21 [History Last Taken Unknown] prednisone 5 mg tablet 5 mg PO DAILY tab 11/14/21 [History Last Taken Unknown] ferrous sulfate 134 mg PO DAILY 12/06/21 [History Last Taken Unknown] furosemide 40 mg tablet 40 mg PO DAILY #90 tab 12/06/21 [Rx Last Taken Unknown] Allergy/AdvReac Type Severity Reaction Status Date / Time amoxicillin [Amoxicillin] Allergy Rash Verified 11/14/21 13:41 fenoprofen calcium Allergy Itching Verified 11/14/21 13:41 [From Nalfon] Penicillins Allergy Itching Verified 11/14/21 13:41 Family History Other CVA (cerebral vascular accident) Hypertension Surgical History H/O coronary artery bypass surgery (09/20/11) H/O laminectomy History of appendectomy History of cardioversion (10/27/19) History of cataract surgery History of cholecystectomy History of mitral valve replacement with bioprosthetic valve (09/20/11) History of right and left heart catheterization (07/24/11) History of total vaginal hysterectomy (TVH) Social History Smoking Status: Never smoker second hand exposure: No alcohol intake: never substance use type: does not use caffeine: Yes what type of physical activity do you participate in: none seatbelt use: always do you feel safe at home: Yes additional social history: retired- ROS ROS ED ROS Narrative Past medical history: Reviewed, includes atrial fibrillation, history of kidney stone, history of anemia, CAD, history of mitral valve replacement, CHF, hypertension, hyperlipidemia, history of TIA, history of bronchiectasis Medications: Reviewed Social history: Noncontributory Review of systems: All systems negative except as indicated General: Subjective fevers, generalized weakness Eyes: No visual changes ENT: No upper airway congestion, normal voice Neck: No neck pain Cardiovascular: No chest pain Respiratory: Shortness of breath and productive cough as in HPI Gastrointestinal: No abdominal pain, nausea vomiting or diarrhea Genitourinary: No dysuria Musculoskeletal: Denies myalgias no difficulty with ambulation Skin: No rash Neurological: No memory loss, confusion or any focal weakness Psych: No recent behavioral changes Hematologic: She does tend to bleed somewhat easily secondary to Eliquis EXAM Physical Exam Narrative Exam Narrative: Physical exam General: Patient appears chronically ill. She is on a nonrebreather mask and seems time Head: Normocephalic, Atraumatic Eyes: Conjunctiva slightly pale ENT: Moist mucous membranes. No signs of dehydration Neck: Supple, Nontender, No lymphadenopathy Cardiovascular: Somewhat irregular, capillary refill is about 1 second. Normal pulses. Respiratory: Patient has bilateral coarse breath sounds with some scant end expiratory wheezing. Abdomen: Soft, Nontender, Nondistended Back: Nontender, Normal Inspection. Negative for: CVA tenderness Extremities: Nontender, No edema. No erythema. No calf pain. Skin: Normal color, No rash Neurological: Alert, Normal Strength, Normal Sensation Psychological: Normal affect Const Vital Signs: 12/11/21 16:23 12/11/21 16:31 12/11/21 17:22 Temperature 97.3 F L Temperature Source Temporal Pulse Rate 86 85 Respiratory Rate 30 H 30 H Respiratory Effort Short of Breath Short of Breath Respiratory Pattern Tachypnea Blood Pressure 121/97 H Blood Pressure Mean 105 Pulse Ox 97 100 Oxygen Delivery Method Non-Rebreather Non-Rebreather Oxygen Flow Rate (L/min) 15 Fraction of Inspired Oxygen (FIO2) 100 12/11/21 17:29 12/11/21 17:42 12/11/21 18:01 Temperature Temperature Source Pulse Rate 86 Respiratory Rate 29 H Respiratory Effort Respiratory Pattern Blood Pressure 121/99 H Blood Pressure Mean 106 Pulse Ox 97 93 Oxygen Delivery Method Nasal Cannula Nasal Cannula Nasal Cannula Oxygen Flow Rate (L/min) 5 4 5 Fraction of Inspired Oxygen (FIO2) MDM MDM MDM Narrative Medical decision making narrative: Patient is found to have bilateral pneumonia, Covid and influenza are still pending, she was treated with antibiotics ABG was not significant for acidosis. There is no signs of significant sepsis or septic shock at this time. She appears well but she will need admission. She is now on nasal cannula 5 L and tolerating it well. Lab Data Labs: Laboratory Results - last 24 hr 12/11/21 17:20 WBC 13.1 H RBC 2.52 L Hgb 9.2 L Hct 29.6 L MCV 117.5 H MCH 36.5 H MCHC 31.1 L RDW Std Deviation 64.1 H RDW Coeff of Rad 14.7 H Plt Count 112 L MPV 10.9 Immature Gran % (Auto) 0.600 Neut % (Auto) 91.0 H Lymph % (Auto) 2.0 L [place] % (Auto) 6.3 Eos % (Auto) 0.0 Baso % (Auto) 0.1 Absolute Neuts (auto) 11.9 H Absolute Lymphs (auto) 0.26 L Nucleated RBC % 0.2 Differential Comment SCANNED ABG Data ABG results: ABG 12/11/21 17:55 Specimen Type ART Sample Site R Brach pH 7.54 H Bicarbonate Actual 25.7 Total CO2 27 Base Excess 3 H O2 Saturation 91 L ABG pCO2 30.2 L ABG pO2 52 L Prosper Test Positive O2 Delivery Device Cannula Liter Flow 4.0 Radiography Diagnostic Testing: Clinical Impression(s) from Imaging Studies Chest X-Ray 12/11/21 17:41 IMPRESSION: Bilateral pneumonia. Electronically Signed: Rigoberto Mitchell MD at 17:54 EDT , Discharge Plan Triage Chief Complaint: Shortness of Breath ED Provider: Fernandez Valente Dx/Rx/DC Orders Clinical Impression: Hypoxia, Pneumonia Prescriptions: No Action mirtazapine 15 mg tablet 15 mg PO QHS RF: 0 vitamin B complex tablet 1 tab PO DAILY RF: 0 oxycodone-acetaminophen 7.5-325 mg tablet 1 tab PO Q6H PRN (Reason: pain) Qty: 42 RF: 0 calcium carbonate-vitamin D3 [Calcium 600 with Vitamin D3] 600 mg(1,500mg) -500 unit capsule 1 cap PO QDAY RF: 0 magnesium oxide 400 mg magnesium capsule 400 mg PO DAILY RF: 0 docusate sodium [Colace] 100 mg capsule 100 mg PO DAILY PRN (Reason: Constipation) RF: 0 duloxetine [Cymbalta] 60 mg capsule,delayed release(DR/EC) 60 mg PO DAILY RF: 0 Mucinex 1,200 mg tablet extended release 12hr 1,200 mg PO BID PRN (Reason: Cold Symptoms) RF: 0 gabapentin 300 mg capsule 300 mg PO DAILY RF: 0 loratadine 10 mg capsule 10 mg PO DAILY RF: 0 nitroglycerin 0.4 mg tablet, sublingual 0.4 mg SUBLINGUAL Q5M PRN (Reason: Chest Pain) Qty: 25 RF: 3 folic acid 1 mg tablet 1 mg PO DAILY RF: 0 levothyroxine 100 mcg tablet 100 mcg PO DAILY RF: 0 prednisone 5 mg tablet 5 mg PO DAILY RF: 0 acetaminophen 500 mg tablet 500 mg PO Q4H PRN (Reason: Pain) RF: 0 omeprazole 20 MG capsule 20 mg PO DAILY RF: 0 albuterol sulfate 0.63 mg/3 mL solution for nebulization 0.63 mg inhalation Q6H RF: 0 atorvastatin 10 mg tablet 10 mg PO QHS RF: 0 spironolactone 25 mg tablet 25 mg PO DAILY RF: 0 amiodarone 200 mg tablet 200 mg PO DAILY RF: 0 amlodipine 5 mg tablet 5 mg PO DAILY RF: 0 ferrous sulfate 134 mg (27 mg iron) Tablet 134 mg PO DAILY RF: 0 metoprolol tartrate 25 mg tablet 12.5 mg PO BID Qty: 90 RF: 3 Eliquis 2.5 mg tablet 2.5 mg PO BID Qty: 180 RF: 3 furosemide [Lasix] 40 mg tablet 40 mg PO DAILY Qty: 90 RF: 3 Primary Care Provider: Mitchell Oleary Referrals: Mitchell Oleary MD [Primary Care Provider] - Disposition Disposition: Acute Care Hospital [facility]
[2021-12-11] MEDS: Ipratropium/Albuterol Sulfate 3 ML AMPUL.NEB INHALATION (17:19)
[2021-12-11] MEDS: Albuterol 2.5 MG/3 ML VIAL.NEB. INHALATION (17:20)
[2021-12-11 17:29] LABS: Absolute Lymphocyte Count 0.26 X10^3/uL (0.83-4.51); Absolute Neutrophil Count 11.9 X10^3/uL (2.0-7.7); Basophil# 0.01 X10^3/uL; Basophil% 0.1 % (0-1); Hematocrit 29.6 % (37-47); Hemoglobin 9.2 g/dL (12.0-15.0); Lymphocyte # 0.26 X10^3/ul (0.83-4.51); Mean Corp Hgb Conc 31.1 g/dL (32-36); Mean Corpuscular Hgb 36.5 pg (27.0-32.0); Mean Corpuscular Volume 117.5 fL (81-99); Mean Platelet Vol. 10.9 fl (6.2-12.0); Monocyte# 0.82 X10^3/uL; Monocyte% 6.3 % (0-10); NRBC Flagged by Analyzer 0.2 % (0-5); Neutrophil # 11.92 X10^3/uL (2.7-7.7); POSITIVE DIFFERENTIAL YES; Platelet Count 112 K/mm3 (150-450); RBC Distribution Width CV 14.7 % (11.6-14.6); RBC Distribution Width SD 64.1 fl (35.1-43.9); Red Blood Count 2.52 M/mm3 (4.2-5.4); White Blood Count 13.1 K/mm3 (4.4-11.0)
[2021-12-11 17:31] LABS: Differential Indicated SCAN CRITERIA MET
--- NOTE | 2021-12-11 17:41 | RAD_ITS ---
STUDY: X-RAY CHEST REASON FOR EXAM: Female, 86 years old. sob TECHNIQUE: Single AP portable view of the chest. COMPARISON: 05/24/2021 FINDINGS: Status post heart valve replacement surgery. Patchy alveolar opacities in both lungs consistent with bilateral pneumonia. There is no demonstrated pleural abnormality. There is moderate cardiac enlargement. Normal mediastinum and woody. Normal visualized pulmonary arteries. Normal visualized aortic arch and descending thoracic aorta. Normal visualized thoracic spine. Normal visualized ribs, clavicles, and shoulders. There is no demonstrated abnormality of the visualized soft tissue structures of the upper abdomen. RAD/Chest 1 View (Portable) IMPRESSION: Bilateral pneumonia. Electronically Signed: Rigoberto Mitchell MD at 17:54 EDT ,
[2021-12-11 17:45] LABS: Differential Comment SCANNED
[2021-12-11 18:01] LABS: Allen Test Positive; Base Excess 3 mmol/L (-2 to +2); Bicarbonate 25.7 mmol/L (22-26); Blood Gas Specimen Type ART; O2 Delivery Device Cannula; PO2 52 mmHG (75-100); SITE R Brach; SO2 91 % (95-99); Total Carbon Dioxide 27 mmol/L; pCO2 30.2 mmHg (35-45); pH 7.54 (7.35-7.45)
[2021-12-11 18:13] LABS: Lactic Acid 1.8 mmol/L (0.4-1.9)
[2021-12-11 18:24] LABS: BNP,B-Type NATRIURETIC PEPTIDE 685.8 pg/mL (0-100)
[2021-12-11] MEDS: Ceftriaxone 1 GM/50 ML BAG IV (18:52)
[2021-12-11 19:03] LABS: ALB/GLOB Ratio 0.4 RATIO (0.9-2.4); AST(SGOT) 39 U/L (15-37); Alanine Aminotransfer ALT/SGPT 24 U/L (13-56); Albumin, Serum 2.2 g/dL (3.2-5.0); Alkaline Phosphatase 79 U/L (45-117); Anion Gap 9 (5-15); BUN 41 mg/dL (7-18); BUN/Creat Ratio 28.9 RATIO (10-20); Calcium,Total 8.2 mg/dL (8.5-10.1); Chloride 101 mmol/L (98-107); Creatinine, Serum 1.42 mg/dL (0.55-1.02); EST Glomerular Filtration Rate 37 mL/min (>60); Est Glom Filt Rate - Afr Amer 45 mL/min (>60); Estimated Creatinine Clearance 27.12 ml/min; Glucose 124 mg/dL (74-106); Potassium 3.8 mmol/L (3.5-5.1); Protein, Total 7.2 g/dL (6.4-8.2); Sodium Level 136 mmol/L (136-145); Troponin-I HS 417 pg/mL (3.0-54.0)
--- NOTE | 2021-12-11 19:34 | HP.PCM.HOS_ITS ---
HPI - General HPI Narrative YOLANDA LANE, is a 86 F with a significant history of polymyalgia rheumatica on steroids; bronchiectasis; chronic diastolic heart failure; atrial fibrillation; mitral valve replacement with tissue who presents to the emergency department with a 3-day history of progressively worsening shortness of breath. Patient shortness of breath is at rest . Of note patient has limited mobility secondary to arthritis and has required a wheel chair recently. Patient has productive cough of yellow sputum. Patient oxygen saturation has been around 74% at home. Her daughter reported that patient temperature was a little over 99 Fahrenheit. At baseline her temperature is around 97 Fahrenheit. Patient reports an episode of chills. She reports nausea. Her family report that several days ago she was wheezing. Patient has arthralgia Patient reports anorexia and fatigue. Patient reports constipation. However she had her bowels moved on the day of presentation. She reports black stool that she attributes to taking iron pill. At the emergent department patient required out a nonrebreather mask and later was stepdown to nasal cannula oxygen of 5 L/min [facility] Medical History Anemia Arthritis Atherosclerosis of coronary artery of [place] heart without angina pectoris Atrial fibrillation Atrial fibrillation with rapid ventricular response (05/13/19) Back pain [place]-Walker grade 3 cystocele Bronchiectasis Chronic diastolic (congestive) heart failure Chronic kidney disease Coronary artery disease CRF (chronic renal failure) Diverticulosis Essential (primary) hypertension GI bleed (10/28/19) Hay fever Hyperlipidemia Hypertension Hypothyroidism Incontinence Interstitial lung disease Leg edema, left Non-smoker Obesity Osteoporosis PAF (paroxysmal atrial fibrillation) Paroxysmal atrial fibrillation Polyarthritis rheumatica Polymyalgia rheumatica Rheumatic mitral stenosis with insufficiency Stress incontinence Transient ischemic attack Typical atrial flutter Uterovaginal prolapse, incomplete Home Medications oxycodone-acetaminophen 7.5 mg-325 mg tablet 1 tab PO Q6H PRN #42 tab 02/14/19 [History Last Taken 07/23/21] vitamin B complex 1 tab PO DAILY 02/14/19 [History Last Taken 07/23/21] calcium carbonate 600 mg-vitamin D3 12.5 mcg (500 unit) capsule 1 cap PO QDAY cap 12/10/19 [History Last Taken 07/23/21] mirtazapine 15 mg tablet 15 mg PO QHS tab 12/10/19 [History Last Taken 07/22/21] magnesium oxide 400 mg PO DAILY cap 07/16/20 [History Last Taken 07/22/21] omeprazole 20 mg PO DAILY 08/09/20 [History Last Taken 07/23/21] docusate sodium 100 mg capsule 100 mg PO DAILY PRN 05/17/21 [History Last Taken Unknown] duloxetine 60 mg capsule,delayed release 60 mg PO DAILY 05/17/21 [History Last Taken 07/23/21] guaifenesin 1,200 mg tablet, extended release 12 hr 1,200 mg PO BID PRN 05/17/21 [History Last Taken Unknown] albuterol sulfate 0.63 mg INHALATION Q6H 07/23/21 [History Last Taken Unknown] atorvastatin 10 mg PO QHS 07/23/21 [History Last Taken 07/23/21] spironolactone 25 mg PO DAILY 07/23/21 [History Last Taken 07/23/21] amiodarone 200 mg PO DAILY 07/24/21 [History Last Taken 07/23/21 200] amlodipine 5 mg PO DAILY 07/24/21 [History Last Taken 07/23/21 5 MG] gabapentin 300 mg capsule 300 mg PO DAILY 10/24/21 [History Last Taken Unknown] loratadine 10 mg capsule 10 mg PO DAILY 10/24/21 [History Last Taken Unknown] nitroglycerin 0.4 mg sublingual tablet 0.4 mg SUBLINGUAL Q5M PRN #25 tab 10/24/21 [Rx Last Taken Unknown] apixaban 2.5 mg tablet 2.5 mg PO BID #180 tab 11/04/21 [Rx Last Taken Unknown] metoprolol tartrate 25 mg tablet 12.5 mg PO BID #90 tab 11/04/21 [Rx Last Taken Unknown] acetaminophen 500 mg tablet 500 mg PO Q4H PRN tab 11/14/21 [History Last Taken Unknown] folic acid 1 mg tablet 1 mg PO DAILY 11/14/21 [History Last Taken Unknown] levothyroxine 100 mcg tablet 100 mcg PO DAILY tab 11/14/21 [History Last Taken Unknown] prednisone 5 mg tablet 5 mg PO DAILY tab 11/14/21 [History Last Taken Unknown] ferrous sulfate 134 mg PO DAILY 12/06/21 [History Last Taken Unknown] furosemide 40 mg tablet 40 mg PO DAILY #90 tab 12/06/21 [Rx Last Taken Unknown] Allergy/AdvReac Type Severity Reaction Status Date / Time amoxicillin [Amoxicillin] Allergy Rash Verified 11/14/21 13:41 fenoprofen calcium Allergy Itching Verified 11/14/21 13:41 [From Nalfon] Penicillins Allergy Itching Verified 11/14/21 13:41 Family History Other CVA (cerebral vascular accident) Hypertension Surgical History H/O coronary artery bypass surgery (09/20/11) H/O laminectomy History of appendectomy History of cardioversion (10/27/19) History of cataract surgery History of cholecystectomy History of mitral valve replacement with bioprosthetic valve (09/20/11) History of right and left heart catheterization (07/24/11) History of total vaginal hysterectomy (TVH) Social History Smoking Status: Never smoker second hand exposure: No alcohol intake: never substance use type: does not use caffeine: Yes what type of physical activity do you participate in: none seatbelt use: always do you feel safe at home: Yes additional social history: retired- ROS ROS Narrative Pertinent positives and pertinent negatives as noted in HPI. All other systems were reviewed and are negative. Vital Signs Vital Signs Vital Signs: 12/11/21 16:23 12/11/21 16:31 12/11/21 17:22 Temperature 97.3 F L Temperature Source Temporal Pulse Rate 86 85 Respiratory Rate 30 H 30 H Respiratory Effort Short of Breath Short of Breath Respiratory Pattern Tachypnea Blood Pressure 121/97 H Blood Pressure Mean 105 Pulse Ox 97 100 Oxygen Delivery Method Non-Rebreather Non-Rebreather Oxygen Flow Rate (L/min) 15 Fraction of Inspired Oxygen (FIO2) 100 12/11/21 17:29 12/11/21 17:42 12/11/21 18:01 Temperature Temperature Source Pulse Rate 86 Respiratory Rate 29 H Respiratory Effort Respiratory Pattern Blood Pressure 121/99 H Blood Pressure Mean 106 Pulse Ox 97 93 Oxygen Delivery Method Nasal Cannula Nasal Cannula Nasal Cannula Oxygen Flow Rate (L/min) 5 4 5 Fraction of Inspired Oxygen (FIO2) 12/11/21 19:06 12/11/21 19:31 Temperature 98.4 F Temperature Source Temporal Pulse Rate 96 100 Respiratory Rate 24 H 22 H Respiratory Effort Respiratory Pattern Blood Pressure 134/58 H 134/58 H Blood Pressure Mean 83 83 Pulse Ox 96 95 Oxygen Delivery Method Nasal Cannula Nasal Cannula Oxygen Flow Rate (L/min) 5 5 Fraction of Inspired Oxygen (FIO2) Weight Weight: 60.7 kg Body Mass Index (BMI) 21.6 Physical Exam Narrative Physical exam: General: Well-nourished, well-developed. Head: Normocephalic, atraumatic, no tenderness Eyes: Vision is grossly intact. EOMI ENT, no trauma, moist mucous membranes, no rhinorrhea Neck: Nontender, full range of motion, no spinal tenderness, deformities, step- off CVS: Tachycardia. S1-S2 present. No murmur, gallop or rub. Respiratory : Tachypnea. Diffuse rales. chest wall nontender, no wheezing Abdomen: Soft, nontender, nondistended, normal bowel sounds, no masses : Deferred Back: Nontender, no CVA tenderness, no midline spinal tenderness, deformities, step-offs Extremities: Nontender full range of motion, no trauma Skin: Normal color, no trauma, abrasions Neuro: Alert, oriented, cranial nerves II through XII grossly intact. Psychiatry: Normal mood. Normal affect. Not depressed. Not anxious. Results Lab / Micro Data Result Diagrams: 12/11/21 17:20 12/11/21 18:33 Labs: Laboratory Results - last 24 hr 12/11/21 17:05: Sodium Cancelled, Potassium Cancelled, Chloride Cancelled, Carbon Dioxide Cancelled, Anion Gap Cancelled, BUN Cancelled, Creatinine Cancelled, Estim Creat Clear Calc Cancelled, Est GFR (MDRD) Af Amer Cancelled, Est GFR (MDRD) Non-Af Cancelled, BUN/Creatinine Ratio Cancelled, Glucose Cancelled, Calcium Cancelled, Total Bilirubin Cancelled, AST Cancelled, ALT Cancelled, Alkaline Phosphatase Cancelled, Troponin I High Sens Cancelled, Total Protein Cancelled, Albumin Cancelled, Globulin Cancelled, Albumin/Globulin Ratio Cancelled 12/11/21 17:20: WBC 13.1 H, RBC 2.52 L, Hgb 9.2 L, Hct 29.6 L, MCV 117.5 H, MCH 36.5 H, MCHC 31.1 L, RDW Std Deviation 64.1 H, RDW Coeff of Rad 14.7 H, Plt Count 112 L, MPV 10.9, Immature Gran % (Auto) 0.600, Neut % (Auto) 91.0 H, Lymph % (Auto) 2.0 L, [place] % (Auto) 6.3, Eos % (Auto) 0.0, Baso % (Auto) 0.1, Absolute Neuts (auto) 11.9 H, Absolute Lymphs (auto) 0.26 L, Nucleated RBC % 0.2, Differential Comment SCANNED 12/11/21 17:20: B-Natriuretic Peptide 685.8 H 12/11/21 17:40: Lactic Acid 1.8 12/11/21 18:33: Sodium 136, Potassium 3.8, Chloride 101, Carbon Dioxide 26.0, Anion Gap 9, BUN 41 H, Creatinine 1.42 H, Estim Creat Clear Calc 27.12, Est GFR (MDRD) Af Amer 45 L, Est GFR (MDRD) Non-Af 37 L, BUN/Creatinine Ratio 28.9 H, Glucose 124 H, Calcium 8.2 L, Total Bilirubin 0.60, AST 39 H, ALT 24, Alkaline Phosphatase 79, Troponin I High Sens 417 H*, Total Protein 7.2, Albumin 2.2 L, Globulin 5.0 H, Albumin/Globulin Ratio 0.4 L Micro: Microbiology 12/11/21 18:30 Nasal Secretion SARS-CoV-2 & FLU Antigen (Rapid) - Final ABG Data ABG results: ABG 12/11/21 17:55 Specimen Type ART Sample Site R Brach pH 7.54 H Bicarbonate Actual 25.7 Total CO2 27 Base Excess 3 H O2 Saturation 91 L ABG pCO2 30.2 L ABG pO2 52 L Prosper Test Positive O2 Delivery Device Cannula Liter Flow 4.0 Radiology Impression Chest X-Ray 12/11/21 17:41 IMPRESSION: Bilateral pneumonia. Electronically Signed: Rigoberto Mitchell MD at 17:54 EDT , Assessment & Plan Assessment/Plan (1) Pneumonia: QUALIFIERS: Laterality: bilateral Lung location: unspecified part of lung Pneumonia type: due to unspecified organism Qualified Code(s): J18.9 - Pneumonia, unspecified organism (2) Elevated troponin: PLAN: Sepsis secondary to Pneumonia Gram-positive, or gram-negative Patient meets SIRS criteria with respiratory rate of more than 20; heart rate of more than 90. White count of 13.1 (in the setting of chronic steroid use; however review of record showed that at baseline patient have normal white counts qSOFA: 1 (respiratory rate as high as 30) Sofa score: 3 (ABG showed PO2 of 52 (on 4 L nasal cannula which is 37% FiO2); thrombocytopenia with platelet count of 112; creatinine is at baseline and not included in calculation) Check lactic acid. Blood culture x2 was ordered emergency department; follow. BNP of 685.8 Chest x-ray: Visualized and independently interpreted. I agree with allege interpretation of bilateral infiltrate. Previous chest x-ray reviewed showed interstitial lung disease. Chest x-ray on presentation appears way worsened than previous. Respiratory Gram stain and culture pending Antibiotics: Received ceftriaxone and azithromycin emergency department. Because of diffuse chest x-ray finding and with patient having a history of bronchiectasis will escalate antibiotics. Vancomycin ordered. MRSA nasal screen ordered. Patient is allergic to penicillins. Aztreonam ordered. Azithromycin ordered Legionella antigen screen and Strep antigen ordered Mucinex ordered. Albuterol as needed Oxygen supplementation to maintain saturation to at least 90%. Trend CBC Elevated troponin Initial has any troponin was 417. Squad EKG did not show any ST or T wave abnormalities. Repeat EKG. Trend high-sensitivity troponin. Emergent department the discussed the case with cardiology Elevated troponin likely secondary to demand ischemia from pneumonia and profound hypoxia. History of atrial fibrillation Patient with sinus tachycardia on presentation. Amiodarone and metoprolol continued. Eliquis continued History of chronic diastolic congestive heart failure No evidence of acute heart failure. We will continue home Lasix and Aldactone. History of hypertension Blood pressure is stable Metoprolol, Lasix and Aldactone continued Trend blood pressure and adjust blood pressure medications. CKD stage IIIb Stable Trend BMP. DVT prophylaxis: Not indicated since patient is on Eliquis for history of A. fib and Eliquis has been continued. CODE STATUS: Advance care planning: Discussed with patient and family advanced directives as well as CODE STATUS. Explained various CODE STATUS: FULL CODE, DNR CCA, DNR CCA with no intubation, and DNR CC- and what each meant. Patient elected to a partial code status of accepting CPR but with no intubation. Time spent on discussion 16 minutes. Charges/Coding Procedures Hospitalists Procedures: 62602 Advncd Care Plan 30 Min Multi Select Codes Visit Charges Visit Charges: 75737 Init Hosp L3
--- NOTE | 2021-12-11 19:56 | EKG12_ITS ---
Test Reason : ELEVATED TROP Blood Pressure : / mmHG Vent. Rate : 102 BPM Atrial Rate : 113 BPM P-R Int : 000 ms QRS Dur : 108 ms QT Int : 402 ms P-R-T Axes : 000 092 045 degrees QTc Int : 523 ms Atrial fibrillation Poor R wave progression Abnormal ECG Confirmed by MARIO SALGADO, JARED ([id number]), editor news TORI NAIDU ([id number]) on 12/12/2021 1:02:44 PM Referred By: DR COLMENARES Confirmed By:JARED MARTIN MD
[2021-12-11] MEDS: APIXABAN 2.5 MG TABLET PO (21:14)
[2021-12-11] MEDS: Atorvastatin Calcium 10 MG Tablet PO (21:14)
[2021-12-11] MEDS: Metoprolol Tartrate 25 MG Tablet 12.5 MG PO (21:15)
[2021-12-11] MEDS: Mirtazapine 15 MG Tablet PO (21:15)
[2021-12-11] MEDS: guaiFENesin 1,200 MG Tablet 1200 MG PO (21:15)
[2021-12-11 21:39] LABS: Troponin-I HS 379 pg/mL (3.0-54.0)
[2021-12-11] MEDS: Vancomycin IV 1,000 MG/200 ML BAG 200 MG IV (21:50)
--- NOTE | 2021-12-11 23:02 | PCM.RX.CS ---
Consult Pharmacy has been consulted to manage selected antiobiotic: Vancomycin Type of Consult: New start Suspected Infection: Sepsis, Pneumonia Prior Doses of Antibiotics Received/Current Regimen: Medications Vancomycin HCl () 500 mg in 100 mls @ 100 mls/hr IV Q24H KARI Discontinued Medications Vancomycin HCl (Vancomycin) 1,000 mg in 200 mls @ 200 mls/hr IV X1 ONE Stop: 12/11/21 21:59 Last Admin: 12/11/21 21:50 Dose: 200 mls/hr Labs: Sodium 136 mmol/L (136-145) 12/11/21 18:33 Potassium 3.8 mmol/L (3.5-5.1) 12/11/21 18:33 Chloride 101 mmol/L (98-107) 12/11/21 18:33 Carbon Dioxide 26.0 mmol/L (21.0-32.0) 12/11/21 18:33 Anion Gap 9 (5-15) 12/11/21 18:33 BUN 41 mg/dL (7-18) H 12/11/21 18:33 Creatinine 1.42 mg/dL (0.55-1.02) H 12/11/21 18:33 Est GFR (MDRD) Af Amer 45 mL/min (>60) L 12/11/21 18:33 Est GFR (MDRD) Non-Af 37 mL/min (>60) L 12/11/21 18:33 BUN/Creatinine Ratio 28.9 RATIO (10-20) H 12/11/21 18:33 Glucose 124 mg/dL (74-106) H 12/11/21 18:33 Microbiology: Microbiology 12/11/21 21:26 Sputum, Expectorated/Coughed Gram Stain - Final 12/11/21 18:30 Nasal Secretion SARS-CoV-2 & FLU Antigen (Rapid) - Final Weight used for dosin.7 kg Estimated Creatinine Clearance: 27 Goal Trough: 15-20 mcg/mL Pharmacy Plan for Drug Dosing: Pharmacy Service will continue to monitor and adjust dosing as required. Follow-Up Labs: Trough Vancomycin Labs to be done on [date and time ordered]: 12/13/21 @7411
[2021-12-11 23:35] LABS: M R Staph aureus DNA By PCR Negative (Negative); Probe Check PASS; Specimen Processing Control PASS
[2021-12-12] VITALS (47 sets, daily range): BP systolic 97–141; BP diastolic 52–87; PULSE 94–120; RESP 12–44; TEMP 36.1–37.8; O2SAT 77–98
[2021-12-12 01:08] LABS: Troponin-I HS 359 pg/mL (3.0-54.0)
[2021-12-12] MEDS: Albuterol 2.5 MG/3 ML VIAL.NEB. INHALATION ×2 (04:50→20:05)
[2021-12-12] MEDS: 0.9% Saline Lock 10 ML Syringe IV ×2 (05:07→16:25)
[2021-12-12] MEDS: Furosemide 40 MG/4 ML Vial IV ×2 (05:07→16:25)
--- NOTE | 2021-12-12 05:50 | CPS ---
Attempted to pull top denture plate out prior to bipap start, but dentures are fixed in with adhesive and are very stuck. Will keep checking to make sure dentures remain. Pt tolerating bipap well.
[2021-12-12] MEDS: levoFLOXacin IV 750 MG/150 ML BAG 100 MG IV (06:10)
--- NOTE | 2021-12-12 06:16 | NURSING ---
Dr. Munoz to bedside to assess pt d/t increase in O2 requirements. Pt on BIPAP, gave IV lasix per new order. MD to switch antibiotics and order PO KCl. Continue on BIPAP.
[2021-12-12 06:27] LABS: Absolute Neutrophil Count 15.9 X10^3/uL (2.0-7.7); Basophil# 0.02 X10^3/uL; Basophil% 0.1 % (0-1); Eosinophil# 0.04 X10^3/uL; Eosinophils% 0.2 % (0-5); Hematocrit 25.8 % (37-47); Hemoglobin 8.4 g/dL (12.0-15.0); Lymphocyte % 2.3 % (19-41); Mean Corp Hgb Conc 32.6 g/dL (32-36); Mean Corpuscular Hgb 35.7 pg (27.0-32.0); Mean Corpuscular Volume 109.8 fL (81-99); Mean Platelet Vol. 11.7 fl (6.2-12.0); Monocyte# 1.03 X10^3/uL; Monocyte% 5.9 % (0-10); NRBC Flagged by Analyzer 0 % (0-5); Neutrophil # 15.91 X10^3/uL (2.7-7.7); Neutrophil % 90.4 % (47-70); POSITIVE COUNT YES; POSITIVE DIFFERENTIAL YES; Platelet Count 98 K/mm3 (150-450); RBC Distribution Width CV 14.6 % (11.6-14.6); RBC Distribution Width SD 58.2 fl (35.1-43.9); Red Blood Count 2.35 M/mm3 (4.2-5.4); White Blood Count 17.6 K/mm3 (4.4-11.0)
[2021-12-12 06:34] LABS: Differential Indicated SCAN CRITERIA MET
[2021-12-12 06:52] LABS: Anion Gap 9 (5-15); BUN 34 mg/dL (7-18); BUN/Creat Ratio 26.6 RATIO (10-20); Calcium,Total 7.6 mg/dL (8.5-10.1); Chloride 101 mmol/L (98-107); Creatinine, Serum 1.28 mg/dL (0.55-1.02); EST Glomerular Filtration Rate 42 mL/min (>60); Est Glom Filt Rate - Afr Amer 51 mL/min (>60); Estimated Creatinine Clearance 23.08 ml/min; Glucose 119 mg/dL (74-106); Magnesium 2.2 mg/dL (1.6-2.6); Potassium 3.5 mmol/L (3.5-5.1); Sodium Level 135 mmol/L (136-145)
[2021-12-12 06:57] LABS: Differential Comment SCANNED
--- NOTE | 2021-12-12 07:48 | NURSING ---
5:[address] Munoz notified of patient increase in O2 requirement. Patient went from 6L NC spo2 83%, 10L highflow sp02 89%, to 12L highflow sp02 93%. Respiratory notified to see if patient could received a breathing treatment.
[2021-12-12] MEDS: Folic Acid 1 MG Tablet PO (08:11)
[2021-12-12] MEDS: Gabapentin 300 MG Capsule PO (08:11)
[2021-12-12] MEDS: Vitamin B Comp W-C Capsule 1 CAP PO (08:11)
[2021-12-12] MEDS: predniSONE 5 MG Tablet PO (08:11)
[2021-12-12] MEDS: Calcium Carb/Vitamin D 1 TABLET Tablet PO (08:11)
[2021-12-12] MEDS: Potassium Chloride Oral Soln 20 MEQ/15 ML UDC PO (08:11)
[2021-12-12] MEDS: Amiodarone 200 MG Tablet PO (08:11)
--- NOTE | 2021-12-12 08:15 | CON.PCM.CC_ITS ---
Assessment & Plan Assessment/Plan (1) Acute hypoxemic respiratory failure: PLAN: RECOMMENDATIONS: 1. Continue supplemental oxygen to maintain saturations at or above 90%. 2. If the patient's work of breathing increases, resume BiPAP therapy. 3. If the patient were to decompensate further from a clinical perspective, consider transfer to medical intensive care unit. 4. Continue broad-spectrum antimicrobials. 5. Continue diuresis as tolerated by hemodynamics and renal function. 6. Check rheumatoid factor, CCP antibody, ANCA and CECIL with reflex. 7. Hold amiodarone for now. IMPRESSIONS: 1. Acute hypoxemic respiratory failure Unclear precipitating etiology. However, an underlying pulmonary infectious etiology is certainly a possibility. Alternatively, an evolving interstitial lung process that has progressed versus possible pulmonary toxicity related to amiodarone utilization is a consideration. At this time, I would recommend the continued use of supplemental oxygen and/or BiPAP to maintain oxygen saturations at or above 90%. Pulmonary embolism would be unlikely, given that the patient is anticoagulated on an outpatient basis with Eliquis. It is reasonable to continue broad-spectrum antimicrobials as ordered, along with diuresis as tolerated by hemodynamics and renal function. I would recommend that we hold the patient's amiodarone for now. Ideally, if the patient stabilizes, I would like to obtain a high-resolution chest CT for further characterization of her underlying lung parenchyma. If the patient were to decompensate further from a respiratory perspective, recommend transfer to the medical intensive care unit. 2. Non-ST segment elevation AK/atrial fibrillation/heart failure with preserved ejection fraction Likely secondary to demand ischemia in the setting of #1. Continue supportive care as noted above. Continue systemic anticoagulation with Eliquis. Continue diuresis as tolerated by hemodynamics and renal function. 3. Hypertension/hyperlipidemia/hypothyroidism/GERD/advanced age Complicates care, management, recovery and prognosis. Continue home medications as indicated. This note was generated with [employer] dictation software. It may contain incorrect words, spelling, and punctuation that were not noted in checking the note before signing. HPI Consult Data Date of Consult: 12/12/21 HPI Narrative Reason for Consultation: Acute hypoxemic respiratory failure HPI Narrative: The patient is an 86-year-old female, with a history as outlined below, who presented to the emergency department on December 11 with worsening shortness of breath and hypoxemia. The patient is currently followed by Dr. Michel in the pulmonary medicine clinic due to a history of bronchiectasis and interstitial lung disease. She is also followed by cardiology due to a history of heart failure with preserved ejection fraction, coronary artery disease status post CABG and paroxysmal atrial fibrillation. According to documentation from her director of online education, Dr. Ye, the patient was placed on Eliquis and amiodarone in 2019. On presentation to the emergency department, the patient was noted to be afebrile and hemodynamically stable. She was notably tachypneic and hypoxemic. Initial laboratory evaluation revealed a white blood cell count of 13,000. The patient was thrombocytopenic with a platelet count of 112,000. Chemistry profile was notable for a creatinine of 1.42. Lactate was within normal limits. BNP was elevated at 685. Troponin was elevated at 417. Chest imaging demonstrated diffuse bilateral airspace opacities. Blood cultures were obtained. Rapid coronavirus antigen testing was negative. Strep and urine Legionella antigens were negative. The patient's last pulmonary function studies from May 2021 demonstrated a restrictive ventilatory impairment with a total lung capacity of 67% of predicted along with a severe reduction in diffusing capacity at 37% of predicted. When compared to prior PFTs in 2019, there had been a significant decline in total lung capacity and diffusing capacity. [facility] Medical History Anemia Arthritis Atherosclerosis of coronary artery of [place] heart without angina pectoris Atrial fibrillation Atrial fibrillation with rapid ventricular response (05/13/19) Back pain [place] grade 3 cystocele Bronchiectasis Chronic diastolic (congestive) heart failure Chronic kidney disease Coronary artery disease CRF (chronic renal failure) Diverticulosis Essential (primary) hypertension GI bleed (10/28/19) Hay fever Hyperlipidemia Hypertension Hypothyroidism Incontinence Interstitial lung disease Leg edema, left Non-smoker Obesity Osteoporosis PAF (paroxysmal atrial fibrillation) Paroxysmal atrial fibrillation Polyarthritis rheumatica Polymyalgia rheumatica Rheumatic mitral stenosis with insufficiency Stress incontinence Transient ischemic attack Typical atrial flutter Uterovaginal prolapse, incomplete Home Medications oxycodone-acetaminophen 7.5 mg-325 mg tablet 1 tab PO Q6H PRN #42 tab 02/14/19 [History Last Taken 07/23/21] vitamin B complex 1 tab PO DAILY 02/14/19 [History Last Taken 07/23/21] calcium carbonate 600 mg-vitamin D3 12.5 mcg (500 unit) capsule 1 cap PO QDAY cap 12/10/19 [History Last Taken 07/23/21] mirtazapine 15 mg tablet 15 mg PO QHS tab 12/10/19 [History Last Taken 07/22/21] magnesium oxide 400 mg PO DAILY cap 07/16/20 [History Last Taken 07/22/21] omeprazole 20 mg PO DAILY 08/09/20 [History Last Taken 07/23/21] docusate sodium 100 mg capsule 100 mg PO DAILY PRN 05/17/21 [History Last Taken Unknown] duloxetine 60 mg capsule,delayed release 60 mg PO DAILY 05/17/21 [History Last Taken 07/23/21] guaifenesin 1,200 mg tablet, extended release 12 hr 1,200 mg PO BID PRN 05/17/21 [History Last Taken Unknown] albuterol sulfate 0.63 mg INHALATION Q6H 07/23/21 [History Last Taken Unknown] atorvastatin 10 mg PO QHS 07/23/21 [History Last Taken 07/23/21] spironolactone 25 mg PO DAILY 07/23/21 [History Last Taken 07/23/21] amiodarone 200 mg PO DAILY 07/24/21 [History Last Taken 07/23/21 200] amlodipine 5 mg PO DAILY 07/24/21 [History Last Taken 07/23/21 5 MG] gabapentin 300 mg capsule 300 mg PO DAILY 10/24/21 [History Last Taken Unknown] loratadine 10 mg capsule 10 mg PO DAILY 10/24/21 [History Last Taken Unknown] nitroglycerin 0.4 mg sublingual tablet 0.4 mg SUBLINGUAL Q5M PRN #25 tab 10/24/21 [Rx Last Taken Unknown] apixaban 2.5 mg tablet 2.5 mg PO BID #180 tab 11/04/21 [Rx Last Taken Unknown] metoprolol tartrate 25 mg tablet 12.5 mg PO BID #90 tab 11/04/21 [Rx Last Taken Unknown] acetaminophen 500 mg tablet 500 mg PO Q4H PRN tab 11/14/21 [History Last Taken Unknown] folic acid 1 mg tablet 1 mg PO DAILY 11/14/21 [History Last Taken Unknown] levothyroxine 100 mcg tablet 100 mcg PO DAILY tab 11/14/21 [History Last Taken Unknown] prednisone 5 mg tablet 5 mg PO DAILY tab 11/14/21 [History Last Taken Unknown] ferrous sulfate 134 mg PO DAILY 12/06/21 [History Last Taken Unknown] furosemide 40 mg tablet 40 mg PO DAILY #90 tab 12/12/21 [Rx Last Taken Unknown] Allergy/AdvReac Type Severity Reaction Status Date / Time amoxicillin [Amoxicillin] Allergy Rash Verified 11/14/21 13:41 fenoprofen calcium Allergy Itching Verified 11/14/21 13:41 [From [place]] Penicillins Allergy Itching Verified 11/14/21 13:41 Family History Other CVA (cerebral vascular accident) Hypertension Surgical History H/O coronary artery bypass surgery (09/20/11) H/O laminectomy History of appendectomy History of cardioversion (10/27/19) History of cataract surgery History of cholecystectomy History of mitral valve replacement with bioprosthetic valve (09/20/11) History of right and left heart catheterization (07/24/11) History of total vaginal hysterectomy (TVH) Social History Smoking Status: Never smoker second hand exposure: No alcohol intake: never substance use type: does not use caffeine: Yes what type of physical activity do you participate in: none seatbelt use: always do you feel safe at home: Yes additional social history: retired- ROS Constitutional Constitutional: Denies chills, fatigue or fever(s) Eyes Eyes: Denies blurry vision or change in vision ENT HEENT: Denies dysphagia, epistaxis or headache(s) Cardiovascular Cardiovascular: Reports dyspnea Respiratory/Chest Respiratory/Chest: Reports cough and dyspnea Gastrointestinal Gastrointestinal: Denies abdominal pain, diarrhea, nausea or vomiting Genitourinary Genitourinary: Denies difficulty urinating Musculoskeletal Musculoskeletal: Denies arthralgias, back pain or joint pain Integumentary Integumentary: Denies lesions, rash or skin ulcer Neurologic Neurologic: Denies abnormal gait or abnormal speech Psychiatric Psychiatric: Reports depression Endocrine Endocrinology: Denies fatigue Hematologic/Lymphatic Hematologic/Lymphatic: Denies easy bleeding or easy bruising Physical Exam Const alert General Appearance: cooperative, ill appearing and frail HEENT normocephalic and head/scalp atraumatic Eyes PERRL, EOMs intact bilaterally and conjunctivae normal Neck supple General: trachea midline Chest inspection of chest normal Resp Effort and Inspection: tachypneic and labored Auscultation: rales and wheezes Cardio Rate: tachycardic Rhythm: abnormal rhythm GI normal to inspection, nondistended, normoactive bowel sounds Extremity no clubbing, cyanosis or edema Skin no rashes or lesions noted Neuro CN's II-XII intact bilaterally, moves all extremities and no focal motor deficits Psych cooperative and affect normal Lab / Micro Data Result Diagrams: 12/12/21 05:25 12/12/21 05:25 Labs: Laboratory Results - last 24 hr 12/11/21 17:05: Sodium Cancelled, Potassium Cancelled, Chloride Cancelled, Carbon Dioxide Cancelled, Anion Gap Cancelled, BUN Cancelled, Creatinine Cancelled, Estim Creat Clear Calc Cancelled, Est GFR (MDRD) Af Amer Cancelled, E st GFR (MDRD) Non-Af Cancelled, BUN/Creatinine Ratio Cancelled, Glucose Cancelled, Calcium Cancelled, Total Bilirubin Cancelled, AST Cancelled, ALT Cancelled, Alkaline Phosphatase Cancelled, Troponin I High Sens Cancelled, Total Protein Cancelled, Albumin Cancelled, Globulin Cancelled, Albumin/Globulin Ratio Cancelled 12/11/21 17:20: WBC 13.1 H, RBC 2.52 L, Hgb 9.2 L, Hct 29.6 L, MCV 117.5 H, MCH 36.5 H, MCHC 31.1 L, RDW Std Deviation 64.1 H, RDW Coeff of Rad 14.7 H, Plt Count 112 L, MPV 10.9, Immature Gran % (Auto) 0.600, Neut % (Auto) 91.0 H, Lymph % (Auto) 2.0 L, [place] % (Auto) 6.3, Eos % (Auto) 0.0, Baso % (Auto) 0.1, Absolute Neuts (auto) 11.9 H, Absolute Lymphs (auto) 0.26 L, Nucleated RBC % 0.2, Differential Comment SCANNED 12/11/21 17:20: B-Natriuretic Peptide 685.8 H 12/11/21 17:40: Lactic Acid 1.8 12/11/21 18:33: Sodium 136, Potassium 3.8, Chloride 101, Carbon Dioxide 26.0, Anion Gap 9, BUN 41 H, Creatinine 1.42 H, Estim Creat Clear Calc 27.12, Est GFR (MDRD) Af Amer 45 L, Est GFR (MDRD) Non-Af 37 L, BUN/Creatinine Ratio 28.9 H, Glucose 124 H, Calcium 8.2 L, Total Bilirubin 0.60, AST 39 H, ALT 24, Alkaline Phosphatase 79, Troponin I High Sens 417 H*, Total Protein 7.2, Albumin 2.2 L, Globulin 5.0 H, Albumin/Globulin Ratio 0.4 L 12/11/21 21:00: Troponin I High Sens 379 H* 12/11/21 21:26: MRSA (PCR) Negative 12/12/21 00:23: Troponin I High Sens 359 H* 12/12/21 05:25: WBC 17.6 H, RBC 2.35 L, Hgb 8.4 L, Hct 25.8 L, MCV 109.8 H D, MCH 35.7 H, MCHC 32.6, RDW Std Deviation 58.2 H, RDW Coeff of Rad 14.6, Plt Count 98 L, MPV 11.7, Immature Gran % (Auto) 1.100 H, Neut % (Auto) 90.4 H, Lymph % (Auto) 2.3 L, [place] % (Auto) 5.9, Eos % (Auto) 0.2, Baso % (Auto) 0.1, Absolute Neuts (auto) 15.9 H, Absolute Lymphs (auto) 0.40 L, Nucleated RBC % 0, Differential Comment SCANNED 12/12/21 05:25: Sodium 135 L, Potassium 3.5, Chloride 101, Carbon Dioxide 25.0, Anion Gap 9, BUN 34 H, Creatinine 1.28 H, Estim Creat Clear Calc 23.08, Est GFR (MDRD) Af Amer 51 L, Est GFR (MDRD) Non-Af 42 L, BUN/Creatinine Ratio 26.6 H, Glucose 119 H, Calcium 7.6 L, Magnesium 2.2 Micro: Microbiology 12/11/21 23:53 Urine, Clean Catch Legionella Antigen - Final 12/11/21 23:53 Urine, Clean Catch Streptococcus pneumoniae Antigen (M - Final 12/11/21 21:26 Sputum, Expectorated/Coughed Gram Stain - Final 12/11/21 18:30 Nasal Secretion SARS-CoV-2 & FLU Antigen (Rapid) - Final ABG Data ABG results: ABG 12/11/21 17:55 Specimen Type ART Sample Site R Brach pH 7.54 H Bicarbonate Actual 25.7 Total CO2 27 Base Excess 3 H O2 Saturation 91 L ABG pCO2 30.2 L ABG pO2 52 L Prosper Test Positive O2 Delivery Device Cannula Liter Flow 4.0 Radiology Impression Chest X-Ray 12/11/21 17:41 IMPRESSION: Bilateral pneumonia. Electronically Signed: Rigoberto Mitchell MD at 17:54 EDT , Charges/Coding Visit Charges Inpatient E&M: 14919 Init Hosp L3
[2021-12-12] MEDS: amLODIPine 5 MG Tablet PO (09:15)
[2021-12-12] MEDS: Loratadine 10 MG Tablet PO (09:15)
[2021-12-12] MEDS: guaiFENesin 1,200 MG Tablet 1200 MG PO (09:15)
[2021-12-12] MEDS: Pantoprazole Sodium 20 MG Tablet PO (09:15)
[2021-12-12] MEDS: Magnesium Chloride 64 MG Delay Rel.Tablet 128 MG PO (09:15)
[2021-12-12] MEDS: Ferrous Sulfate 300 MG/5 ML UDC 150 MG PO (09:16)
[2021-12-12] MEDS: DULoxetine Hcl 60 MG Capsule PO (09:16)
[2021-12-12] MEDS: Metoprolol Tartrate 25 MG Tablet 12.5 MG PO (09:16)
[2021-12-12] MEDS: APIXABAN 2.5 MG TABLET PO ×2 (09:16→23:23)
[2021-12-12] MEDS: Spironolactone 25 MG Tablet PO (09:16)
--- NOTE | 2021-12-12 09:37 | PCM.PN.HOSP ---
Subjective Subjective Patient is an 86-year-old lady admitted with progressive shortness of breath. Patient was found to be hypoxic with oxygen saturation at 80% on room air upon arrival to the ED. Chest x-ray obtained demonstrated bilateral pneumonia and assessment of sepsis with acute hypoxic respiratory failure secondary to pneumonia made admitted to a monitored bed for further management Objective Data Objective Data Vital Signs: Vital Signs Temp Pulse Resp BP Pulse Ox 99.1 F 115 H 28 H 114/53 L 94 12/12/21 09:00 12/12/21 09:16 12/12/21 09:00 12/12/21 09:00 12/12/21 09:00 Oxygen Flow Rate (L/min) 12 Oxygen Delivery Method Nasal Cannula Weight: 57.7 kg Body Mass Index (BMI) 24.8 Intake & Output: Intake and Output for Last 24 Hours 12/10/21 12/11/21 12/12/21 23:59 23:59 23:59 Intake Total 605 / 605 270 / 270 Output Total 125 / 125 Balance 480 / 480 270 / 270 Lab / Micro Data Result Diagrams: 12/12/21 05:25 12/12/21 05:25 Labs: Laboratory Results - last 24 hr 12/11/21 17:05: Sodium Cancelled, Potassium Cancelled, Chloride Cancelled, Carbon Dioxide Cancelled, Anion Gap Cancelled, BUN Cancelled, Creatinine Cancelled, Estim Creat Clear Calc Cancelled, Est GFR (MDRD) Af Amer Cancelled, Est GFR (MDRD) Non-Af Cancelled, BUN/Creatinine Ratio Cancelled, Glucose Cancelled, Calcium Cancelled, Total Bilirubin Cancelled, AST Cancelled, ALT Cancelled, Alkaline Phosphatase Cancelled, Troponin I High Sens Cancelled, Total Protein Cancelled, Albumin Cancelled, Globulin Cancelled, Albumin/Globulin Ratio Cancelled 12/11/21 17:20: WBC 13.1 H, RBC 2.52 L, Hgb 9.2 L, Hct 29.6 L, MCV 117.5 H, MCH 36.5 H, MCHC 31.1 L, RDW Std Deviation 64.1 H, RDW Coeff of Ard 14.7 H, Plt Count 112 L, MPV 10.9, Immature Gran % (Auto) 0.600, Neut % (Auto) 91.0 H, Lymph % (Auto) 2.0 L, [place] % (Auto) 6.3, Eos % (Auto) 0.0, Baso % (Auto) 0.1, Absolute Neuts (auto) 11.9 H, Absolute Lymphs (auto) 0.26 L, Nucleated RBC % 0.2, Differential Comment SCANNED 12/11/21 17:20: B-Natriuretic Peptide 685.8 H 12/11/21 17:40: Lactic Acid 1.8 12/11/21 18:33: Sodium 136, Potassium 3.8, Chloride 101, Carbon Dioxide 26.0, Anion Gap 9, BUN 41 H, Creatinine 1.42 H, Estim Creat Clear Calc 27.12, Est GFR (MDRD) Af Amer 45 L, Est GFR (MDRD) Non-Af 37 L, BUN/Creatinine Ratio 28.9 H, Glucose 124 H, Calcium 8.2 L, Total Bilirubin 0.60, AST 39 H, ALT 24, Alkaline Phosphatase 79, Troponin I High Sens 417 H*, Total Protein 7.2, Albumin 2.2 L, Globulin 5.0 H, Albumin/Globulin Ratio 0.4 L 12/11/21 21:00: Troponin I High Sens 379 H* 12/11/21 21:26: MRSA (PCR) Negative 12/12/21 00:23: Troponin I High Sens 359 H* 12/12/21 05:25: WBC 17.6 H, RBC 2.35 L, Hgb 8.4 L, Hct 25.8 L, MCV 109.8 H D, MCH 35.7 H, MCHC 32.6, RDW Std Deviation 58.2 H, RDW Coeff of Rad 14.6, Plt Count 98 L, MPV 11.7, Immature Gran % (Auto) 1.100 H, Neut % (Auto) 90.4 H, Lymph % (Auto) 2.3 L, [place] % (Auto) 5.9, Eos % (Auto) 0.2, Baso % (Auto) 0.1, Absolute Neuts (auto) 15.9 H, Absolute Lymphs (auto) 0.40 L, Nucleated RBC % 0, Differential Comment SCANNED 12/12/21 05:25: Sodium 135 L, Potassium 3.5, Chloride 101, Carbon Dioxide 25.0, Anion Gap 9, BUN 34 H, Creatinine 1.28 H, Estim Creat Clear Calc 23.08, Est GFR (MDRD) Af Amer 51 L, Est GFR (MDRD) Non-Af 42 L, BUN/Creatinine Ratio 26.6 H, Glucose 119 H, Calcium 7.6 L, Magnesium 2.2 Micro: Microbiology 12/11/21 23:53 Urine, Clean Catch Legionella Antigen - Final 12/11/21 23:53 Urine, Clean Catch Streptococcus pneumoniae Antigen (M - Final 12/11/21 21:26 Sputum, Expectorated/Coughed Gram Stain - Final 12/11/21 18:30 Nasal Secretion SARS-CoV-2 & FLU Antigen (Rapid) - Final ABG Data ABG results: ABG 12/11/21 17:55 Specimen Type ART Sample Site R Brach pH 7.54 H Bicarbonate Actual 25.7 Total CO2 27 Base Excess 3 H O2 Saturation 91 L ABG pCO2 30.2 L ABG pO2 52 L Prosper Test Positive O2 Delivery Device Cannula Liter Flow 4.0 Radiography Diagnostic Testing: Radiology Impression Chest X-Ray 12/11/21 17:41 IMPRESSION: Bilateral pneumonia. Electronically Signed: Rigoberto Mitchell MD at 17:54 EDT , Physical Exam Narrative GENERAL: Dyspneic at rest on BiPAP HEENT: Atraumatic; EYES; Anicteric, Normal Conjunctiva NECK; supple, normal thyroid, RESPIRATORY: Diminished to auscultation CARDIOVASCULAR: Regular S1 S2, GI: soft, normoactive bowel sounds, : No Renal angle tenderness; EXTREMITIES: No edema, no clubbing, MUSCULOSKELETAL: no muscle wasting NEURO: Awake; no lateralizing signs. SKIN: No Rash PSYCH; Flat affect Assessment & Plan Assessment/Plan (1) Pneumonia: QUALIFIERS: Laterality: bilateral Lung location: unspecified part of lung Pneumonia type: due to unspecified organism Qualified Code(s): J18.9 - Pneumonia, unspecified organism (2) Elevated troponin: PLAN: Patient is an 86-year-old lady admitted with progressive shortness of breath. Patient was found to be hypoxic with oxygen saturation at 80% on room air upon arrival to the ED. Chest x-ray obtained demonstrated bilateral pneumonia and assessment of sepsis with acute hypoxic respiratory failure secondary to pneumonia made admitted to a monitored bed for further management 1. Sepsis ? Secondary to pneumonia chest x-ray did show bilateral pneumonia. Patient was deemed to be at risk for gram-negative pneumonia patient was therefore started meropenem and vancomycin for possible MRSA. Patient progressed being monitored with serial lactic acid level 2. Acute hypoxic respiratory failure ? Secondary to bilateral pneumonia patient was placed on noninvasive ventilation?BiPAP consultation placed to pulmonary medicine 3. Elevated troponin ? Secondary to acute non-STEMI type II as a result of demand ischemia from patient's sepsis and hypoxic respiratory failure patient currently being managed on a monitored bed with monitoring of serial cardiac enzymes 4. Paroxysmal A. fib/flutter ? Patient presented with sinus tachycardia patient is on amiodarone and metoprolol continued. Also on systemic anticoagulation with apixaban discontinued 5. Chronic congestive heart failure with preserved ejection fraction ? Patient is on Lasix and Aldactone discontinued 6. Coronary artery disease ? With history of CABG 7. Valvular heart disease ? With history of mitral valve replacement with bioprosthetic valve 8. Dyslipidemia -Patient is on statin therapy, continued at home dose 9. Hypertension - Blood pressure controlled, home medications continued with dose adjustment as needed 10. Chronic kidney disease stage IIIb ? Monitoring daily electrolytes 11. DVT prophylaxis ? Enoxaparin; Dose adjusted for kidney function Charges/Coding Visit Charges Inpatient E&M: 58349 [facility] Hosp L3
[2021-12-12 10:02] LABS: Rheumatoid Factor < 10.0 IU/mL (<15)
--- NOTE | 2021-12-12 13:10 | NURSING ---
Addendum entered by See 12/12/21 13:25: Dr pan notified per Dr Deleon's request. Dr Pan requests pt be moved to ICU. Original Note: Noted SpO2 77% on 12L. Increased NC to 15L. Unable to get pt above 90% Spo2. Placed pt on bipap and called Michaela RT to come see pt and possible make adjustments to bipap settings. Michaela RT changed settings to 16/8 70%, pt RR [address]%. Dr Deleon notified.
--- NOTE | 2021-12-12 13:36 | CASEMGMT ---
MADELAINE HANDLEY called daughter, Jayne, for initial transition planning/care coordination assessment as patient is currently on continuous Bipap and unable to participate in assessemtn. RN ENDER introduced self and role at [facility]. Daughter willing to participate in assessment and is able to answer all questions appropriately. Care providers, pharmacy, and demographics verified. Daughter wishes for patient to discharge home with possible HHC or to SNF if additional rehab is recommended. Daughter states she has no further needs or concerns at this time. CM to follow for discharge planning needs that may arise. PCP: Mamta Specialists: Ephraim, fluid designer; Anand, water resource engineer; Donna, gunner's mate g Preferred Pharmacy: [facility] Insurance: [employer] Prescription Benefit: yes Living Will/HPOA: yes, daughter Jayne Hugo LNOK: daughter Living Arrangements: Patient lives with daughter in an in-law suite with ramp to enter. Daughter states she was assisting patient with ADLs at home. Transportation: daughter DME/HHC: Patient has shower chair, raised toilet, cane, walker, grab bars, nebulizer, and pulse ox at home. Will monitor for home oxygen. No preferences for DME. Patient has previously been to [place]. Disposition Plan: HHC vs SNF pending course of treatment and progress with therapy. Ruthann NORRIS, RN, CM
[2021-12-12 14:08] LABS: Probe Check A
--- NOTE | 2021-12-12 15:34 | EKG12_ITS ---
Test Reason : ARRYTHMIA Blood Pressure : / mmHG Vent. Rate : 105 BPM Atrial Rate : 094 BPM P-R Int : 000 ms QRS Dur : 108 ms QT Int : 382 ms P-R-T Axes : 000 092 035 degrees QTc Int : 504 ms Atrial fibrillation/flutter Poor R wave progression Inferior infarct , age undetermined , cannot be excluded Incomplete right bundle branch block Abnormal ECG Confirmed by MARIO SALGADO, JARED ([id number]), acquisition editor TORI NAIDU ([id number]) on 12/14/2021 9:01:35 AM Referred By: NORRIS Confirmed By:JARED MARTIN MD
--- NOTE | 2021-12-12 15:50 | NURSING ---
Report called to Marci BURKETT, ICU.
[2021-12-12] MEDS: Morphine 2 MG/ML Syringe IV ×2 (19:41→22:06)
[2021-12-12] MEDS: Metoprolol Tartrate 5 MG/5 ML Vial 2.5 MG IV (22:06)
[2021-12-12] MEDS: Vancomycin IV 500 MG/100 ML BAG 100 MG IV (22:16)
[2021-12-13] VITALS (24 sets, daily range): BP systolic 71–141; BP diastolic 41–102; PULSE 69–124; RESP 12–40; TEMP 36–36.9; O2SAT 23–93
[2021-12-13] MEDS: LORazepam 2 MG/ML Syringe 1 MG IV (00:15)
[2021-12-13] MEDS: Morphine 2 MG/ML Syringe IV ×3 (00:15→06:02)
[2021-12-13 04:35] LABS: Absolute Neutrophil Count 15.7 X10^3/uL (2.0-7.7); Basophil# 0.01 X10^3/uL; Basophil% 0.1 % (0-1); Eosinophil# 0.01 X10^3/uL; Eosinophils% 0.1 % (0-5); Hematocrit 25.5 % (37-47); Hemoglobin 8.1 g/dL (12.0-15.0); Lymphocyte % 2.3 % (19-41); Mean Corp Hgb Conc 31.8 g/dL (32-36); Mean Corpuscular Hgb 36.5 pg (27.0-32.0); Mean Corpuscular Volume 114.9 fL (81-99); Mean Platelet Vol. 12.9 fl (6.2-12.0); Monocyte# 0.59 X10^3/uL; Monocyte% 3.4 % (0-10); NRBC Flagged by Analyzer 0.2 % (0-5); Neutrophil # 15.66 X10^3/uL (2.7-7.7); Neutrophil % 91.5 % (47-70); POSITIVE COUNT YES; POSITIVE DIFFERENTIAL YES; Platelet Count 67 K/mm3 (150-450); RBC Distribution Width CV 14.9 % (11.6-14.6); RBC Distribution Width SD 62.4 fl (35.1-43.9); Red Blood Count 2.22 M/mm3 (4.2-5.4); White Blood Count 17.1 K/mm3 (4.4-11.0)
[2021-12-13 04:38] LABS: Differential Indicated SCAN CRITERIA MET
[2021-12-13 04:56] LABS: Anion Gap 9 (5-15); BUN 48 mg/dL (7-18); BUN/Creat Ratio 22.2 RATIO (10-20); Calcium,Total 7.9 mg/dL (8.5-10.1); Chloride 105 mmol/L (98-107); Creatinine, Serum 2.16 mg/dL (0.55-1.02); EST Glomerular Filtration Rate 23 mL/min (>60); Est Glom Filt Rate - Afr Amer 28 mL/min (>60); Estimated Creatinine Clearance 13.68 ml/min; Glucose 106 mg/dL (74-106); Magnesium 2.6 mg/dL (1.6-2.6); Potassium 4.4 mmol/L (3.5-5.1); Sodium Level 140 mmol/L (136-145)
[2021-12-13 04:59] LABS: Differential Comment SCANNED
--- NOTE | 2021-12-13 05:48 | PCM.PN.INT ---
Assessment & Plan Assessment/Plan (1) Acute hypoxemic respiratory failure: PLAN: RECOMMENDATIONS: 1. Continue BiPAP therapy and wean FiO2 for saturations greater than 90%. 2. Stop IV Lasix given interval development of NITHIN. 3. Check BNP and procalcitonin. 4. Continue empiric broad-spectrum antimicrobials. Check MRSA screen. 5. Obtain follow-up chest x-ray this morning. 6. Check rheumatoid factor, CCP antibody, ANCA and CECIL with reflex. 7. Hold amiodarone for now. Increase from prednisone to Solu-Medrol 40 mg every 6 hours. 8. Goals of care discussion with the patient's family. IMPRESSIONS: 1. Acute hypoxemic respiratory failure Unclear precipitating etiology. However, an underlying pulmonary infectious etiology is certainly a possibility. Alternatively, an evolving interstitial lung process that has progressed versus possible pulmonary toxicity related to amiodarone utilization is a consideration. At this time, I would recommend the continued use of supplemental oxygen and/or BiPAP to maintain oxygen saturations at or above 90%. Pulmonary embolism would be unlikely, given that the patient is anticoagulated on an outpatient basis with Eliquis. It is reasonable to continue broad-spectrum antimicrobials as ordered. Diuretics will be placed on hold given interval development of NITHIN. The patient's amiodarone will be held for now. She will be transition from prednisone to IV Solu-Medrol. Await results of autoimmune work-up. 2. Acute kidney injury Likely prerenal in etiology/ischemic ATN in the setting of #1. Recommend holding diuretics for now. Avoid judicious use of fluids given tenuous respiratory status. Continue to monitor urine output. Attempt to place Sams catheter. 3. Non-ST segment elevation PA/atrial fibrillation/heart failure with preserved ejection fraction Likely secondary to demand ischemia in the setting of #1. Continue supportive care as noted above. Continue systemic anticoagulation. 4. Hypertension/hyperlipidemia/hypothyroidism/GERD/advanced age Complicates care, management, recovery and prognosis. Continue home medications as indicated. TIME: 36 minutes of critical care time, independent of procedures, was spent addressing the patient's acute hypoxemic respiratory failure, acute kidney injury, NSTEMI, review of all data and collaboration with the care team. Subjective Subjective The patient was seen and examined at the bedside this morning. Events from the last 24 hours have been reviewed. The patient is currently afebrile, hemodynamically stable and maintaining appropriate oxygen saturations on BiPAP with an FiO2 requirement of 85%. The patient was transferred from the progressive care unit yesterday afternoon after she developed further respiratory decompensation. White count remains elevated at 17,000. The patient remains thrombocytopenic with a platelet count of 67,000. Chemistry profile has demonstrated worsening creatinine of 2.16. Objective Data Objective Data The patient's most recent lab work, culture data and imaging studies have all been personally reviewed. Infectious work-up has been unrevealing to date. Vital Signs: Vital Signs Temp Pulse Resp BP Pulse Ox 96.8 F L 113 H 33 H 105/58 L 90 12/13/21 04:00 12/13/21 05:00 12/13/21 05:00 12/13/21 05:00 12/13/21 05:00 Oxygen Flow Rate (L/min) 15 Oxygen Delivery Method Bi-pap Weight: 57.7 kg Body Mass Index (BMI) 24.8 Intake & Output: Intake and Output for Last 24 Hours 12/11/21 12/12/21 12/13/21 23:59 23:59 23:59 Intake Total 605 / 605 660 / 660 Output Total 125 / 125 450 / 450 Balance 480 / 480 660 / 210 -450 / -450 Lab / Micro Data Attestation: I reviewed the patient's lab results. Result Diagrams: 12/13/21 04:17 12/13/21 04:17 Labs: Laboratory Results - last 24 hr 12/12/21 05:25: WBC 17.6 H, RBC 2.35 L, Hgb 8.4 L, Hct 25.8 L, MCV 109.8 H D, MCH 35.7 H, MCHC 32.6, RDW Std Deviation 58.2 H, RDW Coeff of Rad 14.6, Plt Count 98 L, MPV 11.7, Immature Gran % (Auto) 1.100 H, Neut % (Auto) 90.4 H, Lymph % (Auto) 2.3 L, [place] % (Auto) 5.9, Eos % (Auto) 0.2, Baso % (Auto) 0.1, Absolute Neuts (auto) 15.9 H, Absolute Lymphs (auto) 0.40 L, Nucleated RBC % 0, Differential Comment SCANNED 12/12/21 05:25: Sodium 135 L, Potassium 3.5, Chloride 101, Carbon Dioxide 25.0, Anion Gap 9, BUN 34 H, Creatinine 1.28 H, Estim Creat Clear Calc 23.08, Est GFR (MDRD) Af Amer 51 L, Est GFR (MDRD) Non-Af 42 L, BUN/Creatinine Ratio 26.6 H, Glucose 119 H, Calcium 7.6 L, Magnesium 2.2 12/12/21 05:25: Rheumatoid Factor < 10.0 12/12/21 10:26: COVID-19 (DANITA) Not Detected 12/13/21 04:17: WBC 17.1 H, RBC 2.22 L, Hgb 8.1 L, Hct 25.5 L, MCV 114.9 H, MCH 36.5 H, MCHC 31.8 L, RDW Std Deviation 62.4 H, RDW Coeff of Rad 14.9 H, Plt Count 67 L, MPV 12.9 H, Immature Gran % (Auto) 2.600 H, Neut % (Auto) 91.5 H, Lymph % (Auto) 2.3 L, Douglas % (Auto) 3.4, Eos % (Auto) 0.1, Baso % (Auto) 0.1, Absolute Neuts (auto) 15.7 H, Absolute Lymphs (auto) 0.40 L, Nucleated RBC % 0.2, Differential Comment SCANNED 12/13/21 04:17: Sodium 140, Potassium 4.4, Chloride 105, Carbon Dioxide 26.0, Anion Gap 9, BUN 48 H, Creatinine 2.16 H, Estim Creat Clear Calc 13.68, Est GFR (MDRD) Af Amer 28 L, Est GFR (MDRD) Non-Af 23 L, BUN/Creatinine Ratio 22.2 H, Glucose 106, Calcium 7.9 L, Magnesium 2.6 Micro: Microbiology 12/11/21 21:26 Sputum, Expectorated/Coughed Gram Stain - Final 12/11/21 21:26 Sputum, Expectorated/Coughed Respiratory Culture - Preliminary Appears to be normal respiratory alanna. Further studies to follow. 12/11/21 23:53 Urine, Clean Catch Legionella Antigen - Final 12/11/21 23:53 Urine, Clean Catch Streptococcus pneumoniae Antigen (M - Final 12/11/21 18:30 Nasal Secretion SARS-CoV-2 & FLU Antigen (Rapid) - Final Physical Exam Const alert General Appearance: cooperative, ill appearing, frail and on BiPAP HEENT normocephalic and head/scalp atraumatic Eyes PERRL, EOMs intact bilaterally and conjunctivae normal Neck supple General: trachea midline Chest inspection of chest normal Resp Effort and Inspection: tachypneic and labored Auscultation: wheezes Cardio S1 normal heart sound and S2 normal heart sound Rate: tachycardic Rhythm: abnormal rhythm GI normal to inspection, nondistended, normoactive bowel sounds Extremity no clubbing, cyanosis or edema Skin no rashes or lesions noted Neuro CN's II-XII intact bilaterally, moves all extremities and no focal motor deficits Psych Mood & Affect: flat affect Charges/Coding Procedures Hospitalists Procedures: 36648 Critial Care 1st Hr
--- NOTE | 2021-12-13 06:52 | RAD_ITS ---
INDICATION: Respiratory Failure EXAMINATION/TECHNIQUE: X-RAY - XR Chest 1 View COMPARISON: 12/11/2021. FINDINGS: LINES/DEVICES: Sternal wires are seen in position. Cardiac prosthesis seen. EKG leads are seen superimposing the chest. LUNGS: Prominence of the bronchovascular interstitial lung markings visualized with airspace opacification seen in bilateral lung reina, slightly increased opacification seen in comparison to the prior study. No evidence of pneumothorax is seen. MEDIASTINUM AND CARDIOVASCULAR STRUCTURES: Prominence of the cardiomediastinal silhouette is visualized that demonstrates no significant change in comparison to the prior study. BONES AND SOFT TISSUES: Degenerative bone changes seen. RAD/Chest 1 View (Portable) IMPRESSION: Increased airspace opacification is seen in comparison to the prior study. Electronically Signed: Bret Escalera MD at 9:24 EDT ,
[2021-12-13] MEDS: Metoprolol Tartrate 5 MG/5 ML Vial 2.5 MG IV (07:02)
[2021-12-13] MEDS: Levothyroxine 100 MCG Tablet PO (07:06)
--- NOTE | 2021-12-13 07:21 | PCM.PN.HOSP ---
Subjective Subjective Patient was Transferred to the ICU to worsening respiratory status Objective Data Objective Data Vital Signs: Vital Signs Temp Pulse Resp BP Pulse Ox 96.8 F L 116 H 25 H 112/70 93 12/13/21 04:00 12/13/21 06:00 12/13/21 06:00 12/13/21 06:00 12/13/21 06:00 Oxygen Flow Rate (L/min) 15 Oxygen Delivery Method Bi-pap Weight: 56.9 kg Body Mass Index (BMI) 24.8 Intake & Output: Intake and Output for Last 24 Hours 12/11/21 12/12/21 12/13/21 23:59 23:59 23:59 Intake Total 605 / 605 660 / 660 Output Total 125 / 125 450 / 450 Balance 480 / 480 660 / 210 -450 / -450 Lab / Micro Data Result Diagrams: 12/13/21 04:17 12/13/21 04:17 Labs: Laboratory Results - last 24 hr 12/12/21 05:25: Rheumatoid Factor < 10.0 12/12/21 10:26: COVID-19 (DANITA) Not Detected 12/13/21 04:17: WBC 17.1 H, RBC 2.22 L, Hgb 8.1 L, Hct 25.5 L, MCV 114.9 H, MCH 36.5 H, MCHC 31.8 L, RDW Std Deviation 62.4 H, RDW Coeff of Rad 14.9 H, Plt Count 67 L, MPV 12.9 H, Immature Gran % (Auto) 2.600 H, Neut % (Auto) 91.5 H, Lymph % (Auto) 2.3 L, [place] % (Auto) 3.4, Eos % (Auto) 0.1, Baso % (Auto) 0.1, Absolute Neuts (auto) 15.7 H, Absolute Lymphs (auto) 0.40 L, Nucleated RBC % 0.2, Differential Comment SCANNED 12/13/21 04:17: Sodium 140, Potassium 4.4, Chloride 105, Carbon Dioxide 26.0, Anion Gap 9, BUN 48 H, Creatinine 2.16 H, Estim Creat Clear Calc 13.68, Est GFR (MDRD) Af Amer 28 L, Est GFR (MDRD) Non-Af 23 L, BUN/Creatinine Ratio 22.2 H, Glucose 106, Calcium 7.9 L, Magnesium 2.6 Micro: Microbiology 12/11/21 21:26 Sputum, Expectorated/Coughed Gram Stain - Final 12/11/21 21:26 Sputum, Expectorated/Coughed Respiratory Culture - Preliminary Appears to be normal respiratory alanna. Further studies to follow. 12/11/21 23:53 Urine, Clean Catch Legionella Antigen - Final 12/11/21 23:53 Urine, Clean Catch Streptococcus pneumoniae Antigen (M - Final 12/11/21 18:30 Nasal Secretion SARS-CoV-2 & FLU Antigen (Rapid) - Final Physical Exam Narrative GENERAL: Dyspneic at rest on BiPAP HEENT: Atraumatic; EYES; Anicteric, Normal Conjunctiva NECK; supple, normal thyroid, RESPIRATORY: Diminished to auscultation CARDIOVASCULAR: Regular S1 S2, GI: soft, normoactive bowel sounds, : No Renal angle tenderness; EXTREMITIES: No edema, no clubbing, MUSCULOSKELETAL: no muscle wasting NEURO: Awake; no lateralizing signs. SKIN: No Rash PSYCH; Flat affect Assessment & Plan Assessment/Plan (1) Pneumonia: QUALIFIERS: Laterality: bilateral Lung location: unspecified part of lung Pneumonia type: due to unspecified organism Qualified Code(s): J18.9 - Pneumonia, unspecified organism (2) Elevated troponin: PLAN: Patient is an 86-year-old lady admitted with progressive shortness of breath. Patient was found to be hypoxic with oxygen saturation at 80% on room air upon arrival to the ED. Chest x-ray obtained demonstrated bilateral pneumonia and assessment of sepsis with acute hypoxic respiratory failure secondary to pneumonia made admitted to a monitored bed for further management 1. Sepsis ? Secondary to pneumonia chest x-ray did show bilateral pneumonia. Patient was deemed to be at risk for gram-negative pneumonia patient was therefore started meropenem and vancomycin for possible MRSA. Patient progressed being monitored with serial lactic acid level ? 12/13/2021 WBC count remains elevated, will continue with current antibiotic therapy 2. Acute hypoxic respiratory failure ? Secondary to bilateral pneumonia patient was placed on noninvasive ventilation?BiPAP consultation placed to pulmonary medicine ? 12/13/2021 patient was transferred to the intensive care unit due to worsening respiratory status. Patient remains on BiPAP consultation placed to pulmonary medicine Case discussed with Dr. Shepherd 3. Elevated troponin ? Secondary to acute non-STEMI type II as a result of demand ischemia from patient's sepsis and hypoxic respiratory failure patient currently being managed on a monitored bed with monitoring of serial cardiac enzymes 4. Paroxysmal A. fib/flutter ? Patient presented with sinus tachycardia patient is on amiodarone and metoprolol continued. Also on systemic anticoagulation with apixaban discontinued 5. Chronic congestive heart failure with preserved ejection fraction ? Patient is on Lasix and Aldactone discontinued 6. Coronary artery disease ? With history of CABG 7. Valvular heart disease ? With history of mitral valve replacement with bioprosthetic valve 8. Dyslipidemia -Patient is on statin therapy, continued at home dose 9. Hypertension - Blood pressure controlled, home medications continued with dose adjustment as needed 10. Chronic kidney disease stage IIIb ? Monitoring daily electrolytes 11. DVT prophylaxis ? Enoxaparin; Dose adjusted for kidney function 12. Anemia - Secondary to chronic disorder monitoring H&H and transfuse if patient becomes symptomatic or hemoglobin falls below 7 - Advance planning; did discuss with the patient's clinical condition with the patient the day prior as well as the daughter. Patient's daughter wanted patient to remain DNR CCA no intubation patient was however not sure had a further discussion on 12/13/2021 at which point patient agreed to change CODE STATUS to DNR CCA no intubation Order was placed. Time spent on discussion 18 minutes. Charges/Coding Visit Charges Inpatient E&M: 09476 Subs Hosp L3 Procedures Hospitalists Procedures: 42513 Advncd Care Plan 30 Min
[2021-12-13 07:42] LABS: Bacteria 0 SEEN /hpf (None Seen); Mucous, Urine 0 SEEN /hpf (<or=2+); Red Blood Cells-Urine 0 SEEN /hpf (0-5); Squamous Epithelial Cells - UA 0 SEEN /hpf (5-10); White Blood Cells 0 SEEN /hpf (0-5)
[2021-12-13 07:46] LABS: Color, Urine Yellow (Yellow); Glucose, Dipstick Normal (Normal); Ketone-Dipstick Negative (Negative); Leukocyte Esterase-Dipstick Negative /ul (Negative); Nitrite-Dipstick Negative (Negative); Occult Blood-Urine Negative /ul (Negative); Protein-Dipstick Negative (Negative); Urine Bilirubin Dipstick Negative (Negative); Urine Clarity Clear (Clear); Urine Urobilinogen Normal (Normal)
[2021-12-13 07:53] LABS: Hyaline Cast 0-5 SEEN /lpf (0-5)
[2021-12-13 08:32] LABS: BNP,B-Type NATRIURETIC PEPTIDE 363.7 pg/mL (0-100)
[2021-12-13 08:40] LABS: Procalcitonin 3.39 ng/mL (0.00-0.09)
--- NOTE | 2021-12-13 09:10 | CASEMGMT ---
CM participated in ICU rounding with pt's daughter, Jayne, in attendance. Pt's bipap oxygen need has increased overnight from 60% to 95-100%. Pt's code status was changed this am by Dr. Deleon to DNR-CC A, no intubation and daughter was updated and in agreement. Therapy on hold d/t resp status. CM to follow. Scott BURKETT CM
[2021-12-13 09:59] LABS: M R Staph aureus DNA By PCR Negative (Negative); Probe Check PASS; Specimen Processing Control PASS
--- NOTE | 2021-12-13 11:44 | CHAPLAIN ---
Type of Pastoral Visit _x__ Initial Visit ___ Follow-up Visit ___ On-call Visit ___ General Patient Visit ___ Spiritual Assessment ___ Family Conference ___ Bereavement ___ Rapid Response ___ Code Blue ___ Other (describe below) Pastoral Care Referral From ___ Patient _x__ Family _x__ Nurse ___ Physician ___ Mechanic Driver ___ Sheetmetal Trades Worker ___ Other (describe below) Sacrament/Intervention _x__ Active listening ___ Anointing ___ Episcopalian ___ Bereavement ___ Communion ___ Bibi exploration ___ ___ Life review _x__ Prayer ___ Reconciliation ___ Sacrament of Sick _x__ Supportive presence ___ Wedding ___ Other (describe below) Pastoral Comments patient is on bi-pap and not able to speak or respond; daughter is at bedside; RN recommended support for family; offer of support received as daughter acknowledges acceptance of possible but also difficulty of thought of separation and loss; patient is of Denominational Confucianism bibi and daughter welcomes support of spiritual nature and prayer; continued support offered as needed
--- NOTE | 2021-12-13 12:25 | EKG12_ITS ---
Test Reason : MO Blood Pressure : / mmHG Vent. Rate : 085 BPM Atrial Rate : 170 BPM P-R Int : 000 ms QRS Dur : 220 ms QT Int : 500 ms P-R-T Axes : 000 -69 103 degrees QTc Int : 595 ms Atrial fibrillation Left axis deviation Non-specific intra-ventricular conduction block Lateral infarct , age undetermined Inferior infarct , age undetermined Abnormal ECG When compared with ECG of 12-DEC-2021 15:41, MANUAL COMPARISON REQUIRED, DATA IS UNCONFIRMED Confirmed by TORIN SALGADO, ANGEL ([id number]), acquisition editor TORI NAIDU ([id number]) on 12/15/2021 12:56:44 P M Referred By: NORRIS Confirmed By:DESI HARKINS MD
--- NOTE | 2021-12-13 12:30 | CPS ---
Pt was just made comfort care only. BIPAP left on until more family arrives, then will remove.
--- NOTE | 2021-12-13 12:33 | NURSING ---
patient had been restless in bed with c/p back pain. Moaning with respirations. Dr Shepherd notified. Blood glucose 76. Then telemetry changes noted. EKG obtained and sent to Dr Deleon. Dr Deleon notified also patient now obtunded and BP low. Dr Deleon to floor to speak with Daughter Jayne who is at bedside. Decision was made by daughter to make patient comfortable.
[2021-12-13 13:17] LABS: ANTINUCLEAR ANTIBODIES DIRECT Negative (Negative)
--- NOTE | 2021-12-13 13:50 | PCM.DEATH ---
Preliminary Cause of Preliminary Cause of Preliminary Cause of : Sepsis secondary to pneumonia Principle Diagnosis Problem List: Active and Suspected Problems (Updated 12/12/21 @ 09:[address] Zafar Shepherd, DO) Acute hypoxemic respiratory failure (Acute) Elevated troponin (Acute) Hypoxia (Acute) Pneumonia (Acute) Non-ST elevation [place] (NSTEMI) (Acute) Hospital Course Patient is an 86-year-old lady admitted with progressive shortness of breath. Patient was found to be hypoxic with oxygen saturation at 80% on room air upon arrival to the ED. Chest x-ray obtained demonstrated bilateral pneumonia and assessment of sepsis with acute hypoxic respiratory failure secondary to pneumonia made admitted to a monitored bed for further management. Patient was transferred to the intensive care unit due to worsening respiratory failure CODE STATUS was changed to DNR CCA. Her condition continued to worsen despite optimal treatment. Case further discussed with family CODE STATUS changed to DNR CC comfort care measures. Patient was found without spontaneous breathing and without heart tones at 1327 on 12/13/2021 patient was pronounced Visit Charges Inpatient E&M: 36280 Disch Hosp
--- NOTE | 2021-12-13 14:18 | CHAPLAIN ---
Type of Pastoral Visit ___ Initial Visit ___ Follow-up Visit ___ On-call Visit ___ General Patient Visit ___ Spiritual Assessment ___ Family Conference _x__ Bereavement ___ Rapid Response ___ Code Blue ___ Other (describe below) Pastoral Care Referral From ___ Patient ___ Family _x__ Nurse ___ Physician ___ Lead Setter ___ Automation Machine Builder ___ Other (describe below) Sacrament/Intervention ___ Active listening ___ Anointing ___ Nondenominational _x__ Bereavement ___ Communion ___ Bibi exploration ___ ___ Life review _x__ Prayer ___ Reconciliation ___ Sacrament of Sick _x__ Supportive presence ___ Wedding _x__ Other (describe below) Pastoral Comments A second visit was made to patient and daughter; pt condition has worsened; another prayer and calm speaking to pt who does not respond; offer of presence, food, and support given to daughter; daughter is waiting for more family members to arrive as pt is expected to pass A third visit was made as patient has now ; AROLDO and grandchildren have joined the daughter in room; introductions and offer of support given again; family appears appropriate in grief
[2021-12-13 14:26] LABS: Bedside Glucose 76 mg/dL (74-106)
[2021-12-14 08:29] LABS: CCP IgG Antibodies 4 units (0-19); Cytoplasmic Ab (C-ANCA) <1:20 titer (Neg:<1:20); Perinuclear Ab (P-ANCA) <1:20 titer (Neg:<1:20)
== END 2021-12-13 17:23 | DRG 871 ==
LOC: ED 18:10 → PCU 20:12 → ICU 12-12 15:53
PROVIDERS: Internal Medicine Critical Care Medicine; Admitting Provider Hospitalist; Emergency Provider Emergency Medicine; PCP Family Medicine; Visit Provider Internal Medicine
DX: A41.9 Sepsis, unspecified organism (principal); J18.9 Pneumonia, unspecified organism; J96.01 Acute respiratory failure with hypoxia; N17.0 Acute kidney failure with tubular necrosis; I50.33 Acute on chronic diastolic (congestive) heart failure; I21.A1 Myocardial infarction type 2; I48.92 Unspecified atrial flutter; I13.0 Hypertensive heart and chronic kidney disease with heart failure and stage 1 through stage 4 chronic kidney disease, or unspecified chronic kidney disease; J47.0 Bronchiectasis with acute lower respiratory infection; D63.8 Anemia in other chronic diseases classified elsewhere; I48.0 Paroxysmal atrial fibrillation; M35.3 Polymyalgia rheumatica; N18.32 Chronic kidney disease, stage 3b; K59.00 Constipation, unspecified; I25.10 Atherosclerotic heart disease of native coronary artery without angina pectoris; E03.9 Hypothyroidism, unspecified; E78.5 Hyperlipidemia, unspecified; K21.9 Gastro-esophageal reflux disease without esophagitis; Z95.2 Presence of prosthetic heart valve; Z86.73 Personal history of transient ischemic attack (TIA), and cerebral infarction without residual deficits; Z87.19 Personal history of other diseases of the digestive system; M81.0 Age-related osteoporosis without current pathological fracture; Z79.01 Long term (current) use of anticoagulants; Z79.899 Other long term (current) drug therapy; Z95.1 Presence of aortocoronary bypass graft; Z87.442 Personal history of urinary calculi; Z66 Do not resuscitate; Z79.52 Long term (current) use of systemic steroids
CPT/HCPCS: 36415; 36600; 71045; 80048; 80053; 81001; 82803; 82962; 83605; 83735; 83880; 84145; 84484; 85025; 86038; 86200; 86225; 86235; 86256; 86431; 87040; 87070; 87077; 87086; 87186; 87205; 87428; 87449; 87635; 87641; 93005; 94002; 94003; 94640; 99251; 99285; J2185; J7050; A4216; G0463; J1940; U0003; U0005